=== PATIENT | female | born 1945 | race Caucasian/White ===

== ENCOUNTER 2018-01-03 07:42 | Observation (INO) | payer OTHER ==
[2018-01-03 09:08] LABS: Absolute Lymphocytes (CBC) 1.6 K/uL (0.7-4.9); Absolute Monocytes 0.5 K/uL (0.1-1.3); Absolute Neutrophil 3.8 K/uL (1.8-8.0); Basophils % 0.8 % (0-1.3); Eosinophils % 8.9 % (0-4.4); Hematocrit 34.5 % (36.0-45.0); Lymphocytes % 24.3 % (15.3-44.8); MCH 29.2 pg (27.0-35.0); MCV 89.6 fL (80-100); MPV 7.7 fL (7.6-11.3); Monocytes % 8.2 % (3.3-12.3); Potassium 3.8 mEq/L (3.6-5.0); RBC Red Blood Cell Count 3.85 M/uL (3.86-4.86)
[2018-01-03 09:14] LABS: Albumin 4.2 g/dL (3.2-5.5); Bilirubin Direct 0.1 mg/dL (0-0.2); Magnesium 1.7 mg/dL (1.8-2.5); Protein, Total 8.5 g/dL (6.0-8.3)
[2018-01-03 09:21] LABS: Protime INR 1.01
[2018-01-03] MEDS ORDERED: IPRATROPIUM BROM 0.5MG/2.5ML ONE (09:47)
[2018-01-03] MEDS ORDERED: ALBUTEROL 2.5 MG/3 ML NEB SOL ONE (09:47)
--- NOTE | 2018-01-03 10:17 | EDPHYS ---
Physician Documentation [facility] Name: Reena Gandhi Age: 72 yrs Sex: Female : 1945 Arrival Date: 01/03/2018 Time: 07:45 Bed 13 Private MD: out of town, doctor ED Physician Arvind Valverde HPI: 01/03 08:20 This 72 yrs old Female presents to ER via Ambulatory with complaints of cp Breathing Difficulty. 08:20 The patient has shortness of breath with light activity. Onset: The symptoms/episode cp began/occurred 2 day(s) ago. 08:20 Duration: The symptoms are continuous, and are steadily getting worse. cp 08:20 Associated signs and symptoms: Pertinent negatives: chest pain, productive cough, cp diaphoresis, dizziness, fever, hemoptysis. Severity of symptoms: in the emergency department the symptoms are unchanged despite home interventions. Historical: - Allergies: 08:09 Codeine; tw2 08:09 PENICILLINS; tw2 08:09 Sulfa (Sulfonamide Antibiotics); tw2 - Home Meds: 08:09 chlorthalidone 25 mg Oral tab 1 tab once daily [Active]; sertraline 100 mg oral tab 1 tw2 tab once daily [Active]; hyoscyamine sulfate 0.125 mg SL subl for rectal spasms [Active]; metoprolol tartrate 25 mg Oral tab 1 tab once daily [Active]; senna 8.6 mg oral tab 2 tabs once daily [Active]; benzonatate 100 mg oral cap 1 cap 3 times per day for Cough [Active]; levothyroxine 25 mcg tab 1 tab once daily for Hypothyroidism [Active]; Senexon-S 8.6-50 mg oral tab 2 tabs once daily [Active]; clopidogrel 75 mg oral tab 1 tab once daily [Active]; Lanoxin 125 mcg Oral tab 1 tab once daily [Active]; aspirin 81 mg Oral chew 1 tab once daily [Active]; furosemide 20 mg Oral tab 1 tab once daily [Active]; lisinopril 2.5 mg Oral tab 1 tab once daily [Active]; alprazolam 0.5 mg Oral tab 1 tab 3 times per day [Active]; gabapentin 300 mg oral cap 1 cap 3 times per day [Active]; - PMHx: 08:09 Cancer; TIA; Anxiety; COPD; CHF; tw2 - PSHx: 08:09 Appendectomy; Colostomy; Colostomy reversal; Mastectomy, Left; tw2 - Immunization history:: Adult Immunizations up to date. - Social history:: Smoking status: Patient uses tobacco products, 3-4 cigarettes/day. - Ebola Screening: : Patient denies travel to an Ebola-affected area in the 21 days before illness onset. ROS: 08:25 Constitutional: Negative for body aches, chills, fever, poor PO intake. cp 08:25 Eyes: Negative for injury, pain, redness, and discharge. cp 08:25 ENT: Negative for drainage from ear(s), ear pain, sore throat, difficulty swallowing, difficulty handling secretions. 08:25 Cardiovascular: Negative for chest pain, edema, palpitations. 08:25 Respiratory: Positive for shortness of breath, on exertion. Negative for cough, hemoptysis, wheezing. 08:25 Abdomen/GI: Negative for abdominal pain, nausea, vomiting, and diarrhea, anorexia, black/tarry stool, rectal bleeding. 08:25 Skin: Negative for cellulitis, rash. 08:25 Neuro: Negative for altered mental status, dizziness, headache, syncope, near syncope, weakness. 08:25 All other systems are negative. Exam: 08:32 Constitutional: The patient appears in no acute distress, alert, awake, cp non-diaphoretic, non-toxic, well developed. 08:32 Head/Face: Normocephalic, atraumatic. Eyes: Pupils equal round and reactive to light, cp extra-ocular motions intact. Lids and lashes normal. Conjunctiva and sclera are non-icteric and not injected. Cornea within normal limits. Periorbital areas with no swelling, redness, or edema. ENT: Nares patent. No nasal discharge, no septal abnormalities noted. Tympanic membranes are normal and external auditory canals are clear. Oropharynx with no redness, swelling, or masses, exudates, or evidence of obstruction, uvula midline. Mucous membranes moist. Neck: Trachea midline, no thyromegaly or masses palpated, and no cervical lymphadenopathy. Supple, full range of motion without nuchal rigidity, or vertebral point tenderness. No Meningismus. Chest/axilla: Normal chest wall appearance and motion. Nontender with no deformity. No lesions are appreciated. 08:32 Cardiovascular: Rate: normal, Rhythm: regular, Pulses: Pulses are 2+ in right radial artery and left radial artery. Edema: is not appreciated, JVD: is not appreciated. 08:32 Respiratory: the patient does not display signs of respiratory distress, Respirations: normal, no use of accessory muscles, no retractions, no splinting, no tachypnea, labored breathing, is not present, Breath sounds: decreased breath sounds, that are moderate, throughout, stridor, is not appreciated, wheezing: is not appreciated. 08:32 Abdomen/GI: Inspection: abdomen appears normal, Bowel sounds: active, all quadrants, Palpation: abdomen is soft and non-tender, in all quadrants. 08:32 Back: pain, is absent, ROM is normal. 08:32 Skin: cellulitis, is not appreciated, no rash present. 08:32 Neuro: Orientation: to person, place \T\ time. Mentation: lucid, able to follow commands, Cerebellar function: is grossly normal, Motor: moves all fours, strength is normal, Sensation: no obvious gross deficits, Gait: is steady. 08:51 ECG was reviewed by the Attending Physician. cp Vital Signs: 07:58 BP 134 / 78; Pulse 16; Resp 16; Temp 98; Pulse Ox 95% on R/A; Weight 43.09 kg (R); tw2 Height 5 ft. 2 in. (157.48 cm); Pain 0/10; 08:54 BP 120 / 86; Pulse 63; Resp 18; Pulse Ox 95% on R/A; tw2 10:12 BP 116 / 70; Pulse 61; Resp 19; Pulse Ox 100% on R/A; tw2 11:15 BP 120 / 84; Pulse 65; Resp 17; Pulse Ox 99% on R/A; tw2 12:28 BP 133 / 96; Pulse 71; Resp 17; Pulse Ox 98% on R/A; tw2 07:58 Body Mass Index 17.38 (43.09 kg, 157.48 cm) tw2 MDM: 07:59 Patient medically screened. cp 08:15 Differential diagnosis: Bronchitis CHF exacerbation, Chronic Obstructive Pulmonary cp Disease Myocardial Infarction pneumonia, Pneumothorax pulmonary edema, Pulmonary Embolism reactive airway disease, Unstable Angina. 10:00 Data reviewed: vital signs, nurses notes, lab test result(s), EKG, radiologic studies, cp plain films, and as a result, I will admit patient. 10:00 Test interpretation: by ED physician or midlevel provider: ECG, plain radiologic cp studies. 10:05 Physician consultation: Alla WILLIAMSON was contacted at 10:05, regarding cp admission, to the telemetry unit. patient's condition, and will see patient in ED, shortly. 01/03 08:07 Order name: Basic Metabolic Panel; Complete Time: 09:27 cp 01/03 09:27 Interpretation: Normal except: CL 100; BUN 23; CRE 1.03; GFR 53. cp 01/03 08:07 Order name: BNP; Complete Time: 09:27 cp 01/03 09:27 Interpretation: Abnormal: BNP 345. cp 01/03 08:07 Order name: CBC with Diff; Complete Time: 09:27 cp 01/03 09:28 Interpretation: Normal except: RBC 3.85; HGB 11.2; HCT 34.5; RDW 15.9; EOSINOPHIL % cp 8.9; EOSA 0.6. 01/03 08:07 Order name: Ckmb; Complete Time: 09:27 cp 01/03 08:07 Order name: CPK; Complete Time: 09:27 cp 01/03 08:07 Order name: LFT's; Complete Time: 09:27 cp 01/03 09:28 Interpretation: Normal except: ALK 171; TP 8.5; GLOB 4.3; A/G 1.0. cp 01/03 08:07 Order name: Magnesium; Complete Time: 09:27 cp 01/03 09:28 Interpretation: Abnormal: MG 1.7. cp 01/03 08:07 Order name: PT-INR; Complete Time: 09:27 cp 01/03 08:07 Order name: Ptt, Activated; Complete Time: 09:27 cp 01/03 08:07 Order name: Troponin (emerg Dept Use Only); Complete Time: 09:27 cp 01/03 08:07 Order name: XRAY Chest (1 view); Complete Time: 11:47 cp 01/03 09:14 Order name: Urine Dipstick--Ancillary (enter results) bd 01/03 10:20 Order name: Add On-Lab snw 01/03 10:55 Order name: Digoxin Level; Complete Time: 11:47 EDMS 01/03 08:07 Order name: EKG; Complete Time: 08:08 cp 01/03 08:07 Order name: Cardiac monitoring; Complete Time: 08:49 cp 01/03 08:07 Order name: EKG - Nurse/Tech; Complete Time: 10:17 cp 01/03 08:07 Order name: IV Saline Lock; Complete Time: 10:17 cp 01/03 08:07 Order name: Labs collected and sent; Complete Time: 10:17 cp 01/03 08:07 Order name: O2 Per Protocol; Complete Time: 10: cp 01/03 08:07 Order name: O2 Sat Monitoring; Complete Time: 10:17 cp 01/03 08:07 Order name: Urine Dipstick-Ancillary (obtain specimen); Complete Time: 08:35 cp 01/03 11:19 Order name: Diet 2 Gm Sodium; Complete Time: 11:19 tw2 EC:51 Rate is 59 beats/min. Rhythm is regular. RI interval is normal. QRS interval is normal. cp QT interval is normal. T waves are Inverted in lead V6. No ST changes noted. Interpreted by me. Reviewed by me. Administered Medications: 09:59 Drug: Albuterol 2.5 mg Route: Inhalation; tw2 10:25 Follow up: Response: No adverse reaction tw2 09:59 Drug: AtroVENT Aerosol 0.5 mg Route: Inhalation; tw2 10:25 Follow up: Response: No adverse reaction tw2 10:10 CANCELLED (Physician Discretion): Lasix 40 mg IVP once cp 10:24 Drug: Magnesium 400 mg Route: PO; tw2 10:25 Follow up: Response: No adverse reaction tw2 10:24 Drug: Lasix 20 mg Route: IVP; Site: right forearm; tw2 11:52 Follow up: Response: No adverse reaction tw2 Disposition: 01/03/18 10:16 Hospitalization ordered by Carson Leger for Observation. Preliminary diagnosis are Pulmonary edema, Dyspnea. - Bed requested for Telemetry/MedSurg (observation). - Status is Observation. tw2 - Condition is Stable. - Problem is an acute exacerbation. - Symptoms are unchanged. UTI on Admission? No Addendum: 01/11/2018 11:52 Co-signature as Attending Physician, Arvind Valverde MD Available for consultation at p s1 all times. . Signatures: Dispatcher [employer] Sherine Amaya RN RN dw Alla Mendez, [employer]IPPER MACHINE-C [employer]IPPER MACHINE-Csnw Jose Nieves PA PA cp Yaritza Gooden, RN RN tw2 Arvind Valverde MD MD ps1 Corrections: (The following items were deleted from the chart) 01/03 09:28 09:27 Normal except: RBC 3.85; HGB 11.2; HCT 34.5; RDW 15.9; EOSINOPHIL % 8.9. cp cp 10:10 10:10 Lasix 40 mg IVP once ordered. cp cp 11:46 10:16 Hospitalization Ordered by CarsonSherin GARY for Observation. Preliminary dw diagnosis is Pulmonary edema; Dyspnea. Bed requested for Telemetry/MedSurg (observation). Status is Observation. Condition is Stable. Problem is an acute exacerbation. Symptoms are unchanged. UTI on Admission? No. cp 13:09 11:46 01/03/2018 10:16 Hospitalization Ordered by CarsonSherin GARY for Observation. tw2 Preliminary diagnosis is Pulmonary edema; Dyspnea. Bed requested for Telemetry/MedSurg (observation). Status is Observation. Condition is Stable. Problem is an acute exacerbation. Symptoms are unchanged. UTI on Admission? No. dw
--- NOTE | 2018-01-03 10:17 | ER ---
Nurse's Notes [facility] Name: Reena Gandhi Age: 72 yrs Sex: Female : 1945 Arrival Date: 01/03/2018 Time: 07:45 Bed 13 Private MD: out of town, doctor Diagnosis: Pulmonary edema;Dyspnea Presentation: 01/03 07:57 Presenting complaint: Patient states: SOB x2days, cant lay flat. Transition of care: tw2 patient was not received from another setting of care. Onset of symptoms was January 03, 2018. Risk Assessment: Do you want to hurt yourself or someone else? Patient reports no desire to harm self or others. Initial Sepsis Screen: Does the patient meet any 2 criteria? No. Patient's initial sepsis screen is negative. Does the patient have a suspected source of infection? No. Patient's initial sepsis screen is negative. Care prior to arrival: None. 07:57 Method Of Arrival: Ambulatory tw2 07:57 Acuity: MARKIE 3 tw2 Triage Assessment: 08:59 General: Appears in no apparent distress. Respiratory: Reports shortness of breath at tw2 rest Onset: The symptoms/episode began/occurred 2 days ago, the patient has mild shortness of breath. Historical: - Allergies: 08:09 Codeine; tw2 08:09 PENICILLINS; tw2 08:09 Sulfa (Sulfonamide Antibiotics); tw2 - Home Meds: 08:09 chlorthalidone 25 mg Oral tab 1 tab once daily [Active]; sertraline 100 mg oral tab 1 tw2 tab once daily [Active]; hyoscyamine sulfate 0.125 mg SL subl for rectal spasms [Active]; metoprolol tartrate 25 mg Oral tab 1 tab once daily [Active]; senna 8.6 mg oral tab 2 tabs once daily [Active]; benzonatate 100 mg oral cap 1 cap 3 times per day for Cough [Active]; levothyroxine 25 mcg tab 1 tab once daily for Hypothyroidism [Active]; Senexon-S 8.6-50 mg oral tab 2 tabs once daily [Active]; clopidogrel 75 mg oral tab 1 tab once daily [Active]; Lanoxin 125 mcg Oral tab 1 tab once daily [Active]; aspirin 81 mg Oral chew 1 tab once daily [Active]; furosemide 20 mg Oral tab 1 tab once daily [Active]; lisinopril 2.5 mg Oral tab 1 tab once daily [Active]; alprazolam 0.5 mg Oral tab 1 tab 3 times per day [Active]; gabapentin 300 mg oral cap 1 cap 3 times per day [Active]; - PMHx: 08:09 Cancer; TIA; Anxiety; COPD; CHF; tw2 - PSHx: 08:09 Appendectomy; Colostomy; Colostomy reversal; Mastectomy, Left; tw2 - Immunization history:: Adult Immunizations up to date. - Social history:: Smoking status: Patient uses tobacco products, 3-4 cigarettes/day. - Ebola Screening: : Patient denies travel to an Ebola-affected area in the 21 days before illness onset. Screenin:59 Abuse screen: Denies threats or abuse. Nutritional screening: No deficits noted. tw2 Tuberculosis screening: No symptoms or risk factors identified. Fall Risk None identified. Assessment: 08:00 General: Appears in no apparent distress. slender, well groomed, Behavior is calm, tw2 cooperative, appropriate for age. Neuro: Level of Consciousness is awake, alert, obeys commands, Oriented to person, place, time. Cardiovascular: Heart tones S1 S2 Capillary refill < 3 seconds Patient's skin is warm and dry. Rhythm is regular. Respiratory: Airway is patent Respiratory effort is even, unlabored, Respiratory pattern is regular, symmetrical, Breath sounds are clear bilaterally. GI: No signs and/or symptoms were reported involving the gastrointestinal system. Abdomen is flat, Bowel sounds present X 4 quads. : No signs and/or symptoms were reported regarding the genitourinary system. EENT: No signs and/or symptoms were reported regarding the EENT system. Derm: No signs and/or symptoms reported regarding the dermatologic system. Musculoskeletal: Circulation, motion, and sensation intact. Range of motion: intact in all extremities. 08:55 Reassessment: Patient appears in no apparent distress at this time. No changes from tw2 previously documented assessment. Patient and/or family updated on plan of care and expected duration. Pain level reassessed. Patient is alert, oriented x 3, equal unlabored respirations, skin warm/dry/pink. 08:58 Pain: Denies pain. tw2 10:12 Reassessment: Patient appears in no apparent distress at this time. No changes from tw2 previously documented assessment. Patient and/or family updated on plan of care and expected duration. Pain level reassessed. Patient is alert, oriented x 3, equal unlabored respirations, skin warm/dry/pink. 11:15 Reassessment: Patient appears in no apparent distress at this time. No changes from tw2 previously documented assessment. Patient and/or family updated on plan of care and expected duration. Pain level reassessed. Patient is alert, oriented x 3, equal unlabored respirations, skin warm/dry/pink. 12:29 Reassessment: Patient appears in no apparent distress at this time. No changes from tw2 previously documented assessment. Patient and/or family updated on plan of care and expected duration. Pain level reassessed. Patient is alert, oriented x 3, equal unlabored respirations, skin warm/dry/pink. 12:48 Reassessment: Patient appears in no apparent distress at this time. No changes from tw2 previously documented assessment. Patient and/or family updated on plan of care and expected duration. Pain level reassessed. Patient is alert, oriented x 3, equal unlabored respirations, skin warm/dry/pink. Vital Signs: 07:58 BP 134 / 78; Pulse 16; Resp 16; Temp 98; Pulse Ox 95% on R/A; Weight 43.09 kg (R); tw2 Height 5 ft. 2 in. (157.48 cm); Pain 0/10; 08:54 BP 120 / 86; Pulse 63; Resp 18; Pulse Ox 95% on R/A; tw2 10:12 BP 116 / 70; Pulse 61; Resp 19; Pulse Ox 100% on R/A; tw2 11:15 BP 120 / 84; Pulse 65; Resp 17; Pulse Ox 99% on R/A; tw2 12:28 BP 133 / 96; Pulse 71; Resp 17; Pulse Ox 98% on R/A; tw2 07:58 Body Mass Index 17.38 (43.09 kg, 157.48 cm) tw2 ED Course: 07:45 Patient arrived in ED. mr 07:46 out of town, doctor is Private Physician. mr 07:53 Yaritza Gooden, GIDEON is Primary Nurse. tw2 07:58 Triage completed. tw2 07:58 Arvind Valverde MD is Attending Physician. ps1 07:58 oJse Nieves PA is PHCP. cp 07:58 Arm band placed on. tw2 07:59 Placed in gown. Bed in low position. Adult w/ patient. monitoring coordinator on. Pulse ox on. tw2 NIBP on. 08:25 XRAY Chest (1 view) In Process Unspecified. EDPR 08:34 Urine collected: clean catch specimen, cloudy. 5 08:35 Missed attempt(s): 22 gauge in right antecubital area. Bleeding controlled, band aid tw2 applied, catheter tip intact. Inserted saline lock: 22 gauge in right forearm, using aseptic technique. Blood collected. 08:49 EKG done, by ED staff, reviewed by Arvind Valverde MD. [facility] 08:50 Warm blanket given. 5 09:09 No provider procedures requiring assistance completed. tw2 10:15 Carson Leger DO is Hospitalizing Provider. cp 11:51 Awaiting: attempted to call report at this time, per Constantine Prince nurse is not ready to [facility] receive report at this time, needs 30 minutues. 12:27 Awaiting: attempted to call report, per Constantine Prince the nurse is with her other pt at [facility] this time and will have to call me back. 12:48 Patient admitted, IV remains in place. tw2 Administered Medications: 09:59 Drug: Albuterol 2.5 mg Route: Inhalation; tw2 10:25 Follow up: Response: No adverse reaction tw2 09:59 Drug: AtroVENT Aerosol 0.5 mg Route: Inhalation; tw2 10:25 Follow up: Response: No adverse reaction tw2 10:10 CANCELLED (Physician Discretion): Lasix 40 mg IVP once cp 10:24 Drug: Magnesium 400 mg Route: PO; tw2 10:25 Follow up: Response: No adverse reaction tw2 10:24 Drug: Lasix 20 mg Route: IVP; Site: right forearm; tw2 11:52 Follow up: Response: No adverse reaction tw2 Outcome: 10:16 Decision to Hospitalize by Provider. cp 12:58 Admitted to Med/surg accompanied by constantine, via wheelchair, with chart, Report called to tw2 GIDEON Busby 12:58 Condition: stable 12:58 Instructed on the need for admit. 13:09 Patient left the ED. tw2 Signatures: Dispatcher [employer] ANANYAPR Tamayo, Jose Lockwood PA PA cp Wise, Tara, RN RN 2 Dandre [facility]5 Arvind Valverde MD MD ps1 Corrections: (The following items were deleted from the chart) 08:59 08:00 Pain: Complains of pain in right arm tw2 tw2 :59 08:00 Musculoskeletal: Circulation, motion, and sensation intact. Range of motion: tw2 intact in all extremities, tw2
[2018-01-03] MEDS ORDERED: FUROSEMIDE 20 MG/ 2ML VIAL ONE (10:20)
[2018-01-03] MEDS ORDERED: MAGNESIUM OXIDE 400 MG TAB ONE (10:20)
--- NOTE | 2018-01-03 11:27 | RAD REPORT ---
EXAM DESCRIPTION: RAD - Chest Single View - 01/03/2018 8:25 am CLINICAL HISTORY: Shortness of breath, smoking history, prior cancer history with left mastectomy COMPARISON: None. TECHNIQUE: AP portable chest image was obtained 0820 hours . FINDINGS: Lung volumes are normal. Very extensive interstitial lung disease present. Baseline for th e patient is unknown. Patient likely has a significant baseline fibrosis with a superimposed intersti tial edema or infiltrate pattern. In the left upper lung field at the level of the aortic arch there is a 10 millimeter nodule identified. Additional smaller nodules could be present an mass by the armor senior sergeant navya pattern borderline cardiomegaly is present. Vasculature within normal limits. No measurable pleur al effusion and no pneumothorax. No gross bony abnormality seen. No acute aortic finding. Calcificati ons are present. Surgical clips are seen near the left axilla. IMPRESSION: Extensive interstitial lung disease pattern. Baseline pattern is unknown. This could all be chronic disease. However, superimposed interstitial ed donnie or infiltrate is certainly possible. Left upper lobe pulmonary nodule. In a patient with malignant history, a metastatic nodule cannot be excluded. If no old outside imaging is available, follow-up CT chest imaging would be suggested.
--- NOTE | 2018-01-03 12:30 | P.HP ---
Certification for Inpatient Patient admitted to: Observation With expected LOS: <2 Midnights Patient will require the following post-hospital care: None Practitioner: I am a practitioner with admitting privileges, knowledge of patient current condition, hospital course, and medical plan of care. Services: Services provided to patient in accordance with Admission requirements found in Title 42 Section 412.3 of the Code of Federal Regulations <Alla Mendez - Last Filed: 01/03/18 12:18> Patient admitted to: Observation With expected LOS: <2 Midnights Patient will require the following post-hospital care: None Practitioner: I am a practitioner with admitting privileges, knowledge of patient current condition, hospital course, and medical plan of care. Services: Services provided to patient in accordance with Admission requirements found in Title 42 Section 412.3 of the Code of Federal Regulations <Carson Leger - Last Filed: 01/03/18 13:40> Patient History Date of Service: 01/03/18 Primary Care Provider: Dr. Orta Reason for admission: Shortness of breath, CHF History of Present Illness: Pt states for the past 2 days she has had dyspnea on exertion. Historically, pt presented to [place] with SOB. NSTEMI dx, pt given TNK, asa, plavix and life flight took her to [facility]. She had two stents placed with subsequent right upper lobe bleeding. She was dc'd post a 12 day admission. Pt was home for 5 days, 2 of which she describes terrible SOB and rib squeezing. She was life flighted to [facility] and rec'd two additional stents. She had ARIANNE with note of global hypokinesia, EF 28-35%. Pt was discharged to home on <AndreaAlla morales - Last Filed: 01/03/18 12:18> Date of Service: 01/03/18 History of Present Illness: 72-year-old female presented emergency room with shortness of breath. Patient with 2 previous hospitalizations requiring stent placement. Patient is had a total of 4 stents. On her last hospitalization to [facility] in [place] she had a transesophageal echocardiogram showing global hypokinesis. Ejection fraction was about 28-35%. Patient was discharged on 11/27/2017. Today she presented to the ER with shortness of breath. No nausea or vomiting noted. No edema to the lower extremities noted. When I saw the patient she was without any significant distress. She was eating lunch. Patient had reported some chest pain earlier. Patient had normal troponin. BNP was slightly elevated. Patient with mild renal insufficiency, hypo magnesium and anemia. Chest x-ray showed no volume overload. Left upper lobe Pulmonary nodule noted Home medications list reviewed: Yes - Past Medical/Surgical History Diabetic: No -: CAD with 4 stents -: Hypothyroidism -: Hypertension -: Hyperlipidemia -: CHF, systolic dysfunction. EF 28% -: Depression with anxiety -: COPD -: Anemia -: Recent heart catheterizations x2, 4 stents placed Psychosocial/ Personal History: Patient lives at home - Family History Family History: Reviewed- Non-Contributory - Social History Smoking Status: Former smoker Counseled patient to stop smoking for: less than 10 minutes Smoking therapy provided: Yes Patient receptive to therapy: Yes Alcohol use: No CD- Drugs: No Caffeine use: No Place of Residence: Home <Carson Leger - Last Filed: 01/03/18 13:40> Allergies Penicillins Allergy (Severe, Verified 10/23/16 12:44) Itching/Hives/Rash codeine Allergy (Intermediate, Verified 10/23/16 12:44) Itching/Hives/Rash Sulfa (Sulfonamide Antibiotics) Adverse Reaction (Mild, Verified 10/23/16 12:44) Nausea/Vomiting Home Medications: Levothyroxine Sodium 50 mcg PO DAILY 09/08/16 Tramadol HCl [Ultram] 50 mg PO QIDP PRN 09/08/16 Review of Systems General: Malaise Eyes: Unremarkable ENT: Unremarkable Respiratory: SOB with Excertion, Other (no hemoptysis) Cardiovascular: Other (denies pain but describes uncomfortable feeling) Gastrointestinal: Unremarkable Genitourinary: Unremarkable Musculoskeletal: Unremarkable Integumentary: Unremarkable Neurological: Unremarkable <Alla Mendez - Last Filed: 01/03/18 12:18> General: Malaise Eyes: Unremarkable ENT: Unremarkable Respiratory: SOB with Excertion, Other Cardiovascular: Other Gastrointestinal: Unremarkable Genitourinary: Unremarkable Musculoskeletal: Unremarkable Integumentary: Unremarkable Neurological: Unremarkable Lymphatics: Unremarkable <Carson Leger - Last Filed: 01/03/18 13:40> Physical Examination - Vital Signs Temperature: 98 F Blood Pressure: 134/78 Pulse: 78 Respirations: 18 Pulse Ox (%): 98 - Physical Exam General: Alert, Oriented x3, Cooperative HEENT: Atraumatic, Normocephalic Neck: Supple, 2+ carotid pulse no bruit, JVD not distended Respiratory: Clear to auscultation bilaterally Cardiovascular: No edema, Normal pulses, Regular rate/rhythm, Normal S1 S2 Capillary refill: <2 Seconds Gastrointestinal: Normal bowel sounds, Soft and benign, Non-distended, Other ( thin) Musculoskeletal: No clubbing, No swelling, No contractures, No tenderness Integumentary: No rashes Neurological: Normal speech Lymphatics: No axilla or inguinal lymphadenopathy External genitalia: Deferred Rectal: Deferred - Studies Laboratory Data (last 24 hrs) 01/03/18 08:35: PT 11.9, INR 1.01, APTT 28.6 01/03/18 08:35: WBC 6.6, Hgb 11.2 L, Hct 34.5 L, Plt Count 301 01/03/18 08:35: B-Natriuretic Peptide 345 H 01/03/18 08:35: Sodium 137, Potassium 3.8, BUN 23 H, Creatinine 1.03 H, Glucose 99, Magnesium 1.7 L, Total Bilirubin 1.0, AST 21, ALT 19, Alkaline Phosphatase 171 H <Alla Mendez - Last Filed: 01/03/18 12:18> - Physical Exam General: Alert, In no apparent distress, Oriented x3, Cooperative HEENT: Atraumatic, Normocephalic, PERRLA Neck: Supple, 2+ carotid pulse no bruit, JVD not distended Respiratory: Clear to auscultation bilaterally Cardiovascular: No edema, Normal pulses, Regular rate/rhythm, Normal S1 S2 Capillary refill: <2 Seconds Gastrointestinal: Normal bowel sounds, Soft and benign, Non-distended, No masses , No rebound, No guarding, Other Musculoskeletal: No clubbing, No swelling, No contractures, No tenderness Integumentary: No rashes, No tenderness/swelling, No erythema, No warmth, No cyanosis Neurological: Normal speech, Normal strength at 5/5 x4 extr, Normal tone Lymphatics: No axilla or inguinal lymphadenopathy - Studies Laboratory Data (last 24 hrs) 01/03/18 08:35: PT 11.9, INR 1.01, APTT 28.6 01/03/18 08:35: WBC 6.6, Hgb 11.2 L, Hct 34.5 L, Plt Count 301 01/03/18 08:35: B-Natriuretic Peptide 345 H 01/03/18 08:35: Sodium 137, Potassium 3.8, BUN 23 H, Creatinine 1.03 H, Glucose 99, Magnesium 1.7 L, Total Bilirubin 1.0, AST 21, ALT 19, Alkaline Phosphatase 171 H <Carson Leger - Last Filed: 01/03/18 13:40> Assessment and Plan - Problems (Diagnosis) (1) ACS (acute coronary syndrome) Current Visit: No Status: Acute (2) COPD (chronic obstructive pulmonary disease) Current Visit: Yes Status: Acute Plan: O2 per protocol, continue inhaled medications, promote pulmonary toilet, DVT prophylaxis Qualifiers: COPD type: COPD with acute exacerbation Qualified Code(s): J44.1 - Chronic obstructive pulmonary disease with (acute) exacerbation (3) Renal insufficiency Current Visit: No Status: Acute (4) CHF (congestive heart failure) Current Visit: Yes Status: Acute Plan: Continue lasix, assess for improvement in symptoms, promote best EF possible with medication, consult Cardiology Qualifiers: Heart failure type: combined systolic and diastolic Heart failure chronicity: chronic Qualified Code(s): I50.42 - Chronic combined systolic ( congestive) and diastolic (congestive) heart failure - Plan Admit for 23 hour obs. Repeat troponin, EKG reading, consult cardiology, Lasix Plan to discharge in: 24 Hours - Advance Directives Does patient have a Living Will: No Does patient have a Durable POA for Healthcare: No - Code Status/Comfort Care Code Status Assessed: Yes Code Status: Full Code <Alla Mendez - Last Filed: 01/03/18 12:18> - Problems (Diagnosis) (1) Chest pain Current Visit: Yes Status: Acute Plan: Will monitor cardiac enzymes. Recent transesophageal echo shows ejection fraction of about 30%. Cardiology consulted. Chest x-ray shows no volume overload. Will continue with her medications. Qualifiers: Chest pain type: unspecified Qualified Code(s): R07.9 - Chest pain, unspecified (2) Shortness of breath Current Visit: Yes Status: Acute Plan: Patient likely with underlying COPD. Will continue with her medication. Chest x-ray shows left upper lobe nodule. Will consult pulmonology to further assess. Patient may require home oxygen. (3) Anemia Current Visit: Yes Status: Chronic Plan: Likely of chronic disease. Will monitor closely. Qualifiers: Anemia type: other cause Other causes of anemia: chronic disease, other Qualified Code(s): D63.8 - Anemia in other chronic diseases classified elsewhere (4) Hypertension Current Visit: Yes Status: Chronic Plan: Will continue with her medication. Qualifiers: Hypertension type: essential hypertension Qualified Code(s): I10 - Essential (primary) hypertension (5) CAD (coronary artery disease) Current Visit: Yes Status: Chronic Plan: Will monitor cardiac enzymes. Patient with recent hospitalizations x2 requiring a total 4 stents. Cardiology consulted. Qualifiers: Coronary Disease-Associated Artery/Lesion type: unspecified vessel or lesion type Associated angina: angina presence unspecified (6) Hypothyroidism Current Visit: Yes Status: Chronic Plan: Continue with her medication. Will check tsh Qualifiers: Hypothyroidism type: unspecified Qualified Code(s): E03.9 - Hypothyroidism , unspecified (7) Hyperlipidemia Current Visit: Yes Status: Chronic Plan: Will check fasting lipid panel, will continue with medication Qualifiers: Hyperlipidemia type: unspecified Qualified Code(s): E78.5 - Hyperlipidemia , unspecified (8) Depression with anxiety Current Visit: Yes Status: Chronic Plan: Continue with her medication (9) CHF (congestive heart failure) Current Visit: Yes Status: Acute Plan: Will continue with her Lasix. Will teach on 1500 cc per day fluid restriction. No significant demand noted. No overload noted. Cardiology consulted Qualifiers: Heart failure type: combined systolic and diastolic Heart failure chronicity: chronic Qualified Code(s): I50.42 - Chronic combined systolic ( congestive) and diastolic (congestive) heart failure (10) COPD (chronic obstructive pulmonary disease) Current Visit: Yes Status: Acute Plan: Will start low-dose steroid. Will continue with COPD treatment. Pulmonology consulted. Will check to see if the patient may require home oxygen. Qualifiers: COPD type: COPD with acute exacerbation Qualified Code(s): J44.1 - Chronic obstructive pulmonary disease with (acute) exacerbation (11) Pulmonary nodule Current Visit: Yes Status: Acute Plan: Left upper lobe pulmonary nodule noted. Pulmonology consulted. Patient may require repeat CT scan to further assess Discharge Plan: Home Plan to discharge in: 24 Hours - Advance Directives Does patient have a Living Will: No Does patient have a Durable POA for Healthcare: No - Code Status/Comfort Care Code Status Assessed: Yes Code Status: Full Code Physician Review: Patient Assessed, Agree with Above Assessment and Plan Time Spent Managing Pts Care (In Minutes): 55 <Carson Leger - Last Filed: 01/03/18 13:40>
[2018-01-03] MEDS ORDERED: ACETAMINOPHEN 500 MG TAB PO PRN (13:18)
[2018-01-03] MEDS ORDERED: DIGOXIN 0.125 MG TABLET PO ONE (13:18)
[2018-01-03] MEDS ORDERED: ALPRAZOLAM 0.25 MG TABLET PO PRN (13:18)
[2018-01-03 13:35] VITALS: BMI 17.4
[2018-01-03] MEDS ORDERED: MIDODRINE HCL 5 MG TABLET PO SCH (14:00)
[2018-01-03 14:29] LABS: Urine Blood NEGATIVE (NEG); Urine Glucose NEGATIVE (NEG); Urine Protein NEGATIVE (NEG); Urine Specific Gravity 1.015 (1.005-1.030)
[2018-01-03 15:10] VITALS: O2SAT 96
[2018-01-03] MEDS ORDERED: ENOXAPARIN 30 MG/0.3 ML SQ SCH (17:00)
[2018-01-03] MEDS ORDERED: METOPROLOL TAR 25 MG TAB PO SCH ×3 (18:00)
--- NOTE | 2018-01-03 19:03 | P.DS ---
Admission Date: 01/03/18 Discharge Date: 01/03/18 Primary Care Provider: Dr. Orta Disposition: ROUTINE DISCHARGE Discharge Condition: GOOD Reason for Admission: Shortness of breath, CHF Consultations: Cardiology-Dr. Back Procedures: Chest x-ray: FINDINGS: Lung volumes are normal. Very extensive interstitial lung disease present. Baseline for the patient is unknown. Patient likely has a significant baseline fibrosis with a superimposed interstitial edema or infiltrate pattern. In the left upper lung field at the level of the aortic arch there is a 10 millimeter nodule identified. Additional smaller nodules could be present an mass by the chronic pattern borderline cardiomegaly is present. Vasculature within normal limits. No measurable pleural effusion and no pneumothorax. No gross bony abnormality seen. No acute aortic finding. Calcifications are present. Surgical clips are seen near the left axilla. IMPRESSION: Extensive interstitial lung disease pattern. Baseline pattern is unknown. This could all be chronic disease. However, superimposed interstitial edema or infiltrate is certainly possible. Left upper lobe pulmonary nodule. In a patient with malignant history, a metastatic nodule cannot be excluded. If no old outside imaging is available, follow-up CT chest imaging would be suggested. - Problems (1) Chest pain Current Visit: Yes Status: Acute Qualifiers: Chest pain type: unspecified Qualified Code(s): R07.9 - Chest pain, unspecified (2) Shortness of breath Current Visit: Yes Status: Acute (3) Anemia Current Visit: Yes Status: Chronic Qualifiers: Anemia type: other cause Other causes of anemia: chronic disease, other Qualified Code(s): D63.8 - Anemia in other chronic diseases classified elsewhere (4) Hypertension Current Visit: Yes Status: Chronic Qualifiers: Hypertension type: essential hypertension Qualified Code(s): I10 - Essential (primary) hypertension (5) CAD (coronary artery disease) Current Visit: Yes Status: Chronic Qualifiers: Coronary Disease-Associated Artery/Lesion type: unspecified vessel or lesion type Associated angina: angina presence unspecified (6) Hypothyroidism Current Visit: Yes Status: Chronic Qualifiers: Hypothyroidism type: unspecified Qualified Code(s): E03.9 - Hypothyroidism , unspecified (7) Hyperlipidemia Current Visit: Yes Status: Chronic Qualifiers: Hyperlipidemia type: unspecified Qualified Code(s): E78.5 - Hyperlipidemia , unspecified (8) Depression with anxiety Current Visit: Yes Status: Chronic (9) CHF (congestive heart failure) Current Visit: Yes Status: Acute Qualifiers: Heart failure type: combined systolic and diastolic Heart failure chronicity: chronic Qualified Code(s): I50.42 - Chronic combined systolic ( congestive) and diastolic (congestive) heart failure (10) COPD (chronic obstructive pulmonary disease) Current Visit: Yes Status: Acute Qualifiers: COPD type: COPD with acute exacerbation Qualified Code(s): J44.1 - Chronic obstructive pulmonary disease with (acute) exacerbation (11) Pulmonary nodule Current Visit: Yes Status: Acute Brief History of Present Illness: 72-year-old female presented emergency room with shortness of breath. Patient with 2 previous hospitalizations requiring stent placement. Patient is had a total of 4 stents. On her last hospitalization to [facility] in [place] she had a transesophageal echocardiogram showing global hypokinesis. Ejection fraction was about 28-35%. Patient was discharged on 11/27/2017. Today she presented to the ER with shortness of breath. No nausea or vomiting noted. No edema to the lower extremities noted. When I saw the patient she was without any significant distress. She was eating lunch. Patient had reported some chest pain earlier. Patient had normal troponin. BNP was slightly elevated. Patient with mild renal insufficiency, hypo magnesium and anemia. Chest x-ray showed no volume overload. Left upper lobe Pulmonary nodule noted Hospital Course: The patient did well in the course of her stay. Patient was evaluated by cardiology. No intervention is needed at this time. Patient has acute on chronic combined CHF. Patient had not been taking her Lasix on a regular basis. Case discussed at length with cardiology. Patient will be discharged on Lasix 20 mg 1 pill daily. Patient will also continue with chlorthalidone 25 mg 1 pill once daily. Recommendation is to continue a 1500 cc per day fluid restriction and low-salt diet. Recommendations for the patient to monitor her weight daily. If her weight increases by more than 5 lb she is to contact her PCP or cardiology for recommendation. Patient will follow up with cardiology on Thursday at 9:00 a.m. to follow care. Patient has CAD. Patient had recent hospitalizations in [place] requiring a total 4 stents. Cardiology will follow up with patient on Thursday. At discharge patient will continue with aspirin 81 mg 1 pill daily and Plavix 75 mg 1 pill daily. Patient has underlying COPD. Patient may have had a mild exacerbation. At discharge patient will continue with prednisone 10 mg 1 pill twice daily for 5 days then 1 pill once daily for 5 days. At discharge patient will continue with COPD treatment-Symbicort 2 puffs twice daily and Pro air 2 puffs 3 times a day as needed for shortness of breath. Recommendation is for the patient to follow up with pulmonology as an outpatient to further establish care and to continue her care.. Patient has hypertension. Patient will continue with her medication-lisinopril 2.5 mg 1 pill once daily and metoprolol 25 mg 1 pill once daily. Recommendation is to maintain blood pressures less 150/80. Further adjustment can be done by her PCP. Patient had abnormal chest x-ray showing left upper lobe pulmonary nodule. Recommendation is for the patient to establish care with pulmonology as an outpatient to further monitor. Patient may require outpatient CT scan to further evaluate. Patient has hypothyroidism. She will continue with her medication-Levoxyl 25 mcg daily. Patient has hyperlipidemia, patient will continue with medication-Lipitor 40 mg 1 pill once daily Vital Signs/Physical Exam: Temp Pulse Resp BP Pulse Ox 97.9 F 64 18 121/63 93 01/03/18 16:00 01/03/18 16:00 01/03/18 16:00 01/03/18 16:00 01/03/18 16:00 General: Alert, In no apparent distress, Oriented x3, Cooperative HEENT: Atraumatic, Mucous membr. moist/pink Neck: Supple Respiratory: Clear to auscultation bilaterally, Normal air movement Cardiovascular: Normal pulses, Regular rate/rhythm Gastrointestinal: Normal bowel sounds, Soft and benign, Non-distended, No tenderness, No masses, No rebound, No guarding Musculoskeletal: No erythema, No tenderness, No warmth Integumentary: No tenderness/swelling, No erythema, No warmth, No cyanosis Neurological: Normal speech, Normal strength at 5/5 x4 extr, Normal tone, Normal affect Lymphatics: No axilla or inguinal lymphadenopathy Laboratory Data at Discharge: WBC 6.6 K/uL (4.3-10.9) 01/03/18 08:35 Hgb 11.2 g/dL (12.0-15.0) L 01/03/18 08:35 Hct 34.5 % (36.0-45.0) L 01/03/18 08:35 Plt Count 301 K/uL (152-406) 01/03/18 08:35 PT 11.9 SECONDS (9.5-12.5) 01/03/18 08:35 INR 1.01 01/03/18 08:35 APTT 28.6 SECONDS (24.3-36.9) 01/03/18 08:35 Sodium 137 mEq/L (135-145) 01/03/18 08:35 Potassium 3.8 mEq/L (3.6-5.0) 01/03/18 08:35 BUN 23 mg/dL (6-20) H 01/03/18 08:35 Creatinine 1.03 mg/dL (0.44-1.00) H 01/03/18 08:35 Glucose 99 mg/dL (65-120) 01/03/18 08:35 Magnesium 1.7 mg/dL (1.8-2.5) L 01/03/18 08:35 Total Bilirubin 1.0 mg/dL (0.3-1.2) 01/03/18 08:35 AST 21 IU/L (10-42) 01/03/18 08:35 ALT 19 IU/L (10-60) 01/03/18 08:35 Alkaline Phosphatase 171 IU/L (42-121) H 01/03/18 08:35 Troponin I 0.03 ng/mL (<0.03) 01/03/18 13:30 B-Natriuretic Peptide 345 pg/ml (<=100) H 01/03/18 08:35 Home Medications: Levothyroxine Sodium 25 mcg PO DAILY 09/08/16 Tramadol HCl [Ultram] 50 mg PO QIDP PRN 09/08/16 Albuterol Sulfate [Proair Hfa] 8.5 gm IH TID PRN #1 hfa.[email or web address] 01/03/18 Alprazolam 1 tab PO TID 01/03/18 Aspirin [Aspirin EC 81 MG] 1 tab PO DAILY 01/03/18 Atorvastatin Calcium [Lipitor] 40 mg PO DAILY #30 tablet 01/03/18 Benzonatate [Tessalon Perle*] 100 mg PO TID 01/03/18 Budesonide/Formoterol Fumarate [Symbicort 160-4.5 Mcg Inhaler] 2 puff IH BID #1 hfa.aer.ad 01/03/18 Chlorthalidone 1 tab PO DAILY 01/03/18 Clopidogrel Bisulfate [Plavix*] 1 tab PO DAILY 01/03/18 Digoxin [Lanoxin*] 1 tab PO DAILY 01/03/18 Furosemide 1 tab PO DAILY #30 tablet 01/03/18 Gabapentin [Gralise] 1 cap PO TID 01/03/18 Hyoscyamine Sulfate 0.125 mg SL DIRECTED PRN 01/03/18 Lisinopril [Zestril] 1 tab PO DAILY 01/03/18 Metoprolol Tartrate 1 tab PO DAILY 01/03/18 Prednisone [Deltasone*] 10 mg PO SEECOM #15 tab 01/03/18 Sennosides [Senna] 2 tab PO BID 01/03/18 Sennosides/Docusate Sodium [Senexon-S Tablet] 2 tab PO DAILY 01/03/18 Sertraline [Zoloft*] 1 tab PO DAILY 01/03/18 New Medications: Albuterol Sulfate [Proair Hfa] 8.5 gm IH TID PRN #1 hfa.aer.ad PRN Reason: Shortness Of Breath Atorvastatin Calcium [Lipitor] 40 mg PO DAILY #30 tablet Budesonide/Formoterol Fumarate [Symbicort 160-4.5 Mcg Inhaler] 2 puff IH BID #1 hfa.aer.ad Furosemide 1 tab PO DAILY #30 tablet Prednisone [Deltasone*] 10 mg PO SEECOM #15 tab Patient Discharge Instructions: 1. Patient will need to follow up with a PCP in 1 week to follow up this hospitalization. 2. Patient presented with shortness of breath secondary to CHF. Patient evaluated by Cardiology. No intervention needed at this time. Recommendation is to continue a 1500 cc per day fluid restriction and low-salt diet. At discharge patient will continue with chlorthalidone 25 mg daily. Lasix also will continue at 20 mg 1 pill daily. She is to monitor her weight daily. If her weight increases by more than 5 lb she is to contact her PCP or cardiology for recommendation. Patient will follow up with cardiology on Thursday at 9:00 a.m. to follow up this hospitalization and continue her care. 3. Patient has hypertension. She will continue with lisinopril 2.5 mg 1 pill daily and metoprolol 25 mg 1 pill daily. Recommendation is to maintain blood pressures less 150/80. Further adjustment can be done by her PCP. 4. Patient has CAD. Patient recently hospitalized in [place] requiring 2 heart catheterizations with a total of 4 stents. At discharge patient will continue with aspirin 81 mg daily and Plavix 75 mg 1 pill daily. 5. Patient has hypothyroidism. She will continue with Levoxyl 25 mcg daily. 6. Patient has COPD. Patient with mild exacerbation. At discharge patient will continue with prednisone 10 mg 1 pill twice daily for 5 days then 1 pill once daily for 5 days. Patient will also continue with Symbicort 160 mcg 2 puffs twice daily and Pro air 2 puffs 3 times a day as needed for shortness of breath. Recommendation is for the patient to follow up with pulmonology as an outpatient to further monitor and establish care. 7. Chest x-ray shows a left upper lobe pulmonary nodule. Recommendations for the patient to follow up with pulmonology further evaluate. Patient will need outpatient CT scan to further assess. 8. Patient has hyperlipidemia. Patient will continue with Lipitor 40 mg 1 pill once daily. Diet: AHA Activity: Ad marilynn Followup: Tyler Back MD [ACTIVE - CAN ADMIT] - 01/06/18 9:00 am Time spent managing pt's care (in minutes): 55
[2018-01-03 19:57] VITALS: BP 104/68; TEMP 97.4
[2018-01-03] MEDS ORDERED: BUDESONIDE 0.25 MG/2 ML NEB NEB SCH (20:00)
[2018-01-03] MEDS ORDERED: ARFORMOTEROL TARTRATE 15 MCG/2 ML VIAL.NEB NEB SCH (20:00)
[2018-01-03] MEDS ORDERED: ATORVASTATIN 40 MG TAB PO SCH (21:00)
[2018-01-03] MEDS ORDERED: predniSONE 10 MG TAB PO SCH (21:00)
[2018-01-04] MEDS ORDERED: LEVOTHYROXINE SOD 0.025 MG TAB PO SCH (06:00)
[2018-01-04] MEDS ORDERED: ASPIRIN EC 81 MG TAB PO SCH (09:00)
[2018-01-04] MEDS ORDERED: TIOTROPIUM 5 SPRAYS/INHALER IH SCH (09:00)
[2018-01-04] MEDS ORDERED: CLOPIDOGREL 75 MG TABLET PO SCH (09:00)
[2018-01-04] MEDS ORDERED: LISINOPRIL 5 MG TAB PO SCH ×2 (09:00)
[2018-01-04] MEDS ORDERED: SERTRALINE HCL 100 MG TAB PO SCH (09:00)
--- NOTE | 2018-01-04 09:17 | CON ---
Date of Consultation: 01/03/2018 Reason For Consultation: Congestive heart failure. History Of Present Illness: Ms. Gandhi is a 72-year-old white woman. She lives in [facility]. She apparently had an episode of congestive heart failure and non-ST elevation myocardial infarct ion approximately a month ago. She went to [facility], underwent 2 st ents, I believe, in the LAD and the circumflex. She did well for about another month when she was re admitted this time to [facility] where she underwent 2 other stents. She was also fou nd to have [id number]-gmooco mitral regurgitation and there were some talk about doing a percutaneou s valvuloplasty. Ejection fractions have ranged from 30-35% on one echo and then 40-45% on another e chocardiogram. She also has history of COPD and has a history of TIA, anxiety, had a left mastectomy for cancer, had a colostomy and colostomy reversal in the past. She came in with shortness of breat h. No chest pain. Her chest x-ray showed possible congestive heart failure, mostly chronic intersti tial disease. Her EKG showed nonspecific changes. By the time I saw her, she has already gotten IV Lasix diuresis and has done much better with that. She is asymptomatic now. She denied any chest pa in, nausea, vomiting, diaphoresis, PND, orthopnea, pedal edema, palpitations, or syncope. Past Medical History: As stated above. Allergies: CODEINE AND PENICILLIN AND SULFA. Review of Systems: Negative. Social History: Positive for smoking for 57 years. She had quit now. Medications: At home includes chlorthalidone, sertraline, metoprolol, levothyroxine, clopidogrel, as pirin, Lanoxin, Lasix 20 mg 3 times a week, lisinopril 2.5 mg daily, Xanax, and gabapentin. Physical Examination: General: She is very pleasant. Vital Signs: Stable. Afebrile. HEENT: Negative. Neck: Supple without any bruit, lymphadenopathy, JVD, or thyromegaly. Chest: Reveals some diffuse wheezing but no rales. Cardiac: Revealed a regular rhythm and rate with a mitral regurgitation murmur. No gallops or rubs. Abdomen: Benign. Extremities: Revealed no clubbing, cyanosis, or edema. Diagnostic Data: Other than what is stated above shows a creatinine of 1.03. Her white count was 6. 6, hemoglobin 11.2. Her troponin was 0.04. BNP was 345. Impression And Plan: 1.Mild acute exacerbation of chronic systolic congestive heart failure. 2.Nxlxhhgu-ei-[id number] mitral regurgitation. Echocardiography at [facility] and [facility] revealed an ejection fraction of 40-45% on one echo, 30-35% on another echo. She was supposed to have an echo sometime this week and followup at [facility]. The patient decided to come to my office and do that instead this week. There were some talks about percutaneous mitral valvuloplasty , but we will see what her echocardiogram shows in the near future and see how she does before making such decisions. She is on Lasix 20 mg every 3 times a week. She is on lisinopril daily. She is on metoprolol. She is on digoxin, aspirin, and Plavix, all appropriate therapy for her coronary artery disease, congestive heart failure, mitral regurgitation. I would increase her Lasix to daily, watch salt intake, do daily weight and take an extra Lasix as needed. The patient will come see me in the office in 3 days after her discharge and we get an echocardiogram and she will follow up with me on a regular basis. She will need a carotid Doppler sometimes in the near future. She will need an ech ocardiogram next week and she will need a stress test on a yearly basis. Her other problems includin g history of transient ischemic attack that is resolved, history of cancer in the colon and breast elmore s resolved and also has chronic obstructive pulmonary disease. She also has a history of anxiety. T he chest x-ray was read as with a left upper lobe pulmonary nodule and followup CT imaging in the nex t 3-6 months may be indicated as well. She sees Dr. Wynn in [place] as a primary care. The case w as discussed with Dr. Leger and her children and her. She can go home whenever it is okay with Dr. Leger. RENETTA/BARBARAL Voice ID: [id number] Report ID: [id number]
--- NOTE | 2018-01-04 12:47 | EKG ---
Test Date: 2018-01-03 Test Time: 08:45:28 [employer]: SOL MEASUREMENT RESULTS: Intervals: Rate: 59 KS: 140 QRSD: 80 QT: 432 QTc: 427 [place]: P: 27 KS: 140 QRS: 28 T: 79 INTERPRETIVE STATEMENTS: Sinus bradycardia Possible Left atrial enlargement Low voltage QRS Cannot rule out Anterior infarct, age undetermined Abnormal ECG Compared to ECG 07/22/1996 16:39:00 Low QRS voltage now present Myocardial infarct finding now present Sinus rhythm no longer present Electronically Signed On 01-04-18 12:43:56 CDT by Tyler Back
== END 2018-01-03 19:46 | disposition home or self-care (01) ==
LOC: ER 07:42 → ERHOLD 10:19 → 2ND 13:08
PROVIDERS: ADMIT Family Medicine; ATTEND Family Medicine
DX: I11.0 Hypertensive heart disease with heart failure (principal); I50.43 Acute on chronic combined systolic (congestive) and diastolic (congestive) heart failure; J44.1 Chronic obstructive pulmonary disease with (acute) exacerbation; I25.10 Atherosclerotic heart disease of native coronary artery without angina pectoris; Z95.5 Presence of coronary angioplasty implant and graft; E03.9 Hypothyroidism, unspecified; E78.5 Hyperlipidemia, unspecified; R91.1 Solitary pulmonary nodule; F41.8 Other specified anxiety disorders; D64.9 Anemia, unspecified; Z88.0 Allergy status to penicillin; Z88.2 Allergy status to sulfonamides
CPT/HCPCS: 36415; 71045; 80048; 80076; 80162; 81003; 82550; 82553; 83735; 83880; 84484 ×3; 85025; 85610; 85730; 93005; 96374; 99285; G0378 ×2; J1940; J7605; J1650

== ENCOUNTER 2018-01-22 12:36 | Emergency (ER) | payer OTHER ==
--- OUTSIDE RECORDS SUMMARY | 2018-01-22 12:40 | XMS REPORT | Continuity of Care Document ---
:1945 Author Organization Interface Problems Problem Status Onset Classification Date Comments Source Date Reported ACUTE [place] Active [facility] 8 Acute 11/24/2017 [facility] myocardial infarction, unspecified ACUTE Active [facility] MYOCARDIAL INFARCTION, UNSPECIFIED Medications Medication Details Route Status Patient Ordering Order Source Instructions Provider Date ProAmatine
5 mg, 1 Inactive tab, Route: PO, 2017 [facility] Drug form: TAB, TID, Dosing Weight 54.773, kg, Priority: STAT, Start date: 11/21/17 12:41:00 CDT, Duration: 30 day, Stop date: 12/21/17 9:00:00 CDT
Notes: (Same as:Proamatine) Budesonide 0.25
0.5 mg=2 Active MG/ML Inhalant mL, NEB, RBID, 2017 [facility] Solution # 120 mL, 0 Refill(s), [facility] [id number] midodrine 5 mg
5 mg=1 Active oral tablet tab, PO, TID, # 2017 [facility] 60 tab, 0 Refill(s), [facility] [id number] metoprolol
12.5 Active tartrate 25 mg mg=0.5 tab, PO, 2017 [facility] oral tablet Q12H, # 30 tab, 1 Refill(s), Pharmacy: [facility] [id number] Digoxin 0.125 MG
0.125 mg=1 Active Oral Tablet tab, PO, Daily, 2017 [facility] # 30 tab, 0 Refill(s), [facility] [id number] atorvastatin 40
40 mg=1 Active mg oral tablet tab, PO, 2017 [facility] Bedtime, # 30 tab, 0 Refill(s), Pharmacy: [facility] [id number] Aspirin 81 MG
81 mg=1 Active Enteric Coated tab, PO, Daily, 2017 [facility] Tablet 0 Refill(s) benzonatate 100
100 mg=1 Active mg oral capsule cap, PO, TID, 2017 [facility] PRN as needed for cough, X 7 day, # 21 cap, 0 Refill(s), Pharmacy: [facility] [id number] clopidogrel 75
75 mg=1 Active mg oral tablet tab, PO, Daily, 2017 [facility] # 30 tab, 0 Refill(s), Pharmacy: [facility] [id number] Plavix
75 mg, 1 No Longer tab, Route: PO, Active 2017 [facility] Drug form: TAB, Daily, Dosing Weight 54.773, kg, Priority: Routine, Start date: 11/20/17 9:00:00 CDT, Duration: 30 day, Stop date: 12/19/17 9:00:00 CDT
Notes: (Same As: Plavix) Midodrine
5 mg, 1 No Longer tab, Route: PO, Active 2017 [facility] Drug form: TAB, TID, Dosing Weight 54.773, kg, Priority: STAT, Start date: 11/19/17 17:00:00 CDT, Duration: 30 day, Stop date: 12/19/17 13:00:00 CDT
Notes: (Same as:Proamatine) Alprazolam 0.5
0.25 mg, 1 No Longer MG Oral Tablet tab, Route: PO, Active 2017 [facility] [Xanax] Drug form: TAB, BID, Dosing Weight 49, kg, PRN as needed for anxiety, Start date: 11/19/17 17:00:00 CDT, Stop date: 12/09/17 17:00:00 CDT
Notes: With food or milk (Same as: Xanax) magnesium
300 ml, Inactive citrate 58.2 Route: PO, Drug 2017 [facility] MG/ML Oral Form: LIQ, Solution Dosing Weight 54.773, kg, ONCE, STAT, Start date: 11/19/17 15:55:00 CDT, Stop date: 11/19/17 15:55:00 CDT
Notes: (Same as: Citrate of Magnesia) Concentration: 1.745 gm / 30 mL Lactulose 667
20 gm, 30 Inactive MG/ML Oral mL, Route: PO, 2017 [facility] Solution Drug form: SYRP, Q2H, Dosing Weight 54.773, kg, Start date: 11/19/17 14:00:00 CDT, Duration: 3 doses or times, Stop date: 11/19/17 18:00:00 CDT
Notes: (Same as:Chronulac) Hyoscyamine
0.125 mg, No Longer 1 tab, Route: Active 2017 [facility], Drug form: TAB, Q6H, Dosing Weight 54.773, kg, PRN Other -See Comment, Start date: 11/19/17 13:47:00 CDT, Duration: 30 day, Stop date: 12/19/17 13:46:00 CDT
Notes: (Same as: Levsin) Take 30 min before meal Plavix
75 mg, 1 Inactive tab, Route: PO, 2017 [facility] Drug form: TAB, ONCE, Dosing Weight 54.773, kg, Priority: Routine, Start date: 11/19/17 8:45:00 CDT, Stop date: 11/19/17 8:45:00 CDT
Notes: (Same As: Plavix) Plavix
75 mg, Inactive Route: PO, Drug 2017 [facility] form: TAB, Daily, Dosing Weight 54.773, kg, Priority: STAT, Start date: 11/19/17 8:22:00 CDT, Duration: 30 day, Stop date: 12/18/17 9:00:00 CDT metoprolol
12.5 mg, No Longer tartrate 0.5 tab, Route: Active 2017 [facility] PO, Drug form: TAB, Q12H, Dosing Weight 48, kg, Start date: 11/18/17 21:00:00 CDT, Duration: 30 day, Stop date: 12/18/17 9:00:00 CDT
Notes: (Same as: Lopressor) Alprazolam 0.5
0.25 mg, 1 No Longer MG Oral Tablet tab, Route: PO, Active 2017 [facility] [Xanax] Drug form: TAB, BID, Dosing Weight 49, kg, Start date: 11/18/17 17:00:00 CDT, Stop date: 12/09/17 17:00:00 CDT
Notes: With food or milk (Same as: Xanax) normal saline
1,000 mL, Inactive 0.9% IV 1,000 mL Rate: 2017 [facility] ml/hr, Infuse over: 1 hr, Route: IV, Dosing Weight 54.773 kg, Total Volume: 1,000, Start date: 11/18/17 16:57:00 CDT, Duration: 1 doses or times, Stop date: 11/18/17 17:56:00 CDT, 1.58, m2 Ipratropium
0.5 mg, No Longer 2.5 mL, Route: Active 2017 [facility] NEB, Drug form: SOLN, RQ6H, Dosing Weight 54.773, kg, Start date: 11/18/17 12:00:00 CDT, Duration: 30 day, Stop date: 12/18/17 8:00:00 CDT
Notes: SEE RT DOCUMENTATION (Same as:Atrovent) Doxycycline
100 mg, 1 No Longer cap, Route: PO, Active 2017 [facility] Drug form: CAP, [id number], Dosing Weight 54.773, kg, Start date: 11/17/17 16:00:00 CDT, Duration: 30 day, Stop date: 12/17/17 4:00:00 CDT
Notes: (Same as: Vibramycin) No milk/antacids/i geni. Digoxin 0.125 MG
0.125 mg, No Longer Oral Tablet 1 tab, Route: Active 2017 [facility] PO, Drug form: TAB, Daily, Dosing Weight 54.773, kg, Start date: 11/16/17 10:09:00 CDT, Duration: 30 day, Stop date: 12/16/17 9:00:00 CDT
Notes: Take on an Empty Stomach (Same as: Lanoxin) Tessalon Perles
200 mg, 2 No Longer cap, Route: PO, Active 2017 [facility] Drug form: CAP, TID, Dosing Weight 54.773, kg, Start date: 11/13/17 17:00:00 CDT, Duration: 30 day, Stop date: 12/13/17 13:00:00 CDT
Notes: (Same As: Korinsalon Antoni) "Do Not Crush" Etomidate
10 mg, 5 Inactive mL, Route: IV, 2017 [facility] Drug form: INJ, ONCE, Dosing Weight 54.773, kg, Start date: 11/12/17 15:40:00 CDT, Stop date: 11/12/17 15:40:00 CDT
Notes: (Same as: Amidate). Per state nursing law etomidate can only be given by a nurse if patient is intubated or being intubated (unless the nurse is a [employer]). Propofol
30 mg, 3 Inactive mL, Route: IVP2017 [facility] Drug form: Emulsion, ONCE, Dosing Weight 54.773, kg, Start date: 11/12/17 15:40:00 CDT, Stop date: 11/12/17 15:40:00 CDT
Notes: If Diprivan - change bottle & tubing every 12 hr Per state nursing law propofol can only be given by a nurse if patient is intubated or being intubated (unless the nurse is a [employer]). Same as: Diprivan Versed
4 mg, 4 Inactive mL, Route: IVP2017 [facility] Drug form: INJ, ONCE, Dosing Weight 54.773, kg, Start date: 11/12/17 15:40:00 CDT, Stop date: 11/12/17 15:40:00 CDT
Notes: (Same as: Versed) MEDICATION WASTE Product Size: 2 mg Product Wasted: _0__ mg cefepime
1 gm, No Longer Route: IVPB, Active 2017 [facility] [id number], Dosing Weight 54.773, kg, (CrCl >/=50 ml/min), Start date: 11/12/17 14:00:00 CDT, Stop date: 11/22/17 8:00:00 CDT, ABX Indication: Pneumonia
N otes: (Same As: Maxipime) MEDICATION WASTE Product Size: 1000 mg Product Wasted: __0_ mg vancomycin +
750 mg, Inactive Dextrose 5% in Route: IVPB2017 [facility] Water IV 250 mL Drug form: PDR/INJ, Q24H, Start date: 11/12/17 12:00:00 CDT, Duration: 6 day, Stop date: 11/17/17 12:00:00 CDT, ABX Indication: Pneumonia
N otes: TIME CRITICAL MEDICATION (Same As: Vancocin) Infusion rate < 1000 mg: infuse over 1 hour 1001 - 1500 mg: infuse over 1.5 hours 1501 - 2000 mg: infuse over 2 hours > 2001 mg: infuse over 2.5 hours For adult patients only: Round to nearest 250 mg per Medical Staff approval Alprazolam 0.5
0.5 mg, 1 No Longer MG Oral Tablet tab, Route: PO, Active 2017 [facility] [Xanax] Drug form: TAB, Q6H, Dosing Weight 49, kg, Start date: 11/11/17 14:29:00 CDT, Stop date: 12/10/17 0:00:00 CDT
Notes: With food or milk (Same as: Xanax) vancomycin +
1,250 mg, Inactive Dextrose 5% in Route: IVPB2017 [facility] Water IV 250 mL ONCE, Start date: 11/11/17 12:30:00 CDT, Stop date: 11/11/17 12:30:00 CDT, ABX Indication: Pneumonia
N otes: TIME CRITICAL MEDICATION (Same As: Vancocin) Infusion rate < 1000 mg: infuse over 1 hour 1001 - 1500 mg: infuse over 1.5 hours 1501 - 2000 mg: infuse over 2 hours > 2001 mg: infuse over 2.5 hours For adult patients only: Round to nearest 250 mg per Medical Staff approval MEDICATION WASTE Product Size: 1000 mg Product Wasted: ___ mg cefepime
1 gm, No Longer Route: IVPB, Active 2017 [facility] [id number], Dosing Weight 54.773, kg, (CrCl >/=50 ml/min), Start date: 11/11/17 12:00:00 CDT, Duration: 7 day, Stop date: 11/18/17 0:00:00 CDT, ABX Indication: Pneumonia
Notes: (Same As: Maxipime) MEDICATION WASTE Product Size: 1000 mg Product Wasted: ___ mg Vancomycin
1 ea, Inactive Route: MISC, 2017 [facility] ONCALL, Dosing Weight 54.773, kg, Start date: 11/11/17 12:00:00 CDT, Duration: 7 day, Stop date: 11/18/17 11:59:00 CDT, Pharmacy to dose, ABX Indication: Pneumonia Alprazolam 0.5
0.5 mg, 1 No Longer MG Oral Tablet tab, Route: PO, Active 2017 [facility] [Xanax] Drug form: TAB, Q8H, Dosing Weight 49, kg, Start date: 11/10/17 13:42:00 CDT, Stop date: 12/10/17 14:00:00 CDT
Notes: With food or milk (Same as: Xanax) potassium
30 mmol, No Longer phosphate 10 mL, Route: Active 2017 [facility] IVPB, ONCE, Dosing Weight 49, kg, Priority: STAT, Start date: 11/09/17 23:38:00 CDT, Stop date: 11/09/17 23:38:00 CDT
Notes: (Same as: K Phosphate.) 1 mMol phoshate has 1.47 mEq potassium Infuse over 4 hours potassium
15 mmol, 5 Inactive phosphate mL, Route: 2017 [facility] IVPB, PRN, Dosing Weight 49, kg, PRN Abnormal Lab Result, Start date: 11/08/17 7:19:00 CDT, Duration: 30 day, Stop date: 12/08/17 7:18:00 CDT, FOR ICU USE ONLY
Not es: (Same as: K Phosphate.) 1 mMol phoshate has 1.47 mEq potassium Infuse over 4 hours potassium
2 pkt, Inactive phosphate-sodium Route: PO, Drug 2017 [facility] phosphate 250 Form: PDR/REC, mg-280 mg-160 mg Dosing Weight oral powder for 49, kg, PRN, reconstitution PRN Abnormal Lab Result, FOR ICU USE ONLY, Start date: 11/08/17 7:19:00 CDT, Duration: 30 day, Stop date: 12/08/17 7:18:00 CDT
Notes: (Same as: Phos-NaK) Each 1.5 gm pkt has 250mg phosphorous. Mix w/2.5oz water and stir. Potassium
20 mEq, 15 Inactive Chloride mL, Route: NJ, 2017 [facility] Drug form: LIQ, PRN, Dosing Weight 49, kg, PRN Abnormal Lab Result, Start date: 11/08/17 7:19:00 CDT, Duration: 30 day, Stop date: 12/08/17 7:18:00 CDT, FOR ICU USE ONLY
Notes: (Same as: Potassium Chloride) sodium phosphate
15 mmol, 5 Inactive mL, Route: 2017 [facility] IVPB, PRN, Dosing Weight 49, kg, PRN Abnormal Lab Result, Start date: 11/08/17 7:19:00 CDT, Duration: 30 day, Stop date: 12/08/17 7:18:00 CDT, FOR ICU USE ONLY Calcium
500 mg, 1 Inactive Carbonate 500 MG tab, Route: PO, 2017 [facility] Chewable Tablet Drug form: CHEWTAB, PRN, Dosing Weight 49, kg, PRN Abnormal Lab Result, FOR ICU USE ONLY, Start date: 11/08/17 7:19:00 CDT, Duration: 30 day, Stop date: 12/08/17 7:18:00 CDT
Notes: (Same As: Tums) Calcium Carbonate 500 vt=063 mg elemental calcium Dose= mg calcium carbonate ( mg elemental calcium) Magnesium Oxide
800 mg, 2 Inactive tab, Route: PO, 2017 [facility] Drug form: TAB, PRN, Dosing Weight 49, kg, PRN Abnormal Lab Result, FOR ICU USE ONLY, Start date: 11/08/17 7:19:00 CDT, Duration: 30 day, Stop date: 12/08/17 7:18:00 CDT
Notes: (Same as: Mag-Ox 400) Magnesium oxide [id number] elemental magnesium Dose=____mg magnesium oxide (___mg elemental magnesium) Calcium
1 gm, 50 Inactive Gluconate mL, Route: 2017 [facility] IVPB, Drug form: INJ, PRN, Dosing Weight 49, kg, PRN Abnormal Lab Result, Start date: 11/08/17 7:19:00 CDT, Duration: 30 day, Stop date: 12/08/17 7:18:00 CDT, FOR ICU USE ONLY
Notes: WASTE: F/P - Sink; E - Municipal Trash Bin Magnesium
2 gm, 50 Inactive Sulfate mL, Route: 2017 [facility] IVPB, Drug form: INJ, PRN, Dosing Weight 49, kg, PRN Abnormal Lab Result, Start date: 11/08/17 7:19:00 CDT, Duration: 30 day, Stop date: 12/08/17 7:18:00 CDT, FOR ICU USE ONLY
Notes: WASTE: F/P - Sink; E - Municipal Trash Bin Lasix
40 mg, 4 Inactive mL, Route: IVP, 2017 [facility] Drug form: INJ, ONCE, Dosing Weight 49, kg, Start date: 11/08/17 7:19:00 CDT, Stop date: 11/08/17 7:19:00 CDT
Notes: (Same as: Lasix) MEDICATION WASTE Product Size: 40 mg Product Wasted: ___ mg Docusate Sodium
100 mg, 1 No Longer 100 MG Oral cap, Route: PO, Active 2017 [facility] Capsule [Colace] Drug form: CAP, BID, Dosing Weight 49, kg, Start date: 11/07/17 17:00:00 CDT, Duration: 30 day, Stop date: 12/07/17 9:00:00 CDT
Notes: (Same as: Colace) (Do Not Crush) Seroquel
25 mg, 1 No Longer tab, Route: PO, Active 2017 [facility] Drug form: TAB, Q8H, Dosing Weight 49, kg, Start date: 11/07/17 16:00:00 CDT, Duration: 30 day, Stop date: 12/07/17 8:00:00 CDT
Notes: (Same as: SEROquel) Lasix
60 mg, 6 Inactive mL, Route: IVP, 2017 [facility] Drug form: INJ, ONCE, Dosing Weight 49, kg, Start date: 11/07/17 9:45:00 CDT, Stop date: 11/07/17 9:45:00 CDT
Notes: (Same as: Lasix) Alprazolam 0.25
0.25 mg, No Longer MG Oral Tablet 0.5 tab, Route: Active 2017 [facility] [Xanax] PO, Drug form: TAB, Q8H, Dosing Weight 49, kg, Start date: 11/06/17 20:00:00 CDT, Duration: 30 day, Stop date: 12/06/17 13:00:00 CDT
Notes: With food or milk (Same as: Xanax) Ceftriaxone
1 gm, No Longer Route: IVPB, Active 2017 [facility] [id number], Dosing Weight 49, kg, Start date: 11/06/17 10:00:00 CDT, Duration: 4 day, Stop date: 11/09/17 10:00:00 CDT, ABX Indication: Pneumonia
N otes: (Same As: Rocephin). Use with 100 mL NS and infuse over 30 min MEDICATION WASTE Product Size: 1000 mg Product Wasted: ___ mg gabapentin 100
100 mg, 1 No Longer MG Oral Capsule cap, Route: PO, Active 2017 [facility] Drug form: CAP, Bedtime, Dosing Weight 49, kg, Start date: 11/05/17 21:00:00 CDT, Duration: 30 day, Stop date: 12/04/17 21:00:00 CDT
Notes: (Same as: Neurontin) Zoloft
100 mg, 1 No Longer tab, Route: PO, Active 2017 [facility] Drug form: TAB, Bedtime, Dosing Weight 49, kg, Start date: 11/05/17 21:00:00 CDT, Duration: 30 day, Stop date: 12/04/17 21:00:00 CDT
Notes: (Same as: Zoloft) hyoscyamine
0.125 mg=1 Active 0.125 mg tab, SL, Q4H, 2017 [facility] sublingual PRN Spasms, # tablet 30 tab, 0 Refill(s) Sertraline 100
100 mg=1 Active MG Oral Tablet tab, PO, 2017 [facility] [Zoloft] Bedtime, # 30 tab, 0 Refill(s) gabapentin 100
100 mg=1 No Longer MG Oral Capsule cap, PO, Active 2017 [facility] Bedtime, # 90 cap, 1 Refill(s) Lasix
40 mg, 4 Inactive mL, Route: IVP, 2017 [facility] Drug form: INJ, ONCE, Dosing Weight 49, kg, Priority: STAT, Start date: 11/05/17 13:46:00 CDT, Stop date: 11/05/17 13:46:00 CDT
Notes: (Same as: Lasix) MEDICATION WASTE Product Size: 40 mg Product Wasted: ___ mg Synthroid
25 No Longer microgram, 0.5 Active 2017 [facility] tab, Route: PO, Drug form: TAB, Daily, Dosing Weight 49, kg, Start date: 11/05/17 6:30:00 CDT, Duration: 30 day, Stop date: 12/04/17 6:30:00 CDT
Notes: Take 1 hour before or 2 hours after meal; Enteral feeds may interefere with the absorption of this medication.(Ke e as:Levothroid, Synthroid) Lipitor
40 mg, 1 No Longer tab, Route: PO, Active 2017 [facility] Drug form: TAB, Bedtime, Dosing Weight 48, kg, Start date: 11/04/17 21:00:00 CDT, Duration: 30 day, Stop date: 12/03/17 21:00:00 CDT
Notes: (Same as: Lipitor) Sodium Chloride
250 mL, No Longer 0.9% IV Route: IVPB, 2017 [facility] Start date: 11/04/17 17:09:00 CDT, Duration: 30 day, Stop date: 12/04/17 17:08:00 CDT, PRN Line Flush Alprazolam 0.25
0.25 mg, No Longer MG Oral Tablet 0.5 tab, Route: 2017 [facility] [Xanax] PO, Drug form: TAB, Q8H, Dosing Weight 49, kg, PRN as needed for anxiety, Start date: 11/04/17 17:02:00 CDT, Duration: 30 day, Stop date: 12/04/17 17:01:00 CDT
Notes: With food or milk (Same as: Xanax) Tramadol
50 mg, 1 No Longer tab, Route: PO, 2017 [facility] Drug form: TAB, Q4H, Dosing Weight 49, kg, PRN Pain Score 4-6, Start date: 11/04/17 17:00:00 CDT, Stop date: 12/04/17 16:59:00 CDT
Notes: Not to exceed 400mg/day. (Same As: Ultram) Budesonide
0.5 mg, 2 No Longer mL, Route: NEB, Active 2017 [facility] Drug form: SUSP, RBID, Dosing Weight 49, kg, Start date: 11/04/17 13:04:00 CDT, Duration: 30 day, Stop date: 12/04/17 8:00:00 CDT
Notes: (Same As: Pulmicort) Phenergan
12.5 mg, Inactive 0.5 mL, Route: 2017 [facility] IM, Drug form: INJ, ONCE, Dosing Weight 49, kg, Start date: 11/04/17 12:08:00 CDT, Stop date: 11/04/17 12:08:00 CDT
Notes: Do not give IV push. (Same as: Phenergan) Reglan
10 mg, 2 No Longer mL, Route: IVP, Active 2017 [facility] Drug form: INJ, Q8H, Dosing Weight 49, kg, PRN Nausea & Vomiting, Priority: NOW, Start date: 11/04/17 11:30:00 CDT, Duration: 30 day, Stop date: 12/04/17 11:29:00 CDT
Notes: (Same as: Reglan) Insulin Lispro
1 unit, No Longer 0.01 mL, Route: Active 2017 [facility] SUB-Q, Drug form: SOLN, TID-Before Meals, Dosing Weight 49, kg, PRN Blood Glucose Results, Start date: 11/04/17 9:54:00 CDT, Duration: 30 day, Stop date: 12/04/17 9:53:00 CDT
Notes: (Same as: Humalog ) Roll in palms of hands gently; Do not shake `vigorously. "Single Patient Use Only " WASTE: F/P - Black; E - Municipal Trash Bin Stable for 28 days at room temperature. Expires in days from D ate Glucagon
1 mg, No Longer Route: IM, Drug Active 2017 [facility] form: PDR/INJ, PRN, Dosing Weight 49, kg, PRN Blood Glucose Results, Start date: 11/04/17 9:54:00 CDT, Duration: 30 day, Stop date: 12/04/17 9:53:00 CDT Dextrose 50%
25 gm, 50 No Longer Syringe mL, Route: IVP, Active 2017 [facility] Drug Form: INJ, Dosing Weight 49, kg, PRN, PRN Blood Glucose Results, Start date: 11/04/17 9:54:00 CDT, Duration: 30 day, Stop date: 12/04/17 9:53:00 CDT Alprazolam 0.25
0.25 mg, Inactive MG Oral Tablet 0.5 tab, Route: 2017 [facility] [Xanax] PO, Drug form: TAB, PRN, Dosing Weight 49, kg, PRN as needed for anxiety, Start date: 11/04/17 9:54:00 CDT, Duration: 30 day, Stop date: 12/04/17 9:53:00 CDT
Note s: With food or milk (Same as: Xanax) Nicotine
21 mg, 1 No Longer patch, Route: Active 2017 [facility], Drug form: ERFILM, Daily, Dosing Weight 49, kg, Start date: 11/04/17 9:00:00 CDT, Duration: 30 day, Stop date: 12/03/17 9:00:00 CDT
Notes: (Same as: Habitrol) "Remove old patch before application of new patch" WASTE: F/P - P Waste Black; E - P Waste Black remove patch
1 patch, No Longer Route: TOP, Active 2017 [facility] Drug form: ERFILM, Daily, Start date: 11/04/17 9:00:00 CDT, Duration: 30 day, Stop date: 12/03/17 9:00:00 CDT
Notes: Remove old patch before application of new patch. WASTE: F/P - P Waste Black; E - P Waste Black Saline Flush
10 ml, No Longer 0.9% Route: IVP, Active 2017 [facility] Drug Form: INJ, Dosing Weight 48, kg, Q12H, Start date: 11/04/17 9:00:00 CDT, Duration: 30 day, Stop date: 12/03/17 21:00:00 CDT
Notes: (Same as: BD Posiflush) Brilinta
90 mg, 1 No Longer tab, Route: PO, Active 2017 [facility] Drug form: TAB, Q12H, Dosing Weight 48, kg, Start date: 11/04/17 9:00:00 CDT, Duration: 30 day, Stop date: 12/03/17 21:00:00 CDT
Notes: (Same as: Brilinta) Aspirin
81 mg, 1 No Longer tab, Route: PO, Active 2017 [facility] Drug form: ECTAB, Daily, Dosing Weight 48, kg, Start date: 11/04/17 9:00:00 CDT, Duration: 30 day, Stop date: 12/03/17 9:00:00 CDT
Notes: Do not crush or chew. (Same As: Ecotrin) metoprolol
50 mg, 1 No Longer tartrate tab, Route: PO, Active 2017 [facility] Drug form: TAB, Q12H, Dosing Weight 48, kg, Start date: 11/04/17 9:00:00 CDT, Stop date: 12/03/17 21:00:00 CDT
Notes: (Same as: Lopressor) Dextrose 50%
25 gm, 50 Inactive Syringe mL, Route: IVP, 2017 [facility] Drug Form: INJ, Dosing Weight 49, kg, ONCE, Start date: 11/04/17 8:52:00 CDT, Stop date: 11/04/17 8:52:00 CDT Insulin regular
10 unit, Inactive 0.1 mL, Route: 2017 [facility] IVP, Drug form: SOLN, ONCE, Dosing Weight 49, kg, Start date: 11/04/17 8:24:00 CDT, Stop date: 11/04/17 8:24:00 CDT
Notes: (Same as: Humulin R) Roll in palms of hands gently; Do not shake vigorously. "single patient use only" (Restricted to patients requiring a dose > 60 units) WASTE: F/P - Black; E - Municipal Trash Bin Stable for 28 days at room temperature Expires in days from D ate Dextrose 50%
25 gm, 50 Inactive Syringe mL, Route: IVP, 2017 [facility] Drug Form: INJ, Dosing Weight 49, kg, ONCE, Start date: 11/04/17 8:24:00 CDT, Stop date: 11/04/17 8:24:00 CDT Sodium Chloride
500 mL, Inactive 0.9% (Bolus) IV 1000 ml/hr, 2017 [facility] Infuse Over: 30 minutes, Route: IV, 500, Drug form: INJ, ONCE, Priority: STAT, Dosing Weight 49 kg, Start date: 11/04/17 8:24:00 CDT, Stop date: 11/04/17 8:24:00 CDT Albuterol 0.833
3 mL, Inactive MG/ML / Route: 2017 [facility] Ipratropium INHALATION, [place] 0.167 Drug Form: MG/ML Inhalant SOLN, Dosing Solution Weight 49, kg, [DuoNeb] RQ6H, Start date: 11/04/17 8:00:00 CDT, Duration: 30 day, Stop date: 12/04/17 2:00:00 CDT
Notes: (Same as: Duoneb) Ondansetron
4 mg, Inactive Route: IVP, 2017 [facility] Drug form: INJ, ONCE, Dosing Weight 49, kg, Start date: 11/04/17 7:55:00 CDT, Stop date: 11/04/17 7:55:00 CDT Tramadol
50 mg, 1 Inactive tab, Route: PO, 2017 [facility] Drug form: TAB, Q6H, Dosing Weight 49, kg, PRN Pain Score 4-6, Start date: 11/04/17 5:05:00 CDT, Duration: 30 day, Stop date: 12/04/17 5:04:00 CDT
Notes: Not to exceed 400mg/day. (Same As: Ultram) Lovenox
40 mg, 0.4 Inactive mL, Route: 2017 [facility] SUB-Q, Drug form: INJ, [id number], Dosing Weight 48, kg, Start date: 11/04/17 5:00:00 CDT, Stop date: 12/03/17 3:00:00 CDT
Notes: (Same as: Lovenox) Ceftriaxone
1 gm, No Longer Route: IVPB, Active 2017 [facility] [id number], Dosing Weight 49, kg, Start date: 11/04/17 5:00:00 CDT, Duration: 10 day, Stop date: 11/13/17 5:00:00 CDT, ABX Indication: Pneumonia
N otes: (Same As: Rocephin). Use with 100 mL NS and infuse over 30 min MEDICATION WASTE Product Size: 1000 mg Product Wasted: ___ mg Azithromycin
500 mg, No Longer Route: IVPB, Active 2017 [facility] [id number], Dosing Weight 49, kg, Start date: 11/04/17 5:00:00 CDT, Duration: 5 day, Stop date: 11/08/17 5:00:00 CDT, ABX Indication: Pneumonia
N otes: (Same As: Zithromax IV) Kayexalate
30 gm, 120 Inactive mL, Route: PO, 2017 [facility] Drug form: SUSP, ONCE, Dosing Weight 49, kg, Start date: 11/04/17 4:18:00 CDT, Stop date: 11/04/17 4:18:00 CDT
Notes: (sodium polystyrene sulfonate 15 gm/60 ml CARA) Shake well before use. (Same as: Kayexalate, SPS) Albuterol 0.833
3 ml, No Longer MG/ML / Route: NEB, Active 2017 [facility] Ipratropium Drug Form: [place] 0.167 SOLN, Dosing MG/ML Inhalant Weight 49, kg, Solution RQ4H, Start [DuoNeb] date: 11/04/17 4:00:00 CDT, Duration: 30 day, Stop date: 12/04/17 3:00:00 CDT
Notes: (Same as: Duoneb) Furosemide
20 mg, 2 Inactive mL, Route: IVP, 2017 [facility] Drug form: INJ, ONCE, Dosing Weight 49, kg, Priority: NOW, Start date: 11/04/17 3:09:00 CDT, Stop date: 11/04/17 3:09:00 CDT
Notes: (Same as: Lasix) Enoxaparin
40 mg, 0.4 Inactive mL, Route: 2017 [facility] [facility], Drug form: INJ, [id number], Dosing Weight 48, kg, Start date: 11/04/17 3:00:00 CDT, Stop date: 12/03/17 3:00:00 CDT
Notes: (Same as: Lovenox) Amlodipine
10 mg, PO, No Longer Daily Active 2017 [facility] Albuterol 0.833
3 mL, NEB, Active MH MG/ML / PRN, 4H PRN 2017 [facility] Ipratropium [place] 0.167 MG/ML Inhalant Solution Magnesium
2 gm, 50 No Longer Sulfate mL, Route: Active 2017 [facility] IVPB, Drug form: INJ, PRN, Dosing Weight 48, kg, PRN Abnormal Lab Result, Start date: 11/04/17 2:44:00 CDT, Duration: 30 day, Stop date: 12/04/17 2:43:00 CDT, FOR ICU USE ONLY
Notes: WASTE: F/P - Sink; E - Municipal Trash Bin Calcium
1 gm, 50 No Longer Gluconate mL, Route: Active 2017 [facility] IVPB, Drug form: INJ, PRN, Dosing Weight 48, kg, PRN Abnormal Lab Result, Start date: 11/04/17 2:44:00 CDT, Duration: 30 day, Stop date: 12/04/17 2:43:00 CDT, FOR ICU USE ONLY
Notes: WASTE: F/P - Sink; E - Municipal Trash Bin Calcium
500 mg, 1 No Longer Carbonate 500 MG tab, Route: PO, Active 2017 [facility] Chewable Tablet Drug form: CHEWTAB, PRN, Dosing Weight 48, kg, PRN Abnormal Lab Result, FOR ICU USE ONLY, Start date: 11/04/17 2:44:00 CDT, Duration: 30 day, Stop date: 12/04/17 2:43:00 CDT
Notes: (Same As: Tums) Calcium Carbonate 500 lq=709 mg elemental calcium Dose= mg calcium carbonate ( mg elemental calcium) Magnesium Oxide
800 mg, 2 No Longer tab, Route: PO, Active 2017 [facility] Drug form: TAB, PRN, Dosing Weight 48, kg, PRN Abnormal Lab Result, FOR ICU USE ONLY, Start date: 11/04/17 2:44:00 CDT, Duration: 30 day, Stop date: 12/04/17 2:43:00 CDT
Notes: (Same as: Mag-Ox 400) Magnesium oxide [id number] elemental magnesium Dose=____mg magnesium oxide (___mg elemental magnesium) Potassium
20 mEq, 10 No Longer Chloride mL, Route: Active 2017 [facility] IVPB, Drug form: INJ, PRN, Dosing Weight 48, kg, PRN Abnormal Lab Result, Via central line, Start date: 11/04/17 2:44:00 CDT, Duration: 30 day, Stop date: 12/04/17 2:43:00 CDT, FOR ICU USE ONLY
Notes: MUST be Diluted before use (Same as: KCl) MEDICATION WASTE Product Size: 20 mEq Product Wasted: ___ mEq sodium phosphate
15 mmol, 5 No Longer mL, Route: Active 2017 [facility] IVPB, PRN, Dosing Weight 48, kg, PRN Abnormal Lab Result, Start date: 11/04/17 2:44:00 CDT, Duration: 30 day, Stop date: 12/04/17 2:43:00 CDT, FOR ICU USE ONLY potassium
45 mmol, No Longer phosphate 15 mL, Route: Active 2017 [facility] IVPB, PRN, Dosing Weight 48, kg, PRN Abnormal Lab Result, Start date: 11/04/17 2:44:00 CDT, Duration: 30 day, Stop date: 12/04/17 2:43:00 CDT, FOR ICU USE ONLY
Not es: (Same as: K Phosphate.) 1 mMol phoshate has 1.47 mEq potassium Infuse over 4 hours potassium
500 mg, 2 No Longer phosphate-sodium tab, Route: PO, Active 2017 [facility] phosphate 250 Drug Form: TAB, mg-280 mg-160 mg Dosing Weight oral powder for 48, kg, PRN, reconstitution PRN Abnormal Lab Result, FOR ICU USE ONLY, Start date: 11/04/17 2:44:00 CDT, Duration: 30 day, Stop date: 12/04/17 2:43:00 CDT
Notes: (Same as: K-Phos Neutral, Phospha 250 Neutral) Saline Flush
10 ml, No Longer 0.9% Route: IVP, Active 2017 [facility] Drug Form: INJ, Dosing Weight 48, kg, PRN, PRN Line Flush, Start date: 11/04/17 2:44:00 CDT, Duration: 30 day, Stop date: 12/04/17 2:43:00 CDT
Notes: (Same as: BD Posiflush) Alprazolam 0.25
0.25 mg=1 Active MG Oral Tablet tab, PO, PRN, 2017 [facility] [Xanax] for anxiety Synthroid
25 Active microgram, PO, 2017 [facility] Daily Tramadol
50 mg, PO, No Longer PRN, PRN Pain, Active 2017 [facility] pin 3-7, 0 Refill(s) Sodium Chloride
750 mL, Inactive 0.9% IV 750 mL Rate: 75 ml/hr, 2017 [facility] Infuse over: 10 hr, Route: IV, Dosing Weight 48 kg, Total Volume: 750, Start date: 11/04/17 1:56:00 CDT, Duration: 10 hr, Stop date: 11/04/17 11:55:00 CDT Acetaminophen
650 mg, 2 No Longer tab, Route: PO, Active 2017 [facility] Drug form: TAB, Q4H, Dosing Weight 48, kg, PRN Pain Score 7-10, Start date: 11/04/17 1:56:00 CDT, Duration: 30 day, Stop date: 12/04/17 1:55:00 CDT
Notes: Do not exceed 4 gm/day. (Same as: Tylenol) Ondansetron
4 mg, 2 No Longer mL, Route: IVP, Active 2017 [facility] Drug form: INJ, Q8H, Dosing Weight 48, kg, PRN Nausea & Vomiting, Start date: 11/04/17 1:56:00 CDT, Duration: 30 day, Stop date: 12/04/17 1:55:00 CDT
Notes: (Same as: Jose) MEDICATION WASTE Product Size: 4 mg Product Wasted: ___ mg Allergies, Adverse Reactions, Alerts Substance Category Reaction Severity Reaction Status Date Comments Source type Reported sulfa drugs Assertion Drug Active MH allergy [facility] penicillin Assertion Drug Active MH allergy [facility] codeine Assertion Drug Active MH sulfate allergy [facility] Immunizations Immunization Date Given Site Status Last Updated Comments Source Results Order Name Results Value Reference Date Interpretation Comments Source Range ELECTROLYT AGAP 13.7 meq/L 10.0 - 11/21 ES 20.0 [facility] ELECTROLYT B/C Ratio 26 6 - 25 11/21 [facility] ELECTROLYT A/G Ratio 0.7 0.7 - 1.6 11/21 [facility] ELECTROLYT Globulin 4.1 g/dL 2.7 - 4.2 11/21 [facility] ELECTROLYT Alk Phos 161 unit/L 39 - 136 11/21 [facility] ELECTROLYT Bili Total 0.6 mg/dL 0.2 - 1.3 11/21 [facility] ELECTROLYT AST 20 unit/L 0 - 37 11/21 [facility] ELECTROLYT Sodium Lvl 142 meq/L 135 - 145 11/21 [facility] ELECTROLYT BUN 18 mg/dL 7 - 22 11/21 [facility] ELECTROLYT Potassium 3.7 meq/L 3.5 - 5.1 11/21 [facility] Lvl [facility] ELECTROLYT Chloride Lvl 107 meq/L 95 - 109 11/21 [facility] ELECTROLYT Creatinine 0.70 mg/dL 0.50 - 11/21 ES Lvl 1.40 /2017 [facility] ELECTROLYT CO2 25 meq/L 24 - 32 11/21 [facility] ELECTROLYT Calcium Lvl 8.9 mg/dL 8.5 - 10.5 11/21 [facility] ELECTROLYT Glucose Lvl 52 mg/dL 70 - 99 11/21 [facility] ELECTROLYT eGFR 86 11/21 Result Comment: The eGFR is calculated using the CKD-EPI formula. In most young, healthy individuals the eGFR will be >90 mL/ min/1.73m2. The eGFR declines with age. An eGFR of 60-89 may be normal in [facility] mL/min/1.7 some populations, particularly the elderly, for whom the CKD-EPI formula has not been extensively validated. Use of the eGFR is not recommended in the following populations: [address] Individuals with unstable creatinine concentrations, including patients and those with serious co-morbid conditions. Patients with extremes in muscle mass or diet. The data above are obtained from the National Kidney Disease Education Program (NKDEP) which additionally recommends that when the eGFR is used in patients with extremes of body mass index for purposes of drug dosing, the eGFR should be multiplied by the estimated BMI. ELECTROLYT ALT 27 unit/L 0 - 65 11/21 [facility] ELECTROLYT Total 7.0 g/dL 6.4 - 8.4 11/21 [facility] ELECTROLYT Albumin Lvl 2.9 g/dL 3.5 - 5.0 11/21 [facility] HEMATOLOGY MCV 90.0 fL 80.0 - 11/21 98.0 [facility] HEMATOLOGY Hct 30.6 % 36.0 - 11/21 48.0 [facility] HEMATOLOGY MCH 31.6 pg 27.0 - 11/21 31.0 [facility] HEMATOLOGY Hgb 10.8 g/dL 12.0 - 11/21 16.0 [facility] HEMATOLOGY RDW 14.4 % 11.5 - 11/21 14. [facility] HEMATOLOGY MCHC 35.2 g/dL 32.0 - 11/21 36.0 [facility] HEMATOLOGY MPV 7.6 fL 7.4 - 10.4 11/21 [facility] HEMATOLOGY Platelet 368 K/CMM 133 - 450 11/21 [facility] HEMATOLOGY WBC 5.3 K/CMM 3.7 - 10.4 11/21 [facility] HEMATOLOGY RBC 3.40 M/CMM 4.20 - 04 MH 5.40 /2017 [facility] HEMATOLOGY Eosinophils 0.5 K/CMM 0.0 - 0.5 11/21 # [facility] HEMATOLOGY Monocytes # 0.5 K/CMM 0.0 - 0.8 11/21 [facility] HEMATOLOGY Basophils # 0.1 K/CMM 0.0 - 0.2 11/21 [facility] HEMATOLOGY Lymphocytes 28.6 % 20.0 - 11/21 MH 40.0 [facility] HEMATOLOGY Lymphocytes 1.5 K/CMM 1.0 - 5.5 11/21 # [facility] HEMATOLOGY Eosinophils 8.8 % 0.0 - 4.0 11/21 [facility] HEMATOLOGY Monocytes 10.3 % 2.0 - 12.0 11/21 [facility] HEMATOLOGY Segs-Bands # 2.7 K/CMM 1.5 - 8.1 11/21 [facility] HEMATOLOGY Basophils 1.2 % 0.0 - 1.0 11/21 [facility] HEMATOLOGY Segs 51.1 % 45.0 - 11/21 MH 75.0 [facility] ELECTROLYT AGAP 9.8 meq/L 10.0 - 11/20 ES 20.0 [facility] ELECTROLYT B/C Ratio 21 6 - 25 11/20 [facility] ELECTROLYT Globulin 4.1 g/dL 2.7 - 4.2 11/20 [facility] ELECTROLYT A/G Ratio 0.6 0.7 - 1.6 11/20 [facility] ELECTROLYT eGFR 86 11/20 Result Comment: The eGFR is calculated using the CKD-EPI formula. In most young, healthy individuals the eGFR will be >90 mL/ min/1.73m2. The eGFR declines with age. An eGFR of 60-89 may be normal in mL/min/1.7 some populations, particularly the elderly, for whom the CKD-EPI formula has not been extensively validated. Use of the eGFR is not recommended in the following populations: [facility] 3m2 Individuals with unstable creatinine concentrations, including patients and those with serious co-morbid conditions. Patients with extremes in muscle mass or diet. The data above are obtained from the National Kidney Disease Education Program (NKDEP) which additionally recommends that when the eGFR is used in patients with extremes of body mass index for purposes of drug dosing, the eGFR should be multiplied by the estimated BMI. ELECTROLYT Bili Total 0.5 mg/dL 0.2 - 1.3 11/20 [facility] ELECTROLYT Alk Phos 158 unit/L 39 - 136 11/20 [facility] ELECTROLYT Albumin Lvl 2.5 g/dL 3.5 - 5.0 11/20 [facility] ELECTROLYT ALT 32 unit/L 0 - 65 11/20 [facility] ELECTROLYT AST 26 unit/L 0 - 37 11/20 [facility] ELECTROLYT CO2 26 meq/L 24 - 32 11/20 [facility] ELECTROLYT Chloride Lvl 109 meq/L 95 - 109 11/20 [facility] ELECTROLYT Total 6.6 g/dL 6.4 - 8.4 11/20 [facility] ELECTROLYT Calcium Lvl 8.5 mg/dL 8.5 - 10.5 11/20 [facility] ELECTROLYT Glucose Lvl 72 mg/dL 70 - 99 11/20 [facility] ELECTROLYT BUN 15 mg/dL 7 - 22 11/20 [facility] ELECTROLYT Sodium Lvl 141 meq/L 135 - 145 11/20 [facility] ELECTROLYT Creatinine 0.70 mg/dL 0.50 - 11/20 ES Lvl 1. [facility] ELECTROLYT Potassium 3.8 meq/L 3.5 - 5.1 11/20 [facility] Lvl [facility] HEMATOLOGY RBC 3.10 M/CMM 4.20 - 11/20 5.40 [facility] HEMATOLOGY WBC 5.4 K/CMM 3.7 - 10.4 11/20 [facility] HEMATOLOGY MCHC 34.9 g/dL 32.0 - 11/20 36.0 [facility] HEMATOLOGY MCH 31.0 pg 27.0 - 11/20 31.0 [facility] HEMATOLOGY MCV 89.0 fL 80.0 - 11/20 98.0 [facility] HEMATOLOGY Hct 27.5 % 36.0 - 11/20 48.0 [facility] HEMATOLOGY Hgb 9.6 g/dL 12.0 - 11/20 16.0 [facility] HEMATOLOGY MPV 7.7 fL 7.4 - 10.4 11/20 [facility] HEMATOLOGY Platelet 355 K/CMM 133 - 450 11/20 [facility] HEMATOLOGY RDW 13.9 % 11.5 - 11/20 MH 14.5 [facility] HEMATOLOGY Basophils 1.1 % 0.0 - 1.0 11/20 [facility] HEMATOLOGY Eosinophils 10.8 % 0.0 - 4.0 11/20 [facility] HEMATOLOGY Monocytes 12.5 % 2.0 - 12.0 11/20 [facility] HEMATOLOGY Basophils # 0.1 K/CMM 0.0 - 0.2 11/20 [facility] HEMATOLOGY Lymphocytes 27.4 % 20.0 - 04 MH 40.0 [facility] HEMATOLOGY Lymphocytes 1.5 K/CMM 1.0 - 5.5 11/20 [facility] HEMATOLOGY Eosinophils 0.6 K/CMM 0.0 - 0.5 11/20 [facility] HEMATOLOGY Monocytes # 0.7 K/CMM 0.0 - 0.8 11/20 [facility] HEMATOLOGY Segs-Bands # 2.6 K/CMM 1.5 - 8.1 11/20 [facility] HEMATOLOGY Segs 48.2 % 45.0 - 11/20 MH 75.0 [facility] CHEM PANEL Phosphorus 3.0 mg/dL 2.5 - 4.5 11/19 [facility] CHEM PANEL A/G Ratio 0.6 0.7 - 1.6 11/19 [facility] CHEM PANEL AGAP 16.8 meq/L 10.0 - 11/19 20.0 [facility] CHEM PANEL B/C Ratio 27 6 - 25 11/19 [facility] CHEM PANEL Globulin 3.9 g/dL 2.7 - 4.2 11/19 [facility] CHEM PANEL eGFR 91 11/19 Result Comment: The eGFR is calculated using the CKD-EPI formula. In most young, healthy individuals the eGFR will be >90 mL/ min/1.73m2. The eGFR declines with age. An eGFR of 60-89 may be normal in MH mL/min/1. some populations, particularly the elderly, for whom the CKD-EPI formula has not been extensively validated. Use of the eGFR is not recommended in the following populations: [address] Individuals with unstable creatinine concentrations, including patients and those with serious co-morbid conditions. Patients with extremes in muscle mass or diet. The data above are obtained from the National Kidney Disease Education Program (NKDEP) which additionally recommends that when the eGFR is used in patients with extremes of body mass index for purposes of drug dosing, the eGFR should be multiplied by the estimated BMI. CHEM PANEL Bili Total 0.6 mg/dL 0.2 - 1.3 11/19 [facility] CHEM PANEL Alk Phos 166 unit/L 39 - 136 11/19 [facility] CHEM PANEL AST 42 unit/L 0 - 37 11/19 [facility] CHEM PANEL Albumin Lvl 2.5 g/dL 3.5 - 5.0 11/19 [facility] CHEM PANEL ALT 38 unit/L 0 - 65 11/19 [facility] CHEM PANEL BUN 16 mg/dL 7 - 22 11/19 [facility] CHEM PANEL Glucose Lvl 70 mg/dL 70 - 99 11/19 [facility] CHEM PANEL Calcium Lvl 8.6 mg/dL 8.5 - 10.5 11/19 [facility] CHEM PANEL Total 6.4 g/dL 6.4 - 8.4 11/19 [facility] CHEM PANEL CO2 20 meq/L 24 - 32 11/19 [facility] CHEM PANEL Chloride Lvl 107 meq/L 95 - 109 11/19 [facility] CHEM PANEL Creatinine 0.60 mg/dL 0.50 - 11/19 MH Lvl 1.40 [facility] CHEM PANEL Sodium Lvl 140 meq/L 135 - 145 11/19 [facility] CHEM PANEL Potassium 3.8 meq/L 3.5 - 5.1 11/19 [facility] CHEM PANEL Magnesium 1.8 mg/dL 1.8 - 2.4 11/19 [facility] HEMATOLOGY WBC 6.5 K/CMM 3.7 - 10.4 11/19 [facility] HEMATOLOGY Hgb 9.3 g/dL 12.0 - 11/19 16.0 [facility] HEMATOLOGY Hct 27.9 % 36.0 - 11/19 48.0 [facility] HEMATOLOGY RBC 3.06 M/CMM 4.20 - 04 MH 5.40 [facility] HEMATOLOGY MCHC 33.5 g/dL 32.0 - 11/19 36.0 [facility] HEMATOLOGY RDW 14.2 % 11.5 - 11/19 MH 14.5 /2017 [facility] MCV 91.1 fL 80.0 - 11/19 98.0 /2017 [facility] MCH 30.5 pg 27.0 - 11/19 31.0 [facility] MPV 7.8 fL 7.4 - 10.4 11/19 [facility] Platelet 347 K/CMM 133 - 450 11/19 [facility] Monocytes 11.5 % 2.0 - 12.0 11/19 [facility] HEMATOLOGY Segs-Bands # 3.3 K/CMM 1.5 - 8.1 11/19 [facility] HEMATOLOGY Basophils 1.0 % 0.0 - 1.0 11/19 [facility] HEMATOLOGY Eosinophils 9.3 % 0.0 - 4.0 11/19 [facility] HEMATOLOGY Lymphocytes 1.7 K/CMM 1.0 - 5.5 11/19 # [facility] HEMATOLOGY Eosinophils 0.6 K/CMM 0.0 - 0.5 11/19 [facility] HEMATOLOGY Monocytes # 0.7 K/CMM 0.0 - 0.8 11/19 [facility] HEMATOLOGY Basophils # 0.1 K/CMM 0.0 - 0.2 11/19 [facility] Lymphocytes 26.5 % 20.0 - 11/19 40.0 [facility] HEMATOLOGY Segs 51.7 % 45.0 - 11/19 75.0 [facility] Chest Chest 1view PROCEDURE: Chest, AP on 11/19/2017 at 0627 hours. 11/19 - 1view DX DX /2017 - [facility] INDICATION: Pneumonia. Read by: Forrest Bailey MD Dictated Date/time: 11/19/17 07:32 Electronically Signed by: Forrest Bailey MD 11/19/17 07:33 FINAL REPORT COMPARISON: Chest radiographs dated 11/14/2017 and 11/11/2017. FINDINGS: Diffuse interstitial density throughout the bilateral lungs. No pleural effusion or pneumothorax. Alveolar density is present in the mid to lower left chest. Cardiac silhouette is enlarged. De nse aortic wall calcifications. Plate and screws overlie the midline lower cervical spine. Generalized cachexia. Surgical clips overlie the left chest, axilla. No significant change since prior studies. IMPRESSION: 1. Stable radiographic appearance of the chest. SL: [id number] HEMATOLOGY PTT 38.5 s 22.9 - 04 MH 35.8 /2017 [facility] HEMATOLOGY INR 1.16 0.85 - 11/18 MH 1.17 /2017 [facility] HEMATOLOGY PT 14.8 s 12.0 - 11/18 MH 14.7 [facility] CHEM PANEL Magnesium 1.8 mg/dL 1.8 - 2.4 11/14 Lvl /2017 [facility] IMMUNOLOGY C-REACTIVE 49.4 mg/L <=2.9 mg/L 11/14 PROTEIN [facility] IMMUNOLOGY PRISCILA Negative Negative 11/14 [facility] (11/14/17 5:34 AM) IMMUNOLOGY RF Qnt null 0 - 20 11/14 [facility] IMMUNOLOGY P-ANCA Negative Negative 11/14 [facility] (11/14/17 5:34 AM) IMMUNOLOGY C-ANCA Negative Negative 11/14 [facility] (11/14/17 5:34 AM) Chest Chest 1view Clinical Indication: - PNEUMONIA. 11/14 1view DX DX [facility] Comparison: Chest radiograph 11/11/2017 Read by: Tania Del Castillo MD Dictated Date/time: 11/14/17 08:00 Findings: Electronically Signed by: Tania Del Castillo MD 11/14/17 08:01 FINAL REPORT Frontal view of the chest was obtained. Leads overlie the chest. Surgical clips project over the left axilla. The cardiac silhouette is enlarged. Atheromatous changes are present in the aorta. The lungs are hyperexpanded. There are persistent diffuse interstitial opacities similar to previous exam. No pneumothorax. There are postsurgical changes of ACDF. IMPRESSION: Diffuse interstitial opacities may be related to interstitial edema, atypical infection or background senescent change superimposed on emphysema SL: [id number] CHEM PANEL Procalcitoni null 0.00 - 11/12 n Lvl 0.10 [facility] IMMUNOLOGY T-Spot.TB Negative Negative 11/12 [facility] (11/12/17 3:03 PM) Chest Chest 1view Patient Name: LYNDA GAMEZ 11/11 1view DX DX [facility] : 1945; Age: 72 years y/o Female MR: [id number] Read by: Delfin Schreiber MD Dictated Date/time: 11/11/17 08:51 Electronically Signed by: Delfin Schreiber MD 11/11/17 08:55 FINAL REPORT Study: Chest 1view DX 11/11/2017 3:00 AM CDT Ordering Physician: Ajay Doshi MD Clinical Indication: Hemoptysis - Hemoptysis; Comparison: 11/06/2017 chest radiograph The ill-defined ground glass and airspace opacities in the left perihilar and both basilar regions have improved. The reticular opacities elsewhere in the lungs that may be a manifestation of underlying pulmonary fibrosis have not changed. No large collections of pleural fluid. Stable size of the cardiac silhouette. The lungs may be slightly more congested. SL: [id number] Chest w Chest w Patient Name: LYNDA GAMEZ 11/10 - contrast contrast CT [facility] CT : 1945; Age: 72 years y/o Female MR: [id number] Read by: Giuseppe Houston MD Dictated Date/time: 11/10/17 22:05 Electronically Signed by: Giuseppe Houston MD 11/10/17 22:15 FINAL REPORT * COMPUTED TOMOGRAPHY SCAN OF THE CHEST -- with contrast HISTORY: Hemoptysis. Imaging studies reviewed: 1. Computed tomography scan of the chest of 11/04/2017. Chest radiographs from 11/06/2017 and 11/04/2017 were reviewed. TECHNIQUE: Helical CT images were obtained from the thoracic inlet to the upper abdomen following the intravenous administration of nonionic iodinated contrast. Sagittal and coronal reconstructions were provided. CT radiation dose DLP: 202 mGy-cm IMPRESSION: 1. Improvement in the previous extensive pneumonia involving the Left upper lobe and left lower lobe. There are moderate residual infiltrates. 2. There is been improvement in the posterior basilar right lower lobe infiltrate with minimal residual infiltrate in this region. 3. No new or acute abnormalities. There are no new infiltrates, significant pleural effusions, or pneumothorax. There is a very tiny left pleural effusion. 4. Very severe emphysematous changes. 5. Mild cardiomegaly. There is no pericardial effusion. 6. Extensive coronary artery calcifications. 7. Extensive atherosclerotic calcifications involving the thoracic aorta. There is no aneurysm or dissection. 8. No suspicious mass or suspicious adenopathy is seen within the chest. Again noted are a few mildly prominent mediastinal lymph nodes, probably inflammatory. 9. Postoperative changes, left axillary region. 10. Postoperative change involving the cervical spine. An anterior fusion plate is noted. There are mild degenerative change involving the thoracic spine. The regional skeleton is otherwise unremarkable. No blastic or destructive lesions are seen. SL: [id number] CHEM PANEL Phosphorus 5.5 mg/dL 2.5 - 4.5 11/10 [facility] CHEM PANEL Magnesium 2.0 mg/dL 1.8 - 2.4 11/10 Lvl /2017 [facility] CHEM PANEL Phosphorus 2.2 mg/dL 2.5 - 4.5 11/09 [facility] CHEM PANEL Procalcitoni 0.18 0.00 - 04 n Lvl 0.10 [facility] PARATHYROI Ca Ion WB 1.14 1.05 - 11/06 MH D PROFILE mMol/L 09.03 [facility] PARATHYROI Ca Norm WB 1.11 1.05 - 11/06 MH D PROFILE mMol/L 09.03 [facility] Chest Chest 1view Clinical Indication: n/a - resp failure 11/06 - 1view DX DX /2017 - [facility] Comparison: 11/05/2017 Read by: Ricky Sheehan MD Dictated Date/time: 11/06/17 07:43 FINDINGS: Electronically Signed by: Ricky Sheehan MD 11/06/17 07:45 FINAL REPORT AP chest radiograph was obtained. MEDIASTINUM: The cardiac silhouette is mildly prominent. The aorta demonstrates atherosclerotic calcification. LUNGS: There are surgical clips overlying the left axilla. There is patchy opacity throughout the left mid and lower lung and right infrahilar region. There are no effusions. There is increased lung volumes. BONES: The visualized osseous structures are unremarkable. IMPRESSION: Findings suggestive of chronic obstructive pulmonary disease and unchanged bilateral airspace disease. SL: [id number] PARATHYROI Ca Ion WB 1.14 1.05 - 11/06 MH D PROFILE mMol/L 09.03 [facility] PARATHYROI Ca Norm WB 1.11 1.05 - 11/06 MH D PROFILE mMol/L 09.03 [facility] PARATHYROI Ca Ion WB 1.03 1.05 - 11/05 MH D PROFILE mMol/L 09.03 [facility] PARATHYROI Ca Norm WB 1.07 1.05 - 11/05 MH D PROFILE mMol/L 09.03 [facility] 1view Patient Name: LYNDA GAMEZ 11/05 - 1view DX DX - [facility] : 1945; Age: 72 years Female MR: [id number] Read by: Eloy Linton MD Dictated Date/time: 11/05/17 08:09 Electronically Signed by: Eloy Linton MD 11/05/17 08:11 FINAL REPORT Study: Chest 1view DX Order Time: 11/05/2017 3:00 AM CDT Clinical Indication: hemoptysis - possible pneumonia, hypoxemia. COMPARISON: October 2017 x-rays back to November 04. FINDINGS: Views: 1 LUNGS: There is increased lung volume. Stable bilateral extensive bilateral interstitial infiltrates. There are no pleural effusions. There is no pneumothorax. The pulmonary vasculature is normal. MEDIASTINUM: The cardiac silhouette is enlarged. The trachea is midline. Left axillary rachel. BONES: There are no clinically significant osseous abnormalities noted. IMPRESSION: Stable bilateral extensive interstitial infiltrates. SL: [id number] [facility] History: Short of breath Read by: Zita Monsivais MD Dictated Date/time: 11/04/17 16:55 Electronically Signed by: Zita Monsivais MD 11/04/17 16:58 FINAL REPORT Comments: The trachea is midline. The cardiomediastinal silhouette is normal in size. Extensive bilateral interstitial opacities are unchanged. No pleural effusions or pneumothorax. Impression: Extensive bilateral interstitial opacities are unchanged. CHEM PANEL Procalcitoni 0.26 0.00 - 11/04 n Lvl 0.10 [facility] Chest/Abdo Chest/Abdome PROCEDURE: CT CHEST ABDOMEN AND PELVIS WITHOUT CONTRAST 11/04 - men/Pelvis n/Pelvis - [facility] wo IV IV contrast contrast CT CT CLINICAL INDICATION: Hemoptysis. Lower abdominal pain.. Read by: Abundio Bustamante MD Dictated Date/time: 11/04/17 13:30 COMPARISON: Today's chest x-ray. Electronically Signed by: Abundio Bustamante MD 11/04/17 13:44 FINAL REPORT TECHNIQUE: Helical imaging was performed apices through the symphysis with multiplanar reconstructions. IV CONTRAST: None. GI CONTRAST: None. TOTAL RADIATION DOSE: 416 mGy-cm FINDINGS: CHEST: LUNGS AND PLEURA: There is extensive emphysematous change bilaterally. In addition airspace infiltrate noted left upper lobe and superior segment left lower lobe. Subpleural scarring right lower lobe. Trace amount of left pleural fluid. MEDIASTINUM: There is a 1.5 cm short axis diameter left AP window node. A few other much smaller lymph nodes also present in the mediastinum. Moderate amount of atheromatous plaque thoracic aorta which is normal caliber. Moderate coronary artery calcifications.. MUSCULOSKELETAL: The skeleton is intact. ABDOMEN: SOLID ORGANS: Hyperdense material present within the gallbladder lumen this may represent precarious excretion of IV contrast versus sludge. The liver , spleen and adrenals are normal. There are a few co arse calcifications associated with the pancreas. Pancreas otherwise normal. Residual contrast is noted in the right and to a much lesser degree left renal pelvis and calyces. Linear areas of increased attenuation noted in the right and to a lesser degree left kidney this appears to represent residual IV contrast within the renal parenchyma. No hydronephrosis or perinephric edema. Kidneys otherwise normal. BOWEL: Mild diverticulosis. Large and small bowel otherwise normal. PERITONEUM: No free intraperitoneal fluid or air. RETROPERITONEUM: Aneurysmal dilatation infrarenal abdominal aorta maximal diameter of 2.8 cm. Moderate amount of calcified plaque within the abdominal aorta. IVC normal. No retroperitoneal adenopathy. PELVIS: The urinary bladder is filled with contrast. No pelvic mass. MUSCULOSKELETAL: The skeleton is intact. IMPRESSION: 1. Severe emphysematous change of the lungs with left lower lobe and upper lobe infiltrates. 2. Probable reactive mediastinal nodes. 3. Evidence for recently administered IV contrast. The retention of contrast in the right and to a lesser degree left renal parenchyma is slightly unusual. Correlate for any evidence of pyelonephritis or other renal injury. 4. Mild diverticulosis. 5. Aneurysmal dilatation of the segment of the infrarenal abdominal aorta measuring up to 2.8 cm. 6. Coarse pancreatic calcifications consistent with chronic pancreatitis. END REPORT SL: [id number] BACTERIAL Strep Negative Negative 11/04 MH - SEROLOGY [facility] Ag (11/04/17 5:33 AM) BACTERIAL Source Strep Urine 11/04 MH - SEROLOGY /2017 [facility] *NA* (11/04/17 5:33 AM) BACTERIAL MRSA by PCR Negative 11/04 - SEROLOGY /2017 [facility] (11/04/17 2:54 AM) CARDIAC BNP 69 pg/mL <=100 11/04 ENZYMES pg/mL /2017 [facility] HEMATOLOGY PTT 81.0 s 22.9 - 11/04 35.8 /2017 [facility] HEMATOLOGY INR 1.67 0.85 - 11/04 1.17 /2017 [facility] HEMATOLOGY PT 19.8 s 12.0 - 11/04 14.7 /2017 [facility] SPECIAL Hgb A1C 5.0 % <=5.6 % 11/04 CHEMISTRY /2017 [facility] LIPIDS VLDL 15 11/04 [facility] LIPIDS LDL 61 mg/dL <=99 mg/dL 11/04 (Calculated) [facility] LIPIDS Chol 105 mg/dL <=199 11/04 mg/dL [facility] LIPIDS Trig 75 mg/dL <=149 11/04 mg/dL [facility] LIPIDS HDL 29 mg/dL >=61 mg/dL 11/04 [facility] LIPIDS CHD Risk 3.62 3.90 - 11/04 5.80 [facility] Chest Chest 1view Clinical Indication: code heart - code heart; 11/04 - 1view DX DX /2017 - [facility] Comparison: None Read by: Willie Burks MD Dictated Date/time: 11/04/17 03:49 Electronically Signed by: Willie Burks MD 11/04/17 03:50 FINAL REPORT FINDINGS: The portable AP single view radiograph provided for review. Trachea is midline. Calcified plaque in aortic arch is noted. Heart is borderline in size. There are bilateral patchy pulmonary opacities. There is no pleural effusion or pneumothorax.. Plate and screws are projected to the lower cervical spine. IMPRESSION: Bilateral patchy pulmonary opacities which may be due to multifocal pneumonia or pulmonary edema. SL: [id number] Vital Signs Vital Sign Value Date Comments Source Systolic (mm Hg) 103 11/21/2017 [facility] Diastolic (mm Hg) 69 11/21/2017 [facility] Heart Rate 73 11/21/2017 [facility] Systolic (mm Hg) 103 11/21/2017 [facility] Diastolic (mm Hg) 69 11/21/2017 [facility] Respitory Rate 18 11/21/2017 [facility] Heart Rate 73 11/21/2017 [facility] Heart Rate 76 11/21/2017 [facility] Respitory Rate 18 11/21/2017 [facility] Systolic (mm Hg) 110 11/21/2017 [facility] Diastolic (mm Hg) 68 11/21/2017 [facility] Respitory Rate 18 11/21/2017 [facility] Temperature Oral (F) 99.1 F 11/18/2017 [facility] Temperature Oral (F) 98.8 F 11/18/2017 [facility] Temperature Oral (F) 98.0 F 11/18/2017 [facility] Height 162.56 cm 11/12/2017 [facility] Weight 54.773 11/11/2017 [facility] BMI Calculated 18.54 11/04/2017 [facility] Weight 49 11/04/2017 [facility] Height 162.56 cm 11/04/2017 [facility] Weight 49 11/04/2017 [facility] Encounters Location Location Encounter Encounter Reason Attending ADM DC Status Source Details Type Number For Provider Date Date Visit [facility] [id number] [place] 11/04 11/21 Kai Saravia /2017 [facility] Procedures Procedure Code Date Perfomer Comments Source Tonsillectomy [id number] [facility] 8 Appendectomy [id number] [facility] Cholecystectomy [id number] [facility] Hysterectomy [id number] [facility] Mastectomy [id number] [facility] Revision of colostomy [id number] [facility] Sigmoid colectomy and [id number] [facility] colostomy
--- OUTSIDE RECORDS SUMMARY | 2018-01-22 12:41 | XMS REPORT | Summary of Care ---
:1945 Author Organization [facility] Address [address] [place], [place] [address]- Encounter HQ Rachel(FIN) [id number] Date(s): 11/04/17 - 11/21/[address] [address]- Encounter Diagnosis Acute myocardial infarction, unspecified (Final) - Discharge Disposition: Home or Self Care Attending Physician: Osorio Gibbons MD Admitting Physician: Osorio Gibbons MD Referring Physician: Noman Saravia MD Vital Signs Most recent to oldest 1 2 3 [Reference Range]: Height 162.56 cm 162.56 cm (11/12/17 12:35 PM) (11/04/17 3:24 AM) Current Weight 50.009 kg 50.955 kg 51.682 kg (11/18/17 4:00 AM) (11/15/17 7:00 AM) (11/14/17 6:03 AM) Temperature Oral [96.4-99.1 99.1 DegF 98.8 DegF 98.0 DegF DegF] (11/18/17 4:00 AM) (11/18/17 12:00 AM) (11/17/17 8:00 PM) Blood Pressure [90-140/60-90 103/69 mmHg 103/69 mmHg 110/68 mmHg mmHg] (11/21/17 12:54 PM) (11/21/17 12:00 PM) (11/21/17 8:15 AM) Respiratory Rate [14-20 18 BRMIN 18 BRMIN 18 BRMIN BRMIN] (11/21/17 12:00 PM) (11/21/17 8:15 AM) (11/21/17 4:00 AM) Peripheral Pulse Rate [60-100 73 bpm 73 bpm 76 bpm bpm] (11/21/17 12:54 PM) (11/21/17 12:00 PM) (11/21/17 8:15 AM) Weight 54.773 kg 49 kg 49 kg (11/11/17 6:06 AM) (11/04/17 3:24 AM) (11/04/17 3:23 AM) Body Mass Index 18.54 m2 (11/04/17 3:24 AM) Problem List No data available for this section Allergies, Adverse Reactions, Alerts Substance Reaction Severity Status sulfa drugs Active penicillin Active codeine sulfate Active Medications acetaminophen 650 mg, 2 tab, Route: PO, Drug form: TAB, Q4H, Dosing Weight 48, kg, PRN Pain Score 7-10, Start date: 11/04/17 1:56:00 CDT, Duration: 30 day, Stop date: 12/04 1:55:00 CDT Notes: Do not exceed 4 gm/day. (Same as: Tylenol) Start Date: 11/04/17 Stop Date: 11/21/17 Status: Discontinuedalbuterol-ipratropium 2.5-0.5 mg inhalation solution 3 mL, NEB, PRN, 4H PRN Start Date: 11/04/17 Status: OrderedamLODIPine 10 mg, PO, Daily Start Date: 11/04/17 Stop Date: 11/21/17 Status: Discontinuedaspirin 81 mg, 1 tab, Route: PO, Drug form: ECTAB, Daily, Dosing Weight 48, kg, Start date: 11/04/17 9:00:00CDT, Duration: 30 day, Stop date: 12/03/17 9:00:00 CDT Notes: Do not crush or chew.(Same As: Ecotrin) Start Date: 11/04/17 Stop Date: 11/21/17 Status: Discontinuedaspirin 81 mg tablet, enteric coated 81 mg=1 tab, PO, Daily, 0 Refill(s) Start Date: 11/21/17 Status: Orderedatorvastatin 40 mg oral tablet 40 mg=1 tab, PO, Bedtime, # 30 tab, 0 Refill(s), Pharmacy: [facility] [id number] Start Date: 11/21/17 Stop Date: 12/21/17 Status: Orderedazithromycin + Sodium Chloride 0.9% IV 250 mL 500 mg, Route: IVPB, [id number], Dosing Weight 49, kg, Start date: 11/04/17 5:00: 00 CDT, Duration: 5 day, Stop date: 11/08/17 5:00:00 CDT, ABX Indication: Pneumonia Notes: (Same As: Zithromax IV) Start Date: 11/04/17 Stop Date: 11/06/17 Status: Discontinuedbenzonatate 100 mg oral capsule 100 mg=1 cap, PO, TID, PRN as needed for cough, X 7 day, # 21 cap, 0 Refill(s), Pharmacy: [facility] [id number] Start Date: 11/21/17 Stop Date: 11/28/17 Status: OrderedBrilinta (ticagrelor) 90 mg, 1 tab, Route: PO, Drug form: TAB, Q12H, Dosing Weight 48, kg, Start date : 11/04/17 9:00:00 CDT, Duration: 30 day, Stop date: 12/03/17 21:00:00 CDT Notes: (Same as: Brilinta) Start Date: 11/04/17 Stop Date: 11/11/17 Status: Discontinuedbudesonide 0.5 mg, 2 mL, Route: NEB, Drug form: SUSP, RBID, Dosing Weight 49, kg, Start date: 11/04/17 13:04:00CDT, Duration: 30 day, Stop date: 12/04/17 8:00:00 CDT Notes: (Same As: Pulmicort) Start Date: 11/04/17 Stop Date: 11/21/17 Status: Discontinuedbudesonide 0.5 mg/2 mL inhalation suspension 0.5 mg=2 mL, NEB, RBID, # 120 mL, 0 Refill(s), Pharmacy: [facility] [id number] Start Date: 11/21/17 Stop Date: 12/21/17 Status: Orderedcalcium carbonate 500 mg (200 mg elemental calcium) oral tablet 500 mg, 1 tab, Route: PO, Drug form: CHEWTAB, PRN, Dosing Weight 49, kg, PRN Abnormal Lab Result, FOR ICU USE ONLY, Start date: 11/08/17 7:19:00 CDT, Duration: 30 day, Stop date: 12/08/17 7:18:00 CDT Notes: (Same As: Tums)Calcium Carbonate 500 wd=713 mg elemental calcium Dose=_ mg calcium carbonate ( mg elemental calcium) Start Date: 11/08/17 Stop Date: 11/08/17 Status: Discontinuedcalcium carbonate 500 mg (200 mg elemental calcium) oral tablet 1,000 mg, 2 tab, Route: PO, Drug form: CHEWTAB, PRN, Dosing Weight 49, kg, PRN Abnormal Lab Result, FOR ICU USE ONLY, Start date: 11/08/17 7:19:00 CDT, Duration: 30 day, Stop date: 12/08/17 7:18:00 CDT Notes: (Same As: Tums)Calcium Carbonate 500 ne=692 mg elemental calcium Dose=_ mg calcium carbonate ( mg elemental calcium) Start Date: 11/08/17 Stop Date: 11/08/17 Status: Discontinuedcalcium carbonate 500 mg (200 mg elemental calcium) oral tablet 500 mg, 1 tab, Route: PO, Drug form: CHEWTAB, PRN, Dosing Weight 48, kg, PRN Abnormal Lab Result, FOR ICU USE ONLY, Start date: 11/04/17 2:44:00 CDT, Duration: 30 day, Stop date: 12/04/17 2:43:00 CDT Notes: (Same As: Tums)Calcium Carbonate 500 yt=297 mg elemental calcium Dose=_ mg calcium carbonate ( mg elemental calcium) Start Date: 11/04/17 Stop Date: 11/06/17 Status: Discontinuedcalcium carbonate 500 mg (200 mg elemental calcium) oral tablet 1,000 mg, 2 tab, Route: PO, Drug form: CHEWTAB, PRN, Dosing Weight 48, kg, PRN Abnormal Lab Result, FOR ICU USE ONLY, Start date: 11/04/17 2:44:00 CDT, Duration: 30 day, Stop date: 12/04/17 2:43:00 CDT Notes: (Same As: Tums)Calcium Carbonate 500 bk=559 mg elemental calcium Dose=_ mg calcium carbonate ( mg elemental calcium) Start Date: 11/04/17 Stop Date: 11/06/17 Status: Discontinuedcalcium gluconate 1 gm, 50 mL, Route: IVPB, Drug form: INJ, PRN, Dosing Weight 49, kg, PRN Abnormal Lab Result, Start date: 11/08/17 7:19:00 CDT, Duration: 30 day, Stop date: 12/08/17 7:18:00 CDT, FOR ICU USE ONLY Notes: WASTE: F/P - Sink; E - Municipal Trash Bin Start Date: 11/08/17 Stop Date: 11/08/17 Status: Discontinuedcalcium gluconate 1 gm, 50 mL, Route: IVPB, Drug form: INJ, PRN, Dosing Weight 48, kg, PRN Abnormal Lab Result, Start date: 11/04/17 2:44:00 CDT, Duration: 30 day, Stop date: 12/04/17 2:43:00 CDT, FOR ICU USE ONLY Notes: WASTE: F/P - Sink; E - Municipal Trash Bin Start Date: 11/04/17 Stop Date: 11/06/17 Status: Discontinuedcefepime + Sodium Chloride 0.9% IV 100 mL 1 gm, Route: IVPB, [id number], Dosing Weight 54.773, kg, (CrCl >/=50 ml/min), Start date: 11/12/17 14:00:00 CDT, Stop date: 11/22/17 8:00:00 CDT, ABX Indication: Pneumonia Notes: (Same As: Maxipime) MEDICATION WASTE Product Size: 1000 mgProduct Wasted: __0_ mg Start Date: 11/12/17 Stop Date: 11/17/17 Status: Discontinuedcefepime + Sodium Chloride 0.9% IV 100 mL 1 gm, Route: IVPB, [id number], Dosing Weight 54.773, kg, (CrCl >/=50 ml/min), Start date: 11/11/17 12:00:00 CDT, Duration: 7 day, Stop date: 11/18/17 0:00:00 CDT, ABX Indication: Pneumonia Notes: (Same As: Maxipime) MEDICATION WASTE Product Size: 1000 mgProduct Wasted: ___ mg Start Date: 11/11/17 Stop Date: 11/12/17 Status: DiscontinuedcefTRIAXone + sterile water 10 mL 1 gm, Route: IVPB, [id number], Dosing Weight 49, kg, Start date: 11/04/17 5:00:00 CDT, Duration: 10 day, Stop date: 11/13/17 5:00:00 CDT, ABX Indication: Pneumonia Notes: (Same As: Rocephin).Use with 100 mL NS and infuse over 30 min MEDICATION WASTE Product Size: 1000 mgProduct Wasted: ___ mg Start Date: 11/04/17 Stop Date: 11/06/17 Status: DiscontinuedcefTRIAXone + sterile water 10 mL 1 gm, Route: IVPB, [id number], Dosing Weight 49, kg, Start date: 11/06/17 10:00:00 CDT, Duration: 4 day, Stop date: 11/09/17 10:00:00 CDT, ABX Indication: Pneumonia Notes: (Same As: Rocephin).Use with 100 mL NS and infuse over 30 min MEDICATION WASTE Product Size: 1000 mgProduct Wasted: ___ mg Start Date: 11/06/17 Stop Date: 11/09/17 Status: Completedclopidogrel 75 mg oral tablet 75 mg=1 tab, PO, Daily, # 30 tab, 0 Refill(s), Pharmacy: [facility] [id number] Start Date: 11/21/17 Stop Date: 12/21/17 Status: OrderedColace 100 mg oral capsule 100 mg, 1 cap, Route: PO, Drug form: CAP, BID, Dosing Weight 49, kg, Start date : 11/07/17 17:00:00 CDT, Duration: 30 day, Stop date: 12/07/17 9:00:00 CDT Notes: (Same as: Colace) (Do Not Crush) Start Date: 11/07/17 Stop Date: 11/21/17 Status: DiscontinuedDextrose 50% Syringe 25 gm, 50 mL, Route: IVP, Drug Form: INJ, Dosing Weight 49, kg, PRN, PRN Blood Glucose Results, Start date: 11/04/17 9:54:00 CDT, Duration: 30 day, Stop date: 12/04/17 9:53:00 CDT Start Date: 11/04/17 Stop Date: 11/21/17 Status: DiscontinuedDextrose 50% Syringe 12.5 gm, 25 mL, Route: IVP, Drug Form: INJ, Dosing Weight 49, kg, PRN, PRN Blood Glucose Results, Start date: 11/04/17 9:54:00 CDT, Duration: 30 day, Stop date: 12/04/17 9:53:00 CDT Start Date: 11/04/17 Stop Date: 11/21/17 Status: DiscontinuedDextrose 50% Syringe 25 gm, 50 mL, Route: IVP, Drug Form: INJ, Dosing Weight 49, kg, ONCE, Start date : 11/04/17 8:24:00 CDT, Stop date: 11/04/17 8:24:00 CDT Start Date: 11/04/17 Stop Date: 11/04/17 Status: DeletedDextrose 50% Syringe 25 gm, 50 mL, Route: IVP, Drug Form: INJ, Dosing Weight 49, kg, ONCE, Start date : 11/04/17 8:52:00 CDT, Stop date: 11/04/17 8:52:00 CDT Start Date: 11/04/17 Stop Date: 11/04/17 Status: Discontinueddigoxin 125 mcg (0.125 mg) oral tablet 0.125 mg, 1 tab, Route: PO, Drug form: TAB, Daily, Dosing Weight 54.773, kg, Start date: 11/16/17 10:09:00 CDT, Duration: 30 day, Stop date: 12/16/17 9:00: 00 CDT Notes: Take on an Empty Stomach (Same as: Lanoxin) Start Date: 11/16/17 Stop Date: 11/21/17 Status: Discontinueddigoxin 125 mcg (0.125 mg) oral tablet 0.125 mg=1 tab, PO, Daily, # 30 tab, 0 Refill(s), Pharmacy: [facility] [id number] Start Date: 11/21/17 Stop Date: 12/21/17 Status: Ordereddoxycycline 100 mg, 1 cap, Route: PO, Drug form: CAP, [id number], Dosing Weight 54.773, kg, Start date: 11/17/17 16:00:00 CDT, Duration: 30 day, Stop date: 12/17/17 4:00: 00 CDT Notes: (Same as: Vibramycin) No milk/antacids/iron. Start Date: 11/17/17 Stop Date: 11/19/17 Status: DiscontinuedDuoNeb inhalation solution 3 mL, Route: INHALATION, Drug Form: SOLN, Dosing Weight 49, kg, RQ6H, Start date : 11/04/17 8:00:00 CDT, Duration: 30 day, Stop date: 12/04/17 2:00:00 CDT Notes: (Same as: Duoneb) Start Date: 11/04/17 Stop Date: 11/04/17 Status: CanceledDuoNeb inhalation solution 3 ml, Route: NEB, Drug Form: SOLN, Dosing Weight 49, kg, RQ4H, Start date: 11/04 4:00:00 CDT, Duration: 30 day, Stop date: 12/04/17 3:00:00 CDT Notes: (Same as: Duoneb) Start Date: 11/04/17 Stop Date: 11/18/17 Status: Discontinuedenoxaparin 40 mg, 0.4 mL, Route: SUB-Q, Drug form: INJ, [id number], Dosing Weight 48, kg, Start date: 11/04/17 3:00:00 CDT, Stop date: 12/03/17 3:00:00 CDT Notes: (Same as: Lovenox) Start Date: 11/04/17 Stop Date: 11/04/17 Status: Discontinuedetomidate 10 mg, 5 mL, Route: IV, Drug form: INJ, ONCE, Dosing Weight 54.773, kg, Start date: 11/12/17 15:40:00 CDT, Stop date: 11/12/17 15:40:00 CDT Notes: (Same as: Amidate). Per state nursing law etomidate can only be given by a nurse if patient is intubated or being intubated (unless the nurse is a URBAN DESIGNER). Start Date: 11/12/17 Stop Date: 11/12/17 Status: Completedfurosemide 20 mg, 2 mL, Route: IVP, Drug form: INJ, ONCE, Dosing Weight 49, kg, Priority: NOW, Start date: 11/04/17 3:09:00 CDT, Stop date: 11/04/17 3:09:00 CDT Notes: (Same as: Lasix) Start Date: 11/04/17 Stop Date: 11/04/17 Status: Completedgabapentin 100 mg oral capsule 100 mg, 1 cap, Route: PO, Drug form: CAP, Bedtime, Dosing Weight 49, kg, Start date: 11/05/17 21:00:00 CDT, Duration: 30 day, Stop date: 12/04/17 21:00:00 CDT Notes: (Same as: Neurontin) Start Date: 11/05/17 Stop Date: 11/18/17 Status: Discontinuedgabapentin 100 mg oral capsule 100 mg=1 cap, PO, Bedtime, # 90 cap, 1 Refill(s) Start Date: 11/05/17 Stop Date: 11/21/17 Status: Discontinuedglucagon 1 mg, Route: IM, Drug form: PDR/INJ, PRN, Dosing Weight 49, kg, PRN Blood Glucose Results, Start date: 11/04/17 9:54:00 CDT, Duration: 30 day, Stop date: 12/04/17 9:53:00 CDT Start Date: 11/04/17 Stop Date: 11/21/17 Status: Discontinuedhyoscyamine 0.125 mg, 1 tab, Route: SL, Drug form: TAB, Q6H, Dosing Weight 54.773, kg, PRN Other -See Comment, Start date: 11/19/17 13:47:00 CDT, Duration: 30 day, Stop date: 12/19/17 13:46:00 CDT Notes: (Same as: Levsin) Take 30 min before meal Start Date: 11/19/17 Stop Date: 11/21/17 Status: Discontinuedhyoscyamine 0.125 mg sublingual tablet 0.125 mg=1 tab, SL, Q4H, PRN Spasms, # 30 tab, 0 Refill(s) Start Date: 11/05/17 Status: Orderedinsulin lispro 1 unit, 0.01 mL, Route: SUB-Q, Drug form: SOLN, TID-Before Meals, Dosing Weight 49, kg, PRN Blood Glucose Results, Start date: 11/04/17 9:54:00 CDT, Duration: 30 day, Stop date: 12/04/17 9:53:00 CDT Notes: (Same as: Humalog ) Roll in palms of hands gently; Do not shake ` vigorously. "Single PatientUse Only " WASTE: F/P - Black; E - Municipal Trash Bin Stable for 28 days at room temperature.Expires in days from Date Start Date: 11/04/17 Stop Date: 11/21/17 Status: Discontinuedinsulin lispro 5 unit, 0.05 mL, Route: SUB-Q, Drug form: SOLN, TID-Before Meals, Dosing Weight 49, kg, PRN Blood Glucose Results, Start date: 11/04/17 9:54:00 CDT, Duration: 30 day, Stop date: 12/04/17 9:53:00 CDT Notes: (Same as: Humalog ) Roll in palms of hands gently; Do not shake ` vigorously. "Single PatientUse Only " WASTE: F/P - Black; E - Municipal Trash Bin Stable for 28 days at room temperature.Expires in days from Date Start Date: 11/04/17 Stop Date: 11/21/17 Status: Discontinuedinsulin lispro 2 unit, 0.02 mL, Route: SUB-Q, Drug form: SOLN, TID-Before Meals, Dosing Weight 49, kg, PRN Blood Glucose Results, Start date: 11/04/17 9:54:00 CDT, Duration: 30 day, Stop date: 12/04/17 9:53:00 CDT Notes: (Same as: Humalog ) Roll in palms of hands gently; Do not shake ` vigorously. "Single PatientUse Only " WASTE: F/P - Black; E - Municipal Trash Bin Stable for 28 days at room temperature.Expires in days from Date Start Date: 11/04/17 Stop Date: 11/21/17 Status: Discontinuedinsulin lispro 3 unit, 0.03 mL, Route: SUB-Q, Drug form: SOLN, TID-Before Meals, Dosing Weight 49, kg, PRN Blood Glucose Results, Start date: 11/04/17 9:54:00 CDT, Duration: 30 day, Stop date: 12/04/17 9:53:00 CDT Notes: (Same as: Humalog ) Roll in palms of hands gently; Do not shake ` vigorously. "Single PatientUse Only " WASTE: F/P - Black; E - Municipal Trash Bin Stable for 28 days at room temperature.Expires in days from Date Start Date: 11/04/17 Stop Date: 11/21/17 Status: Discontinuedinsulin lispro 4 unit, 0.04 mL, Route: SUB-Q, Drug form: SOLN, TID-Before Meals, Dosing Weight 49, kg, PRN Blood Glucose Results, Start date: 11/04/17 9:54:00 CDT, Duration: 30 day, Stop date: 12/04/17 9:53:00 CDT Notes: (Same as: Humalog ) Roll in palms of hands gently; Do not shake ` vigorously. "Single PatientUse Only " WASTE: F/P - Black; E - Municipal Trash Bin Stable for 28 days at room temperature.Expires in days from Date Start Date: 11/04/17 Stop Date: 11/21/17 Status: DiscontinuedInsulin regular 10 unit, 0.1 mL, Route: IVP, Drug form: SOLN, ONCE, Dosing Weight 49, kg, Start date: 11/04/17 8:24:00 CDT, Stop date: 11/04/17 8:24:00 CDT Notes: (Same as: Humulin R) Roll in palms of hands gently; Do not shake vigorously. "single patientuse only"(Restricted to patients requiring a dose &gt ; 60 units)WASTE: F/P - Black; E - Municipal Trash Bin Stable for 28 days at room temperatureExpires in days from Date Start Date: 11/04/17 Stop Date: 11/04/17 Status: Discontinuedipratropium 0.5 mg, 2.5 mL, Route: NEB, Drug form: SOLN, RQ6H, Dosing Weight 54.773, kg, Start date: 11/18/17 12:00:00 CDT, Duration: 30 day, Stop date: 12/18/17 8:00: 00 CDT Notes: SEE RT DOCUMENTATION(Same as:Atrovent) Start Date: 11/18/17 Stop Date: 11/21/17 Status: DiscontinuedKayexalate 30 gm, 120 mL, Route: PO, Drug form: SUSP, ONCE, Dosing Weight 49, kg, Start date: 11/04/17 4:18:00 CDT, Stop date: 11/04/17 4:18:00 CDT Notes: (sodium polystyrene sulfonate 15 gm/60 ml CARA) Shake well before use. (Same as: Kayexalate, SPS) Start Date: 11/04/17 Stop Date: 11/04/17 Status: Completedlactulose 10 g/15 mL oral syrup 20 gm, 30 mL, Route: PO, Drug form: SYRP, Q2H, Dosing Weight 54.773, kg, Start date: 11/19/17 14:00:00 CDT, Duration: 3 doses or times, Stop date: 11/19/17 18: 00:00 CDT Notes: (Same as:Chronulac) Start Date: 11/19/17 Stop Date: 11/19/17 Status: CompletedLasix 40 mg, 4 mL, Route: IVP, Drug form: INJ, ONCE, Dosing Weight 49, kg, Start date : 11/08/17 7:19:00 CDT, Stop date: 11/08/17 7:19:00 CDT Notes: (Same as: Lasix) MEDICATION WASTE Product Size: 40 mgProduct Wasted: ___ mg Start Date: 11/08/17 Stop Date: 11/08/17 Status: CompletedLasix 60 mg, 6 mL, Route: IVP, Drug form: INJ, ONCE, Dosing Weight 49, kg, Start date : 11/07/17 9:45:00 CDT, Stop date: 11/07/17 9:45:00 CDT Notes: (Same as: Lasix) Start Date: 11/07/17 Stop Date: 11/07/17 Status: CompletedLasix 40 mg, 4 mL, Route: IVP, Drug form: INJ, ONCE, Dosing Weight 49, kg, Priority: STAT, Start date: 11/05/17 13:46:00 CDT, Stop date: 11/05/17 13:46:00 CDT Notes: (Same as: Lasix) MEDICATION WASTE Product Size: 40 mgProduct Wasted: ___ mg Start Date: 11/05/17 Stop Date: 11/05/17 Status: CompletedLipitor 40 mg, 1 tab, Route: PO, Drug form: TAB, Bedtime, Dosing Weight 48, kg, Start date: 11/04/17 21:00:00 CDT, Duration: 30 day, Stop date: 12/03/17 21:00:00 CDT Notes: (Same as: Lipitor) Start Date: 11/04/17 Stop Date: 11/21/17 Status: DiscontinuedLovenox 40 mg, 0.4 mL, Route: SUB-Q, Drug form: INJ, [id number], Dosing Weight 48, kg, Start date: 11/04/17 5:00:00 CDT, Stop date: 12/03/17 3:00:00 CDT Notes: (Same as: Lovenox) Start Date: 11/04/17 Stop Date: 11/04/17 Status: Canceledmagnesium citrate 1.745 g/30 mL oral liquid 300 ml, Route: PO, Drug Form: LIQ, Dosing Weight 54.773, kg, ONCE, STAT, Start date: 11/19/17 15:55:00 CDT, Stop date: 11/19/17 15:55:00 CDT Notes: (Same as: Citrate of Magnesia)Concentration: 1.745 gm / 30 mL Start Date: 11/19/17 Stop Date: 11/19/17 Status: Completedmagnesium oxide 800 mg, 2 tab, Route: PO, Drug form: TAB, PRN, Dosing Weight 49, kg, PRN Abnormal Lab Result, FOR ICU USE ONLY, Start date: 11/08/17 7:19:00 CDT, Duration: 30 day, Stop date: 12/08/17 7:18:00 CDT Notes: (Same as: Mag-Ox 400)Magnesium oxide [id number] elemental magnesiumDose= ____mg magnesium oxide (___mg elemental magnesium) Start Date: 11/08/17 Stop Date: 11/08/17 Status: Discontinuedmagnesium oxide 800 mg, 2 tab, Route: PO, Drug form: TAB, PRN, Dosing Weight 48, kg, PRN Abnormal Lab Result, FOR ICU USE ONLY, Start date: 11/04/17 2:44:00 CDT, Duration: 30 day, Stop date: 12/04/17 2:43:00 CDT Notes: (Same as: Mag-Ox 400)Magnesium oxide [id number] elemental magnesiumDose= ____mg magnesium oxide (___mg elemental magnesium) Start Date: 11/04/17 Stop Date: 11/06/17 Status: Discontinuedmagnesium sulfate 2 gm, 50 mL, Route: IVPB, Drug form: INJ, PRN, Dosing Weight 49, kg, PRN Abnormal Lab Result, Start date: 11/08/17 7:19:00 CDT, Duration: 30 day, Stop date: 12/08/17 7:18:00 CDT, FOR ICU USE ONLY Notes: WASTE: F/P - Sink; E - Municipal Trash Bin Start Date: 11/08/17 Stop Date: 11/08/17 Status: Discontinuedmagnesium sulfate 2 gm, 50 mL, Route: IVPB, Drug form: INJ, PRN, Dosing Weight 48, kg, PRN Abnormal Lab Result, Start date: 11/04/17 2:44:00 CDT, Duration: 30 day, Stop date: 12/04/17 2:43:00 CDT, FOR ICU USE ONLY Notes: WASTE: F/P - Sink; E - Municipal Trash Bin Start Date: 11/04/17 Stop Date: 11/06/17 Status: Discontinuedmetoprolol tartrate 12.5 mg, 0.5 tab, Route: PO, Drug form: TAB, Q12H, Dosing Weight 48, kg, Start date: 11/18/17 21:00:00 CDT, Duration: 30 day, Stop date: 12/18/17 9:00:00 CDT Notes: (Same as: Lopressor) Start Date: 11/18/17 Stop Date: 11/21/17 Status: Discontinuedmetoprolol tartrate 50 mg, 1 tab, Route: PO, Drug form: TAB, Q12H, Dosing Weight 48, kg, Start date : 11/04/17 9:00:00 CDT, Stop date: 12/03/17 21:00:00 CDT Notes: (Same as: Lopressor) Start Date: 11/04/17 Stop Date: 11/18/17 Status: Discontinuedmetoprolol tartrate 25 mg oral tablet 12.5 mg=0.5 tab, PO, Q12H, # 30 tab, 1 Refill(s), Pharmacy: [facility] [id number] Start Date: 11/21/17 Stop Date: 01/20/18 Status: Orderedmidodrine 5 mg, 1 tab, Route: PO, Drug form: TAB, TID, Dosing Weight 54.773, kg, Priority : STAT, Start date: 11/19/17 17:00:00 CDT, Duration: 30 day, Stop date: 13:00:00 CDT Notes: (Same as:Proamatine) Start Date: 11/19/17 Stop Date: 11/21/17 Status: Voided With Resultsmidodrine 5 mg oral tablet 5 mg=1 tab, PO, TID, # 60 tab, 0 Refill(s), Pharmacy: [facility] [id number] Start Date: 11/21/17 Stop Date: 12/11/17 Status: Orderednicotine 21 mg, 1 patch, Route: TOP, Drug form: ERFILM, Daily, Dosing Weight 49, kg, Start date: 11/04/17 9:00:00 CDT, Duration: 30 day, Stop date: 12/03/17 9:00:00 CDT Notes: (Same as: Habitrol)"Remove old patch before application of new patch "WASTE: F/P - P Waste Black; E - P Waste Black Start Date: 11/04/17 Stop Date: 11/21/17 Status: Discontinuednormal saline 0.9% IV 1,000 mL 1,000 mL, Rate: 999 ml/hr, Infuse over: 1 hr, Route: IV, Dosing Weight 54.773 kg , Total Volume: 1,000, Start date: 11/18/17 16:57:00 CDT, Duration: 1 doses or times, Stop date: 11/18/17 17:56:00 CDT, 1.58, m2 Start Date: 11/18/17 Stop Date: 11/18/17 Status: Completedondansetron 4 mg, Route: IVP, Drug form: INJ, ONCE, Dosing Weight 49, kg, Start date: 7:55:00 CDT, Stopdate: 11/04/17 7:55:00 CDT Start Date: 11/04/17 Stop Date: 11/04/17 Status: Completedondansetron 4 mg, 2 mL, Route: IVP, Drug form: INJ, Q8H, Dosing Weight 48, kg, PRN Nausea & amp; Vomiting, Start date: 11/04/17 1:56:00 CDT, Duration: 30 day, Stop date: 1:55:00 CDT Notes: (Same as: Zofran) MEDICATION WASTE Product Size: 4 mgProduct Wasted: ___ mg Start Date: 11/04/17 Stop Date: 11/21/17 Status: DiscontinuedPhenergan 12.5 mg, 0.5 mL, Route: IM, Drug form: INJ, ONCE, Dosing Weight 49, kg, Start date: 11/04/17 12:08:00 CDT, Stop date: 11/04/17 12:08:00 CDT Notes: Do not give IV push. (Same as: Phenergan) Start Date: 11/04/17 Stop Date: 11/04/17 Status: CompletedPlavix 75 mg, 1 tab, Route: PO, Drug form: TAB, ONCE, Dosing Weight 54.773, kg, Priority: Routine, Start date: 11/19/17 8:45:00 CDT, Stop date: 11/19/17 8:45: 00 CDT Notes: (Same As: Plavix) Start Date: 11/19/17 Stop Date: 11/19/17 Status: CompletedPlavix 75 mg, Route: PO, Drug form: TAB, Daily, Dosing Weight 54.773, kg, Priority: STAT, Start date: 11/19/17 8:22:00 CDT, Duration: 30 day, Stop date: 12/18/17 9: 00:00 CDT Start Date: 11/19/17 Stop Date: 11/19/17 Status: DiscontinuedPlavix 75 mg, 1 tab, Route: PO, Drug form: TAB, Daily, Dosing Weight 54.773, kg, Priority: Routine, Start date: 11/20/17 9:00:00 CDT, Duration: 30 day, Stop date : 12/19/17 9:00:00 CDT Notes: (Same As: Plavix) Start Date: 11/20/17 Stop Date: 11/21/17 Status: Discontinuedpotassium chloride 20 mEq, 15 mL, Route: NJ, Drug form: LIQ, PRN, Dosing Weight 49, kg, PRN Abnormal Lab Result, Start date: 11/08/17 7:19:00 CDT, Duration: 30 day, Stop date: 12/08/17 7:18:00 CDT, FOR ICU USE ONLY Notes: (Same as: Potassium Chloride) Start Date: 11/08/17 Stop Date: 11/08/17 Status: Discontinuedpotassium chloride 20 mEq, 1 tab, Route: PO, Drug form: ERTAB, PRN, Dosing Weight 49, kg, PRN Abnormal Lab Result, Start date: 11/08/17 7:19:00 CDT, Duration: 30 day, Stop date: 12/08/17 7:18:00 CDT, FOR ICU USE ONLY Notes: (Same as: K-Dur 20)"Do Not Crush"For patients unable to swallow tablet, dissolve in one half glass of water. Allow about 2 minutes for the tablets to disintegrate. Stir before giving to prepare slurry and administer.Please exclude Patients with feeding tube less than 14 [place] (Dobhoff, J-tube etc) and pediatric and patients. With food and full glass of water Start Date: 11/08/17 Stop Date: 11/08/17 Status: Discontinuedpotassium chloride 20 mEq, 100 mL, Route: IVPB, Drug form: INJ, PRN, Dosing Weight 49, kg, PRN Abnormal Lab Result, Viacentral line, Start date: 11/08/17 7:19:00 CDT, Duration : 30 day, Stop date: 12/08/17 7:18:00 CDT, FOR ICU USE ONLY Notes: (Same as: KCL) Infuse no faster than 10 mEq/hr if given peripherally. Start Date: 11/08/17 Stop Date: 11/08/17 Status: Discontinuedpotassium chloride 20 mEq, 1 tab, Route: PO, Drug form: ERTAB, PRN, Dosing Weight 48, kg, PRN Abnormal Lab Result, Start date: 11/04/17 2:44:00 CDT, Duration: 30 day, Stop date: 12/04/17 2:43:00 CDT, FOR ICU USE ONLY Notes: (Same as: K-Dur 20)"Do Not Crush"For patients unable to swallow tablet, dissolve in one half glass of water. Allow about 2 minutes for the tablets to disintegrate. Stir before giving to prepare slurry and administer.Please exclude Patients with feeding tube less than 14 Lebanese (Dobhoff, J-tube etc) and pediatric and patients. With food and full glass of water Start Date: 11/04/17 Stop Date: 11/06/17 Status: Discontinuedpotassium chloride 20 mEq, 15 mL, Route: NJ, Drug form: LIQ, PRN, Dosing Weight 48, kg, PRN Abnormal Lab Result, Start date: 11/04/17 2:44:00 CDT, Duration: 30 day, Stop date: 12/04/17 2:43:00 CDT, FOR ICU USE ONLY Notes: (Same as: Potassium Chloride) Start Date: 11/04/17 Stop Date: 11/06/17 Status: Discontinuedpotassium chloride + Sodium Chloride 0.9% IV 100 mL 10 mEq, 5 mL, Route: IVPB, Drug form: INJ, PRN, Dosing Weight 49, kg, PRN Abnormal Lab Result, Via peripheral line, Start date: 11/08/17 7:19:00 CDT, Duration: 30 day, Stop date: 12/08/17 7:18:00 CDT, FOR ICU USE ONLY Notes: MUST be Diluted before use(Same as: KCl) MEDICATION WASTE Product Size: 20 mEqProduct Wasted: ___ mEq Start Date: 11/08/17 Stop Date: 11/08/17 Status: Discontinuedpotassium chloride + Sodium Chloride 0.9% IV 100 mL 20 mEq, 10 mL, Route: IVPB, Drug form: INJ, PRN, Dosing Weight 48, kg, PRN Abnormal Lab Result, Via central line, Start date: 11/04/17 2:44:00 CDT, Duration: 30 day, Stop date: 12/04/17 2:43:00 CDT, FOR ICU USE ONLY Notes: MUST be Diluted before use(Same as: KCl) MEDICATION WASTE Product Size: 20 mEqProduct Wasted: ___ mEq Start Date: 11/04/17 Stop Date: 11/06/17 Status: Discontinuedpotassium chloride + Sodium Chloride 0.9% IV 100 mL 10 mEq, 5 mL, Route: IVPB, Drug form: INJ, PRN, Dosing Weight 48, kg, PRN Abnormal Lab Result, Via peripheral line, Start date: 11/04/17 2:44:00 CDT, Duration: 30 day, Stop date: 12/04/17 2:43:00 CDT, FOR ICU USE ONLY Notes: MUST be Diluted before use(Same as: KCl) MEDICATION WASTE Product Size: 10 mEqProduct Wasted: ___ mEq Start Date: 11/04/17 Stop Date: 11/06/17 Status: Discontinuedpotassium phosphate + Dextrose 5% in Water IV 250 mL 30 mmol, 10 mL, Route: IVPB, ONCE, Dosing Weight 49, kg, Priority: STAT, Start date: 11/09/17 23:38:00 CDT, Stop date: 11/09/17 23:38:00 CDT Notes: (Same as: K Phosphate.) 1 mMol phoshate has 1.47 mEq potassium Infuse over 4 hours Start Date: 11/09/17 Stop Date: 11/10/17 Status: Completedpotassium phosphate + Sodium Chloride 0.9% IV 250 mL 15 mmol, 5 mL, Route: IVPB, PRN, Dosing Weight 49, kg, PRN Abnormal Lab Result, Start date: 187:19:00 CDT, Duration: 30 day, Stop date: 12/08/17 7:18:00 CDT, FOR ICU USE ONLY Notes: (Same as: K Phosphate.) 1 mMol phoshate has 1.47 mEq potassium Infuse over 4 hours Start Date: 11/08/17 Stop Date: 11/08/17 Status: Discontinuedpotassium phosphate + Sodium Chloride 0.9% IV 250 mL 45 mmol, 15 mL, Route: IVPB, PRN, Dosing Weight 49, kg, PRN Abnormal Lab Result , Start date: 11/08/17 7:19:00 CDT, Duration: 30 day, Stop date: 12/08/17 7:18: 00 CDT, FOR ICU USE ONLY Notes: (Same as: K Phosphate.) 1 mMol phoshate has 1.47 mEq potassium Infuse over 4 hours Start Date: 11/08/17 Stop Date: 11/08/17 Status: Discontinuedpotassium phosphate + Sodium Chloride 0.9% IV 250 mL 30 mmol, 10 mL, Route: IVPB, PRN, Dosing Weight 49, kg, PRN Abnormal Lab Result , Start date: 11/08/17 7:19:00 CDT, Duration: 30 day, Stop date: 12/08/17 7:18: 00 CDT, FOR ICU USE ONLY Notes: (Same as: K Phosphate.) 1 mMol phoshate has 1.47 mEq potassium Infuse over 4 hours Start Date: 11/08/17 Stop Date: 11/08/17 Status: Discontinuedpotassium phosphate + Sodium Chloride 0.9% IV 250 mL 45 mmol, 15 mL, Route: IVPB, PRN, Dosing Weight 48, kg, PRN Abnormal Lab Result , Start date: 11/04/17 2:44:00 CDT, Duration: 30 day, Stop date: 12/04/17 2:43: 00 CDT, FOR ICU USE ONLY Notes: (Same as: K Phosphate.) 1 mMol phoshate has 1.47 mEq potassium Infuse over 4 hours Start Date: 11/04/17 Stop Date: 11/06/17 Status: Discontinuedpotassium phosphate + Sodium Chloride 0.9% IV 250 mL 15 mmol, 5 mL, Route: IVPB, PRN, Dosing Weight 48, kg, PRN Abnormal Lab Result, Start date: :44:00 CDT, Duration: 30 day, Stop date: 12/04/17 2:43:00 CDT, FOR ICU USE ONLY Notes: (Same as: K Phosphate.) 1 mMol phoshate has 1.47 mEq potassium Infuse over 4 hours Start Date: 11/04/17 Stop Date: 11/06/17 Status: Discontinuedpotassium phosphate + Sodium Chloride 0.9% IV 250 mL 30 mmol, 10 mL, Route: IVPB, PRN, Dosing Weight 48, kg, PRN Abnormal Lab Result , Start date: 11/04/17 2:44:00 CDT, Duration: 30 day, Stop date: 12/04/17 2:43: 00 CDT, FOR ICU USE ONLY Notes: (Same as: K Phosphate.) 1 mMol phoshate has 1.47 mEq potassium Infuse over 4 hours Start Date: 11/04/17 Stop Date: 11/06/17 Status: Discontinuedpotassium phosphate-sodium phosphate 250 mg-280 mg-160 mg oral powder for reconstitution 2 pkt, Route: PO, Drug Form: PDR/REC, Dosing Weight 49, kg, PRN, PRN Abnormal Lab Result, FOR ICU USE ONLY, Start date: 11/08/17 7:19:00 CDT, Duration: 30 day , Stop date: 12/08/17 7:18:00 CDT Notes: (Same as: Phos-NaK) Each 1.5 gm pkt has 250mg phosphorous. Mix w/2.5oz water and stir. Start Date: 11/08/17 Stop Date: 11/08/17 Status: Discontinuedpotassium phosphate-sodium phosphate 250 mg-280 mg-160 mg oral powder for reconstitution 500 mg, 2 tab, Route: PO, Drug Form: TAB, Dosing Weight 48, kg, PRN, PRN Abnormal Lab Result, FOR ICU USE ONLY, Start date: 11/04/17 2:44:00 CDT, Duration: 30 day, Stop date: 12/04/17 2:43:00 CDT Notes: (Same as: K-Phos Neutral, Phospha 250 Neutral) Start Date: 11/04/17 Stop Date: 11/06/17 Status: DiscontinuedProAmatine 5 mg, 1 tab, Route: PO, Drug form: TAB, TID, Dosing Weight 54.773, kg, Priority : STAT, Start date: 11/21/17 12:41:00 CDT, Duration: 30 day, Stop date: 9:00:00 CDT Notes: (Same as:Proamatine) Start Date: 11/21/17 Stop Date: 11/21/17 Status: Discontinuedpropofol 30 mg, 3 mL, Route: IVP, Drug form: Emulsion, ONCE, Dosing Weight 54.773, kg, Start date: 11/12/17 15:40:00 CDT, Stop date: 11/12/17 15:40:00 CDT Notes: If Diprivan - change bottle & tubing every 12 hrPer state nursing law propofol can only be given by a nurse if patient is intubated or being intubated (unless the nurse is a URBAN DESIGNER). Same as:Diprivan Start Date: 11/12/17 Stop Date: 11/12/17 Status: CompletedReglan 10 mg, 2 mL, Route: IVP, Drug form: INJ, Q8H, Dosing Weight 49, kg, PRN Nausea & amp; Vomiting, Priority: NOW, Start date: 11/04/17 11:30:00 CDT, Duration: 30 day, Stop date: 12/04/17 11:29:00 CDT Notes: (Same as: Reglan) Start Date: 11/04/17 Stop Date: 11/18/17 Status: Discontinuedremove patch 1 patch, Route: TOP, Drug form: ERFILM, Daily, Start date: 11/04/17 9:00:00 CDT , Duration: 30 day, Stop date: 12/03/17 9:00:00 CDT Notes: Remove old patch before application of new patch.WASTE: F/P - P Waste Black; E - P Waste Black Start Date: 11/04/17 Stop Date: 11/21/17 Status: DiscontinuedSaline Flush 0.9% 10 ml, Route: IVP, Drug Form: INJ, Dosing Weight 48, kg, Q12H, Start date: 11/04 9:00:00 CDT, Duration: 30 day, Stop date: 12/03/17 21:00:00 CDT Notes: (Same as: BD Posiflush) Start Date: 11/04/17 Stop Date: 11/06/17 Status: DiscontinuedSaline Flush 0.9% 10 ml, Route: IVP, Drug Form: INJ, Dosing Weight 48, kg, PRN, PRN Line Flush, Start date: 11/04/17 2:44:00 CDT, Duration: 30 day, Stop date: 12/04/17 2:43:00 CDT Notes: (Same as: BD Posiflush) Start Date: 11/04/17 Stop Date: 11/06/17 Status: DiscontinuedSEROquel 25 mg, 1 tab, Route: PO, Drug form: TAB, Q8H, Dosing Weight 49, kg, Start date: 11/07/17 16:00:00 CDT, Duration: 30 day, Stop date: 12/07/17 8:00:00 CDT Notes: (Same as: SEROquel) Start Date: 11/07/17 Stop Date: 11/21/17 Status: DiscontinuedSodium Chloride 0.9% (Bolus) IV 500 mL, 1000 ml/hr, Infuse Over: 30 minutes, Route: IV, 500, Drug form: INJ, ONCE, Priority: STAT, Dosing Weight 49 kg, Start date: 11/04/17 8:24:00 CDT, Stop date: 11/04/17 8:24:00 CDT Start Date: 11/04/17 Stop Date: 11/04/17 Status: DiscontinuedSodium Chloride 0.9% IV 250 mL, Route: IVPB, Start date: 11/04/17 17:09:00 CDT, Duration: 30 day, Stop date: 12/04/17 17:08:00 CDT, PRN Line Flush Start Date: 11/04/17 Stop Date: 11/21/17 Status: DiscontinuedSodium Chloride 0.9% IV 750 mL 750 mL, Rate: 75 ml/hr, Infuse over: 10 hr, Route: IV, Dosing Weight 48 kg, Total Volume: 750, Startdate: 11/04/17 1:56:00 CDT, Duration: 10 hr, Stop date: 11/04/17 11:55:00 CDT Start Date: 11/04/17 Stop Date: 11/04/17 Status: Completedsodium phosphate + Sodium Chloride 0.9% IV 250 mL 15 mmol, 5 mL, Route: IVPB, PRN, Dosing Weight 49, kg, PRN Abnormal Lab Result, Start date: 187:19:00 CDT, Duration: 30 day, Stop date: 12/08/17 7:18:00 CDT, FOR ICU USE ONLY Start Date: 11/08/17 Stop Date: 11/08/17 Status: Discontinuedsodium phosphate + Sodium Chloride 0.9% IV 250 mL 30 mmol, 10 mL, Route: IVPB, PRN, Dosing Weight 49, kg, PRN Abnormal Lab Result , Start date: 11/08/17 7:19:00 CDT, Duration: 30 day, Stop date: 12/08/17 7:18: 00 CDT, FOR ICU USE ONLY Start Date: 11/08/17 Stop Date: 11/08/17 Status: Discontinuedsodium phosphate + Sodium Chloride 0.9% IV 250 mL 45 mmol, 15 mL, Route: IVPB, PRN, Dosing Weight 49, kg, PRN Abnormal Lab Result , Start date: 11/08/17 7:19:00 CDT, Duration: 30 day, Stop date: 12/08/17 7:18: 00 CDT, FOR ICU USE ONLY Start Date: 11/08/17 Stop Date: 11/08/17 Status: Discontinuedsodium phosphate + Sodium Chloride 0.9% IV 250 mL 15 mmol, 5 mL, Route: IVPB, PRN, Dosing Weight 48, kg, PRN Abnormal Lab Result, Start date: :44:00 CDT, Duration: 30 day, Stop date: 12/04/17 2:43:00 CDT, FOR ICU USE ONLY Start Date: 11/04/17 Stop Date: 11/06/17 Status: Discontinuedsodium phosphate + Sodium Chloride 0.9% IV 250 mL 30 mmol, 10 mL, Route: IVPB, PRN, Dosing Weight 48, kg, PRN Abnormal Lab Result , Start date: 11/04/17 2:44:00 CDT, Duration: 30 day, Stop date: 12/04/17 2:43: 00 CDT, FOR ICU USE ONLY Start Date: 11/04/17 Stop Date: 11/06/17 Status: Discontinuedsodium phosphate + Sodium Chloride 0.9% IV 250 mL 45 mmol, 15 mL, Route: IVPB, PRN, Dosing Weight 48, kg, PRN Abnormal Lab Result , Start date: 11/04/17 2:44:00 CDT, Duration: 30 day, Stop date: 12/04/17 2:43: 00 CDT, FOR ICU USE ONLY Start Date: 11/04/17 Stop Date: 11/06/17 Status: DiscontinuedSynthroid 25 microgram, PO, Daily Start Date: 11/04/17 Status: OrderedSynthroid 25 microgram, 0.5 tab, Route: PO, Drug form: TAB, Daily, Dosing Weight 49, kg, Start date: 11/05/17 6:30:00 CDT, Duration: 30 day, Stop date: 12/04/17 6:30:00 CDT Notes: Take 1 hour before or 2 hours after meal; Enteral feeds may interefere with the absorption ofthis medication.(Same as:Levothroid, Synthroid) Start Date: 11/05/17 Stop Date: 11/21/17 Status: DiscontinuedTessalon Perles 200 mg, 2 cap, Route: PO, Drug form: CAP, TID, Dosing Weight 54.773, kg, Start date: 11/13/17 17:00:00 CDT, Duration: 30 day, Stop date: 12/13/17 13:00:00 CDT Notes: (Same As: Tessalon Perles)"Do Not Crush" Start Date: 11/13/17 Stop Date: 11/21/17 Status: Discontinuedtramadol 50 mg, 1 tab, Route: PO, Drug form: TAB, Q6H, Dosing Weight 49, kg, PRN Pain Score 4-6, Start date: 11/04/17 5:05:00 CDT, Duration: 30 day, Stop date: 5:04:00 CDT Notes: Not to exceed 400mg/day. (Same As: Ultram) Start Date: 11/04/17 Stop Date: 11/04/17 Status: Discontinuedtramadol 50 mg, 1 tab, Route: PO, Drug form: TAB, Q4H, Dosing Weight 49, kg, PRN Pain Score 4-6, Start date: 11/04/17 17:00:00 CDT, Stop date: 12/04/17 16:59:00 CDT Notes: Not to exceed 400mg/day. (Same As: Ultram) Start Date: 11/04/17 Stop Date: 11/21/17 Status: Discontinuedtramadol 50 mg, PO, PRN, PRN Pain, pin 3-7, 0 Refill(s) Start Date: 11/04/17 Stop Date: 11/21/17 Status: Discontinuedvancomycin 1,000 mg, Route: IVPB, Drug form: INJ, [id number], Dosing Weight 54.773, kg, Start date: 11/11/17 12:00:00 CDT, Duration: 7 day, Stop date: 11/18/17 0:00:00 CDT, ABX Indication: Pneumonia Start Date: 11/11/17 Stop Date: 11/11/17 Status: Discontinuedvancomycin + Dextrose 5% in Water IV 250 mL 750 mg, Route: IVPB, Drug form: PDR/INJ, Q24H, Start date: 11/12/17 12:00:00 CDT , Duration: 6 day, Stop date: 11/17/17 12:00:00 CDT, ABX Indication: Pneumonia Notes: TIME CRITICAL MEDICATION(Same As: Vancocin)Infusion rate< 1000 mg: infuse over 1 [id number] - 1500 mg: infuse over 1.5 [id number] - 2000 mg: infuse over 2 hours> 2001 mg: infuse over 2.5 hoursFor adult patients only: Round to nearest 250 mg per Medical Staff approval Start Date: 11/12/17 Stop Date: 11/12/17 Status: Discontinuedvancomycin + Dextrose 5% in Water IV 250 mL 1,250 mg, Route: IVPB, ONCE, Start date: 11/11/17 12:30:00 CDT, Stop date: 11/11 12:30:00 CDT, ABX Indication: Pneumonia Notes: TIME CRITICAL MEDICATION(Same As: Vancocin)Infusion rate< 1000 mg: infuse over 1 [id number] - 1500 mg: infuse over 1.5 [id number] - 2000 mg: infuse over 2 hours> 2001 mg: infuse over 2.5 hoursFor adult patients only: Round to nearest 250 mg per Medical Staff approval MEDICATION WASTE Product Size: 1000 mgProduct Wasted: ___ mg Start Date: 11/11/17 Stop Date: 11/11/17 Status: CompletedVancomycin Pharmacy Dosing 1 ea, Route: MISC, ONCALL, Dosing Weight 54.773, kg, Start date: 11/11/17 12:00: 00 CDT, Duration: 7 day, Stop date: 11/18/17 11:59:00 CDT, Pharmacy to dose, ABX Indication: Pneumonia Start Date: 11/11/17 Stop Date: 11/11/17 Status: DiscontinuedVersed 4 mg, 4 mL, Route: IVP, Drug form: INJ, ONCE, Dosing Weight 54.773, kg, Start date: 11/12/17 15:40:00 CDT, Stop date: 11/12/17 15:40:00 CDT Notes: (Same as: Versed) MEDICATION WASTE Product Size: 2 mgProduct Wasted: _0__ mg Start Date: 11/12/17 Stop Date: 11/12/17 Status: CompletedXanax 0.25 mg oral tablet 0.25 mg=1 tab, PO, PRN, for anxiety Start Date: 11/04/17 Status: OrderedXanax 0.25 mg oral tablet 0.25 mg, 0.5 tab, Route: PO, Drug form: TAB, PRN, Dosing Weight 49, kg, PRN as needed for anxiety, Start date: 11/04/17 9:54:00 CDT, Duration: 30 day, Stop date: 12/04/17 9:53:00 CDT Notes: With food or milk(Same as: Xanax) Start Date: 11/04/17 Stop Date: 11/04/17 Status: DiscontinuedXanax 0.25 mg oral tablet 0.25 mg, 1 tab, Route: PO, Drug form: TAB, BID, Dosing Weight 49, kg, PRN as needed for anxiety, Start date: 11/19/17 17:00:00 CDT, Stop date: 12/09/17 17:00 :00 CDT Notes: With food or milk(Same as: Xanax) Start Date: 11/19/17 Stop Date: 11/21/17 Status: DiscontinuedXanax 0.25 mg oral tablet 0.25 mg, 0.5 tab, Route: PO, Drug form: TAB, Q8H, Dosing Weight 49, kg, PRN as needed for anxiety, Start date: 11/04/17 17:02:00 CDT, Duration: 30 day, Stop date: 12/04/17 17:01:00 CDT Notes: With food or milk(Same as: Xanax) Start Date: 11/04/17 Stop Date: 11/06/17 Status: DiscontinuedXanax 0.25 mg oral tablet 0.25 mg, 0.5 tab, Route: PO, Drug form: TAB, Q8H, Dosing Weight 49, kg, Start date: 11/06/17 20:00:00 CDT, Duration: 30 day, Stop date: 12/06/17 13:00:00 CDT Notes: With food or milk(Same as: Xanax) Start Date: 11/06/17 Stop Date: 11/10/17 Status: DiscontinuedXanax 0.5 mg oral tablet 0.25 mg, 1 tab, Route: PO, Drug form: TAB, BID, Dosing Weight 49, kg, Start date : 11/18/17 17:00:00 CDT, Stop date: 12/09/17 17:00:00 CDT Notes: With food or milk(Same as: Xanax) Start Date: 11/18/17 Stop Date: 11/19/17 Status: DiscontinuedXanax 0.5 mg oral tablet 0.5 mg, 1 tab, Route: PO, Drug form: TAB, Q6H, Dosing Weight 49, kg, Start date : 11/11/17 14:29:00 CDT, Stop date: 12/10/17 0:00:00 CDT Notes: With food or milk(Same as: Xanax) Start Date: 11/11/17 Stop Date: 11/18/17 Status: DiscontinuedXanax 0.5 mg oral tablet 0.5 mg, 1 tab, Route: PO, Drug form: TAB, Q8H, Dosing Weight 49, kg, Start date : 11/10/17 13:42:00 CDT, Stop date: 12/10/17 14:00:00 CDT Notes: With food or milk(Same as: Xanax) Start Date: 11/10/17 Stop Date: 11/11/17 Status: DiscontinuedZoloft 100 mg, 1 tab, Route: PO, Drug form: TAB, Bedtime, Dosing Weight 49, kg, Start date: 11/05/17 21:00:00 CDT, Duration: 30 day, Stop date: 12/04/17 21:00:00 CDT Notes: (Same as: Zoloft) Start Date: 11/05/17 Stop Date: 11/21/17 Status: DiscontinuedZoloft 100 mg oral tablet 100 mg=1 tab, PO, Bedtime, # 30 tab, 0 Refill(s) Start Date: 11/05/17 Status: Ordered Results ELECTROLYTES Most recent to oldest 1 2 3 [Reference Range]: Sodium Lvl [135-145 mEq/L] 142 mEq/L 141 mEq/L 140 mEq/L (11/21/17 5:15 AM) (11/20/17 6:39 AM) (11/19/17 4:38 AM) Potassium Lvl [3.5-5.1 3.7 mEq/L 3.8 mEq/L 3.8 mEq/L mEq/L] (11/21/17 5:15 AM) (11/20/17 6:39 AM) (11/19/17 4:38 AM) Chloride Lvl [95-109 mEq/L] 107 mEq/L 109 mEq/L 107 mEq/L (11/21/17 5:15 AM) (11/20/17 6:39 AM) (11/19/17 4:38 AM) CO2 [24-32 mEq/L] 25 mEq/L 26 mEq/L 20 mEq/L (11/21/17 5:15 AM) (11/20/17 6:39 AM) *LOW* (11/19/17 4:38 AM) AGAP [10.0-20.0 mEq/L] 13.7 mEq/L 9.8 mEq/L 16.8 mEq/L (11/21/17 5:15 AM) *LOW* (11/19/17 4:38 AM) (11/20/17 6:39 AM) CHEM PANEL Most recent to oldest 1 2 3 [Reference Range]: Creatinine Lvl [0.50-1.40 0.70 mg/dL 0.70 mg/dL 0.60 mg/dL mg/dL] (11/21/17 5:15 AM) (11/20/17 6:39 AM) (11/19/17 4:38 AM) eGFR 86 mL/min/1.73m2 1 86 mL/min/1.73m2 2 91 mL/min/1.73m2 3 *NA* *NA* *NA* (11/21/17 5:15 AM) (11/20/17 6:39 AM) (11/19/17 4:38 AM) BUN [7-22 mg/dL] 18 mg/dL 15 mg/dL 16 mg/dL (11/21/17 5:15 AM) (11/20/17 6:39 AM) (11/19/17 4:38 AM) B/C Ratio [6-25] 26 21 27 *HI* (11/20/17 6:39 AM) *HI* (11/21/17 5:15 AM) (11/19/17 4:38 AM) Glucose Lvl [70-99 mg/dL] 52 mg/dL 72 mg/dL 70 mg/dL *LOW* (11/20/17 6:39 AM) (11/19/17 4:38 AM) (11/21/17 5:15 AM) Total Protein [6.4-8.4 g/dL] 7.0 g/dL 6.6 g/dL 6.4 g/dL (11/21/17 5:15 AM) (11/20/17 6:39 AM) (11/19/17 4:38 AM) Albumin Lvl [3.5-5.0 g/dL] 2.9 g/dL 2.5 g/dL 2.5 g/dL *LOW* *LOW* *LOW* (11/21/17 5:15 AM) (11/20/17 6:39 AM) (11/19/17 4:38 AM) Globulin [2.7-4.2 g/dL] 4.1 g/dL 4.1 g/dL 3.9 g/dL (11/21/17 5:15 AM) (11/20/17 6:39 AM) (11/19/17 4:38 AM) A/G Ratio [0.7-1.6] 0.7 0.6 0.6 (11/21/17 5:15 AM) *LOW* *LOW* (11/20/17 6:39 AM) (11/19/17 4:38 AM) Calcium Lvl [8.5-10.5 mg/dL] 8.9 mg/dL 8.5 mg/dL 8.6 mg/dL (11/21/17 5:15 AM) (11/20/17 6:39 AM) (11/19/17 4:38 AM) Phosphorus [2.5-4.5 mg/dL] 3.0 mg/dL 5.5 mg/dL 2.2 mg/dL (11/19/17 4:38 AM) *HI* *LOW* (11/10/17 4:36 AM) (11/09/17 5:44 AM) Magnesium Lvl [1.8-2.4 mg/dL] 1.8 mg/dL 1.8 mg/dL 2.0 mg/dL (11/19/17 4:38 AM) (11/14/17 5:34 AM) (11/10/17 4:36 AM) ALT [0-65 unit/L] 27 unit/L 32 unit/L 38 unit/L (11/21/17 5:15 AM) (11/20/17 6:39 AM) (11/19/17 4:38 AM) AST [0-37 unit/L] 20 unit/L 26 unit/L 42 unit/L (11/21/17 5:15 AM) (11/20/17 6:39 AM) *HI* (11/19/17 4:38 AM) Alk Phos [39-136 unit/L] 161 unit/L 158 unit/L 166 unit/L *HI* *HI* *HI* (11/21/17 5:15 AM) (11/20/17 6:39 AM) (11/19/17 4:38 AM) Bili Total [0.2-1.3 mg/dL] 0.6 mg/dL 0.5 mg/dL 0.6 mg/dL (11/21/17 5:15 AM) (11/20/17 6:39 AM) (11/19/17 4:38 AM) Procalcitonin Lvl [0.00-0.10] <0.05 0.18 0.26 (11/12/17 3:03 PM) *HI* *HI* (11/09/17 5:44 AM) (11/04/17 9:19 AM) 1Result Comment: The eGFR is calculated using the CKD-EPI formula. In most young , healthy individualsthe eGFR will be >90 mL/min/1.73m2. The eGFR declines with age. An eGFR of 60-89 may be normal insome populations, particularly the elderly, for whom the CKD-EPI formula has not been extensively validated. Use of the eGFR is not recommended in the following populations: Individuals with unstable creatinine concentrations, including patients and those with serious co-morbid conditions. Patients with extremes in muscle mass or diet. The data above are obtained from the National Kid[employer] Disease Education Program ( [employer]) which additionally recommends that when the eGFR is used in patients with extremes of body mass index for purposesof drug dosing, the eGFR should be multiplied by the estimated BMI.2Result Comment: The eGFR is calculated using the CKD-EPI formula. In most young, healthy individualsthe eGFR will be >90 mL/min/1.73m2. The eGFR declines with age. An eGFR of 60-89 may be normal insome populations, particularly the elderly, for whom the CKD-EPI formula has not been extensively validated. Use of the eGFR is not recommended in the following populations: Individuals with unstable creatinine concentrations, including patients and those with serious co-morbid conditions. Patients with extremes in muscle mass or diet. The data above are obtained from the National Kid[employer] Disease Education Program ( [employer]) which additionally recommends that when the eGFR is used in patients with extremes of body mass index for purposesof drug dosing, the eGFR should be multiplied by the estimated BMI.3Result Comment: The eGFR is calculated using the CKD-EPI formula. In most young, healthy individualsthe eGFR will be >90 mL/min/1.73m2. The eGFR declines with age. An eGFR of 60-89 may be normal insome populations, particularly the elderly, for whom the CKD-EPI formula has not been extensively validated. Use of the eGFR is not recommended in the following populations: Individuals with unstable creatinine concentrations, including patients and those with serious co-morbid conditions. Patients with extremes in muscle mass or diet. The data above are obtained from the National Kid[employer] Disease Education Program ( [employer]) which additionally recommends that when the eGFR is used in patients with extremes of body mass index for purposesof drug dosing, the eGFR should be multiplied by the estimated BMI.CARDIAC ENZYMES Most recent to oldest [Reference Range]: 1 2 3 BNP [<=100 pg/mL] 69 pg/mL (11/04/17 2:54 AM) LIPIDS Most recent to oldest [Reference Range]: 1 2 3 CHD Risk [3.90-5.80] 3.62 *LOW* (11/04/17 2:31 AM) Chol [<=199 mg/dL] 105 mg/dL (11/04/17 2:31 AM) Trig [<=149 mg/dL] 75 mg/dL (11/04/17 2:31 AM) HDL [>=61 mg/dL] 29 mg/dL *LOW* (11/04/17 2:31 AM) LDL (Calculated) [<=99 mg/dL] 61 mg/dL (11/04/17 2:31 AM) VLDL 15 *NA* (11/04/17 2:31 AM) SPECIAL CHEMISTRY Most recent to oldest [Reference Range]: 1 2 3 Hgb A1C [<=5.6 %] 5.0 % (11/04/17 2:54 AM) PARATHYROID PROFILE Most recent to oldest 1 2 3 [Reference Range]: Ca Ion WB [1.05-1.25 mMol/L] 1.14 mMol/L 1.14 mMol/L 1.03 mMol/L (11/06/17 3:43 AM) (11/05/17 8:18 PM) *LOW* (11/05/17 2:30 AM) Ca Norm WB [1.05-1.25 1.11 mMol/L 1.11 mMol/L 1.07 mMol/L mMol/L] (11/06/17 3:43 AM) (11/05/17 8:18 PM) (11/05/17 2:30 AM) IMMUNOLOGY Most recent to oldest [Reference Range]: 1 2 3 PRISCILA [Negative] Negative (11/14/17 5:34 AM) RF Qnt [0-20 IU/mL] <10 IU/mL (11/14/17 5:34 AM) C-ANCA [Negative] Negative (11/14/17 5:34 AM) P-ANCA [Negative] Negative (11/14/17 5:34 AM) CRP [<=2.9 mg/L] 49.4 mg/L *HI* (11/14/17 5:34 AM) T-Spot.TB [Negative] Negative (11/12/17 3:03 PM) HEMATOLOGY Most recent to oldest 1 2 3 [Reference Range]: WBC [3.7-10.4 K/CMM] 5.3 K/CMM 5.4 K/CMM 6.5 K/CMM (11/21/17 5:15 AM) (11/20/17 6:39 AM) (11/19/17 4:38 AM) RBC [4.20-5.40 M/CMM] 3.40 M/CMM 3.10 M/CMM 3.06 M/CMM *LOW* *LOW* *LOW* (11/21/17 5:15 AM) (11/20/17 6:39 AM) (11/19/17 4:38 AM) Hgb [12.0-16.0 g/dL] 10.8 g/dL 9.6 g/dL 9.3 g/dL *LOW* *LOW* *LOW* (11/21/17 5:15 AM) (11/20/17 6:39 AM) (11/19/17 4:38 AM) Hct [36.0-48.0 %] 30.6 % 27.5 % 27.9 % *LOW* *LOW* *LOW* (11/21/17 5:15 AM) (11/20/17 6:39 AM) (11/19/17 4:38 AM) MCV [80.0-98.0 fL] 90.0 fL 89.0 fL 91.1 fL (11/21/17 5:15 AM) (11/20/17 6:39 AM) (11/19/17 4:38 AM) MCH [27.0-31.0 pg] 31.6 pg 31.0 pg 30.5 pg *HI* (11/20/17 6:39 AM) (11/19/17 4:38 AM) (11/21/17 5:15 AM) MCHC [32.0-36.0 g/dL] 35.2 g/dL 34.9 g/dL 33.5 g/dL (11/21/17 5:15 AM) (11/20/17 6:39 AM) (11/19/17 4:38 AM) RDW [11.5-14.5 %] 14.4 % 13.9 % 14.2 % (11/21/17 5:15 AM) (11/20/17 6:39 AM) (11/19/17 4:38 AM) MPV [7.4-10.4 fL] 7.6 fL 7.7 fL 7.8 fL (11/21/17 5:15 AM) (11/20/17 6:39 AM) (11/19/17 4:38 AM) Platelet [133-450 K/CMM] 368 K/CMM 355 K/CMM 347 K/CMM (11/21/17 5:15 AM) (11/20/17 6:39 AM) (11/19/17 4:38 AM) Segs [45.0-75.0 %] 51.1 % 48.2 % 51.7 % (11/21/17 5:15 AM) (11/20/17 6:39 AM) (11/19/17 4:38 AM) Lymphocytes [20.0-40.0 %] 28.6 % 27.4 % 26.5 % (11/21/17 5:15 AM) (11/20/17 6:39 AM) (11/19/17 4:38 AM) Monocytes [2.0-12.0 %] 10.3 % 12.5 % 11.5 % (11/21/17 5:15 AM) *HI* (11/19/17 4:38 AM) (11/20/17 6:39 AM) Eosinophils [0.0-4.0 %] 8.8 % 10.8 % 9.3 % *HI* *HI* *HI* (11/21/17 5:15 AM) (11/20/17 6:39 AM) (11/19/17 4:38 AM) Basophils [0.0-1.0 %] 1.2 % 1.1 % 1.0 % *HI* *HI* (11/19/17 4:38 AM) (11/21/17 5:15 AM) (11/20/17 6:39 AM) Segs-Bands # [1.5-8.1 K/CMM] 2.7 K/CMM 2.6 K/CMM 3.3 K/CMM (11/21/17 5:15 AM) (11/20/17 6:39 AM) (11/19/17 4:38 AM) Lymphocytes # [1.0-5.5 1.5 K/CMM 1.5 K/CMM 1.7 K/CMM K/CMM] (11/21/17 5:15 AM) (11/20/17 6:39 AM) (11/19/17 4:38 AM) Monocytes # [0.0-0.8 K/CMM] 0.5 K/CMM 0.7 K/CMM 0.7 K/CMM (11/21/17 5:15 AM) (11/20/17 6:39 AM) (11/19/17 4:38 AM) Eosinophils # [0.0-0.5 0.5 K/CMM 0.6 K/CMM 0.6 K/CMM K/CMM] (11/21/17 5:15 AM) *HI* *HI* (11/20/17 6:39 AM) (11/19/17 4:38 AM) Basophils # [0.0-0.2 K/CMM] 0.1 K/CMM 0.1 K/CMM 0.1 K/CMM (11/21/17 5:15 AM) (11/20/17 6:39 AM) (11/19/17 4:38 AM) PT [12.0-14.7 seconds] 14.8 seconds 19.8 seconds *HI* *HI* (11/18/17 3:49 AM) (11/04/17 2:54 AM) INR [0.85-1.17] 1.16 1.67 (11/18/17 3:49 AM) *HI* (11/04/17 2:54 AM) PTT [22.9-35.8 seconds] 38.5 seconds 81.0 seconds *HI* *HI* (11/18/17 3:49 AM) (11/04/17 2:54 AM) BACTERIAL - SEROLOGY Most recent to oldest [Reference Range]: 1 2 3 MRSA by PCR Negative (11/04/17 2:54 AM) Source Strep Urine *NA* (11/04/17 5:33 AM) Strep pneumoniae Ag [Negative] Negative (11/04/17 5:33 AM) Immunizations No data available for this section Procedures Procedure Date Related Diagnosis Body Site Status Tonsillectomy 1968 Completed Appendectomy Completed Cholecystectomy Completed Hysterectomy Completed Mastectomy Completed Revision of colostomy Completed Sigmoid colectomy and colostomy Completed Social History Social History Type Response Smoking Status Current every day smoker; Type: Cigarettes; Exposure to Tobacco Smoke None; Cigarette Smoking Last 365 Days Yes; Reg Smoking Cessation Counseling No; Tobacco use per day: 1; entered on: 11/04/17 Assessment and Plan Extracted from: Title: Progress Note * Author: Leroy Holm MD Date: 11/20/17 Impression and Plan Ms Lynda Gandhi is a 72yo female with PMH of breast and cervical CA, HTN, COPD, HLD, hypothyroidism, arthritis, osteoporosis and tobacco abuse presented from [facility] for CP and was to found to have STEMI. Recieved ASA, plavix, TNKase thrombolytic therapy was transferred to [facility] for left heart cath. Cardiology was consulted and underwent emergent left heart catheterization with stenting to circu mflex and LAD. Postoperatively she was transferred to CV ICU. She was started on Brilinta, aspirin, statin, beta-chandana. Subsequently she developed hemoptysis, chest x-ray was obtained concerning fo r bilateral pneumonia and was started on Rocephin and azithromycin. Pulmonology was consulted, was placed on supplemental oxygen via facemask. Secondary to worsening shortness of breath she was then p laced on BiPAP and was continued to monitor in ICU. Subsequently she underwent bronchoscopy with pathology negative bronchoalveolar lavage. Respiratory PCR and urine Legionella antigen were negative. Once cleared by cardiology and pulmonology patient was transferred out of ICU to telemetry. anticoagulation was on hold, once hemoptysis resolved, plavix was started and monitored -Recent STEMI s/p stents - Patient with continuous off and on hemoptysis, Need to resume plavix as soon okayed by Cards and Pulm -Acute hypoxic respiratory failure: Was initially on facemask, then BiPAP and weaned to nasal cannula. Etiology secondary to focal pneumonia. AFB 3 is negative. Plan is for the patient to continue current antibiotics until 11/18. Patient has been switched to doxycycline per ID -Multifocal pneumonia. Underwent a bronchoscopy. Respiratory culture showed only yeast, most probably contaminant. AFB x 3 negative. She is on room air. Clinically improving. Plan to continue this regimen until 11/18. If discharged before, we can switch to oral doxy. -CAD/STEMI: Status post heart cath, and stent to LAD and circumflex. 2-D echo showed LVEF 45-50%. Resume Plavix after discussing with pulmonary. Brilinta being held. -Hemoptysis: Likely related to antiplatelets and possible pna. Pulmonary following. S/p bronchoscopy , no endobronchial lesions found. most probably secondary to anticoagulation and to pneumonia. AFB x 3 negative. Plavix restarted [pulmonology cleared] on 11/19/2017 -COPD Continue nebs. -Normocytic anemia: Continue to monitor. Stable -Leukocytosis: Likely reactive. Resolved -Hypothyroidism -Diabetes: Continue medications. -Tobacco use: Counseled. -Normocytic anemia stable. Outpatient follow-up LDL is 61. -Hypotension: decreased xanax dose and frequency, dc neurontin. ivf -Anxiety: Continue Zoloft and Seroquel -Hypophosphatemia: Now has hyperphosphatemia -Hyperphosphatemia: resolved -Elevated alkaline phosphatase -Mild to moderate protein calorie malnutrition: Oral supplementation -Metabolic acidosis DVT prophylaxis: SCD's Encourage ambulation 11/19/2017: plavix started on 11/19/2012. will monitor for bleeding on plavix. if no bleeding and H&H is stable, possible dc in 1-2 days once cleared by pulm 11/20/2017: no hemoptysis in 24hrs. BP is low, maintaining MAP>70, asymptomatic. c/w midodrine. completed IV and po abx course. if no hemoptysis in 24 hrs and h/h stable, possible dc tomorrow. Extracted from: Title: USAP Critical Care History & Physical Author: Deniz Duval MUSEUM SPECIALIST Date: 11/04/17 Patient: LYNDA GANDHI Age: 72 years Sex: Female : 1945 Associated Diagnoses: None Author: Deniz Duval MUSEUM SPECIALIST Hosp Day # 1 ICU Day # 1 Vent Day # NA 24 hour Significant Events: s/p left heart cath with circumflex and LAD stent placement Today's Plan/Goals: - Hemodynamic monitoring - Monitor right groin site for hematoma HPI: This is a 72-YO woman w/ PMH breast and cervical CA, HTN, COPD, HLD, hypothyroidism, arthritis, osteoporosis, and tobacco abuse presented to OSH in [facility] for CP and found to have STEMI. She received ASA, plavix, and TNK thrombolytic therapy, then she was transferred to [facility] for left heart cath and now admitted to CVICU post heart cath and circumflex and LAD stents placement. PMH: As HPI PSH: Colectomy, colostomy reversal, tonsillectomy, left breast mastectomy, C4- C7 fusion Social:Positive for tobacco use, denies alcohol or illicit drug use Family:CAD Allergies: Codeine, PCN, Sulfa drugs Medications: See OCT Reconcilliation Assessment And Plan: Neuro: Rass=0 CAM-ICU=negative Pain=0/10 No issues Pulm: COPD - Scheduled bronchodilators & keep HOB > 30 degrees CV: STEMI s/p left heart cath w/ stents placement to circumflex and LAD - s/p brilinta - monitor right groin access site for hematoma - Start on BB, ASA, statin - Check lipid panel - IVF Heme: No issues - Check CBC Renal / Fluids / Electrolytes: No issues - Check comprehensive labs ID: No issues GI: No issues 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 Nutrition: Heart healthy diet as tolerated Endo: No issues - Check A1C Muscoloskeletal / Skin: No issues GI Prophylaxis: Not indicated DVT Prophylaxis: SCDs/ lovenox Disposition: Patient requires ICU monitoring RN Bundles: (must document DOI & reason for continuation) CVC: NA Dumont: NA Vent: NA Mobility Level & Plan: Level 4-5 Family Updated: Patient updated Advanced Care Planning: - Advanced care plan or surrogate decision maker discussed and documented: - Code Status: Full - Surrogate: Reji Crockett Discharge Plan: Where: Home When: 2-3 days Barriers: None Supportive Medicine Screening Tool Performed: NA ICU Daily Summary: 11/04 - s/p left heart cath w/ stents placement to circumflex and LAD Review of Systems Cardiovascular: Chest pain: Midsternal. 13-point ROS negative excpet mentioned above Physical Examination VS/Measurements Vital Signs (last 24 hrs) Last Charted Weight 48 kg (NOV 04 01:51) Intake and Output I/O Intake Output Balance 11/03/2017 7a-3p 0.00 0.00 0.00 3p-11p 0.00 0.00 0.00 11p-7a 260.00 0.00 260.00 As of 02:47 Totals 260.00 0.00 260.00 11/02/2017 7a-3p 0.00 0.00 0.00 3p-11p 0.00 0.00 0.00 11p-7a 0.00 0.00 0.00 Totals 0.00 0.00 0.00 General: Alert and oriented. Eye: Pupils are equal, round and reactive to light. HENT: Normocephalic, Normal hearing. Neck: Supple, Non-tender, No carotid bruit. Respiratory: Lungs are clear to auscultation, Respirations are non-labored, Breath sounds are equal, Symmetrical chest wall expansion. Cardiovascular: Normal rate, Regular rhythm, Normal peripheral perfusion, No edema. Gastrointestinal: Soft, Non-tender, Non-distended, Normal bowel sounds. Musculoskeletal Normal range of motion. Normal strength. No tenderness. No swelling. No deformity. Integumentary: Warm, Dry, Intact. Neurologic: Alert, Oriented, Normal sensory, Normal motor function, No focal deficits. Cognition and Speech: Oriented, Speech clear and coherent. Psychiatric: Cooperative. Review / Management Results review: No qualifying data available. Chest x-ray results Radiology results Professional Services Patient examined and discussed with ICU attending, Dr. Dc Addendum by Deniz Duval MUSEUM SPECIALIST on Patient is coughing up blood. She reported 11/04/2017 04:49 this started the night prior to admission. Patient has no leukocytosis, will check procalcitonin, urine strep PNA and legionella. Concerns for CAP, will start on Azithromycin and Rocephin. Addendum by Isra Dc MD on I, Isra Dc MD, have seen and examined this patient on _11/04/2017_. I agree with the MUSEUM SPECIALIST's assessment and plan as written, with my personal exceptions & additions as documented in my per 11/04/2017 06:12 joe note below. My note addresses my assessment of the patient's clinical condition, my treatment plan and medical decision making and my presence, activity and involvement with this patient throughout the day. Critical Care Attending Note: -Patient arrived from supervisor laboratory with stable hemodynamics and no chest pain. IV fluid running per post-cath protocol. Anti-platelet meds per cardiology. Patient couged up a few cc's of blood, and state d she has been doing so for a day or to. CXR with interstitial pattern suggestive of bilateral pneumonia. Will send sputum and start on emperic antibiotic therapy of Azithromycin and Ceftriaxone. Noe l send viral PCR as well as legionella. Patient critically ill and requires ICU care. I personally saw and examined the patient with MUSEUM SPECIALIST, reviewed studies and lab results with MUSEUM SPECIALIST, formulated and discussed clinical plan with MUSEUM SPECIALIST.
[2018-01-22] MEDS ORDERED: NA CHLORIDE 0.9% 500 ML ONE ×2 (13:41→15:19)
--- NOTE | 2018-01-22 14:04 | EKG ---
Test Date: 2018-01-22 Test Time: 13:32:12 Mastic Floor Layer: CORAL MEASUREMENT RESULTS: Intervals: Rate: 70 KY: 80 QRSD: 120 QT: 422 QTc: 455 Deaver: P: 91 KY: 80 QRS: 71 T: 84 INTERPRETIVE STATEMENTS: ectopic atrial rhythm Anterior infarct cited previously Abnormal ECG Compared to ECG 01/03/2018 08:45:28 ectopic atrial rhythm is now present Sinus bradycardia no longer present Myocardial infarct finding still present Electronically Signed On 01-22-18 14:04:00 CDT by Mitchel Chu
[2018-01-22 14:08] LABS: Protime INR 0.98
[2018-01-22 14:09] LABS: Absolute Lymphocytes (CBC) 1.5 K/uL (0.7-4.9); Absolute Monocytes 0.7 K/uL (0.1-1.3); Absolute Neutrophil 2.9 K/uL (1.8-8.0); Basophils % 0.9 % (0-1.3); Eosinophils % 10.7 % (0-4.4); Hematocrit 34.8 % (36.0-45.0); Lymphocytes % 25.9 % (15.3-44.8); MCH 29.2 pg (27.0-35.0); MCV 86.8 fL (80-100); MPV 8.5 fL (7.6-11.3); Monocytes % 12.5 % (3.3-12.3); RBC Red Blood Cell Count 4.02 M/uL (3.86-4.86)
--- NOTE | 2018-01-22 14:11 | RAD REPORT ---
EXAM DESCRIPTION: CT - Head Brain Wo Cont - 01/22/2018 1:59 pm CLINICAL HISTORY: Dizziness COMPARISON: December 2016 TECHNIQUE: Computed axial tomography of the head was obtained. IV contrast was not requested. All CT scans are performed using dose optimization technique as appropriate and may include automated exposure control or mA/KV adjustment according to patient size. FINDINGS: An intracranial bleed is not seen . The ventricles are normal in caliber. No extra-axial fluid collection is noted. Mild low-density areas within periventricular, deep and sub cortical white matter likely represent ischemic changes secondary to small vessel disease. Fluid within the sinuses/ mastoids is not seen. IMPRESSION: No acute intracranial abnormality is seen. If patient's symptoms persist MRI of the bra in would be recommended.
[2018-01-22 14:15] LABS: Albumin 3.8 g/dL (3.2-5.5); Bilirubin Direct 0.1 mg/dL (0-0.2); Bilirubin Total 0.5 mg/dL (0.3-1.2); Magnesium 1.9 mg/dL (1.8-2.5); Protein, Total 7.6 g/dL (6.0-8.3)
[2018-01-22 14:17] LABS: CKMB Creatine Kinase MB 1.2 ng/ml (0.3-4.0)
[2018-01-22 14:20] LABS: Potassium 2.7 mEq/L (3.6-5.0)
[2018-01-22] MEDS ORDERED: POTASSIUM 25 MEQ EFFERV TAB ONE (14:37)
[2018-01-22] MEDS ORDERED: POTASSIUM CL SA 10 MEQ TAB PO ONE (14:54)
[2018-01-22] MEDS ORDERED: ASPIRIN 81 MG CHEWABLE TABLET ONE (15:18)
[2018-01-22] MEDS ORDERED: KCL 20 MEQ/100 mL IVPB 20 MEQ/100 ML BAG IV ONE (15:19)
--- NOTE | 2018-01-22 15:23 | RAD REPORT ---
[facility] CLINICAL HISTORY: Shortness of breath COMPARISON: December 2017 FINDINGS: A vague 9 millimeter nodular opacity overlies the left upper lobe. The remainder of the lungs appear clear of acute infiltrate. The lungs are hyperaerated. The heart is borderline enlarged. A left mastectomy has been performed with left axillary lymph node dissection IMPRESSION: A vague 9 millimeter nodular opacity may represent a pulmonary nodule.
[2018-01-22] MEDS ORDERED: ENOXAPARIN 40 MG/0.4 ML SQ ONE (15:36)
--- NOTE | 2018-01-22 18:16 | EDPHYS ---
Physician Documentation [facility] Name: Reena Gandhi Age: 72 yrs Sex: Female : 1945 Arrival Date: 01/22/2018 Time: 12:37 Bed 27 Private MD: Out, [facility] ED Physician Felipe Levi HPI: 01/22 15:00 This 72 yrs old Female presents to ER via Ambulatory with complaints of Blood pm1 Pressure Problem. 15:00 The patient presents with Low blood pressure for th past three days. Onset: The pm1 symptoms/episode began/occurred 3 day(s) ago. Context: occurred at home. Modifying factors: the symptoms are aggravated by changing position. Associated signs and symptoms: Pertinent negatives: abdominal pain, chest pain, focal weakness, headache, shortness of breath. Severity of symptoms: Pain is currently a 0 / 10. Patient's baseline: The patient has a previous history of TIA, NH (11/03/2017). The patient has not experienced similar symptoms in the past. Patient denies any medication adjustment. Patient reports lower blood pressure for the past three days as observed by home health nurse. Sent to the emergency department for evaluation of hypotension. Historical: - Allergies: 12:44 Codeine; aa5 12:44 PENICILLINS; aa5 12:44 Sulfa (Sulfonamide Antibiotics); aa5 - PMHx: 12:44 Anxiety; Cancer; CHF; COPD; TIA; NH (November 03, 2017); aa5 - PSHx: 12:44 Appendectomy; Colostomy; Colostomy reversal; Mastectomy, Left; aa5 - Immunization history:: Pneumococcal vaccine is not up to date, Flu vaccine is not up to date. - Social history:: Smoking status: Patient/guardian denies using tobacco. - Ebola Screening: : No symptoms or risks identified at this time. ROS: 15:00 Constitutional: Negative for fever, chills, and weight loss, Eyes: Negative for injury, pm1 pain, redness, and discharge, ENT: Negative for injury, pain, and discharge, Neck: Negative for injury, pain, and swelling, Respiratory: Negative for shortness of breath, cough, wheezing, and pleuritic chest pain, Abdomen/GI: Negative for abdominal pain, nausea, vomiting, diarrhea, and constipation, Back: Negative for injury and pain, MS/Extremity: Negative for injury and deformity, Skin: Negative for injury, rash, and discoloration. 15:00 Cardiovascular: Positive for Hypotension, Negative for chest pain, edema, palpitations. Exam: 15:00 Constitutional: This is a well developed, well nourished patient who is awake, alert, pm1 and in no acute distress. Head/Face: Normocephalic, atraumatic. Eyes: Pupils equal round and reactive to light, extra-ocular motions intact. Lids and lashes normal. Conjunctiva and sclera are non-icteric and not injected. Cornea within normal limits. Periorbital areas with no swelling, redness, or edema. ENT: Nares patent. No nasal discharge, no septal abnormalities noted. Tympanic membranes are normal and external auditory canals are clear. Oropharynx with no redness, swelling, or masses, exudates, or evidence of obstruction, uvula midline. Mucous membranes moist. Neck: Trachea midline, no thyromegaly or masses palpated, and no cervical lymphadenopathy. Supple, full range of motion without nuchal rigidity, or vertebral point tenderness. No Meningismus. Chest/axilla: Normal chest wall appearance and motion. Nontender with no deformity. No lesions are appreciated. Cardiovascular: Regular rate and rhythm with a normal S1 and S2. No gallops, murmurs, or rubs. Normal PMI, no JVD. No pulse deficits. Respiratory: Lungs have equal breath sounds bilaterally, clear to auscultation and percussion. No rales, rhonchi or wheezes noted. No increased work of breathing, no retractions or nasal flaring. Abdomen/GI: Soft, non-tender, with normal bowel sounds. No distension or tympany. No guarding or rebound. No evidence of tenderness throughout. Back: No spinal tenderness. No costovertebral tenderness. Full range of motion. Skin: Warm, dry with normal turgor. Normal color with no rashes, no lesions, and no evidence of cellulitis. MS/ Extremity: Pulses equal, no cyanosis. Neurovascular intact. Full, normal range of motion. Neuro: Awake and alert, GCS 15, oriented to person, place, time, and situation. Cranial nerves II-XII grossly intact. Motor strength 5/5 in all extremities. Sensory grossly intact. Cerebellar exam normal. Vital Signs: 12:45 BP 107 / 71; Pulse 60; Resp 18 S; Temp 97.8(TE); Pulse Ox 98% on R/A; Weight 42.64 kg aa5 (R); Height 5 ft. 4 in. (162.56 cm) (R); Pain 0/10; 13:12 BP 91 / 50; Pulse 68; Resp 16; Pulse Ox 96% on R/A; kr2 13:35 BP 93 / 58 Supine; Pulse 70; kr2 13:35 BP 84 / 63 Sitting; Pulse 74; kr2 13:35 BP 96 / 65 Standing; Pulse 68; kr2 14:55 BP 100 / 68; Pulse 67; Resp 17; Pulse Ox 98% on R/A; kr2 16:46 BP 99 / 61; Pulse 65; Resp 16; Pulse Ox 99% on R/A; kr2 18:30 BP 134 / 68; Pulse 70; Resp 16; Pulse Ox 99% on R/A; kr2 12:45 Body Mass Index 16.13 (42.64 kg, 162.56 cm) aa5 13:35 asymptomatic kr2 13:35 complains of feeling "a little dizzy" kr2 13:35 complains of dizziness and "seeing spots" kr2 MDM: 13:13 Patient medically screened. pm1 16:22 Physician consultation: Suyapa Coyne MD was contacted at 16:21, regarding admission, pm1 patient's condition, Requests repeat troponin. If trending up will admit patient. Will contact Dr. Mcgregor regarding patient. 17:00 Data reviewed: vital signs. pm1 18:13 Physician consultation: Suyapa Coyne MD was contacted at 18:13, regarding patient's pm1 condition, Repeat troponin, She has contact Dr. Mcgregor and he will see the patient in the office on Thursday at 0830. 01/22 13:21 Order name: Basic Metabolic Panel; Complete Time: 14:21 pm1 01/22 13:21 Order name: BNP; Complete Time: 14:21 pm1 01/22 13:21 Order name: CBC with Diff; Complete Time: 14:21 pm1 01/22 13:21 Order name: Ckmb; Complete Time: 14:21 pm1 01/22 13:21 Order name: CPK; Complete Time: 14:21 pm1 01/22 13:21 Order name: LFT's; Complete Time: 14:21 pm01/22 13:21 Order name: Magnesium; Complete Time: 14:21 pm01/22 13:21 Order name: PT-INR; Complete Time: 14:21 pm01/22 13:21 Order name: Ptt, Activated; Complete Time: 14:21 pm01/22 13:21 Order name: Troponin (emerg Dept Use Only); Complete Time: 14:21 pm01/22 13:21 Order name: XRAY Chest (1 view); Complete Time: 15:47 pm01/22 13:21 Order name: CT Head Brain wo Cont; Complete Time: 14:21 pm01/22 16:23 Order name: Troponin (emerg Dept Use Only): Repeat at 1730; Complete Time: 18:07 pm01/22 18:22 Order name: Urine Dipstick--Ancillary (enter results) bd 01/22 13:21 Order name: EKG; Complete Time: 13:21 pm01/22 13:21 Order name: Cardiac monitoring; Complete Time: 13:33 pm01/22 13:21 Order name: EKG - Nurse/Tech; Complete Time: 13:33 pm01/22 13:21 Order name: IV Saline Lock; Complete Time: 13:33 pm01/22 13:21 Order name: Labs collected and sent; Complete Time: 13:33 pm01/22 13:21 Order name: O2 Per Protocol; Complete Time: 13:34 pm01/22 13:21 Order name: O2 Sat Monitoring; Complete Time: 13:34 pm01/22 13:21 Order name: Orthostatic Blood Pressure; Complete Time: 13:33 pm1 Administered Medications: 13:41 Drug: NS 0.9% 500 ml Route: IV; Rate: bolus; Site: right forearm; kr2 14:30 Follow up: Response: No adverse reaction; IV Status: Completed infusion kr2 14:44 Not Given (Patient Refused): Potassium Effervescent Tablet 50 mEq PO once; dissolve in kr2 4 ounces of water or juice 14:51 Drug: Potassium Chloride 10 mEq Route: PO; kr2 18:30 Follow up: Response: No adverse reaction kr2 14:51 Drug: Potassium Chloride 40 mEq Route: PO; kr2 18:30 Follow up: Response: No adverse reaction kr2 15:29 Drug: Potassium Chloride 20 mEq Route: IV; Rate: calculated rate; Site: right kr2 antecubital; 17:45 Follow up: Response: No adverse reaction; IV Status: Completed infusion kr2 15:38 Not Given (Patient Refused): Lovenox 1 mg/kg Sub-Q once kr2 18:56 Not Given (Patient Refused): Aspirin Chewable Tablet 324 mg PO once; 81 mg tablets x 4 kr2 Disposition: 01/22/18 18:16 Discharged to Home. Impression: Hypotension, Hypokalemia. - Condition is Stable. - Discharge Instructions: Potassium Content of Foods, Hypotension, Hypokalemia. - Medication Reconciliation Form, Thank You Letter form. - Follow up: Emergency Department; When: As needed; Reason: Worsening of condition. Follow up: Tyler Back MD; When: 01/25/2018 in his office 8:30 AM ; Reason: Recheck today's complaints, Continuance of care, Re-evaluation by your physician. - Problem is new. - Symptoms have improved. Addendum: 01/26/2018 07:05 Co-signature as Attending Physician, Felipe Levi MD I agree with the assessment and k dr plan of care. Signatures: Dispatcher [employer] EDMS Felipe Levi MD MD [facility] Rafaela Daniels RN RN aa5 Armando Ambrose NP CLOTH NAPPING SUPERVISOR pm1 Alyssa Gurrola RN RN kr2 Corrections: (The following items were deleted from the chart) 01/22 18:50 18:16 01/22/2018 18:16 Discharged to Home. Impression: Hypotension; Hypokalemia. kr2 Condition is Stable. Forms are Medication Reconciliation Form, Thank You Letter, Antibiotic Education, Prescription Opioid Use. Follow up: Emergency Department; When: As needed; Reason: Worsening of condition. Follow up: Tyler Back; When: 01/25/2018 in his office 8:30 AM ; Reason: Recheck today's complaints, Continuance of care, Re-evaluation by your physician. Problem is new. Symptoms have improved. pm1
--- NOTE | 2018-01-22 18:16 | ER ---
Nurse's Notes [facility] Name: Reena Gandhi Age: 72 yrs Sex: Female : 1945 Arrival Date: 01/22/2018 Time: 12:37 Bed 27 Private MD: Out, [facility] Diagnosis: Hypotension;Hypokalemia Presentation: 01/22 12:42 Presenting complaint: Patient states: "my home health nurse sent me here for low blood aa5 pressure, I think it was 83/40 and on Thursday it was 85/30". Pt c/o generalized weakness, pt states "I feel really tired". Transition of care: patient was not received from another setting of care. Onset of symptoms was January 2018. Risk Assessment: Do you want to hurt yourself or someone else? Patient reports no desire to harm self or others. Initial Sepsis Screen: Does the patient meet any 2 criteria? No. Patient's initial sepsis screen is negative. Does the patient have a suspected source of infection? No. Patient's initial sepsis screen is negative. Care prior to arrival: None. 12:42 Method Of Arrival: Ambulatory aa5 12:42 Acuity: MARKIE 3 aa5 Triage Assessment: 12:57 General: Appears in no apparent distress. comfortable, well groomed, well developed, kr2 well nourished, Behavior is calm, cooperative. Pain: Complains of pain in left breast Pain does not radiate. Pain currently is 0 out of 10 on a pain scale. at worst was 6 out of 10 on a pain scale. Quality of pain is described as sharp, Is intermittent. Historical: - Allergies: 12:44 Codeine; aa5 12:44 PENICILLINS; aa5 12:44 Sulfa (Sulfonamide Antibiotics); aa5 - PMHx: 12:44 Anxiety; Cancer; CHF; COPD; TIA; OR (November 03, 2017); aa5 - PSHx: 12:44 Appendectomy; Colostomy; Colostomy reversal; Mastectomy, Left; aa5 - Immunization history:: Pneumococcal vaccine is not up to date, Flu vaccine is not up to date. - Social history:: Smoking status: Patient/guardian denies using tobacco. - Ebola Screening: : No symptoms or risks identified at this time. Screenin:57 Abuse screen: Denies threats or abuse. Denies injuries from another. Nutritional kr2 screening: No deficits noted. Tuberculosis screening: No symptoms or risk factors identified. Fall Risk None identified. Assessment: 13:05 General: Appears in no apparent distress. comfortable, well groomed, well developed, kr2 well nourished, Behavior is calm, cooperative, appropriate for age. Pain: Complains of pain in left breast Pain currently is 0 out of 10 on a pain scale. Neuro: Level of Consciousness is awake, alert, obeys commands, Oriented to person, place, time, situation, Appropriate for age. Cardiovascular: Reports fatigue, lightheadedness, Capillary refill < 3 seconds in bilateral fingers Rhythm is regular. Respiratory: Airway is patent Respiratory effort is even, unlabored, Respiratory pattern is regular, symmetrical. GI: Abdomen is flat, non-distended. : No signs and/or symptoms were reported regarding the genitourinary system. Denies burning with urination. EENT: Oral mucosa is dry. Derm: Skin is intact, with poor turgor Skin is pink, warm \\T\\ dry. Musculoskeletal: Circulation, motion, and sensation intact. 14:00 Reassessment: Patient appears in no apparent distress at this time. Patient and/or kr2 family updated on plan of care and expected duration. Pain level reassessed. Patient is alert, oriented x 3, equal unlabored respirations, skin warm/dry/pink. Patient denies pain at this time. 14:54 Reassessment: Patient appears in no apparent distress at this time. Patient and/or kr2 family updated on plan of care and expected duration. Pain level reassessed. Patient is alert, oriented x 3, equal unlabored respirations, skin warm/dry/pink. Patient refused to take Potassium effervescent as ordered. States she will vomit if she has to drink it. Provider notified. Ordered Potassium tablets Patient denies pain at this time. 16:00 Reassessment: Patient appears in no apparent distress at this time. Patient and/or kr2 family updated on plan of care and expected duration. Pain level reassessed. Patient is alert, oriented x 3, equal unlabored respirations, skin warm/dry/pink. Patient denies pain at this time. 17:00 Reassessment: No changes from previously documented assessment. kr2 18:00 Reassessment: Patient appears in no apparent distress at this time. Patient and/or kr2 family updated on plan of care and expected duration. Pain level reassessed. Patient is alert, oriented x 3, equal unlabored respirations, skin warm/dry/pink. Patient denies pain at this time. Vital Signs: 12:45 BP 107 / 71; Pulse 60; Resp 18 S; Temp 97.8(TE); Pulse Ox 98% on R/A; Weight 42.64 kg aa5 (R); Height 5 ft. 4 in. (162.56 cm) (R); Pain 0/10; 13:12 BP 91 / 50; Pulse 68; Resp 16; Pulse Ox 96% on R/A; kr2 13:35 BP 93 / 58 Supine; Pulse 70; kr2 13:35 BP 84 / 63 Sitting; Pulse 74; kr2 13:35 BP 96 / 65 Standing; Pulse 68; kr2 14:55 BP 100 / 68; Pulse 67; Resp 17; Pulse Ox 98% on R/A; kr2 16:46 BP 99 / 61; Pulse 65; Resp 16; Pulse Ox 99% on R/A; kr2 18:30 BP 134 / 68; Pulse 70; Resp 16; Pulse Ox 99% on R/A; kr2 12:45 Body Mass Index 16.13 (42.64 kg, 162.56 cm) aa5 13:35 asymptomatic kr2 13:35 complains of feeling "a little dizzy" kr2 13:35 complains of dizziness and "seeing spots" kr2 ED Course: 12:37 Patient arrived in ED. sb2 12:37 Out, [facility] is Private Physician. sb2 12:45 Triage completed. aa5 12:45 Arm band placed on. aa5 12:48 Alyssa Gurrola, RN is Primary Nurse. kr2 12:59 Patient has correct armband on for positive identification. Bed in low position. Call kr2 light in reach. Side rails up X2. inside channel account manager on. Pulse ox on. NIBP on. Door closed. Warm blanket given. 13:04 Armando Ambrose NP is PHCP. pm1 13:04 Felipe Levi MD is Attending Physician. pm1 13:30 Inserted saline lock: 20 gauge in right forearm, using aseptic technique. Blood kr2 collected. 13:40 EKG done, by residential tech. reviewed by Armando Ambrose NP. at1 13:59 CT Head Brain wo Cont In Process Unspecified. EDMS 13:59 CT completed. Patient tolerated procedure well. Patient moved to CT via stretcher. sj Patient moved back from CT. 14:03 X-ray completed. Portable x-ray completed in exam room. Patient tolerated procedure jb2 well. 14:12 XRAY Chest (1 view) In Process Unspecified. EDMS 17:30 Repeat lab(s) drawn. by hi, sent to lab. kr2 18:14 Tyler Back MD is Referral Physician. pm1 18:30 No provider procedures requiring assistance completed. IV discontinued, intact, kr2 bleeding controlled, No redness/swelling at site. Pressure dressing applied. Administered Medications: 13:41 Drug: NS 0.9% 500 ml Route: IV; Rate: bolus; Site: right forearm; kr2 14:30 Follow up: Response: No adverse reaction; IV Status: Completed infusion kr2 14:44 Not Given (Patient Refused): Potassium Effervescent Tablet 50 mEq PO once; dissolve in kr2 4 ounces of water or juice 14:51 Drug: Potassium Chloride 10 mEq Route: PO; kr2 18:30 Follow up: Response: No adverse reaction kr2 14:51 Drug: Potassium Chloride 40 mEq Route: PO; kr2 18:30 Follow up: Response: No adverse reaction kr2 15:29 Drug: Potassium Chloride 20 mEq Route: IV; Rate: calculated rate; Site: right kr2 antecubital; 17:45 Follow up: Response: No adverse reaction; IV Status: Completed infusion kr2 15:38 Not Given (Patient Refused): Lovenox 1 mg/kg Sub-Q once kr2 18:56 Not Given (Patient Refused): Aspirin Chewable Tablet 324 mg PO once; 81 mg tablets x 4 kr2 Outcome: 18:16 Discharge ordered by . pm1 18:50 Patient left the ED. kr2 18:58 Discharged to home ambulatory, with family. kr2 18:58 Condition: good 18:58 Discharge instructions given to patient, family, Instructed on discharge instructions, follow up and referral plans. Demonstrated understanding of instructions, follow-up care. Signatures: Dispatcher [employer] EDMS Pj Garcia jb2 Lily Felton Audri, RN RN aa5 Sally gayle, dredge pipe installer EKG Tat1 Armando Ambrose, TWISTING DEPARTMENT END FINDER TWISTING DEPARTMENT END FINDER pm1 Alyssa Gurrola, RN RN kr2 Marlene Valentin sb2
[2018-01-22 19:05] VITALS: TEMP 97.8
[2018-01-22 19:10] VITALS: BP 99/61; O2SAT 99
[2018-01-22 19:18] LABS: Urine Blood NEGATIVE (NEG); Urine Glucose NEGATIVE (NEG); Urine Protein NEGATIVE (NEG); Urine Specific Gravity 1.015 (1.005-1.030)
== END 2018-01-22 18:50 | disposition home or self-care (01) ==
LOC: ER 12:36
DX: E87.6 Hypokalemia (principal); Z88.0 Allergy status to penicillin; Z88.2 Allergy status to sulfonamides; Z88.5 Allergy status to narcotic agent; Z85.3 Personal history of malignant neoplasm of breast; Z86.73 Personal history of transient ischemic attack (TIA), and cerebral infarction without residual deficits
CPT/HCPCS: 36415; 70450; 71045; 80048; 80076; 81003; 82550; 82553; 83735; 83880; 84484; 85025; 85610; 85730; 93005; 96361; 96365; 96366; 99285; J1650

== ENCOUNTER 2018-01-31 10:13 | Emergency (ER) | payer OTHER ==
--- OUTSIDE RECORDS SUMMARY | 2018-01-31 10:16 | XMS REPORT | Continuity of Care Document ---
:1945 Author Organization Interface Problems Problem Status Onset Classification Date Comments Source Date Reported ACUTE NH Active [facility] 8 Acute 11/24/2017 [facility] myocardial infarction, unspecified ACUTE Active [facility] MYOCARDIAL INFARCTION, UNSPECIFIED Medications Medication Details Route Status Patient Ordering Order Source Instructions Provider Date ProAmatine
5 mg, 1 Inactive tab, Route: PO, [address] [facility] Drug form: TAB, TID, Dosing Weight 54.773, kg, Priority: STAT, Start date: 11/21/17 12:41:00 CDT, Duration: 30 day, Stop date: 12/21/17 9:00:00 CDT
Notes: (Same as:Proamatine) Budesonide 0.25
0.5 mg=2 Active MG/ML Inhalant mL, NEB, RBID, [address] [facility] Solution # 120 mL, 0 Refill(s), [facility] [id number] midodrine 5 mg
5 mg=1 Active oral tablet tab, PO, TID, # [address] [facility] 60 tab, 0 Refill(s), [facility] [id number] metoprolol
12.5 Active tartrate 25 mg mg=0.5 tab, PO, [address] [facility] oral tablet Q12H, # 30 tab, 1 Refill(s), Pharmacy: [facility] [id number] Digoxin 0.125 MG
0.125 mg=1 Active Oral Tablet tab, PO, Daily, [address] [facility] # 30 tab, 0 Refill(s), [facility] [id number] atorvastatin 40
40 mg=1 Active mg oral tablet tab, PO, [address] [facility] Bedtime, # 30 tab, 0 Refill(s), Pharmacy: [facility] [id number] Aspirin 81 MG
81 mg=1 Active Enteric Coated tab, PO, Daily, [address] [facility] Tablet 0 Refill(s) benzonatate 100
100 mg=1 Active mg oral capsule cap, PO, TID, [address] [facility] PRN as needed for cough, X 7 day, # 21 cap, 0 Refill(s), Pharmacy: [facility] [id number] clopidogrel 75
75 mg=1 Active mg oral tablet tab, PO, Daily, [address] [facility] # 30 tab, 0 Refill(s), Pharmacy: [facility] [id number] Plavix
75 mg, 1 No Longer tab, Route: PO, Active [address] [facility] Drug form: TAB, Daily, Dosing Weight 54.773, kg, Priority: Routine, Start date: 11/20/17 9:00:00 CDT, Duration: 30 day, Stop date: 12/19/17 9:00:00 CDT
Notes: (Same As: Plavix) Midodrine
5 mg, 1 No Longer tab, Route: PO, Active [address] [facility] Drug form: TAB, TID, Dosing Weight 54.773, kg, Priority: STAT, Start date: 11/19/17 17:00:00 CDT, Duration: 30 day, Stop date: 12/19/17 13:00:00 CDT
Notes: (Same as:Proamatine) Alprazolam 0.5
0.25 mg, 1 No Longer MG Oral Tablet tab, Route: PO, Active [address] [facility] [Xanax] Drug form: TAB, BID, Dosing Weight 49, kg, PRN as needed for anxiety, Start date: 11/19/17 17:00:00 CDT, Stop date: 12/09/17 17:00:00 CDT
Notes: With food or milk (Same as: Xanax) magnesium
300 ml, Inactive citrate 58.2 Route: PO, Drug [address] [facility] MG/ML Oral Form: LIQ, Solution Dosing Weight 54.773, kg, ONCE, STAT, Start date: 11/19/17 15:55:00 CDT, Stop date: 11/19/17 15:55:00 CDT
Notes: (Same as: Citrate of Magnesia) Concentration: 1.745 gm / 30 mL Lactulose 667
20 gm, 30 Inactive MG/ML Oral mL, Route: PO, [address] [facility] Solution Drug form: SYRP, Q2H, Dosing Weight 54.773, kg, Start date: 11/19/17 14:00:00 CDT, Duration: 3 doses or times, Stop date: 11/19/17 18:00:00 CDT
Notes: (Same as:Chronulac) Hyoscyamine
0.125 mg, No Longer 1 tab, Route: Active 2017 [facility], Drug form: TAB, Q6H, Dosing Weight 54.773, kg, PRN Other -See Comment, Start date: 11/19/17 13:47:00 CDT, Duration: 30 day, Stop date: 12/19/17 13:46:00 CDT
Notes: (Same as: Levsin) Take 30 min before meal Plavix
75 mg, 1 Inactive tab, Route: PO, [address] [facility] Drug form: TAB, ONCE, Dosing Weight 54.773, kg, Priority: Routine, Start date: 11/19/17 8:45:00 CDT, Stop date: 11/19/17 8:45:00 CDT
Notes: (Same As: Plavix) Plavix
75 mg, Inactive Route: PO, Drug [address] [facility] form: TAB, Daily, Dosing Weight 54.773, kg, Priority: STAT, Start date: 11/19/17 8:22:00 CDT, Duration: 30 day, Stop date: 12/18/17 9:00:00 CDT metoprolol
12.5 mg, No Longer tartrate 0.5 tab, Route: Active [address] [facility] PO, Drug form: TAB, Q12H, Dosing Weight 48, kg, Start date: 11/18/17 21:00:00 CDT, Duration: 30 day, Stop date: 12/18/17 9:00:00 CDT
Notes: (Same as: Lopressor) Alprazolam 0.5
0.25 mg, 1 No Longer MG Oral Tablet tab, Route: PO, Active [address] [facility] [Xanax] Drug form: TAB, BID, Dosing Weight 49, kg, Start date: 11/18/17 17:00:00 CDT, Stop date: 12/09/17 17:00:00 CDT
Notes: With food or milk (Same as: Xanax) normal saline
1,000 mL, Inactive 0.9% IV 1,000 mL Rate: [address] [facility] ml/hr, Infuse over: 1 hr, Route: IV, Dosing Weight 54.773 kg, Total Volume: 1,000, Start date: 11/18/17 16:57:00 CDT, Duration: 1 doses or times, Stop date: 11/18/17 17:56:00 CDT, 1.58, m2 Ipratropium
0.5 mg, No Longer 2.5 mL, Route: Active [address] [facility] NEB, Drug form: SOLN, RQ6H, Dosing Weight 54.773, kg, Start date: 11/18/17 12:00:00 CDT, Duration: 30 day, Stop date: 12/18/17 8:00:00 CDT
Notes: SEE RT DOCUMENTATION (Same as:Atrovent) Doxycycline
100 mg, 1 No Longer cap, Route: PO, Active [address] [facility] Drug form: CAP, [id number], Dosing Weight 54.773, kg, Start date: 11/17/17 16:00:00 CDT, Duration: 30 day, Stop date: 12/17/17 4:00:00 CDT
Notes: (Same as: Vibramycin) No milk/antacids/i geni. Digoxin 0.125 MG
0.125 mg, No Longer Oral Tablet 1 tab, Route: Active [address] [facility] PO, Drug form: TAB, Daily, Dosing Weight 54.773, kg, Start date: 11/16/17 10:09:00 CDT, Duration: 30 day, Stop date: 12/16/17 9:00:00 CDT
Notes: Take on an Empty Stomach (Same as: Lanoxin) Tessalon Perles
200 mg, 2 No Longer cap, Route: PO, Active [address] [facility] Drug form: CAP, TID, Dosing Weight 54.773, kg, Start date: 11/13/17 17:00:00 CDT, Duration: 30 day, Stop date: 12/13/17 13:00:00 CDT
Notes: (Same As: Korinsalon Antoni) "Do Not Crush" Etomidate
10 mg, 5 Inactive mL, Route: IV, [address] [facility] Drug form: INJ, ONCE, Dosing Weight 54.773, kg, Start date: 11/12/17 15:40:00 CDT, Stop date: 11/12/17 15:40:00 CDT
Notes: (Same as: Amidate). Per state nursing law etomidate can only be given by a nurse if patient is intubated or being intubated (unless the nurse is a COMPUTER [employer] CONTR[employer]GRAMMER). Propofol
30 mg, 3 Inactive mL, Route: IVP[facility] Drug form: Emulsion, ONCE, Dosing Weight 54.773, kg, Start date: 11/12/17 15:40:00 CDT, Stop date: 11/12/17 15:40:00 CDT
Notes: If Diprivan - change bottle & tubing every 12 hr Per state nursing law propofol can only be given by a nurse if patient is intubated or being intubated (unless the nurse is a COMPUTER NUMERICAL CONTROL PROGRAMMER). Same as: Diprivan Versed
4 mg, 4 Inactive mL, Route: IVP[facility] Drug form: INJ, ONCE, Dosing Weight 54.773, kg, Start date: 11/12/17 15:40:00 CDT, Stop date: 11/12/17 15:40:00 CDT
Notes: (Same as: Versed) MEDICATION WASTE Product Size: 2 mg Product Wasted: _0__ mg cefepime
1 gm, No Longer Route: IVPB, Active [address] [facility] [id number], Dosing Weight 54.773, kg, (CrCl >/=50 ml/min), Start date: 11/12/17 14:00:00 CDT, Stop date: 11/22/17 8:00:00 CDT, ABX Indication: Pneumonia
N otes: (Same As: Maxipime) MEDICATION WASTE Product Size: 1000 mg Product Wasted: __0_ mg vancomycin +
750 mg, Inactive Dextrose 5% in Route: IVPB[address] [facility] Water IV 250 mL Drug form: PDR/INJ, [...] Oral Tablet tab, Route: PO, Active [address] [facility] [Xanax] Drug form: TAB, Q6H, Dosing Weight 49, kg, Start date: 11/11/17 14:29:00 CDT, Stop date: 12/10/17 0:00:00 CDT
Notes: With food or milk (Same as: Xanax) vancomycin +
1,250 mg, Inactive Dextrose 5% in Route: IVPB[address] [facility] Water IV 250 mL ONCE, Start date: [...] gm, No Longer Route: IVPB, Active [address] [facility] [id number], Dosing Weight 54.773, kg, (CrCl >/=50 ml/min), Start date: 11/11/17 12:00:00 CDT, Duration: 7 day, Stop date: 11/18/17 0:00:00 CDT, ABX Indication: Pneumonia
Notes: (Same As: Maxipime) MEDICATION WASTE Product Size: 1000 mg Product Wasted: ___ mg Vancomycin
1 ea, Inactive Route: MISC, [address] [facility] ONCALL, Dosing Weight 54.773, kg, Start date: 11/11/17 12:00:00 CDT, Duration: 7 day, Stop date: 11/18/17 11:59:00 CDT, Pharmacy to dose, ABX Indication: Pneumonia Alprazolam 0.5
0.5 mg, 1 No Longer MG Oral Tablet tab, Route: PO, Active [address] [facility] [Xanax] Drug form: TAB, Q8H, Dosing Weight 49, kg, Start date: 11/10/17 13:42:00 CDT, Stop date: 12/10/17 14:00:00 CDT
Notes: With food or milk (Same as: Xanax) potassium
30 mmol, No Longer phosphate 10 mL, Route: Active [address] [facility] IVPB, ONCE, Dosing Weight 49, kg, Priority: STAT, Start date: 11/09/17 23:38:00 CDT, Stop date: 11/09/17 23:38:00 CDT
Notes: (Same as: K Phosphate.) 1 mMol phoshate has 1.47 mEq potassium Infuse over 4 hours potassium
15 mmol, 5 Inactive phosphate mL, Route: [address] [facility] IVPB, PRN, Dosing Weight 49, kg, PRN Abnormal Lab Result, Start date: 11/08/17 7:19:00 CDT, Duration: 30 day, Stop date: 12/08/17 7:18:00 CDT, FOR ICU USE ONLY
Not es: (Same as: K Phosphate.) 1 mMol phoshate has 1.47 mEq potassium Infuse over 4 hours potassium
2 pkt, Inactive phosphate-sodium Route: PO, Drug [address] [facility] phosphate 250 Form: PDR/REC, mg-280 mg-160 mg Dosing Weight oral powder for 49, kg, PRN, reconstitution PRN Abnormal Lab Result, FOR ICU USE ONLY, Start date: 11/08/17 7:19:00 CDT, Duration: 30 day, Stop date: 12/08/17 7:18:00 CDT
Notes: (Same as: Phos-NaK) Each 1.5 gm pkt has 250mg phosphorous. Mix w/2.5oz water and stir. Potassium
20 mEq, 15 Inactive Chloride mL, Route: NJ, [address] [facility] Drug form: LIQ, PRN, Dosing Weight 49, kg, PRN Abnormal Lab Result, Start date: 11/08/17 7:19:00 CDT, Duration: 30 day, Stop date: 12/08/17 7:18:00 CDT, FOR ICU USE ONLY
Notes: (Same as: Potassium Chloride) sodium phosphate
15 mmol, 5 Inactive mL, Route: [address] [facility] IVPB, PRN, Dosing Weight 49, kg, PRN Abnormal Lab Result, Start date: 11/08/17 7:19:00 CDT, Duration: 30 day, Stop date: 12/08/17 7:18:00 CDT, FOR ICU USE ONLY Calcium
500 mg, 1 Inactive Carbonate 500 MG tab, Route: PO, [address] [facility] Chewable Tablet Drug form: CHEWTAB, PRN, Dosing Weight 49, kg, PRN Abnormal Lab Result, FOR ICU USE ONLY, Start date: 11/08/17 7:19:00 CDT, Duration: 30 day, Stop date: 12/08/17 7:18:00 CDT
Notes: (Same As: Tums) Calcium Carbonate 500 xs=012 mg elemental calcium Dose= mg calcium carbonate ( mg elemental calcium) Magnesium Oxide
800 mg, 2 Inactive tab, Route: PO, [address] [facility] Drug form: TAB, PRN, Dosing Weight 49, kg, PRN Abnormal Lab Result, FOR ICU USE ONLY, Start date: 11/08/17 7:19:00 CDT, Duration: 30 day, Stop date: 12/08/17 7:18:00 CDT
Notes: (Same as: Mag-Ox 400) Magnesium oxide [id number] elemental magnesium Dose=____mg magnesium oxide (___mg elemental magnesium) Calcium
1 gm, 50 Inactive Gluconate mL, Route: [address] [facility] IVPB, Drug form: INJ, PRN, Dosing Weight 49, kg, PRN Abnormal Lab Result, Start date: 11/08/17 7:19:00 CDT, Duration: 30 day, Stop date: 12/08/17 7:18:00 CDT, FOR ICU USE ONLY
Notes: WASTE: F/P - Sink; E - Municipal Trash Bin Magnesium
2 gm, 50 Inactive Sulfate mL, Route: [address] [facility] IVPB, Drug form: INJ, PRN, Dosing Weight 49, kg, PRN Abnormal Lab Result, Start date: 11/08/17 7:19:00 CDT, Duration: 30 day, Stop date: 12/08/17 7:18:00 CDT, FOR ICU USE ONLY
Notes: WASTE: F/P - Sink; E - Municipal Trash Bin Lasix
40 mg, 4 Inactive mL, Route: IVP, [address] [facility] Drug form: INJ, ONCE, Dosing Weight 49, kg, Start date: 11/08/17 7:19:00 CDT, Stop date: 11/08/17 7:19:00 CDT
Notes: (Same as: Lasix) MEDICATION WASTE Product Size: 40 mg Product Wasted: ___ mg Docusate Sodium
100 mg, 1 No Longer 100 MG Oral cap, Route: PO, Active [address] [facility] Capsule [Colace] Drug form: CAP, BID, Dosing Weight 49, kg, Start date: 11/07/17 17:00:00 CDT, Duration: 30 day, Stop date: 12/07/17 9:00:00 CDT
Notes: (Same as: Colace) (Do Not Crush) Seroquel
25 mg, 1 No Longer tab, Route: PO, Active [address] [facility] Drug form: TAB, Q8H, Dosing Weight 49, kg, Start date: 11/07/17 16:00:00 CDT, Duration: 30 day, Stop date: 12/07/17 8:00:00 CDT
Notes: (Same as: SEROquel) Lasix
60 mg, 6 Inactive mL, Route: IVP, [address] [facility] Drug form: INJ, ONCE, Dosing Weight 49, kg, Start date: 11/07/17 9:45:00 CDT, Stop date: 11/07/17 9:45:00 CDT
Notes: (Same as: Lasix) Alprazolam 0.25
0.25 mg, No Longer MG Oral Tablet 0.5 tab, Route: Active [address] [facility] [Xanax] PO, Drug form: TAB, Q8H, Dosing Weight 49, kg, Start date: 11/06/17 20:00:00 CDT, Duration: 30 day, Stop date: 12/06/17 13:00:00 CDT
Notes: With food or milk (Same as: Xanax) Ceftriaxone
1 gm, No Longer Route: IVPB, Active [address] [facility] [id number], Dosing Weight 49, kg, Start date: 11/06/17 10:00:00 CDT, Duration: 4 day, Stop date: 11/09/17 10:00:00 CDT, ABX Indication: Pneumonia
N otes: (Same As: Rocephin). Use with 100 mL NS and infuse over 30 min MEDICATION WASTE Product Size: 1000 mg Product Wasted: ___ mg gabapentin 100
100 mg, 1 No Longer MG Oral Capsule cap, Route: PO, Active [address] [facility] Drug form: CAP, Bedtime, Dosing Weight 49, kg, Start date: 11/05/17 21:00:00 CDT, Duration: 30 day, Stop date: 12/04/17 21:00:00 CDT
Notes: (Same as: Neurontin) Zoloft
100 mg, 1 No Longer tab, Route: PO, Active [address] [facility] Drug form: TAB, Bedtime, Dosing Weight 49, kg, Start date: 11/05/17 21:00:00 CDT, Duration: 30 day, Stop date: 12/04/17 21:00:00 CDT
Notes: (Same as: Zoloft) hyoscyamine
0.125 mg=1 Active 0.125 mg tab, SL, Q4H, [address] [facility] sublingual PRN Spasms, # tablet 30 tab, 0 Refill(s) Sertraline 100
100 mg=1 Active MG Oral Tablet tab, PO, [address] [facility] [Zoloft] Bedtime, # 30 tab, 0 Refill(s) gabapentin 100
100 mg=1 No Longer MG Oral Capsule cap, PO, Active [address] [facility] Bedtime, # 90 cap, 1 Refill(s) Lasix
40 mg, 4 Inactive mL, Route: IVP, [address] [facility] Drug form: INJ, ONCE, Dosing Weight 49, kg, Priority: STAT, Start date: 11/05/17 13:46:00 CDT, Stop date: 11/05/17 13:46:00 CDT
Notes: (Same as: Lasix) MEDICATION WASTE Product Size: 40 mg Product Wasted: ___ mg Synthroid
25 No Longer microgram, 0.5 Active [address] [facility] tab, Route: PO, Drug form: TAB, Daily, Dosing Weight 49, kg, Start date: 11/05/17 6:30:00 CDT, Duration: 30 day, Stop date: 12/04/17 6:30:00 CDT
Notes: Take 1 hour before or 2 hours after meal; Enteral feeds may interefere with the absorption of this medication.(Ke e as:Levothroid, Synthroid) Lipitor
40 mg, 1 No Longer tab, Route: PO, Active [address] [facility] Drug form: TAB, Bedtime, Dosing Weight 48, kg, Start date: 11/04/17 21:00:00 CDT, Duration: 30 day, Stop date: 12/03/17 21:00:00 CDT
Notes: (Same as: Lipitor) Sodium Chloride
250 mL, No Longer 0.9% IV Route: IVPB, [address] [facility] Start date: 11/04/17 17:09:00 CDT, Duration: 30 day, Stop date: 12/04/17 17:08:00 CDT, PRN Line Flush Alprazolam 0.25
0.25 mg, No Longer MG Oral Tablet 0.5 tab, Route: [address] [facility] [Xanax] PO, Drug form: TAB, Q8H, Dosing Weight 49, kg, PRN as needed for anxiety, Start date: 11/04/17 17:02:00 CDT, Duration: 30 day, Stop date: 12/04/17 17:01:00 CDT
Notes: With food or milk (Same as: Xanax) Tramadol
50 mg, 1 No Longer tab, Route: PO, [address] [facility] Drug form: TAB, Q4H, Dosing Weight 49, kg, PRN Pain Score 4-6, Start date: 11/04/17 17:00:00 CDT, Stop date: 12/04/17 16:59:00 CDT
Notes: Not to exceed 400mg/day. (Same As: Ultram) Budesonide
0.5 mg, 2 No Longer mL, Route: NEB, Active [address] [facility] Drug form: SUSP, RBID, Dosing Weight 49, kg, Start date: 11/04/17 13:04:00 CDT, Duration: 30 day, Stop date: 12/04/17 8:00:00 CDT
Notes: (Same As: Pulmicort) Phenergan
12.5 mg, Inactive 0.5 mL, Route: [address] [facility] IM, Drug form: INJ, ONCE, Dosing Weight 49, kg, Start date: 11/04/17 12:08:00 CDT, Stop date: 11/04/17 12:08:00 CDT
Notes: Do not give IV push. (Same as: Phenergan) Reglan
10 mg, 2 No Longer mL, Route: IVP, Active [address] [facility] Drug form: INJ, Q8H, Dosing Weight 49, kg, PRN Nausea & Vomiting, Priority: NOW, Start date: 11/04/17 11:30:00 CDT, Duration: 30 day, Stop date: 12/04/17 11:29:00 CDT
Notes: (Same as: Reglan) Insulin Lispro
1 unit, No Longer 0.01 mL, Route: Active [address] [facility] SUB-Q, Drug form: SOLN, TID-Before Meals, Dosing [...] No Longer Route: IM, Drug Active [address] [facility] form: PDR/INJ, PRN, Dosing Weight 49, kg, PRN Blood Glucose Results, Start date: 11/04/17 9:54:00 CDT, Duration: 30 day, Stop date: 12/04/17 9:53:00 CDT Dextrose 50%
25 gm, 50 No Longer Syringe mL, Route: IVP, Active [address] [facility] Drug Form: INJ, Dosing Weight 49, kg, PRN, PRN Blood Glucose Results, Start date: 11/04/17 9:54:00 CDT, Duration: 30 day, Stop date: 12/04/17 9:53:00 CDT Alprazolam 0.25
0.25 mg, Inactive MG Oral Tablet 0.5 tab, Route: [address] [facility] [Xanax] PO, Drug form: TAB, PRN, Dosing Weight 49, kg, PRN as needed for anxiety, Start date: 11/04/17 9:54:00 CDT, Duration: 30 day, Stop date: 12/04/17 9:53:00 CDT
Note s: With food or milk (Same as: Xanax) Nicotine
21 mg, 1 No Longer patch, Route: Active 2017 [facility], Drug form: ERFILM, Daily, Dosing Weight 49, kg, Start date: 11/04/17 9:00:00 CDT, Duration: 30 day, Stop date: 12/03/17 9:00:00 CDT
Notes: (Same as: Habitrol) "Remove old patch before application of new patch" WASTE: F/P - P Waste Black; E - P Waste Black remove patch
1 patch, No Longer Route: TOP, Active [address] [facility] Drug form: ERFILM, Daily, Start date: 11/04/17 9:00:00 CDT, Duration: 30 day, Stop date: 12/03/17 9:00:00 CDT
Notes: Remove old patch before application of new patch. WASTE: F/P - P Waste Black; E - P Waste Black Saline Flush
10 ml, No Longer 0.9% Route: IVP, Active [address] [facility] Drug Form: INJ, Dosing Weight 48, kg, Q12H, Start date: 11/04/17 9:00:00 CDT, Duration: 30 day, Stop date: 12/03/17 21:00:00 CDT
Notes: (Same as: BD Posiflush) Brilinta
90 mg, 1 No Longer tab, Route: PO, Active [address] [facility] Drug form: TAB, Q12H, Dosing Weight 48, kg, Start date: 11/04/17 9:00:00 CDT, Duration: 30 day, Stop date: 12/03/17 21:00:00 CDT
Notes: (Same as: Brilinta) Aspirin
81 mg, 1 No Longer tab, Route: PO, Active [address] [facility] Drug form: ECTAB, Daily, Dosing Weight 48, kg, Start date: 11/04/17 9:00:00 CDT, Duration: 30 day, Stop date: 12/03/17 9:00:00 CDT
Notes: Do not crush or chew. (Same As: Ecotrin) metoprolol
50 mg, 1 No Longer tartrate tab, Route: PO, Active [address] [facility] Drug form: TAB, Q12H, Dosing Weight 48, kg, Start date: 11/04/17 9:00:00 CDT, Stop date: 12/03/17 21:00:00 CDT
Notes: (Same as: Lopressor) Dextrose 50%
25 gm, 50 Inactive Syringe mL, Route: IVP, [address] [facility] Drug Form: INJ, Dosing Weight 49, kg, ONCE, Start date: 11/04/17 8:52:00 CDT, Stop date: 11/04/17 8:52:00 CDT Insulin regular
10 unit, Inactive 0.1 mL, Route: [address] [facility] IVP, Drug form: SOLN, ONCE, Dosing Weight [...] 50 Inactive Syringe mL, Route: IVP, [address] [facility] Drug Form: INJ, Dosing Weight 49, kg, ONCE, Start date: 11/04/17 8:24:00 CDT, Stop date: 11/04/17 8:24:00 CDT Sodium Chloride
500 mL, Inactive 0.9% (Bolus) IV 1000 ml/hr, [address] [facility] Infuse Over: 30 minutes, Route: IV, 500, Drug form: INJ, ONCE, Priority: STAT, Dosing Weight 49 kg, Start date: 11/04/17 8:24:00 CDT, Stop date: 11/04/17 8:24:00 CDT Albuterol 0.833
3 mL, Inactive MG/ML / Route: [address] [facility] Ipratropium INHALATION, [place] 0.167 Drug Form: MG/ML Inhalant SOLN, Dosing Solution Weight 49, kg, [DuoNeb] RQ6H, Start date: 11/04/17 8:00:00 CDT, Duration: 30 day, Stop date: 12/04/17 2:00:00 CDT
Notes: (Same as: Duoneb) Ondansetron
4 mg, Inactive Route: IVP, [address] [facility] Drug form: INJ, ONCE, Dosing Weight 49, kg, Start date: 11/04/17 7:55:00 CDT, Stop date: 11/04/17 7:55:00 CDT Tramadol
50 mg, 1 Inactive tab, Route: PO, [address] [facility] Drug form: TAB, Q6H, Dosing Weight 49, kg, PRN Pain Score 4-6, Start date: 11/04/17 5:05:00 CDT, Duration: 30 day, Stop date: 12/04/17 5:04:00 CDT
Notes: Not to exceed 400mg/day. (Same As: Ultram) Lovenox
40 mg, 0.4 Inactive mL, Route: [address] [facility] SUB-Q, Drug form: INJ, [id number], Dosing Weight 48, kg, Start date: 11/04/17 5:00:00 CDT, Stop date: 12/03/17 3:00:00 CDT
Notes: (Same as: Lovenox) Ceftriaxone
1 gm, No Longer Route: IVPB, Active [address] [facility] [id number], Dosing Weight 49, kg, Start date: 11/04/17 5:00:00 CDT, Duration: 10 day, Stop date: 11/13/17 5:00:00 CDT, ABX Indication: Pneumonia
N otes: (Same As: Rocephin). Use with 100 mL NS and infuse over 30 min MEDICATION WASTE Product Size: 1000 mg Product Wasted: ___ mg Azithromycin
500 mg, No Longer Route: IVPB, Active [address] [facility] [id number], Dosing Weight 49, kg, Start date: 11/04/17 5:00:00 CDT, Duration: 5 day, Stop date: 11/08/17 5:00:00 CDT, ABX Indication: Pneumonia
N otes: (Same As: Zithromax IV) Kayexalate
30 gm, 120 Inactive mL, Route: PO, [address] [facility] Drug form: SUSP, ONCE, Dosing Weight 49, kg, Start date: 11/04/17 4:18:00 CDT, Stop date: 11/04/17 4:18:00 CDT
Notes: (sodium polystyrene sulfonate 15 gm/60 ml CARA) Shake well before use. (Same as: Kayexalate, SPS) Albuterol 0.833
3 ml, No Longer MG/ML / Route: NEB, Active [address] [facility] Ipratropium Drug Form: [place] 0.167 SOLN, Dosing MG/ML Inhalant Weight 49, kg, Solution RQ4H, Start [DuoNeb] date: 11/04/17 4:00:00 CDT, Duration: 30 day, Stop date: 12/04/17 3:00:00 CDT
Notes: (Same as: Duoneb) Furosemide
20 mg, 2 Inactive mL, Route: IVP, [address] [facility] Drug form: INJ, ONCE, Dosing Weight 49, kg, Priority: NOW, Start date: 11/04/17 3:09:00 CDT, Stop date: 11/04/17 3:09:00 CDT
Notes: (Same as: Lasix) Enoxaparin
40 mg, 0.4 Inactive mL, Route: [address] [facility] SUB-Q, Drug form: INJ, [id number], Dosing Weight 48, kg, Start date: 11/04/17 3:00:00 CDT, Stop date: 12/03/17 3:00:00 CDT
Notes: (Same as: Lovenox) Amlodipine
10 mg, PO, No Longer Daily Active [address] [facility] Albuterol 0.833
3 mL, NEB, Active MH MG/ML / PRN, 4H PRN [address] [facility] Ipratropium [place] 0.167 MG/ML Inhalant Solution Magnesium
2 gm, 50 No Longer Sulfate mL, Route: Active [address] [facility] IVPB, Drug form: INJ, PRN, Dosing Weight 48, kg, PRN Abnormal Lab Result, Start date: 11/04/17 2:44:00 CDT, Duration: 30 day, Stop date: 12/04/17 2:43:00 CDT, FOR ICU USE ONLY
Notes: WASTE: F/P - Sink; E - [employer] Trash Bin Calcium
1 gm, 50 No Longer Gluconate mL, Route: Active [address] [facility] IVPB, Drug form: INJ, PRN, Dosing Weight 48, kg, PRN Abnormal Lab Result, Start date: 11/04/17 2:44:00 CDT, Duration: 30 day, Stop date: 12/04/17 2:43:00 CDT, FOR ICU USE ONLY
Notes: WASTE: F/P - Sink; E - [employer] Trash Bin Calcium
500 mg, 1 No Longer Carbonate 500 MG tab, Route: PO, Active [address] [facility] Chewable Tablet Drug form: CHEWTAB, PRN, Dosing Weight 48, kg, PRN Abnormal Lab Result, FOR ICU USE ONLY, Start date: 11/04/17 2:44:00 CDT, Duration: 30 day, Stop date: 12/04/17 2:43:00 CDT
Notes: (Same As: Tums) Calcium Carbonate 500 eo=203 mg elemental calcium Dose= mg calcium carbonate ( mg elemental calcium) Magnesium Oxide
800 mg, 2 No Longer tab, Route: PO, Active [address] [facility] Drug form: TAB, PRN, Dosing Weight 48, kg, PRN Abnormal Lab Result, FOR ICU USE ONLY, Start date: 11/04/17 2:44:00 CDT, Duration: 30 day, Stop date: 12/04/17 2:43:00 CDT
Notes: (Same as: Mag-Ox 400) Magnesium oxide 289al=041mm elemental magnesium Dose=____mg magnesium oxide (___mg elemental magnesium) Potassium
20 mEq, 10 No Longer Chloride mL, Route: Active [address] [facility] IVPB, Drug form: INJ, PRN, Dosing Weight 48, kg, PRN Abnormal Lab Result, Via central line, Start date: 11/04/17 2:44:00 CDT, Duration: 30 day, Stop date: 12/04/17 2:43:00 CDT, FOR ICU USE ONLY
Notes: MUST be Diluted before use (Same as: KCl) MEDICATION WASTE Product Size: 20 mEq Product Wasted: ___ mEq sodium phosphate
15 mmol, 5 No Longer mL, Route: Active [address] [facility] IVPB, PRN, Dosing Weight 48, kg, PRN Abnormal Lab Result, Start date: 11/04/17 2:44:00 CDT, Duration: 30 day, Stop date: 12/04/17 2:43:00 CDT, FOR ICU USE ONLY potassium
45 mmol, No Longer phosphate 15 mL, Route: Active [address] [facility] IVPB, PRN, Dosing Weight 48, kg, PRN Abnormal Lab Result, Start date: 11/04/17 2:44:00 CDT, Duration: 30 day, Stop date: 12/04/17 2:43:00 CDT, FOR ICU USE ONLY
Not es: (Same as: K Phosphate.) 1 mMol phoshate has 1.47 mEq potassium Infuse over 4 hours potassium
500 mg, 2 No Longer phosphate-sodium tab, Route: PO, Active [address] [facility] phosphate 250 Drug Form: TAB, mg-280 mg-160 mg Dosing Weight oral powder for 48, kg, PRN, reconstitution PRN Abnormal Lab Result, FOR ICU USE ONLY, Start date: 11/04/17 2:44:00 CDT, Duration: 30 day, Stop date: 12/04/17 2:43:00 CDT
Notes: (Same as: K-Phos Neutral, Phospha 250 Neutral) Saline Flush
10 ml, No Longer 0.9% Route: IVP, Active [address] [facility] Drug Form: INJ, Dosing Weight 48, kg, PRN, PRN Line Flush, Start date: 11/04/17 2:44:00 CDT, Duration: 30 day, Stop date: 12/04/17 2:43:00 CDT
Notes: (Same as: BD Posiflush) Alprazolam 0.25
0.25 mg=1 Active MG Oral Tablet tab, PO, PRN, [address] [facility] [Xanax] for anxiety Synthroid
25 Active microgram, PO, [address] [facility] Daily Tramadol
50 mg, PO, No Longer PRN, PRN Pain, Active [address] [facility] pin 3-7, 0 Refill(s) Sodium Chloride
750 mL, Inactive 0.9% IV 750 mL Rate: 75 ml/hr, [address] [facility] Infuse over: 10 hr, Route: IV, Dosing Weight 48 kg, Total Volume: 750, Start date: 11/04/17 1:56:00 CDT, Duration: 10 hr, Stop date: 11/04/17 11:55:00 CDT Acetaminophen
650 mg, 2 No Longer tab, Route: PO, Active [address] [facility] Drug form: TAB, Q4H, Dosing Weight 48, kg, PRN Pain Score 7-10, Start date: 11/04/17 1:56:00 CDT, Duration: 30 day, Stop date: 12/04/17 1:55:00 CDT
Notes: Do not exceed 4 gm/day. (Same as: Tylenol) Ondansetron
4 mg, 2 No Longer mL, Route: IVP, Active [address] [facility] Drug form: INJ, Q8H, Dosing Weight 48, kg, PRN Nausea & Vomiting, Start date: 11/04/17 1:56:00 CDT, Duration: 30 day, Stop date: 12/04/17 1:55:00 CDT
Notes: (Same as: Jose) MEDICATION WASTE Product Size: 4 mg Product Wasted: ___ mg Allergies, Adverse Reactions, Alerts Substance Category Reaction Severity Reaction Status Date Comments Source type Reported sulfa drugs Assertion Drug Active MH allergy [facility] penicillin Assertion Drug Active MH allergy [facility] codeine Assertion Drug Active MH sulfate allergy [facility] Immunizations Immunization Date Given Site Status Last Updated Comments Source Results Order Name Results Value Reference Date Interpretation Comments Source Range ELECTROLYT AGAP 13.7 meq/L 10.0 - 11/21 ES [address] [facility] ELECTROLYT B/C Ratio 26 6 - 25 11/[address] [facility] ELECTROLYT A/G Ratio 0.7 0.7 - 1.6 11/[address] [facility] ELECTROLYT Globulin 4.1 g/dL 2.7 - 4.2 11/[address] [facility] ELECTROLYT Alk Phos 161 unit/L 39 - 136 11/[address] [facility] ELECTROLYT Bili Total 0.6 mg/dL 0.2 - 1.3 11/[address] [facility] ELECTROLYT AST 20 unit/L 0 - 37 11/[address] [facility] ELECTROLYT Sodium Lvl 142 meq/L 135 - 145 11/[address] [facility] ELECTROLYT BUN 18 mg/dL 7 - 22 11/[address] [facility] ELECTROLYT Potassium 3.7 meq/L 3.5 - 5.1 11/21 [facility] Lvl [facility] ELECTROLYT Chloride Lvl 107 meq/L 95 - 109 11/[address] [facility] ELECTROLYT Creatinine 0.70 mg/dL 0.50 - 11/21 ES Lvl 1.40 /[address] [facility] ELECTROLYT CO2 25 meq/L 24 - 32 11/[address] [facility] ELECTROLYT Calcium Lvl 8.9 mg/dL 8.5 - 10.5 11/[address] [facility] ELECTROLYT Glucose Lvl 52 mg/dL 70 - 99 11/[address] [facility] ELECTROLYT eGFR 86 11/21 Result Comment: The eGFR is calculated using the CKD-EPI formula. In most young, healthy individuals the eGFR will be >90 mL/ min/1.73m2. The eGFR declines with age. An eGFR of 60-89 may be normal in [facility] mL/min/1.7 some populations, particularly the elderly, for whom the CKD-EPI formula has not been extensively validated. Use of the eGFR is not recommended in the following populations: [address] Individuals with unstable creatinine concentrations, including [...] ALT 27 unit/L 0 - 65 11/[address] [facility] ELECTROLYT Total 7.0 g/dL 6.4 - 8.4 11/[address] [facility] ELECTROLYT Albumin Lvl 2.9 g/dL 3.5 - 5.0 11/[address] [facility] HEMATOLOGY MCV 90.0 fL 80.0 - 11/[address] [facility] HEMATOLOGY Hct 30.6 % 36.0 - 11/[address] [facility] HEMATOLOGY MCH 31.6 pg 27.0 - 11/[address] [facility] HEMATOLOGY Hgb 10.8 g/dL 12.0 - 11/[address] [facility] HEMATOLOGY RDW 14.4 % 11.5 - 11/[address] [facility] HEMATOLOGY MCHC 35.2 g/dL 32.0 - 11/[address] [facility] HEMATOLOGY MPV 7.6 fL 7.4 - 10.4 11/[address] [facility] HEMATOLOGY Platelet 368 K/CMM 133 - 450 11/[address] [facility] HEMATOLOGY WBC 5.3 K/CMM 3.7 - 10.4 11/[address] [facility] HEMATOLOGY RBC 3.40 M/CMM 4.20 - 04 MH 5.40 /[address] [facility] HEMATOLOGY Eosinophils 0.5 K/CMM 0.0 - 0.5 11/21 # [facility] HEMATOLOGY Monocytes # 0.5 K/CMM 0.0 - 0.8 11/[address] [facility] HEMATOLOGY Basophils # 0.1 K/CMM 0.0 - 0.2 11/[address] [facility] HEMATOLOGY Lymphocytes 28.6 % 20.0 - 11/21 MH [address] [facility] HEMATOLOGY Lymphocytes 1.5 K/CMM 1.0 - 5.5 11/21 # [facility] HEMATOLOGY Eosinophils 8.8 % 0.0 - 4.0 11/[address] [facility] HEMATOLOGY Monocytes 10.3 % 2.0 - 12.0 11/[address] [facility] HEMATOLOGY Segs-Bands # 2.7 K/CMM 1.5 - 8.1 11/[address] [facility] HEMATOLOGY Basophils 1.2 % 0.0 - 1.0 11/[address] [facility] HEMATOLOGY Segs 51.1 % 45.0 - 11/[address] MH [address] [facility] ELECTROLYT AGAP 9.8 meq/L 10.0 - 11/20 [address] [facility] ELECTROLYT B/C Ratio 21 6 - 25 11/[address] [facility] ELECTROLYT Globulin 4.1 g/dL 2.7 - 4.2 11/[address] [facility] ELECTROLYT A/G Ratio 0.6 0.7 - 1.6 11/[address] [facility] ELECTROLYT eGFR 86 11/20 Result Comment: The [...] is not recommended in the following populations: [facility] 3m2 Individuals with unstable creatinine concentrations, including [...] Total 0.5 mg/dL 0.2 - 1.3 11/[address] [facility] ELECTROLYT Alk Phos 158 unit/L 39 - 136 11/[address] [facility] ELECTROLYT Albumin Lvl 2.5 g/dL 3.5 - 5.0 11/20 [facility] ALT 32 unit/L 0 - 65 11/20 [facility] AST 26 unit/L 0 - 37 11/[address] [facility] ELECTROLYT CO2 26 meq/L 24 - 32 11/[address] [facility] ELECTROLYT Chloride Lvl 109 meq/L 95 - 109 11/20 [facility] Total 6.6 g/dL 6.4 - 8.4 11/[address] [facility] ELECTROLYT Calcium Lvl 8.5 mg/dL 8.5 - 10.5 11/[address] [facility] ELECTROLYT Glucose Lvl 72 mg/dL 70 - 99 11/[address] [facility] ELECTROLYT BUN 15 mg/dL 7 - 22 11/[address] [facility] ELECTROLYT Sodium Lvl 141 meq/L 135 - 145 11/[address] [facility] ELECTROLYT Creatinine 0.70 mg/dL 0.50 - 11/20 ES Lvl [address]. [facility] ELECTROLYT Potassium 3.8 meq/L 3.5 - 5.1 11/20 [facility] Lvl [facility] HEMATOLOGY RBC 3.10 M/CMM 4.20 - 11/[address] [facility] HEMATOLOGY WBC 5.4 K/CMM 3.7 - 10.4 11/[address] [facility] HEMATOLOGY MCHC 34.9 g/dL 32.0 - 11/[address] [facility] HEMATOLOGY MCH 31.0 pg 27.0 - 11/[address] [facility] HEMATOLOGY MCV 89.0 fL 80.0 - 11/[address] [facility] HEMATOLOGY Hct 27.5 % 36.0 - 11/[address] [facility] HEMATOLOGY Hgb 9.6 g/dL 12.0 - 11/[address] [facility] HEMATOLOGY MPV 7.7 fL 7.4 - 10.4 11/[address] [facility] HEMATOLOGY Platelet 355 K/CMM 133 - 450 11/[address] [facility] HEMATOLOGY RDW 13.9 % 11.5 - 11/20 MH [address] [facility] HEMATOLOGY Basophils 1.1 % 0.0 - 1.0 11/[address] [facility] HEMATOLOGY Eosinophils 10.8 % 0.0 - 4.0 11/[address] [facility] HEMATOLOGY Monocytes 12.5 % 2.0 - 12.0 11/[address] [facility] HEMATOLOGY Basophils # 0.1 K/CMM 0.0 - 0.2 11/[address] [facility] HEMATOLOGY Lymphocytes 27.4 % 20.0 - 04 MH [address] [facility] HEMATOLOGY Lymphocytes 1.5 K/CMM 1.0 - 5.5 11/[address] [facility] HEMATOLOGY Eosinophils 0.6 K/CMM 0.0 - 0.5 11/[address] [facility] HEMATOLOGY Monocytes # 0.7 K/CMM 0.0 - 0.8 11/[address] [facility] HEMATOLOGY Segs-Bands # 2.6 K/CMM 1.5 - 8.1 11/[address] [facility] HEMATOLOGY Segs 48.2 % 45.0 - 11/[address] MH [address] [facility] CHEM PANEL Phosphorus 3.0 mg/dL 2.5 - 4.5 11/[address] [facility] CHEM PANEL A/G Ratio 0.6 0.7 - 1.6 11/[address] [facility] CHEM PANEL AGAP 16.8 meq/L 10.0 - 11/[address] [facility] CHEM PANEL B/C Ratio 27 6 - 25 11/[address] [facility] CHEM PANEL Globulin 3.9 g/dL 2.7 - 4.2 11/[address] [facility] CHEM PANEL eGFR 91 11/19 Result Comment: [...] is not recommended in the following populations: [address] Individuals with unstable creatinine concentrations, including [...] Total 0.6 mg/dL 0.2 - 1.3 11/[address] [facility] CHEM PANEL Alk Phos 166 unit/L 39 [...] Magnesium 1.8 mg/dL 1.8 - 2.4 11/[address] [facility] HEMATOLOGY WBC 6.5 K/CMM 3.7 - 10.4 11/[address] [facility] HEMATOLOGY Hgb 9.3 g/dL 12.0 - 11/[address] [facility] HEMATOLOGY Hct 27.9 % 36.0 - 11/[address] [facility] HEMATOLOGY RBC 3.06 M/CMM 4.20 - 04 MH [address] [facility] HEMATOLOGY MCHC 33.5 g/dL 32.0 - 11/[address] [facility] HEMATOLOGY RDW 14.2 % 11.5 - 11/19 MH 14.5 /[address] [facility] MCV 91.1 fL 80.0 - 11/19 98.0 /[address] [facility] MCH 30.5 pg 27.0 - 11/19 31.[address] [facility] MPV 7.8 fL 7.4 - 10.4 11/[address] [facility] Platelet 347 K/CMM 133 - 450 11/[address] [facility] Monocytes 11.5 % 2.0 - 12.0 11/[address] [facility] HEMATOLOGY Segs-Bands # 3.3 K/CMM 1.5 - 8.1 11/[address] [facility] HEMATOLOGY Basophils 1.0 % 0.0 - 1.0 11/[address] [facility] HEMATOLOGY Eosinophils 9.3 % 0.0 - 4.0 11/[address] [facility] HEMATOLOGY Lymphocytes 1.7 K/CMM 1.0 - 5.5 11/19 # [facility] HEMATOLOGY Eosinophils 0.6 K/CMM 0.0 - 0.5 11/[address] [facility] HEMATOLOGY Monocytes # 0.7 K/CMM 0.0 - 0.8 11/[address] [facility] HEMATOLOGY Basophils # 0.1 K/CMM 0.0 - 0.2 11/[address] [facility] Lymphocytes 26.5 % 20.0 - 11/[address] [facility] HEMATOLOGY Segs 51.7 % 45.0 - 11/[address] [facility] Chest Chest 1view PROCEDURE: Chest, AP on 11/19/2017 at 0627 hours. 11/19 - 1view DX DX /2017 - [facility] INDICATION: Pneumonia. Read by: Forrest Bailey MD [...] Stable radiographic appearance of the chest. SL: [id number] HEMATOLOGY PTT 38.5 s 22.9 - 04 MH 35.8 /[address] [facility] HEMATOLOGY INR 1.16 0.85 - 11/18 MH 1.17 /[address] [facility] HEMATOLOGY PT 14.8 s 12.0 - 11/18 MH [address] [facility] CHEM PANEL Magnesium 1.8 mg/dL 1.8 - 2.4 11/14 Lvl /[address] [facility] IMMUNOLOGY C-REACTIVE 49.4 mg/L <=2.9 mg/L 11/[address] [facility] IMMUNOLOGY PRISCILA Negative Negative 11/[address] [facility] (11/14/17 5:34 AM) IMMUNOLOGY RF Qnt null 0 - 20 11/[address] [facility] IMMUNOLOGY P-ANCA Negative Negative 11/[address] [facility] (11/14/17 5:34 AM) IMMUNOLOGY C-ANCA Negative Negative 11/[address] [facility] (11/14/17 5:34 AM) Chest Chest 1view Clinical Indication: - PNEUMONIA. 11/14 1view DX DX [facility] Comparison: Chest radiograph 11/11/2017 Read by: [...] background senescent change superimposed on emphysema SL: [id number] CHEM PANEL Procalcitoni null 0.00 - 11/12 n Lvl 0.[address] [facility] IMMUNOLOGY T-Spot.TB Negative Negative 11/[address] [facility] (11/12/17 3:03 PM) Chest Chest 1view Patient Name: LYNDA GAMEZ 11/11 1view DX DX [facility] : 1945; Age: 72 years y/o Female MR: [id number] Read by: Delfin Schreiber MD Dictated Date/time: [...] LYNDA GAMEZ 11/10 - contrast contrast CT [facility] CT : 1945; Age: 72 years y/o Female MR: [id number] Read by: Giuseppe Houston MD Dictated Date/time: [...] Phosphorus 5.5 mg/dL 2.5 - 4.5 11/[address] [facility] CHEM PANEL Magnesium 2.0 mg/dL 1.8 - 2.4 11/10 Lvl /[address] [facility] CHEM PANEL Phosphorus 2.2 mg/dL 2.5 - 4.5 11/[address] [facility] CHEM PANEL Procalcitoni 0.18 0.00 - 04 n Lvl 0.[address] [facility] PARATHYROI Ca Ion WB 1.14 1.05 - 11/06 MH D PROFILE mMol/L 09.[address] [facility] PARATHYROI Ca Norm WB 1.11 1.05 - 11/06 MH D PROFILE mMol/L 09.[address] [facility] Chest Chest 1view Clinical Indication: n/a - resp failure 11/06 - 1view DX DX /2017 - [facility] Comparison: 11/05/2017 Read by: Ricky Sheehan MD [...] disease and unchanged bilateral airspace disease. SL: [id number] PARATHYROI Ca Ion WB 1.14 1.05 - 11/06 MH D PROFILE mMol/L 09.[address] [facility] PARATHYROI Ca Norm WB 1.11 1.05 - 11/06 MH D PROFILE mMol/L 09.[address] [facility] PARATHYROI Ca Ion WB 1.03 1.05 - 11/05 MH D PROFILE mMol/L 09.[address] [facility] PARATHYROI Ca Norm WB 1.07 1.05 - 11/05 MH D PROFILE mMol/L 09.03 [facility] 1view Patient Name: LYNDA GAMEZ 11/05 - 1view DX DX - [facility] : 1945; Age: 72 years Female MR: [id number] Read by: Eloy Linton MD Dictated Date/time: [...] IMPRESSION: Stable bilateral extensive interstitial infiltrates. SL: [id number] Chest Chest [facility] Study: [facility]ontal [facility] History: Short of breath Read by: Zita Monsivais MD Dictated Date/time: 11/04/17 16:55 Electronically Signed by: Zita Monsivais MD 11/04/17 16:58 FINAL REPORT Comments: The trachea is midline. The cardiomediastinal silhouette is normal in size. Extensive bilateral interstitial opacities are unchanged. No pleural effusions or pneumothorax. Impression: Extensive bilateral interstitial opacities are unchanged. CHEM PANEL Procalcitoni 0.26 0.00 - 11/04 n Lvl 0.[address] [facility] Chest/Abdo Chest/Abdome PROCEDURE: CT CHEST ABDOMEN AND PELVIS WITHOUT CONTRAST 11/04 - men/Pelvis n/Pelvis - [facility] wo IV IV contrast contrast CT CT [...] Strep Negative Negative 11/04 MH - SEROLOGY [facility] Ag (11/04/17 5:33 AM) BACTERIAL Source Strep Urine 11/04 MH - SEROLOGY /[address] [facility] *NA* (11/04/17 5:33 AM) BACTERIAL MRSA by PCR Negative 11/04 - SEROLOGY /[address] [facility] (11/04/17 2:54 AM) CARDIAC BNP 69 pg/mL <=100 11/04 ENZYMES pg/mL /[address] [facility] HEMATOLOGY PTT 81.0 s 22.9 - 11/04 35.8 /[address] [facility] HEMATOLOGY INR 1.67 0.85 - 11/04 1.17 /[address] [facility] HEMATOLOGY PT 19.8 s 12.0 - 11/04 14.7 /[address] [facility] SPECIAL Hgb A1C 5.0 % <=5.6 % 11/04 CHEMISTRY /[address] [facility] LIPIDS VLDL 15 11/[address] [facility] LIPIDS LDL 61 mg/dL <=99 mg/dL 11/04 (Calculated) [facility] LIPIDS Chol 105 mg/dL <=199 11/04 mg/dL [facility] LIPIDS Trig 75 mg/dL <=149 11/04 mg/dL [facility] LIPIDS HDL 29 mg/dL >=61 mg/dL 11/[address] [facility] LIPIDS CHD Risk 3.62 3.90 - 11/[address] [facility] Chest Chest 1view Clinical Indication: code heart - code heart; 11/04 - 1view DX DX /2017 - [facility] Comparison: None Read by: Willie Burks MD [...] Comments Source Systolic (mm Hg) 103 11/21/2017 [facility] Diastolic (mm Hg) 69 11/21/2017 [facility] Heart Rate 73 11/21/2017 [facility] Systolic (mm Hg) 103 11/21/2017 [facility] Diastolic (mm Hg) 69 11/21/2017 [facility] Respitory Rate 18 11/21/2017 [facility] Heart Rate 73 11/21/2017 [facility] Heart Rate 76 11/21/2017 [facility] Respitory Rate 18 11/21/2017 [facility] Systolic (mm Hg) 110 11/21/2017 [facility] Diastolic (mm Hg) 68 11/21/2017 [facility] Respitory Rate 18 11/21/2017 [facility] Temperature Oral (F) 99.1 F 11/18/2017 [facility] Temperature Oral (F) 98.8 F 11/18/2017 [facility] Temperature Oral (F) 98.0 F 11/18/2017 [facility] Height 162.56 cm 11/12/2017 [facility] Weight 54.773 11/11/2017 [facility] BMI Calculated 18.54 11/04/2017 [facility] Weight 49 11/04/2017 [facility] Height 162.56 cm 11/04/2017 [facility] Weight 49 11/04/2017 [facility] Encounters Location Location Encounter Encounter Reason Attending ADM DC Status Source Details Type Number For Provider Date Date Visit [facility] [id number] [place] 11/04 11/21 Kai Saravia /2017 [facility] Procedures Procedure Code Date Perfomer Comments Source Tonsillectomy [id number] [facility] 8 Appendectomy [id number] [facility] Cholecystectomy [id number] [facility] Hysterectomy [id number] [facility] Mastectomy [id number] [facility] Revision of colostomy [id number] [facility] Sigmoid colectomy and [id number] [facility] colostomy
[2018-01-31 11:11] LABS: Absolute Lymphocytes (CBC) 1.2 K/uL (0.7-4.9); Absolute Monocytes 0.4 K/uL (0.1-1.3); Absolute Neutrophil 6.6 K/uL (1.8-8.0); Basophils % 0.5 % (0-1.3); Eosinophils % 0.7 % (0-4.4); Hematocrit 37.4 % (36.0-45.0); Lymphocytes % 14.7 % (15.3-44.8); MCH 28.2 pg (27.0-35.0); MCV 86.7 fL (80-100); MPV 7.6 fL (7.6-11.3); Monocytes % 5.3 % (3.3-12.3); RBC Red Blood Cell Count 4.31 M/uL (3.86-4.86)
[2018-01-31 11:15] LABS: Protime INR 0.98
[2018-01-31] MEDS ORDERED: NA CHLORIDE 0.9% 500 ML ONE (11:18)
[2018-01-31] MEDS ORDERED: ONDANSETRON 4 MG/2 ML VIAL ONE (11:22)
[2018-01-31 11:27] LABS: Albumin 3.8 g/dL (3.4-5.0); Bilirubin Direct 0.2 mg/dL (0-0.2); Bilirubin Total 0.7 mg/dL (0.2-1.0); CKMB Creatine Kinase MB 2.2 ng/mL (0.3-3.6); Magnesium 2.1 mg/dL (1.8-2.4); Potassium 3.2 mmol/L (3.5-5.1); Protein, Total 8.9 g/dL (6.4-8.2)
--- NOTE | 2018-01-31 11:53 | RAD REPORT ---
EXAM DESCRIPTION: RAD - Chest Single View - 01/31/2018 11:09 am CLINICAL HISTORY: Chest tightness, cough COMPARISON: January 22 TECHNIQUE: AP portable chest image was obtained 1105 hours . FINDINGS: Patient has prominent interstitial lung pattern accentuated somewhat on the current examin ation. No focal consolidation. Vasculature within normal limits. Vague nodular density left upper carly g field is less prominent or absent on the current examination. Heart size is upper normal. No measur able pleural effusion and no pneumothorax. No gross bony abnormality seen. No acute aortic findings s uspected. IMPRESSION: Increased interstitial markings above baseline suspicious for early interstitial edema o r infiltrate. Vague nodular density left upper lung field seen January 22 is absent or less prominent on the current s tudy.
--- NOTE | 2018-01-31 13:01 | EDPHYS ---
Physician Documentation [facility] Name: Reena Gandhi Age: 72 yrs Sex: Female : 1945 Arrival Date: 01/31/2018 Time: 10:20 Bed 8 Private MD: ED Physician Jose Andres HPI: 01/31 12:52 This 72 yrs old Female presents to ER via EMS with complaints of Anxiety. sosa 12:52 The patient has shortness of breath at rest, with light activity. Onset: The sosa symptoms/episode began/occurred 3 day(s) ago. Duration: The symptoms are continuous, and are unchanged since they started, and are steadily getting worse. The patient's shortness of breath has no apparent modifying factors. The patient or guardian reports chest pain that is located primarily in the anterior chest wall. Onset: 3 day(s) ago. The patient presents to the emergency department with nausea, vomiting, that is continuous. Possible causes: unknown. The symptoms are aggravated by nothing. The symptoms are alleviated by nothing. Historical: - Allergies: 10:25 Codeine; jl7 10:25 PENICILLINS; jl7 10:25 Sulfa (Sulfonamide Antibiotics); jl7 - PMHx: 10:25 Anxiety; Cancer; CHF; COPD; [place] (November 03, 2017); TIA; jl7 - PSHx: 10:25 Mastectomy, Left(1994); Appendectomy; Colostomy; Colostomy reversal; jl7 - Immunization history:: Adult Immunizations up to date. - Social history:: Smoking status: Patient uses tobacco products, smokes one-half pack cigarettes per day. - Ebola Screening: : No symptoms or risks identified at this time. - Family history:: not pertinent. ROS: 12:52 Constitutional: Negative for fever, chills, and weight loss, Eyes: Negative for injury, sosa pain, redness, and discharge, ENT: Negative for injury, pain, and discharge, Neck: Negative for injury, pain, and swelling, Back: Negative for injury and pain, : Negative for injury, bleeding, discharge, and swelling, MS/Extremity: Negative for injury and deformity, Skin: Negative for injury, rash, and discoloration, Neuro: Negative for headache, weakness, numbness, tingling, and seizure, Psych: Negative for depression, anxiety, suicide ideation, homicidal ideation, and hallucinations, Allergy/Immunology: Negative for hives, rash, and allergies, Endocrine: Negative for neck swelling, polydipsia, polyuria, polyphagia, and marked weight changes, Hematologic/Lymphatic: Negative for swollen nodes, abnormal bleeding, and unusual bruising. 12:52 Cardiovascular: Positive for 12:52 Respiratory: Positive for cough, shortness of breath, at rest. 12:52 Abdomen/GI: Positive for nausea and vomiting. Exam: 12:52 Constitutional: This is a well developed, well nourished patient who is awake, alert, sosa and in no acute distress. Head/Face: Normocephalic, atraumatic. Eyes: Pupils equal round and reactive to light, extra-ocular motions intact. Lids and lashes normal. Conjunctiva and sclera are non-icteric and not injected. Cornea within normal limits. Periorbital areas with no swelling, redness, or edema. ENT: Nares patent. No nasal discharge, no septal abnormalities noted. Tympanic membranes are normal and external auditory canals are clear. Oropharynx with no redness, swelling, or masses, exudates, or evidence of obstruction, uvula midline. Mucous membranes moist. Neck: Trachea midline, no thyromegaly or masses palpated, and no cervical lymphadenopathy. Supple, full range of motion without nuchal rigidity, or vertebral point tenderness. No Meningismus. Chest/axilla: Normal chest wall appearance and motion. Nontender with no deformity. No lesions are appreciated. Cardiovascular: Regular rate and rhythm with a normal S1 and S2. No gallops, murmurs, or rubs. Normal PMI, no JVD. No pulse deficits. Respiratory: Lungs have equal breath sounds bilaterally, clear to auscultation and percussion. No rales, rhonchi or wheezes noted. No increased work of breathing, no retractions or nasal flaring. Abdomen/GI: Soft, non-tender, with normal bowel sounds. No distension or tympany. No guarding or rebound. No evidence of tenderness throughout. Back: No spinal tenderness. No costovertebral tenderness. Full range of motion. Skin: Warm, dry with normal turgor. Normal color with no rashes, no lesions, and no evidence of cellulitis. MS/ Extremity: Pulses equal, no cyanosis. Neurovascular intact. Full, normal range of motion. Neuro: Awake and alert, GCS 15, oriented to person, place, time, and situation. Cranial nerves II-XII grossly intact. Motor strength 5/5 in all extremities. Sensory grossly intact. Cerebellar exam normal. Normal gait. Psych: Awake, alert, with orientation to person, place and time. Behavior, mood, and affect are within normal limits. Vital Signs: 10:25 BP 143 / 93; Pulse 101; Resp 19 S; Temp 98.3(O); Pulse Ox 97% on R/A; Weight 43.09 kg jl7 (R); Height 5 ft. 4 in. (162.56 cm) (R); Pain 0/10; 13:54 BP 123 / 73; Pulse 89; Resp 20; Pulse Ox 96% ; jl7 14:00 BP 135 / 81; Pulse 97; Resp 18; Pulse Ox 97% ; jl7 10:25 Body Mass Index 16.31 (43.09 kg, 162.56 cm) jl7 MDM: 10:24 Patient medically screened. [facility] 13:11 Data reviewed: vital signs, nurses notes, lab test result(s), EKG, radiologic studies, sosa plain films. 14:20 Physician consultation: Tyler Back MD discharges patient from the emergency rp3 department. Special discussion: Medicine was consulted to admitted the patient for chest tightness. Pt was seen and evaluated at bedside. States she does not have any Chest tightness but complains of having nausea which has now resolved. Pt states she has not taking her anxiety medication for 1 to 2 weeks and has noted she get panic attacks more frequently and thus came to the ER. lab work was done and showed no Acute abnormality expect Elevated Troponin of 0.08. Dr Back was contacted from the ER and states that patient was just seen on Thursday at the office and had an ECHO which was consistent with no acute change. EF of 30-35%. Troponin are at baseline for the patient. Recommendation are to Discharge home and have her f/u with him outpt in the clinic jazmyn AM at 8 to f.u for ER visit. Pt was notified and educated on Medication compliance and then Discharged from the ER. 01/31 10:29 Order name: Basic Metabolic Panel; Complete Time: 12:46 [facility] 01/31 10:29 Order name: CBC with Diff; Complete Time: 12:46 [facility] 01/31 10:29 Order name: Ckmb; Complete Time: 12:46 [facility] 01/31 10:29 Order name: CPK; Complete Time: 12:46 [facility] 01/31 10:29 Order name: LFT's; Complete Time: 12:46 [facility] 01/31 10:29 Order name: Magnesium; Complete Time: 12:46 [facility] 01/31 10:29 Order name: PT-INR; Complete Time: 12:46 [facility] 01/31 10:29 Order name: Ptt, Activated; Complete Time: 12:46 [facility] 01/31 10:29 Order name: Troponin (emerg Dept Use Only); Complete Time: 12:46 [facility] 01/31 10:29 Order name: XRAY Chest (1 view); Complete Time: 12:46 [facility] 01/31 10:29 Order name: Lipase; Complete Time: 12:46 [facility] 01/31 10:29 Order name: Urine Culture [facility] 01/31 11:02 Order name: Urine Dipstick--Ancillary (enter results); Complete Time: 14:58 01/31 12:49 Order name: BNP; Complete Time: 14:58 [facility] 01/31 10:29 Order name: EKG; Complete Time: 10:30 [facility] 01/31 10:29 Order name: Cardiac monitoring; Complete Time: 11:15 [facility] 01/31 10:29 Order name: EKG - Nurse/Tech; Complete Time: 11:15 [facility] 01/31 10:29 Order name: IV Saline Lock; Complete Time: 11:15 [facility] 01/31 10:29 Order name: Labs collected and sent; Complete Time: 11:15 [facility] 01/31 13:08 Order name: CONS Physician Consult EDHI 01/31 13:37 Order name: Diet Heart Healthy; Complete Time: 13:38 7 01/31 10:29 Order name: O2 Per Protocol; Complete Time: 11:15 [facility] 01/31 10:29 Order name: O2 Sat Monitoring; Complete Time: 11:15 [facility] 01/31 10:29 Order name: Urine Dipstick-Ancillary (obtain specimen); Complete Time: 11:14 [facility] Administered Medications: Discontinued: NS 0.9% 1000 ml IV at 125 ml/hr continuous 11:18 Drug: NS 0.9% 1000 ml Route: IV; Rate: 125 ml/hr; Site: right forearm; jl7 11:23 Drug: Zofran 4 mg Route: IVP; Site: right forearm; jl7 15:10 Follow up: Response: No adverse reaction jl7 13:52 Not Given (Patient Refused): Potassium Effervescent Tablet 25 mEq PO once; dissolve in jl7 4 ounces of water or juice 13:53 Drug: Aspirin 162 mg Route: PO; jl7 15:10 Follow up: Response: No adverse reaction jl7 13:53 Drug: PlaVIX 300 mg Route: PO; jl7 15:09 Follow up: Response: No adverse reaction jl7 13:53 Not Given (Dr. Coyne cancelled order): Lovenox 1 mg/kg Sub-Q once jl7 13:53 Drug: Lasix 20 mg Route: IVP; Site: right forearm; jl7 15:09 Follow up: Response: No adverse reaction jl7 13:54 Not Given (Dr. Coyne cancelled order due to BP and HR): Lopressor (metoprolol TARTRATE) jl7 50 mg PO once Disposition: 01/31/18 14:19 Discharged to Home. Impression: Generalized anxiety disorder. - Condition is Stable. - Discharge Instructions: Panic Attacks, [id number], Generalized Anxiety Disorder. - Medication Reconciliation Form, Thank You Letter, Antibiotic Education, Prescription Opioid Use form. - Follow up: Tyler Back MD; When: Tomorrow; Reason: Recheck today's complaints. - Problem is chronic. - Symptoms are resolved. Signatures: Dispatcher [employer] EDHI Jose Andres MD MD cha Leal, Jahala, RN RN jl7 Patel, Ruchita, MD MD rp3 Corrections: (The following items were deleted from the chart) 13:00 13:00 Hospitalization Ordered by Suyapa Coyne MD for Inpatient Admission. Preliminary sosa diagnosis is Chest pain, unspecified; Cardiomegaly; Dyspnea; Hypokalemia; Anxiety disorder, unspecified. Bed requested for Telemetry/MedSurg (Inpatient). Status is Inpatient Admission. Condition is Fair. Problem is new. Symptoms have improved. UTI on Admission? No. sosa 14:18 13:00 01/31/2018 13:00 Hospitalization Ordered by Suyapa Coyne MD for Inpatient rp3 Admission. Preliminary diagnosis is Chest pain, unspecified; Cardiomegaly; Dyspnea; Hypokalemia; Anxiety disorder, unspecified; Cystitis. Bed requested for Telemetry/MedSurg (Inpatient). Status is Inpatient Admission. Condition is Fair. Problem is new. Symptoms have improved. UTI on Admission? Yes. sosa 14:37 14:20 Special discussion: Medicine was consulted to admitted the patient for chest rp3 tightness. Pt was seen and evaluated at bedside. States she does not have any Chest tightness but complains of having nausea which has now resolved. Pt states she has not taking her anxiety medication for 1 to 2 weeks and has noted she get panic attacks more frequently and thus came to the ER. lab work was done and showed no Acute abnormality expect Elevated Troponin of 0.08. Dr Back was contacted from the ER and states that patient was just seen on Thursday at the office and had an ECHO which was consistent with no acute change. EF of 30-35%. Troponin are at baseline for the patient. Recommendation are to Discharge home and have her f/u with him outpt in the clinic jazmyn AM at 8 to f.u for ER visit. Pt was notified and educated on Medication compliance and then Discharged from the ER. rp3 15:08 14:19 01/31/2018 14:19 Discharged to Home. Impression: Generalized anxiety disorder. jl7 Condition is Stable. Forms are Medication Reconciliation Form, Thank You Letter, Antibiotic Education, Prescription Opioid Use. Follow up: Tyler Back; When: Tomorrow; Reason: Recheck today's complaints. Problem is chronic. Symptoms are resolved. rp3
--- NOTE | 2018-01-31 13:01 | ER ---
Nurse's Notes [facility] Name: Reena Gandhi Age: 72 yrs Sex: Female : 1945 Arrival Date: 01/31/2018 Time: 10:20 Bed 8 Private MD: Diagnosis: Generalized anxiety disorder Presentation: 01/31 10:20 Presenting complaint: EMS states: Pt reported waking at 0400 feeling anxious and her jl7 chest was tight, 7/10. She denies pain and anxiety at this time. Reports her son banished her to the travel trailer and left her without food. Pt reports she hasn't been able to eat since Thursday, that she vomits every time she tries to eat. Transition of care: patient was not received from another setting of care. Onset of symptoms was January 31, 2018 at 04:00. Risk Assessment: Do you want to hurt yourself or someone else? Patient reports no desire to harm self or others. Initial Sepsis Screen: Does the patient meet any 2 criteria? No. Patient's initial sepsis screen is negative. Does the patient have a suspected source of infection? No. Patient's initial sepsis screen is negative. Care prior to arrival: None. 10:20 Method Of Arrival: EMS: [facility] jl7 10:20 Acuity: MARKIE 3 jl7 Historical: - Allergies: 10:25 Codeine; jl7 10:25 PENICILLINS; jl7 10:25 Sulfa (Sulfonamide Antibiotics); jl7 - PMHx: 10:25 Anxiety; Cancer; CHF; COPD; [place] (November 03, 2017); TIA; jl7 - PSHx: 10:25 Mastectomy, Left(1994); Appendectomy; Colostomy; Colostomy reversal; jl7 - Immunization history:: Adult Immunizations up to date. - Social history:: Smoking status: Patient uses tobacco products, smokes one-half pack cigarettes per day. - Ebola Screening: : No symptoms or risks identified at this time. - Family history:: not pertinent. Screenin:30 Abuse screen: Denies threats or abuse. Denies injuries from another. Nutritional jl7 screening: Has had N/V for 3 or more days Intervention for positive screen: ED Physician notified. Tuberculosis screening: No symptoms or risk factors identified. Fall Risk No fall in past 12 months (0 pts). No secondary diagnosis (0 pts). IV access (20 points). Ambulatory Aid- None/Bed Rest/Nurse Assist (0 pts). Gait- Normal/Bed Rest/Wheelchair (0 pts) Mental Status- Oriented to own ability (0 pts). Total Irene Fall Scale indicates No Risk (0-24 pts). Assessment: 10:30 General: Appears in no apparent distress. uncomfortable, Behavior is calm, cooperative. jl7 Pain: Denies pain. Neuro: Level of Consciousness is awake, alert, obeys commands, Oriented to person, place, time, situation, Moves all extremities. Gait is steady, Speech is normal, Facial symmetry appears normal. Cardiovascular: Denies chest pain, Heart tones S1 S2 present Patient's skin is warm and dry. Respiratory: Reports shortness of breath on exertion Airway is patent Respiratory effort is even, unlabored, Respiratory pattern is regular, symmetrical, Breath sounds are clear bilaterally. GI: Abdomen is flat, non-distended, Reports nausea, vomiting, since Thursday Patient currently denies diarrhea. : Urine is cloudy, Denies burning with urination, pain with urination. EENT: No signs and/or symptoms were reported regarding the EENT system. Derm: Skin is pink, warm \T\ dry. Musculoskeletal: No signs and/or symptoms reported regarding the musculoskeletal system. 11:15 Reassessment: Pt c/o nausea, provider notified, see MAR for orders. jl7 12:00 Reassessment: Patient and/or family updated on plan of care and expected duration. Pain jl7 level reassessed. Patient is alert, oriented x 3, equal unlabored respirations, skin warm/dry/pink. Patient states symptoms have improved. 13:00 Reassessment: Patient and/or family updated on plan of care and expected duration. Pain jl7 level reassessed. Patient is alert, oriented x 3, equal unlabored respirations, skin warm/dry/pink. 14:00 Reassessment: Patient and/or family updated on plan of care and expected duration. Pain jl7 level reassessed. Patient is alert, oriented x 3, equal unlabored respirations, skin warm/dry/pink. Vital Signs: 10:25 BP 143 / 93; Pulse 101; Resp 19 S; Temp 98.3(O); Pulse Ox 97% on R/A; Weight 43.09 kg jl7 (R); Height 5 ft. 4 in. (162.56 cm) (R); Pain 0/10; 13:54 BP 123 / 73; Pulse 89; Resp 20; Pulse Ox 96% ; jl7 14:00 BP 135 / 81; Pulse 97; Resp 18; Pulse Ox 97% ; jl7 10:25 Body Mass Index 16.31 (43.09 kg, 162.56 cm) jl7 ED Course: 10:20 Patient arrived in ED. jl7 10:24 Triage completed. jl7 10:24 Jose Andres MD is Attending Physician. sosa 10:25 Arm band placed on right wrist. jl7 10:30 Patient has correct armband on for positive identification. Placed in gown. Bed in low jl7 position. Call light in reach. Side rails up X 1. carbide die maker on. Pulse ox on. NIBP on. Warm blanket given. 10:55 Initial lab(s) drawn, by hi, sent to lab. Urine collected: clean catch specimen, jl7 cloudy, porfirio colored. Inserted saline lock: 22 gauge in right forearm, using aseptic technique. Blood collected. 11:05 X-ray completed. Portable x-ray completed in exam room. Patient tolerated procedure ag1 well. 11:06 XRAY Chest (1 view) In Process Unspecified. EDMS 11:11 Danna Faulkner RN is Primary Nurse. jl7 12:58 Suyapa Coyne MD is Hospitalizing Provider. sosa 14:18 Tyler Back MD is Referral Physician. rp3 14:23 Assisted to bathroom. ag 14:36 Suyapa Coyne MD song lyricist. rp3 15:07 No provider procedures requiring assistance completed. IV discontinued, intact, jl7 bleeding controlled, No redness/swelling at site. Pressure dressing applied. Administered Medications: Discontinued: NS 0.9% 1000 ml IV at 125 ml/hr continuous 11:18 Drug: NS 0.9% 1000 ml Route: IV; Rate: 125 ml/hr; Site: right forearm; jl7 11:23 Drug: Zofran 4 mg Route: IVP; Site: right forearm; jl7 15:10 Follow up: Response: No adverse reaction jl7 13:52 Not Given (Patient Refused): Potassium Effervescent Tablet 25 mEq PO once; dissolve in jl7 4 ounces of water or juice 13:53 Drug: Aspirin 162 mg Route: PO; jl7 15:10 Follow up: Response: No adverse reaction 7 13:53 Drug: PlaVIX 300 mg Route: PO; jl7 15:09 Follow up: Response: No adverse reaction 7 13:53 Not Given (Dr. Coyne cancelled order): Lovenox 1 mg/kg Sub-Q once jl7 13:53 Drug: Lasix 20 mg Route: IVP; Site: right forearm; jl7 15:09 Follow up: Response: No adverse reaction 13:54 Not Given (Dr. Coyne cancelled order due to BP and HR): Lopressor (metoprolol TARTRATE) jl7 50 mg PO once Outcome: 13:00 Decision to Hospitalize by Provider. sosa 14:19 Discharge ordered by . edil 15:07 Discharged to home ambulatory. jl7 15:07 Condition: stable 15:07 Discharge instructions given to patient, Instructed on discharge instructions, follow up and referral plans. Demonstrated understanding of instructions, follow-up care. 15:08 Patient left the ED. jl7 Addendum: 02/04/2018 09:35 Addendum: Culture Results: Positive urine culture. Patient was not prescribed i w antibiotics at discharge. Report given to BENEDICT for further evaluation and then to commissioning manager for follow up with patient. Phone call Attempt #1 pt is not answer, unable to leave voice mail. Signatures: Dispatcher [employer] EDJose Katz MD MD cha Williams, Irene, RN RN iw Gallardo, Ana ag Gallaway, Ashley Danna Cordero RN RN jl7 Patel, Ruchita, MD MD rp3 Corrections: (The following items were deleted from the chart) 01/31 15: 14:00 IV discontinued, intact, bleeding controlled, No redness/swelling at site. jl7 Pressure dressing applied, jl7 15: 14:00 No provider procedures requiring assistance completed. jl7 jl7
[2018-01-31] MEDS ORDERED: METOPROLOL TAR 50 MG TAB ONE (13:42)
[2018-01-31] MEDS ORDERED: CLOPIDOGREL 75 MG TABLET ONE (13:43)
[2018-01-31] MEDS ORDERED: POTASSIUM 25 MEQ EFFERV TAB ONE (13:43)
[2018-01-31] MEDS ORDERED: ENOXAPARIN 40 MG/0.4 ML SQ ONE (13:43)
[2018-01-31] MEDS ORDERED: ASPIRIN EC 81 MG TAB PO ONE (13:43)
[2018-01-31] MEDS ORDERED: FUROSEMIDE 20 MG/ 2ML VIAL ONE (13:44)
[2018-01-31 13:54] LABS: Urine Blood 1+ (NEG); Urine Glucose NEGATIVE (NEG); Urine Protein 2+ (NEG)
[2018-01-31] MEDS ORDERED: IPRATROPIUM BROM 0.5MG/2.5ML NEB SCH (14:00)
[2018-01-31] MEDS ORDERED: ALBUTEROL 2.5 MG/3 ML NEB SOL NEB SCH (14:00)
--- NOTE | 2018-01-31 14:45 | P.CNS ---
Date of Consult: 01/31/18 HPI: 72 y/o F with pmhx of CAD, CHF, ESCOPD, Anxiety and CKD who presented to the ED stating that she has alot of anxiety and has chest tightness with it that started this AM. PT states she has not taken her Anxiety medication for 3 to 4 days and states she has been out in the travel Trailer without food. Also complains having nausea. By the time I saw the patient in the ER, patient had no complains of offer. States her tightness has resolved and her nausea has also resolved. She is wondering if she can go home and have a ppx for xanax and tramadol. PE: Vitals: Stable Gen: NAD, AAOX3 CVS: RRR, No murmer Lungs: CTABL, No w/r/r Abd: NT, ND, Soft and + BS Ext: + pulse and negative edema Labs: 01/31/18 11:02: Urine pH 6.0, Ur Specific [place] 1.020, Urine Ketones Trace, Urine Blood 1+ H, Urine Nitrite Negative, Ur Leukocyte Esterase Trace H, Urine Glucose Negative, Urine Total Protein 2+ H 01/31/18 10:55: Rapid Troponin I 0.08 H 01/31/18 10:55: PT 11.6, INR 0.98, APTT 27.6 01/31/18 10:55: WBC 8.4 D, RBC 4.31, Hgb 12.2, Hct 37.4, MCV 86.7, MCH 28.2, MCHC 32.5, RDW 15.8 H, Plt Count 335 D, MPV 7.6 D, Neutrophils % 78.8 H, Lymphocytes % 14.7 L, Monocytes % 5.3, Eosinophils % 0.7, Basophils % 0.5, Absolute Neutrophils 6.6, Absolute Lymphocytes 1.2, Absolute Monocytes 0.4, Absolute Eosinophils 0.1, Absolute Basophils 0.0 01/31/18 10:55: Sodium 136, Potassium 3.2 L, Chloride 100, Carbon Dioxide 29, BUN 14, Creatinine 1.00, Estimated GFR 54 L, Glucose 108 H, Calcium 9.4, Magnesium 2.1, Total Bilirubin 0.7, Direct Bilirubin 0.2, AST 17, ALT 18, Alkaline Phosphatase 166 H, Creatine Kinase 54, CK-MB (CK-2) 2.2, Serum Total Protein 8.9 H, Albumin 3.8, Globulin 5.1 H, Albumin/Globulin Ratio 0.7 L, Lipase 51 L Assessment/Plan 72 y/o F with significant Pmhx with what appears to be anxiety attack due to noncompliance with medication. Lab work was done and showed no Acute abnormality expect Elevated Troponin of 0.08. Imaging was also WNL. Dr Back was contacted from the ER by me and states that patient was just seen on Thursday at the office and had an ECHO which was consistent with no acute change. EF of 30-35%. Troponin are at baseline for patient. He reccomends Medical mgmt for CAD and CHF. Pt can be discharged from hospital and f.u with him outpt. Pt was also educated on taking her Anxiety medication as prescribed and other medication as well.
[2018-01-31 15:12] VITALS: TEMP 98.3
[2018-01-31 15:14] VITALS: BP 135/81; O2SAT 97
--- NOTE | 2018-02-01 06:54 | EKG ---
Test Date: 2018-01-31 Test Time: 10:17:48 Solar Energy Engineer: GOYO MEASUREMENT RESULTS: Intervals: Rate: 99 WA: 126 QRSD: 76 QT: 368 QTc: 472 [place]: P: 82 WA: 126 QRS: 73 T: 57 INTERPRETIVE STATEMENTS: Sinus rhythm with occasional premature ventricular complexes Possible Left atrial enlargement Low voltage QRS Borderline ECG Compared to ECG 01/22/2018 13:32:12 Ventricular premature complex(es) now present Low QRS voltage now present Ectopic atrial rhythm no longer present Myocardial infarct finding no longer present Electronically Signed On 02-01-18 06:52:54 CDT by Mitchel Chu
== END 2018-01-31 15:08 | disposition home or self-care (01) ==
LOC: ER 10:13 → UNDOADMOB 13:46 → ERHOLD 13:46
DX: F41.9 Anxiety disorder, unspecified (principal); Z91.128 Patient's intentional underdosing of medication regimen for other reason; Z88.5 Allergy status to narcotic agent; Z88.0 Allergy status to penicillin; Z88.2 Allergy status to sulfonamides; F17.210 Nicotine dependence, cigarettes, uncomplicated; J44.9 Chronic obstructive pulmonary disease, unspecified; I25.2 Old myocardial infarction
CPT/HCPCS: 36415; 71045; 80048; 80076; 81003; 82550; 82553; 83690; 83735; 83880; 84484; 85025; 85610; 85730; 87077; 87086; 87088; 87186; 93005; 96374; 96375; 99284; J1940; J2405; J1650

== ENCOUNTER 2018-05-28 20:22 | Inpatient (IN) | payer OTHER ==
--- OUTSIDE RECORDS SUMMARY | 2018-05-28 20:26 | XMS REPORT | Continuity of Care Document ---
:1945 Author Organization Interface Problems Problem Status Onset Classification Date Comments Source Date Reported ACUTE NV Active [facility] 8 Acute 11/24/2017 [facility] myocardial infarction, unspecified ACUTE Active [facility] MYOCARDIAL INFARCTION, UNSPECIFIED Medications Medication Details Route Status Patient Ordering Order Source Instructions Provider Date ProAmatine 5 mg, 1 tab, Inactive Route: PO, Drug [address] [facility] form: TAB, TID, Dosing Weight 54.773, kg, Priority: STAT, Start date: 11/21/17 12:41:00 CDT, Duration: 30 day, Stop date: 12/21/17 9:00:00 CDTNotes: (Same as:Proamatine) Budesonide 0.25 0.5 mg=2 mL, Active MG/ML Inhalant NEB, RBID, # [address] [facility] Solution 120 mL, 0 Refill(s), Pharmacy: [facility] [id number] midodrine 5 mg 5 mg=1 tab, PO, Active oral tablet TID, # 60 tab, [address] [facility] 0 Refill(s), Pharmacy: [facility] [id number] metoprolol 12.5 mg=0.5 Active tartrate 25 mg tab, PO, Q12H, [address] [facility] oral tablet # 30 tab, 1 Refill(s), Pharmacy: [facility] [id number] Digoxin 0.125 MG 0.125 mg=1 tab, Active Oral Tablet PO, Daily, # [address] [facility] tab, 0 Refill(s), Pharmacy: [facility] [id number] atorvastatin 40 40 mg=1 tab, Active mg oral tablet PO, Bedtime, # [address] [facility] 30 tab, 0 Refill(s), Pharmacy: [facility] [id number] Aspirin 81 MG 81 mg=1 tab, Active Enteric Coated PO, Daily, [address] [facility] Tablet Refill(s) benzonatate 100 100 mg=1 cap, Active mg oral capsule PO, TID, PRN as [address] [facility] needed for cough, X 7 day, # 21 cap, 0 Refill(s), Pharmacy: [facility] [id number] clopidogrel 75 75 mg=1 tab, Active mg oral tablet PO, Daily, # [address] [facility] tab, 0 Refill(s), Pharmacy: [facility] [id number] Plavix 75 mg, 1 tab, No Longer Route: PO, Drug Active [address] [facility] form: TAB, Daily, Dosing Weight 54.773, kg, Priority: Routine, Start date: 11/20/17 9:00:00 CDT, Duration: 30 day, Stop date: 12/19/17 9:00:00 CDTNotes: (Same As: Plavix) Midodrine 5 mg, 1 tab, No Longer Route: PO, Drug Active [address] [facility] form: TAB, TID, Dosing Weight 54.773, kg, Priority: STAT, Start date: 11/19/17 17:00:00 CDT, Duration: 30 day, Stop date: 12/19/17 13:00:00 CDTNotes: (Same as:Proamatine) Alprazolam 0.5 0.25 mg, 1 tab, No Longer MG Oral Tablet Route: PO, Drug Active [address] [facility] [Xanax] form: TAB, BID, Dosing Weight 49, kg, PRN as needed for anxiety, Start date: 11/19/17 17:00:00 CDT, Stop date: 12/09/17 17:00:00 CDTNotes: With food or milk (Same as: Xanax) magnesium 300 ml, Route: Inactive citrate 58.2 PO, Drug Form: 2017 MG/ML Oral LIQ, Dosing Solution Weight 54.773, kg, ONCE, STAT, Start date: 11/19/17 15:55:00 CDT, Stop date: 11/19/17 15:55:00 CDTNotes: (Same as: Citrate of Magnesia) Concentration: 1.745 gm / 30 mL Lactulose 667 20 gm, 30 mL, Inactive 04/12/ MH MG/ML Oral Route: PO, Drug [address] [facility] Solution form: SYRP, Q2H, Dosing Weight 54.773, kg, Start date: 11/19/17 14:00:00 CDT, Duration: 3 doses or times, Stop date: 11/19/17 18:00:00 CDTNotes: (Same as:Chronulac) Hyoscyamine 0.125 mg, 1 No Longer tab, Route: SL, Active [address] [facility] Drug form: TAB, Q6H, Dosing Weight 54.773, kg, PRN Other -See Comment, Start date: 11/19/17 13:47:00 CDT, Duration: 30 day, Stop date: 12/19/17 13:46:00 CDTNotes: (Same as: Levsin) Take 30 min before meal Plavix 75 mg, 1 tab, Inactive Route: PO, Drug [address] [facility] form: TAB, ONCE, Dosing Weight 54.773, kg, Priority: Routine, Start date: 11/19/17 8:45:00 CDT, Stop date: 11/19/17 8:45:00 CDTNotes: (Same As: Plavix) Plavix 75 mg, Route: Inactive PO, Drug form: [address] [facility] TAB, Daily, Dosing Weight 54.773, kg, Priority: STAT, Start date: 11/19/17 8:22:00 CDT, Duration: 30 day, Stop date: 12/18/17 9:00:00 CDT metoprolol 12.5 mg, 0.5 No Longer tartrate tab, Route: PO, Active [address] [facility] Drug form: TAB, Q12H, Dosing Weight 48, kg, Start date: 11/18/17 21:00:00 CDT, Duration: 30 day, Stop date: 12/18/17 9:00:00 CDTNotes: (Same as: Lopressor) Alprazolam 0.5 0.25 mg, 1 tab, No Longer MG Oral Tablet Route: PO, Drug Active [address] [facility] [Xanax] form: TAB, BID, Dosing Weight 49, kg, Start date: 11/18/17 17:00:00 CDT, Stop date: 12/09/17 17:00:00 CDTNotes: With food or milk (Same as: Xanax) normal saline 1,000 mL, Rate: Inactive 0.9% IV 1,000 mL 999 ml/hr, [address] [facility] Infuse over: 1 hr, Route: IV, Dosing Weight 54.773 kg, Total Volume: 1,000, Start date: 11/18/17 16:57:00 CDT, Duration: 1 doses or times, Stop date: 11/18/17 17:56:00 CDT, 1.58, m2 Ipratropium 0.5 mg, 2.5 mL, No Longer Route: NEB, Active [address] [facility] Drug form: SOLN, RQ6H, Dosing Weight 54.773, kg, Start date: 11/18/17 12:00:00 CDT, Duration: 30 day, Stop date: 12/18/17 8:00:00 CDTNotes: SEE RT DOCUMENTATION (Same as:Atrovent) Doxycycline 100 mg, 1 cap, No Longer Route: PO, Drug Active [address] [facility] form: CAP, [id number], Dosing Weight 54.773, kg, Start date: 11/17/17 16:00:00 CDT, Duration: 30 day, Stop date: 12/17/17 4:00:00 CDTNotes: (Same as: Vibramycin) No milk/antacids/i geni. Digoxin 0.125 MG 0.125 mg, 1 No Longer Oral Tablet tab, Route: PO, Active [address] [facility] Drug form: TAB, Daily, Dosing Weight 54.773, kg, Start date: 11/16/17 10:09:00 CDT, Duration: 30 day, Stop date: 12/16/17 9:00:00 CDTNotes: Take on an Empty Stomach (Same as: Lanoxin) Tessalon Perles 200 mg, 2 cap, No Longer Route: PO, Drug Active [address] [facility] form: CAP, TID, Dosing Weight 54.773, kg, Start date: 11/13/17 17:00:00 CDT, Duration: 30 day, Stop date: 12/13/17 13:00:00 CDTNotes: (Same As: Tessalon Perles) "Do Not Crush" Etomidate 10 mg, 5 mL, Inactive Route: IV, Drug [address] [facility] form: INJ, ONCE, Dosing Weight 54.773, kg, Start date: 11/12/17 15:40:00 CDT, Stop date: 11/12/17 15:40:00 CDTNotes: (Same as: Amidate). Per state nursing law etomidate can only be given by a nurse if patient is intubated or being intubated (unless the nurse is a RESP THERAPIST). Propofol 30 mg, 3 mL, Inactive Route: IVP, [address] [facility] Drug form: Emulsion, ONCE, Dosing Weight 54.773, kg, Start date: 11/12/17 15:40:00 CDT, Stop date: 11/12/17 15:40:00 CDTNotes: If Diprivan - change bottle & tubing every 12 hr Per state nursing law propofol can only be given by a nurse if patient is intubated or being intubated (unless the nurse is a RESP THERAPIST). Same as: Diprivan Versed 4 mg, 4 mL, Inactive Route: IVP, [address] [facility] Drug form: INJ, ONCE, Dosing Weight 54.773, kg, Start date: 11/12/17 15:40:00 CDT, Stop date: 11/12/17 15:40:00 CDTNotes: (Same as: Versed) MEDICATION WASTE Product Size: 2 mg Product Wasted: _0__ mg cefepime 1 gm, Route: No Longer IVPB, [id number], Active [address] [facility] Dosing Weight 54.773, kg, (CrCl >/=50 ml/min), Start date: 11/12/17 14:00:00 CDT, Stop date: 11/22/17 8:00:00 CDT, ABX Indication: PneumoniaNotes: (Same As: Maxipime) MEDICATION WASTE Product Size: 1000 mg Product Wasted: __0_ mg vancomycin + 750 mg, Route: Inactive Dextrose 5% in IVPB, Drug [address] [facility] Water IV 250 mL form: PDR/INJ, Q24H, Start date: 11/12/17 12:00:00 CDT, Duration: 6 day, Stop date: 11/17/17 12:00:00 CDT, ABX Indication: PneumoniaNotes: TIME CRITICAL MEDICATION (Same As: Vancocin) Infusion rate 2001 mg: infuse over 2.5 hours For adult patients only: Round to nearest 250 mg per Medical Staff approval Alprazolam 0.5 0.5 mg, 1 tab, No Longer MG Oral Tablet Route: PO, Drug Active [address] [facility] [Xanax] form: TAB, Q6H, Dosing Weight 49, kg, Start date: 11/11/17 14:29:00 CDT, Stop date: 12/10/17 0:00:00 CDTNotes: With food or milk (Same as: Xanax) vancomycin + 1,250 mg, Inactive Dextrose 5% in Route: IVPB, [address] [facility] Water IV 250 mL ONCE, Start date: 11/11/17 12:30:00 CDT, Stop date: 11/11/17 12:30:00 CDT, ABX Indication: PneumoniaNotes: TIME CRITICAL MEDICATION (Same As: Vancocin) Infusion rate 2001 mg: infuse over 2.5 hours For adult patients only: Round to nearest 250 mg per Medical Staff approval MEDICATION WASTE Product Size: 1000 mg Product Wasted: ___ mg cefepime 1 gm, Route: No Longer IVPB, [id number], Active [address] [facility] Dosing Weight 54.773, kg, (CrCl >/=50 ml/min), Start date: 11/11/17 12:00:00 CDT, Duration: 7 day, Stop date: 11/18/17 0:00:00 CDT, ABX Indication: PneumoniaNotes: (Same As: Maxipime) MEDICATION WASTE Product Size: 1000 mg Product Wasted: ___ mg Vancomycin 1 ea, Route: Inactive MISC ONCALL, [address] [facility] Dosing Weight 54.773, kg, Start date: 11/11/17 12:00:00 CDT, Duration: 7 day, Stop date: 11/18/17 11:59:00 CDT, Pharmacy to dose, ABX Indication: Pneumonia Alprazolam 0.5 0.5 mg, 1 tab, No Longer MG Oral Tablet Route: PO, Drug Active [address] [facility] [Xanax] form: TAB, Q8H, Dosing Weight 49, kg, Start date: 11/10/17 13:42:00 CDT, Stop date: 12/10/17 14:00:00 CDTNotes: With food or milk (Same as: Xanax) potassium 30 mmol, 10 mL, No Longer phosphate Route: IVPB, Active [address] [facility] ONCE, Dosing Weight 49, kg, Priority: STAT, Start date: 11/09/17 23:38:00 CDT, Stop date: 11/09/17 23:38:00 CDTNotes: (Same as: K Phosphate.) 1 mMol phoshate has 1.47 mEq potassium Infuse over 4 hours potassium 15 mmol, 5 mL, Inactive phosphate Route: IVPB, [address] [facility] PRN, Dosing Weight 49, kg, PRN Abnormal Lab Result, Start date: 11/08/17 7:19:00 CDT, Duration: 30 day, Stop date: 12/08/17 7:18:00 CDT, FOR ICU USE ONLYNotes: (Same as: K Phosphate.) 1 mMol phoshate has 1.47 mEq potassium Infuse over 4 hours potassium 2 pkt, Route: Inactive phosphate-sodium PO, Drug Form: [address] [facility] phosphate 250 PDR/REC, Dosing mg-280 mg-160 mg Weight 49, kg, oral powder for PRN, PRN reconstitution Abnormal Lab Result, FOR ICU USE ONLY, Start date: 11/08/17 7:19:00 CDT, Duration: 30 day, Stop date: 12/08/17 7:18:00 CDTNotes: (Same as: Phos-NaK) Each 1.5 gm pkt has 250mg phosphorous. Mix w/2.5oz water and stir. Potassium 20 mEq, 15 mL, Inactive Chloride Route: [place], Drug [address] [facility] form: LIQ, PRN, Dosing Weight 49, kg, PRN Abnormal Lab Result, Start date: 11/08/17 7:19:00 CDT, Duration: 30 day, Stop date: 12/08/17 7:18:00 CDT, FOR ICU USE ONLYNotes: (Same as: Potassium Chloride) sodium phosphate 15 mmol, 5 mL, Inactive Route: IV[address] [facility] PRN, Dosing Weight 49, kg, PRN Abnormal Lab Result, Start date: 11/08/17 7:19:00 CDT, Duration: 30 day, Stop date: 12/08/17 7:18:00 CDT, FOR ICU USE ONLY Calcium 500 mg, 1 tab, Inactive Carbonate 500 MG Route: PO, Drug [address] [facility] Chewable Tablet form: CHEWTAB, PRN, Dosing Weight 49, kg, PRN Abnormal Lab Result, FOR ICU USE ONLY, Start date: 11/08/17 7:19:00 CDT, Duration: 30 day, Stop date: 12/08/17 7:18:00 CDTNotes: (Same As: Tums) Calcium Carbonate 500 nz=633 mg elemental calcium Dose= mg calcium carbonate ( mg elemental calcium) Magnesium Oxide 800 mg, 2 tab, Inactive Route: PO, Drug [address] [facility] form: TAB, PRN, Dosing Weight 49, kg, PRN Abnormal Lab Result, FOR ICU USE ONLY, Start date: 11/08/17 7:19:00 CDT, Duration: 30 day, Stop date: 12/08/17 7:18:00 CDTNotes: (Same as: Mag-Ox 400) Magnesium oxide [id number] elemental magnesium Dose=____mg magnesium oxide (___mg elemental magnesium) Calcium 1 gm, 50 mL, Inactive Gluconate Route: [address] [facility] Drug form: INJ, PRN, Dosing Weight 49, kg, PRN Abnormal Lab Result, Start date: 11/08/17 7:19:00 CDT, Duration: 30 day, Stop date: 12/08/17 7:18:00 CDT, FOR ICU USE ONLYNotes: WASTE: F/P - Sink; E - Municipal Trash Bin Magnesium 2 gm, 50 mL, Inactive Sulfate Route: IV[address] [facility] Drug form: INJ, PRN, Dosing Weight 49, kg, PRN Abnormal Lab Result, Start date: 11/08/17 7:19:00 CDT, Duration: 30 day, Stop date: 12/08/17 7:18:00 CDT, FOR ICU USE ONLYNotes: WASTE: F/P - Sink; E - Municipal Trash Bin Lasix 40 mg, 4 mL, Inactive Route: IVP, [address] [facility] Drug form: INJ, ONCE, Dosing Weight 49, kg, Start date: 11/08/17 7:19:00 CDT, Stop date: 11/08/17 7:19:00 CDTNotes: (Same as: Lasix) MEDICATION WASTE Product Size: 40 mg Product Wasted: ___ mg Docusate Sodium 100 mg, 1 cap, No Longer 100 MG Oral Route: PO, Drug Active [address] [facility] Capsule [Colace] form: CAP, BID, Dosing Weight 49, kg, Start date: 11/07/17 17:00:00 CDT, Duration: 30 day, Stop date: 12/07/17 9:00:00 CDTNotes: (Same as: Colace) (Do Not Crush) Seroquel 25 mg, 1 tab, No Longer Route: PO, Drug Active [address] [facility] form: TAB, Q8H, Dosing Weight 49, kg, Start date: 11/07/17 16:00:00 CDT, Duration: 30 day, Stop date: 12/07/17 8:00:00 CDTNotes: (Same as: SEROquel) Lasix 60 mg, 6 mL, Inactive Route: IVP[address] [facility] Drug form: INJ, ONCE, Dosing Weight 49, kg, Start date: 11/07/17 9:45:00 CDT, Stop date: 11/07/17 9:45:00 CDTNotes: (Same as: Lasix) Alprazolam 0.25 0.25 mg, 0.5 No Longer MG Oral Tablet tab, Route: PO, Active [address] [facility] [Xanax] Drug form: TAB, Q8H, Dosing Weight 49, kg, Start date: 11/06/17 20:00:00 CDT, Duration: 30 day, Stop date: 12/06/17 13:00:00 CDTNotes: With food or milk (Same as: Xanax) Ceftriaxone 1 gm, Route: No Longer IVPB, [id number], Active [address] [facility] Dosing Weight 49, kg, Start date: 11/06/17 10:00:00 CDT, Duration: 4 day, Stop date: 11/09/17 10:00:00 CDT, ABX Indication: PneumoniaNotes: (Same As: Rocephin). Use with 100 mL NS and infuse over 30 min MEDICATION WASTE Product Size: 1000 mg Product Wasted: ___ mg gabapentin 100 100 mg, 1 cap, No Longer MG Oral Capsule Route: PO, Drug Active [address] [facility] form: CAP, Bedtime, Dosing Weight 49, kg, Start date: 11/05/17 21:00:00 CDT, Duration: 30 day, Stop date: 12/04/17 21:00:00 CDTNotes: (Same as: Neurontin) Zoloft 100 mg, 1 tab, No Longer Route: PO, Drug Active [address] [facility] form: TAB, Bedtime, Dosing Weight 49, kg, Start date: 11/05/17 21:00:00 CDT, Duration: 30 day, Stop date: 12/04/17 21:00:00 CDTNotes: (Same as: Zoloft) hyoscyamine 0.125 mg=1 tab, Active 0.125 mg SL, Q4H, PRN [address] [facility] sublingual Spasms, # 30 tablet tab, 0 Refill(s) Sertraline 100 100 mg=1 tab, Active MG Oral Tablet PO, Bedtime, # [address] [facility] [Zoloft] 30 tab, 0 Refill(s) gabapentin 100 100 mg=1 cap, No Longer MG Oral Capsule PO, Bedtime, # Active [address] [facility] 90 cap, 1 Refill(s) Lasix 40 mg, 4 mL, Inactive Route: IVP, [address] [facility] Drug form: INJ, ONCE, Dosing Weight 49, kg, Priority: STAT, Start date: 11/05/17 13:46:00 CDT, Stop date: 11/05/17 13:46:00 CDTNotes: (Same as: Lasix) MEDICATION WASTE Product Size: 40 mg Product Wasted: ___ mg Synthroid 25 microgram, No Longer 0.5 tab, Route: [address] [facility] PO, Drug form: TAB, Daily, Dosing Weight 49, kg, Start date: 11/05/17 6:30:00 CDT, Duration: 30 day, Stop date: 12/04/17 6:30:00 CDTNotes: Take 1 hour before or 2 hours after meal; Enteral feeds may interefere with the absorption of this medication.(Ke e as:Levothroid, Synthroid) Lipitor 40 mg, 1 tab, No Longer Route: PO, Drug Active [address] [facility] form: TAB, Bedtime, Dosing Weight 48, kg, Start date: 11/04/17 21:00:00 CDT, Duration: 30 day, Stop date: 12/03/17 21:00:00 CDTNotes: (Same as: Lipitor) Sodium Chloride 250 mL, Route: No Longer 0.9% IV IVPB, Start [address] [facility] date: 11/04/17 17:09:00 CDT, Duration: 30 day, Stop date: 12/04/17 17:08:00 CDT, PRN Line Flush Alprazolam 0.25 0.25 mg, 0.5 No Longer MG Oral Tablet tab, Route: PO, [address] [facility] [Xanax] Drug form: TAB, Q8H, Dosing Weight 49, kg, PRN as needed for anxiety, Start date: 11/04/17 17:02:00 CDT, Duration: 30 day, Stop date: 12/04/17 17:01:00 CDTNotes: With food or milk (Same as: Xanax) Tramadol 50 mg, 1 tab, No Longer Route: PO, Drug Active [address] [facility] form: TAB, Q4H, Dosing Weight 49, kg, PRN Pain Score 4-6, Start date: 11/04/17 17:00:00 CDT, Stop date: 12/04/17 16:59:00 CDTNotes: Not to exceed 400mg/day. (Same As: Ultram) Budesonide 0.5 mg, 2 mL, No Longer Route: NEB, Active [address] [facility] Drug form: SUSP, RBID, Dosing Weight 49, kg, Start date: 11/04/17 13:04:00 CDT, Duration: 30 day, Stop date: 12/04/17 8:00:00 CDTNotes: (Same As: Pulmicort) Phenergan 12.5 mg, 0.5 Inactive mL, Route: IM, [address] [facility] Drug form: INJ, ONCE, Dosing Weight 49, kg, Start date: 11/04/17 12:08:00 CDT, Stop date: 11/04/17 12:08:00 CDTNotes: Do not give IV push. (Same as: Phenergan) Reglan 10 mg, 2 mL, No Longer Route: IVP, Active [address] [facility] Drug form: INJ, Q8H, Dosing Weight 49, kg, PRN Nausea & Vomiting, Priority: NOW, Start date: 11/04/17 11:30:00 CDT, Duration: 30 day, Stop date: 12/04/17 11:29:00 CDTNotes: (Same as: Reglan) Insulin Lispro 1 unit, 0.01 No Longer mL, Route: Active [address] [facility] SUB-Q, Drug form: SOLN, TID-Before Meals, Dosing Weight 49, kg, PRN Blood Glucose Results, Start date: 11/04/17 9:54:00 CDT, Duration: 30 day, Stop date: 12/04/17 9:53:00 CDTNotes: (Same as: Humalog ) Roll in palms of hands gently; Do not shake `vigorously. "Single Patient Use Only " WASTE: F/P - Black; E - ADTELLIGENCE Trash Bin Stable for 28 days at room temperature. Expires in days from D ate Glucagon 1 mg, Route: No Longer IM, Drug form: Active [address] [facility] PDR/INJ, PRN, Dosing Weight 49, kg, PRN Blood Glucose Results, Start date: 11/04/17 9:54:00 CDT, Duration: 30 day, Stop date: 12/04/17 9:53:00 CDT Dextrose 50% 25 gm, 50 mL, No Longer Syringe Route: IVP, Active [address] [facility] Drug Form: INJ, Dosing Weight 49, kg, PRN, PRN Blood Glucose Results, Start date: 11/04/17 9:54:00 CDT, Duration: 30 day, Stop date: 12/04/17 9:53:00 CDT Alprazolam 0.25 0.25 mg, 0.5 Inactive MG Oral Tablet tab, Route: PO, [address] [facility] [Xanax] Drug form: TAB, PRN, Dosing Weight 49, kg, PRN as needed for anxiety, Start date: 11/04/17 9:54:00 CDT, Duration: 30 day, Stop date: 12/04/17 9:53:00 CDTNotes: With food or milk (Same as: Xanax) Nicotine 21 mg, 1 patch, No Longer Route: TOP, Active [address] [facility] Drug form: ERFILM, Daily, Dosing Weight 49, kg, Start date: 11/04/17 9:00:00 CDT, Duration: 30 day, Stop date: 12/03/17 9:00:00 CDTNotes: (Same as: Habitrol) "Remove old patch before application of new patch" WASTE: F/P - P Waste Black; E - P Waste Black remove patch 1 patch, Route: No Longer TOP, Drug form: Active [address] [facility] ERFILM, Daily, Start date: 11/04/17 9:00:00 CDT, Duration: 30 day, Stop date: 12/03/17 9:00:00 CDTNotes: Remove old patch before application of new patch. WASTE: F/P - P Waste Black; E - P Waste Black Saline Flush 10 ml, Route: No Longer 0.9% IVP, Drug Form: Active [address] [facility] INJ, Dosing Weight 48, kg, Q12H, Start date: 11/04/17 9:00:00 CDT, Duration: 30 day, Stop date: 12/03/17 21:00:00 CDTNotes: (Same as: BD Posiflush) Brilinta 90 mg, 1 tab, No Longer Route: PO, Drug Active [address] [facility] form: TAB, Q12H, Dosing Weight 48, kg, Start date: 11/04/17 9:00:00 CDT, Duration: 30 day, Stop date: 12/03/17 21:00:00 CDTNotes: (Same as: Brilinta) Aspirin 81 mg, 1 tab, No Longer Route: PO, Drug Active [address] [facility] form: ECTAB, Daily, Dosing Weight 48, kg, Start date: 11/04/17 9:00:00 CDT, Duration: 30 day, Stop date: 12/03/17 9:00:00 CDTNotes: Do not crush or chew. (Same As: Ecotrin) metoprolol 50 mg, 1 tab, No Longer tartrate Route: PO, Drug Active [address] [facility] form: TAB, Q12H, Dosing Weight 48, kg, Start date: 11/04/17 9:00:00 CDT, Stop date: 12/03/17 21:00:00 CDTNotes: (Same as: Lopressor) Dextrose 50% 25 gm, 50 mL, Inactive Syringe Route: IVP[address] [facility] Drug Form: INJ, Dosing Weight 49, kg, ONCE, Start date: 11/04/17 8:52:00 CDT, Stop date: 11/04/17 8:52:00 CDT Insulin regular 10 unit, 0.1 Inactive mL, Route: IVP[facility] Drug form: SOLN, ONCE, Dosing Weight 49, kg, Start date: 11/04/17 8:24:00 CDT, Stop date: 11/04/17 8:24:00 CDTNotes: (Same as: Humulin R) Roll in palms of hands gently; Do not shake vigorously. "single patient use only" (Restricted to patients requiring a dose > 60 units) WASTE: F/P - Black; E - Municipal Trash Bin Stable for 28 days at room temperature Expires in days from D ate Dextrose 50% 25 gm, 50 mL, Inactive Syringe Route: IVP[address] [facility] Drug Form: INJ, Dosing Weight 49, kg, ONCE, Start date: 11/04/17 8:24:00 CDT, Stop date: 11/04/17 8:24:00 CDT Sodium Chloride 500 mL, 1000 Inactive 0.9% (Bolus) IV ml/hr, Infuse [address] [facility] Over: 30 minutes, Route: IV, 500, Drug form: INJ, ONCE, Priority: STAT, Dosing Weight 49 kg, Start date: 11/04/17 8:24:00 CDT, Stop date: 11/04/17 8:24:00 CDT Albuterol 0.833 3 mL, Route: Inactive MG/ML / INHALATION, [address] [facility] Ipratropium Drug Form: [place] 0.167 SOLN, Dosing MG/ML Inhalant Weight 49, kg, Solution RQ6H, Start [DuoNeb] date: 11/04/17 8:00:00 CDT, Duration: 30 day, Stop date: 12/04/17 2:00:00 CDTNotes: (Same as: Duoneb) Ondansetron 4 mg, Route: Inactive IVP, Drug form: [address] [facility] INJ, ONCE, Dosing Weight 49, kg, Start date: 11/04/17 7:55:00 CDT, Stop date: 11/04/17 7:55:00 CDT Tramadol 50 mg, 1 tab, Inactive Route: PO, Drug [address] [facility] form: TAB, Q6H, Dosing Weight 49, kg, PRN Pain Score 4-6, Start date: 11/04/17 5:05:00 CDT, Duration: 30 day, Stop date: 12/04/17 5:04:00 CDTNotes: Not to exceed 400mg/day. (Same As: Ultram) Lovenox 40 mg, 0.4 mL, Inactive Route: SUB-Q, [address] [facility] Drug form: INJ, [id number], Dosing Weight 48, kg, Start date: 11/04/17 5:00:00 CDT, Stop date: 12/03/17 3:00:00 CDTNotes: (Same as: Lovenox) Ceftriaxone 1 gm, Route: No Longer IVPB, [id number], Active [address] [facility] Dosing Weight 49, kg, Start date: 11/04/17 5:00:00 CDT, Duration: 10 day, Stop date: 11/13/17 5:00:00 CDT, ABX Indication: PneumoniaNotes: (Same As: Rocephin). Use with 100 mL NS and infuse over 30 min MEDICATION WASTE Product Size: 1000 mg Product Wasted: ___ mg Azithromycin 500 mg, Route: No Longer IVPB, [id number], Active [address] [facility] Dosing Weight 49, kg, Start date: 11/04/17 5:00:00 CDT, Duration: 5 day, Stop date: 11/08/17 5:00:00 CDT, ABX Indication: PneumoniaNotes: (Same As: Zithromax IV) Kayexalate 30 gm, 120 mL, Inactive Route: PO, Drug [address] [facility] form: SUSP, ONCE, Dosing Weight 49, kg, Start date: 11/04/17 4:18:00 CDT, Stop date: 11/04/17 4:18:00 CDTNotes: (sodium polystyrene sulfonate 15 gm/60 ml CARA) Shake well before use. (Same as: Kayexalate, SPS) Albuterol 0.833 3 ml, Route: No Longer MG/ML / NEB, Drug Form: Active [address] [facility] Ipratropium SOLN, Dosing [place] 0.167 Weight 49, kg, MG/ML Inhalant [id number], Start Solution date: 11/04/17 [DuoNeb] 4:00:00 CDT, Duration: 30 day, Stop date: 12/04/17 3:00:00 CDTNotes: (Same as: Duoneb) Furosemide 20 mg, 2 mL, Inactive Route: IVP, [address] [facility] Drug form: INJ, ONCE, Dosing Weight 49, kg, Priority: NOW, Start date: 11/04/17 3:09:00 CDT, Stop date: 11/04/17 3:09:00 CDTNotes: (Same as: Lasix) Enoxaparin 40 mg, 0.4 mL, Inactive Route: SUB-Q, [address] [facility] Drug form: INJ, [id number], Dosing Weight 48, kg, Start date: 11/04/17 3:00:00 CDT, Stop date: 12/03/17 3:00:00 CDTNotes: (Same as: Lovenox) Amlodipine 10 mg, PO, No Longer Daily Active [address] [facility] Albuterol 0.833 3 mL, NEB, PRN, Active MG/ML / 4H PRN [address] [facility] Ipratropium [place] 0.167 MG/ML Inhalant Solution Magnesium 2 gm, 50 mL, No Longer Sulfate Route: IVPB, Active [address] [facility] Drug form: INJ, PRN, Dosing Weight 48, kg, PRN Abnormal Lab Result, Start date: 11/04/17 2:44:00 CDT, Duration: 30 day, Stop date: 12/04/17 2:43:00 CDT, FOR ICU USE ONLYNotes: WASTE: F/P - Sink; E - Municipal Trash Bin Calcium 1 gm, 50 mL, No Longer Gluconate Route: IVPB, Active [address] [facility] Drug form: INJ, PRN, Dosing Weight 48, kg, PRN Abnormal Lab Result, Start date: 11/04/17 2:44:00 CDT, Duration: 30 day, Stop date: 12/04/17 2:43:00 CDT, FOR ICU USE ONLYNotes: WASTE: F/P - Sink; E - Municipal Trash Bin Calcium 500 mg, 1 tab, No Longer Carbonate 500 MG Route: PO, Drug Active [address] [facility] Chewable Tablet form: CHEWTAB, PRN, Dosing Weight 48, kg, PRN Abnormal Lab Result, FOR ICU USE ONLY, Start date: 11/04/17 2:44:00 CDT, Duration: 30 day, Stop date: 12/04/17 2:43:00 CDTNotes: (Same As: Tums) Calcium Carbonate 500 vb=606 mg elemental calcium Dose= mg calcium carbonate ( mg elemental calcium) Magnesium Oxide 800 mg, 2 tab, No Longer Route: PO, Drug Active [address] [facility] form: TAB, PRN, Dosing Weight 48, kg, PRN Abnormal Lab Result, FOR ICU USE ONLY, Start date: 11/04/17 2:44:00 CDT, Duration: 30 day, Stop date: 12/04/17 2:43:00 CDTNotes: (Same as: Mag-Ox 400) Magnesium oxide [id number] elemental magnesium Dose=____mg magnesium oxide (___mg elemental magnesium) Potassium 20 mEq, 10 mL, No Longer Chloride Route: IVPB, Active [address] [facility] Drug form: INJ, PRN, Dosing Weight 48, kg, PRN Abnormal Lab Result, Via central line, Start date: 11/04/17 2:44:00 CDT, Duration: 30 day, Stop date: 12/04/17 2:43:00 CDT, FOR ICU USE ONLYNotes: MUST be Diluted before use (Same as: KCl) MEDICATION WASTE Product Size: 20 mEq Product Wasted: ___ mEq sodium phosphate 15 mmol, 5 mL, No Longer Route: IVPB, [address] [facility] PRN, Dosing Weight 48, kg, PRN Abnormal Lab Result, Start date: 11/04/17 2:44:00 CDT, Duration: 30 day, Stop date: 12/04/17 2:43:00 CDT, FOR ICU USE ONLY potassium 45 mmol, 15 mL, No Longer phosphate Route: IVPB, [address] [facility] PRN, Dosing Weight 48, kg, PRN Abnormal Lab Result, Start date: 11/04/17 2:44:00 CDT, Duration: 30 day, Stop date: 12/04/17 2:43:00 CDT, FOR ICU USE ONLYNotes: (Same as: K Phosphate.) 1 mMol phoshate has 1.47 mEq potassium Infuse over 4 hours potassium 500 mg, 2 tab, No Longer phosphate-sodium Route: PO, Drug Active [address] [facility] phosphate 250 Form: TAB, mg-280 mg-160 mg Dosing Weight oral powder for 48, kg, PRN, reconstitution PRN Abnormal Lab Result, FOR ICU USE ONLY, Start date: 11/04/17 2:44:00 CDT, Duration: 30 day, Stop date: 12/04/17 2:43:00 CDTNotes: (Same as: K-Phos Neutral, Phospha 250 Neutral) Saline Flush 10 ml, Route: No Longer 0.9% IVP, Drug Form: Active [address] [facility] INJ, Dosing Weight 48, kg, PRN, PRN Line Flush, Start date: 11/04/17 2:44:00 CDT, Duration: 30 day, Stop date: 12/04/17 2:43:00 CDTNotes: (Same as: BD Posiflush) Alprazolam 0.25 0.25 mg=1 tab, Active MG Oral Tablet PO, PRN, for [address] [facility] [Xanax] anxiety Synthroid 25 microgram, Active PO, Daily [address] [facility] Tramadol 50 mg, PO, PRN, No Longer PRN Pain, pin Active [address] [facility] 3-7, 0 Refill(s) Sodium Chloride 750 mL, Rate: Inactive 0.9% IV 750 mL 75 ml/hr, [address] [facility] Infuse over: 10 hr, Route: IV, Dosing Weight 48 kg, Total Volume: 750, Start date: 11/04/17 1:56:00 CDT, Duration: 10 hr, Stop date: 11/04/17 11:55:00 CDT Acetaminophen 650 mg, 2 tab, No Longer Route: PO, Drug Active [address] [facility] form: TAB, Q4H, Dosing Weight 48, kg, PRN Pain Score 7-10, Start date: 11/04/17 1:56:00 CDT, Duration: 30 day, Stop date: 12/04/17 1:55:00 CDTNotes: Do not exceed 4 gm/day. (Same as: Tylenol) Ondansetron 4 mg, 2 mL, No Longer Route: IVP, Active [address] [facility] Drug form: INJ, Q8H, Dosing Weight 48, kg, PRN Nausea & Vomiting, Start date: 11/04/17 1:56:00 CDT, Duration: 30 day, Stop date: 12/04/17 1:55:00 CDTNotes: (Same as: Zofran) MEDICATION WASTE Product Size: 4 mg Product Wasted: ___ mg Allergies, Adverse Reactions, Alerts Substance Category Reaction Severity Reaction Status Date Comments Source type Reported sulfa drugs Assertion Drug Active allergy [facility] penicillin Assertion Drug Active allergy [facility] codeine Assertion Drug Active sulfate allergy [facility] Immunizations [...] - 5.1 11/21 [facility] Lv [facility] ELECTROLYT Chloride Lvl 107 meq/L 95 - 109 11/[address] [facility] ELECTROLYT Creatinine 0.70 mg/dL 0.50 - 11/21 ES Lvl 1.[address] [facility] ELECTROLYT CO2 25 [...] eGFR of 60-89 may be normal in mL/min/1. some populations, particularly the elderly, for whom the CKD-EPI formula has not been extensively validated. Use of the eGFR is not recommended in the following populations: [address] Individuals with unstable creatinine concentrations, including [...] RDW 14.4 % 11.5 - 11/21 14. [facility] MCHC 35.2 g/dL 32.0 - 11/[address] [facility] HEMATOLOGY MPV 7.6 fL 7.4 - 10.4 11/[address] [facility] HEMATOLOGY Platelet 368 K/CMM 133 - 450 11/[address] [facility] HEMATOLOGY WBC 5.3 K/CMM 3.7 - 10.4 11/[address] [facility] HEMATOLOGY RBC 3.40 M/CMM 4.20 - 11/[address] [facility] HEMATOLOGY Eosinophils 0.5 K/CMM 0.0 - 0.5 11/21 /[address] [facility] HEMATOLOGY Monocytes # 0.5 K/CMM 0.0 - 0.8 11/[address] [facility] HEMATOLOGY Basophils # 0.1 K/CMM 0.0 - 0.2 11/[address] [facility] HEMATOLOGY Lymphocytes 28.6 % 20.0 - 11/[address] [facility] HEMATOLOGY Lymphocytes 1.5 K/CMM 1.0 - 5.5 11/[address] [facility] HEMATOLOGY Eosinophils 8.8 % 0.0 - 4.0 11/[address] [facility] HEMATOLOGY Monocytes 10.3 % 2.0 - 12.0 11/[address] [facility] HEMATOLOGY Segs-Bands # 2.7 K/CMM 1.5 - 8.1 11/[address] [facility] HEMATOLOGY Basophils 1.2 % 0.0 - 1.0 11/21 [facility] HEMATOLOGY Segs 51.1 % 45.0 - 11/[address] [facility] ELECTROLYT AGAP [...] eGFR of 60-89 may be normal in mL/min/1. some populations, particularly the elderly, for [...] Lvl 2.5 g/dL 3.5 - 5.0 11/[address] [facility] ELECTROLYT ALT 32 unit/L 0 - 65 11/[address] [facility] ELECTROLYT AST 26 unit/L 0 - 37 11/[address] [facility] ELECTROLYT CO2 26 meq/L 24 - 32 11/[address] [facility] ELECTROLYT Chloride Lvl 109 meq/L 95 - 109 11/[address] [facility] ELECTROLYT Total 6.6 g/dL 6.4 - 8.4 [...] 0.70 mg/dL 0.50 - 11/20 ES Lvl 1.[address] [facility] ELECTROLYT Potassium 3.8 meq/L 3.5 - 5.1 11/20 ES Lvl /[address] [facility] HEMATOLOGY RBC 3.10 M/CMM 4.20 - 11/20 MH [address] [facility] HEMATOLOGY WBC [...] HEMATOLOGY RDW 13.9 % 11.5 - 11/[address] [facility] HEMATOLOGY Basophils 1.1 % 0.0 - 1.0 11/[address] [facility] HEMATOLOGY Eosinophils 10.8 % 0.0 - 4.0 11/[address] [facility] HEMATOLOGY Monocytes 12.5 % 2.0 - 12.0 11/[address] [facility] HEMATOLOGY Basophils # 0.1 K/CMM 0.0 - 0.2 11/[address] [facility] HEMATOLOGY Lymphocytes 27.4 % 20.0 - 11/[address] [facility] HEMATOLOGY Lymphocytes 1.5 K/CMM 1.0 - 5.5 11/[address] [facility] HEMATOLOGY Eosinophils 0.6 K/CMM 0.0 - 0.5 11/20 MH /[address] [facility] HEMATOLOGY Monocytes # 0.7 K/CMM 0.0 - 0.8 11/[address] [facility] HEMATOLOGY Segs-Bands # 2.6 K/CMM 1.5 - 8.1 11/[address] [facility] HEMATOLOGY Segs 48.2 % 45.0 - 11/20 MH 75.0 [facility] CHEM PANEL Phosphorus 3.0 mg/dL 2.5 - 4.5 11/19 [facility] CHEM PANEL A/G Ratio 0.6 0.7 - 1.6 11/19 [facility] CHEM PANEL AGAP 16.8 meq/L 10.0 - 04 MH 20.0 [facility] CHEM PANEL B/C Ratio 27 6 - 25 11/19 [facility] CHEM PANEL Globulin 3.9 g/dL 2.7 - 4.2 11/19 [facility] CHEM PANEL eGFR 91 11/19 Result Comment: [...] Phos 166 unit/L 39 - 136 11/[address] [facility] CHEM PANEL AST 42 unit/L 0 - 37 11/19 [facility] CHEM PANEL Albumin Lvl 2.5 g/dL 3.5 - 5.0 11/19 [facility] CHEM PANEL ALT 38 unit/L 0 - 65 11/19 [facility] CHEM PANEL BUN 16 mg/dL 7 - 22 11/19 [facility] CHEM PANEL Glucose Lvl 70 mg/dL 70 - 99 11/19 [facility] CHEM PANEL Calcium Lvl 8.6 mg/dL 8.5 - 10.5 11/[address] [facility] CHEM PANEL Total 6.4 g/dL 6.4 - 8.4 11/[address] [facility] CHEM PANEL CO2 20 meq/L 24 - 32 / [facility] CHEM PANEL Chloride Lvl 107 meq/L 95 - 109 11/[address] [facility] CHEM PANEL Creatinine 0.60 mg/dL 0.50 - 04 [address] [facility] CHEM PANEL Sodium Lvl 140 meq/L 135 - 145 11/[address] [facility] CHEM PANEL Potassium 3.8 meq/L 3.5 - 5.1 11/19 Lvl /[address] [facility] CHEM PANEL Magnesium 1.8 mg/dL 1.8 - 2.4 11/19 Lvl /[address] [facility] HEMATOLOGY WBC 6.5 K/CMM 3.7 - 10.4 11/[address] [facility] HEMATOLOGY Hgb 9.3 g/dL 12.0 - 11/[address] [facility] HEMATOLOGY Hct 27.9 % 36.0 - 11/[address] [facility] HEMATOLOGY RBC 3.06 M/CMM 4.20 - 11/[address] [facility] HEMATOLOGY MCHC 33.5 g/dL 32.0 - 11/[address] [facility] HEMATOLOGY RDW 14.2 % 11.5 - 11/[address] [facility] HEMATOLOGY MCV 91.1 fL 80.0 - 11/[address] [facility] HEMATOLOGY MCH 30.5 pg 27.0 - 11/[address] [facility] HEMATOLOGY MPV 7.8 fL 7.4 - 10.4 11/[address] [facility] HEMATOLOGY Platelet 347 K/CMM 133 - 450 11/[address] [facility] HEMATOLOGY Monocytes 11.5 % 2.0 - 12.0 11/[address] [facility] HEMATOLOGY Segs-Bands # 3.3 K/CMM 1.5 - 8.1 11/[address] [facility] HEMATOLOGY Basophils 1.0 % 0.0 - 1.0 11/[address] [facility] HEMATOLOGY Eosinophils 9.3 % 0.0 - 4.0 11/[address] [facility] HEMATOLOGY Lymphocytes 1.7 K/CMM 1.0 - 5.5 11/19 MH # /[address] [facility] HEMATOLOGY Eosinophils 0.6 K/CMM 0.0 - 0.5 11/19 MH # /[address] [facility] HEMATOLOGY Monocytes # 0.7 K/CMM 0.0 - 0.8 11/[address] [facility] HEMATOLOGY Basophils # 0.1 K/CMM 0.0 - 0.2 11/[address] [facility] HEMATOLOGY Lymphocytes 26.5 % 20.0 - 11/[address] [facility] HEMATOLOGY Segs 51.7 % 45.0 - 11/19 75.0 /[address] [facility] Chest Chest 1view PROCEDURE: Chest, AP on 11/19/2017 at 0627 hours. 11/19 - 1view DX DX - [facility] INDICATION: Pneumonia. [...] Stable radiographic appearance of the chest. SL: [id number] HEMATOLOGY PTT 38.5 s 22.9 - 11/18 MH 35.8 /[address] [facility] HEMATOLOGY INR 1.16 0.85 - 11/18 1.17 /[address] [facility] HEMATOLOGY PT 14.8 s 12.0 - 11/[address] [facility] CHEM PANEL Magnesium 1.8 mg/dL 1.8 - 2.4 11/[address] [facility] IMMUNOLOGY C-REACTIVE 49.4 [...] Chest 1view Clinical Indication: - PNEUMONIA. 11/14 - 1view DX DX - [facility] Comparison: Chest radiograph 11/11/2017 Read by: aTnia Del Castillo MD Dictated Date/time: 11/14/17 08:00 [...] background senescent change superimposed on emphysema SL: [id number] CHEM PANEL Procalcitoni null 0.00 - 11/12 n Lvl [address]. [facility] IMMUNOLOGY T-Spot.TB Negative Negative 11/[address] [facility] (11/12/17 3:03 PM) Chest Chest 1view Patient Name: LYNDA GAMEZ 11/11 - 1view DX DX - [facility] : 1945; Age: 72 years y/o Female MR: [id number] Read by: Delfin Schreiber MD Dictated Date/time: [...] LYNDA GAMEZ 11/10 - contrast contrast CT /2017 - [facility] CT : 1945; Age: 72 years y/o Female MR: [id number] Read by: Giuseppe Houston MD Dictated Date/time: [...] blastic or destructive lesions are seen. SL: [id number]- CHEM PANEL Phosphorus 5.5 mg/dL 2.5 - 4.5 11/[address] [facility] CHEM PANEL Magnesium 2.0 mg/dL 1.8 - 2.4 11/10 Lvl /[address] [facility] CHEM PANEL Phosphorus 2.2 mg/dL 2.5 - 4.5 11/[address] [facility] CHEM PANEL Procalcitoni 0.18 0.00 - 11/09 n Lvl 0.[address] [facility] PARATHYROI Ca Ion WB 1.14 1.05 - 11/06 D PROFILE mMol/L . [facility] PARATHYROI Ca Norm WB 1.11 1.05 - 11/06 MH D PROFILE mMol/L 09.[address] [facility] Chest Chest 1view Clinical Indication: n/a - resp failure 11/06 - 1view DX DX /2017 [facility] Comparison: 11/05/2017 Read by: Ricky Sheehan MD [...] disease and unchanged bilateral airspace disease. SL: [id number] PARATHYROI Ca Ion WB 1.14 1.05 - 11/06 MH D PROFILE mMol/L . [facility] PARATHYROI Ca Norm WB 1.11 1.05 - 11/06 MH D PROFILE mMol/L . [facility] PARATHYROI Ca Ion WB 1.03 1.05 - 11/05 MH D PROFILE mMol/L . [facility] PARATHYROI Ca Norm WB 1.07 1.05 - 11/05 MH D PROFILE mMol/L . [facility] Chest Chest 1view Patient Name: LYNDA GAMEZ 11/05 - 1view DX DX [facility] : 1945; Age: 72 years Female MR: [id number] Read by: Eloy Linton MD Dictated Date/time: [...] IMPRESSION: Stable bilateral extensive interstitial infiltrates. SL: [id number] Chest Chest 1view Study: Frontal chest x-ray compared to prior study from the same day 11/04 - 1view DX - [facility] History: Short [...] CHEST ABDOMEN AND PELVIS WITHOUT CONTRAST 11/04 men/Pelvis n/Pelvis - [facility] [...] SL: [id number] BACTERIAL Strep Negative Negative 11/04 - SEROLOGY [facility] Ag (11/04/17 5:33 AM) BACTERIAL Source Strep Urine 11/04 - SEROLOGY [facility] *NA* (11/04/17 5:33 AM) BACTERIAL MRSA by PCR Negative 11/04 - SEROLOGY /[address] [facility] (11/04/17 2:54 AM) CARDIAC BNP 69 pg/mL <=100 11/04 ENZYMES pg/mL /[address] [facility] HEMATOLOGY PTT 81.0 s 22.9 - 11/04 MH 35.8 /[address] [facility] HEMATOLOGY INR 1.67 0.85 - 11/04 1.17 /[address] [facility] HEMATOLOGY PT 19.8 s 12.0 - 11/04 14.7 /[address] [facility] SPECIAL Hgb A1C 5.0 % <=5.6 % 11/04 CHEMISTRY /[address] [facility] LIPIDS VLDL 15 11/04 /[address] [facility] LIPIDS LDL 61 mg/dL <=99 mg/dL 11/04 (Calculated) [facility] LIPIDS Chol 105 mg/dL <=199 11/04 mg/dL [facility] LIPIDS Trig 75 mg/dL <=149 11/04 mg/dL [facility] LIPIDS HDL 29 mg/dL >=61 mg/dL 11/04 /[address] [facility] LIPIDS CHD Risk 3.62 3.90 - 11/04 5.80 /[address] [facility] Chest Chest 1view Clinical Indication: code heart - code heart; 11/04 - 1view DX /2017 - [facility] [...] Comments Source Systolic (mm Hg) 103 11/21/2017 [facility] Diastolic (mm Hg) 69 11/21/2017 [facility] Heart Rate 73 11/21/2017 [facility] Systolic (mm Hg) 103 11/21/2017 [facility] Diastolic (mm Hg) 69 11/21/2017 [facility] Respitory Rate 18 11/21/2017 [facility] Heart Rate 73 11/21/2017 [facility] Heart Rate 76 11/21/2017 [facility] Respitory Rate 18 11/21/2017 [facility] Systolic (mm Hg) 110 11/21/2017 [facility] Diastolic (mm Hg) 68 11/21/2017 [facility] Respitory Rate 18 11/21/2017 [facility] Temperature Oral (F) 99.1 F 11/18/2017 [facility] Temperature Oral (F) 98.8 F 11/18/2017 [facility] Temperature Oral (F) 98.0 F 11/18/2017 [facility] Height 162.56 cm 11/12/2017 [facility] Weight 54.773 11/11/2017 [facility] BMI Calculated 18.54 11/04/2017 [facility] Weight 49 11/04/2017 [facility] Height 162.56 cm 11/04/2017 [facility] Weight 49 11/04/2017 [facility] Encounters Location Location Encounter Encounter Reason Attending ADM DC Status Source Details Type Number For Provider Date Date [facility] [id number] 11/04 11/21 Kai Saravia /2017 [facility] Procedures Procedure Code Date Perfomer Comments Source Tonsillectomy [id number] [facility] 8 Appendectomy [id number] [facility] Cholecystectomy [id number] [facility] Hysterectomy [id number] [facility] Mastectomy [id number] [facility] Revision of colostomy [id number] [facility] Sigmoid colectomy and [id number] [facility] colostomy
[2018-05-28] MEDS ORDERED: ASPIRIN 81 MG CHEWABLE TABLET ONE (21:39)
[2018-05-28] MEDS ORDERED: NITROGLYCERIN 0.4 MG/TAB SL ONE (21:39)
[2018-05-28] MEDS ORDERED: LEVALBUTEROL 0.63 MG/3 ML NEB ONE (21:51)
[2018-05-28] MEDS ORDERED: IPRATROPIUM BROM 0.5MG/2.5ML ONE ×2 (21:52→23:44)
--- NOTE | 2018-05-28 22:05 | RAD REPORT ---
EXAM DESCRIPTION: RAD - Chest Single View - 05/28/2018 9:56 pm CLINICAL HISTORY: Chest pain COMPARISON: January 31 TECHNIQUE: AP portable chest image was obtained 2138 hours . FINDINGS: Lung volumes are similar to comparison. Patient has a significant baseline interstitial uri ng disease pattern. Current film shows very extensive interstitial opacification increased over basel ine. Areas of airspace opacification are present. No one focal consolidations seen. Vague nodular den sity left upper lung field has not changed. Cardiomegaly is present increased slightly from compariso n. Vasculature is increased. No pneumothorax or large pleural effusion. No acute bony abnormality see n. No acute aortic findings suspected. IMPRESSION: Cardiomegaly, vascular engorgement and interstitial opacification increased over baselin e. Findings are suspicious for CHF/volume overload superimposed on extensive fibrosis. Noncardiogenic pulmonary edema pattern is possible as well. A diffuse pneumonia pattern is possible t igor provided history does not indicate acute infectious symptoms.
[2018-05-28 22:10] LABS: Absolute Lymphocytes (CBC) 1.6 K/uL (0.7-4.9); Absolute Monocytes 0.9 K/uL (0.1-1.3); Absolute Neutrophil 9.7 K/uL (1.8-8.0); Basophils % 0.3 % (0-1.3); Eosinophils % 0.4 % (0-4.4); Hematocrit 33.6 % (36.0-45.0); Lymphocytes % 12.9 % (15.3-44.8); MCH 27.3 pg (27.0-35.0); MCV 84.8 fL (80-100); MPV 7.9 fL (7.6-11.3); RBC Red Blood Cell Count 3.96 M/uL (3.86-4.86)
[2018-05-28 22:14] LABS: Protime INR 0.97
[2018-05-28 22:32] LABS: Albumin 3.4 g/dL (3.4-5.0); Bilirubin Direct 0.2 mg/dL (0-0.2); Bilirubin Total 0.5 mg/dL (0.2-1.0); Potassium 4.1 mmol/L (3.5-5.1); Protein, Total 7.5 g/dL (6.4-8.2); Troponin (Emerg Dept Use Only) 0.03 ng/mL (0.0-0.045)
[2018-05-28 22:54] LABS: Anisocytosis 1+; Blood Morphology Comment NOTED (NOT SEEN); Burr Cells 2+; Platelet Estimate ADEQ; Urine White Blood Cell Casts OK
[2018-05-28] MEDS ORDERED: Levofloxacin500mg IV 500 MG/100 ML BAG IV ONE (23:44)
[2018-05-28] MEDS ORDERED: ALBUTEROL 2.5 MG/3 ML NEB SOL ONE (23:44)
[2018-05-28] MEDS ORDERED: FUROSEMIDE 40 MG/4 ML VIAL ONE (23:44)
[2018-05-28] MEDS ORDERED: ENOXAPARIN 60 MG/0.6 ML SQ ONE (23:45)
--- NOTE | 2018-05-29 00:43 | ER ---
Nurse's Notes [facility] Name: Reena Gandhi Age: 72 yrs Sex: Female : 1945 Arrival Date: 05/28/2018 Time: 20:45 Bed 23 Private MD: Diagnosis: Pulmonary edema;Pneumonia due to other specified bacteria Presentation: 05/28 20:49 Presenting complaint: EMS states: the patient is complaining of shortness of breath, mg2 was diagnosed with pneumonia in [place] yesterday discharged with macrobid and tramadol. She took 1 tab of tramadol and 3 tabs xanax LACQUERER. Transition of care: patient was not received from another setting of care. Onset of symptoms was May 2018. Risk Assessment: Do you want to hurt yourself or someone else? Patient reports no desire to harm self or others. Initial Sepsis Screen: Does the patient meet any 2 criteria? No. Patient's initial sepsis screen is negative. Does the patient have a suspected source of infection? No. Patient's initial sepsis screen is negative. Care prior to arrival: None. 20:49 Method Of Arrival: [place] [facility] [place] 20:49 Acuity: MARKIE 3 mg2 Triage Assessment: 21:08 General: Appears in no apparent distress. comfortable, Behavior is calm, cooperative. mg2 Pain: Complains of pain in chest Pain does not radiate. EENT: No deficits noted. Neuro: Level of Consciousness is awake, Oriented to person, place, time, situation. Cardiovascular: Capillary refill < 3 seconds Patient's skin is warm and dry. Respiratory: Reports shortness of breath on exertion Airway is patent Respiratory effort is even, unlabored, Respiratory pattern is regular, symmetrical, Breath sounds are clear. GI: No signs and/or symptoms were reported involving the gastrointestinal system. : No signs and/or symptoms were reported regarding the genitourinary system. Derm: Skin is intact, is healthy with good turgor, Skin is pink, warm \T\ dry. normal. Musculoskeletal: No signs and/or symptoms reported regarding the musculoskeletal system. Historical: - Allergies: 21:00 Codeine; mg2 21:00 PENICILLINS; mg2 21:00 Sulfa (Sulfonamide Antibiotics); mg2 - Home Meds: 21:00 alprazolam 0.5 mg Oral tab 1 tab 3 times per day [Active]; aspirin 81 mg Oral chew 1 mg2 tab once daily [Active]; benzonatate 100 mg Oral cap 1 cap 3 times per day for Cough [Active]; chlorthalidone 25 mg Oral tab 1 tab once daily [Active]; clopidogrel 75 mg Oral tab 1 tab once daily [Active]; furosemide 20 mg Oral tab 1 tab once daily [Active]; gabapentin 300 mg Oral cap 1 cap 3 times per day [Active]; hyoscyamine sulfate 0.125 mg SL subl for rectal spasms [Active]; Lanoxin 125 mcg Oral tab 1 tab once daily [Active]; levothyroxine 25 mcg tab 1 tab once daily for Hypothyroidism [Active]; lisinopril 2.5 mg Oral tab 1 tab once daily [Active]; metoprolol tartrate 25 mg Oral tab 1 tab once daily [Active]; Senexon-S 8.6-50 mg Oral tab 2 tabs once daily [Active]; senna 8.6 mg Oral tab 2 tabs once daily [Active]; sertraline 100 mg Oral tab 1 tab once daily [Active]; - PMHx: 21:00 Anxiety; Cancer; CHF; COPD; DC (November 03, 2017); TIA; mg2 - PSHx: 05/29 01:48 Hysterectomy; Tonsillectomy; radical mastectomy; back surgery; mg2 - Immunization history:: Flu vaccine is not up to date. - Social history:: Smoking status: Patient uses tobacco products, smokes one-half pack cigarettes per day, Patient/guardian denies using alcohol, street drugs, IV drugs. - Ebola Screening: : No symptoms or risks identified at this time. Screenin/19 21:06 Abuse screen: Denies threats or abuse. Denies injuries from another. Nutritional mg2 screening: No deficits noted. Tuberculosis screening: No symptoms or risk factors identified. Fall Risk None identified. Assessment: 23:47 Reassessment:. Pain: Denies pain. Neuro: Level of Consciousness is awake, alert, obeys mg2 commands, Oriented to person, place, time, situation. Cardiovascular: Capillary refill < 3 seconds Patient's skin is warm and dry. Cardiovascular: Chest pain is described as mild. Respiratory: Respiratory: Reports shortness of breath at rest cough that is. GI: No signs and/or symptoms were reported involving the gastrointestinal system. : No signs and/or symptoms were reported regarding the genitourinary system. EENT: No signs and/or symptoms were reported regarding the EENT system. Derm: Skin is intact, is healthy with good turgor, Skin is pink, warm \T\ dry. normal. Musculoskeletal: Circulation, motion, and sensation intact. 05/29 01:02 Reassessment: Patient appears in no apparent distress at this time. Patient and/or mg2 family updated on plan of care and expected duration. Pain level reassessed. Patient is alert, oriented x 3, equal unlabored respirations, skin warm/dry/pink. dr wright came and assessed the patient. admission advised. patient agreed. Vital Signs: 05/28 20:55 BP 105 / 68; Pulse 108; Resp 35; Pulse Ox 95% on 2 lpm NC; Weight 49.9 kg; mg2 21:07 BP 121 / 75; Pulse 102; Resp 18; Temp 97.7; Pulse Ox 100% on 2 lpm NC; Height 5 ft. 4 mg2 in. (162.56 cm); Pain 0/10; 22:00 BP 115 / 74; Pulse 100; Resp 28; Pulse Ox 77% on 2 lpm NC; mg2 22:35 BP 126 / 87; Pulse 101; Resp 30; Pulse Ox 92% on 3 lpm NC; mg2 05/29 01:01 BP 136 / 92; Pulse 106; Resp 22; Pulse Ox 96% on 2 lpm NC; Pain 0/10; mg2 05/28 21:07 Body Mass Index 18.88 (49.90 kg, 162.56 cm) mg2 ED Course: 05/28 20:45 Patient arrived in ED. mg2 20:49 Sonido Robertson, RN is Primary Nurse. mg2 20:55 Triage completed. mg2 21:06 Arm band placed on. mg2 21:06 Patient has correct armband on for positive identification. Pulse ox on. NIBP on. mg2 21:11 Jose Nieves PA is PHCP. cp 21:11 Jose Andres MD is Attending Physician. cp 21:56 XRAY Chest (1 view) In Process Unspecified. EDMS 21:56 No provider procedures requiring assistance completed. Inserted saline lock: 22 gauge mg2 in right antecubital area, using aseptic technique. Blood collected. 22:22 Notified ED physician of a critical lab result(s). d-dimer 1491. ak1 23:36 Jim Newell MD is Hospitalizing Provider. cp 05/29 01:03 Patient admitted, IV remains in place. mg2 Administered Medications: 05/28 21:58 Drug: AtroVENT Aerosol 0.5 mg Route: Inhalation; mg2 21:58 Drug: Xopenex (3) 0.63 mg Route: Inhalation; mg2 22:16 Drug: Nitroglycerin 0.4 mg Route: Sublingual; mg2 23:00 Follow up: Response: No adverse reaction; Marked relief of symptoms mg2 22:16 Drug: Aspirin Chewable Tablet 324 mg Route: PO; mg2 23:00 Follow up: Response: No adverse reaction mg2 23:45 Drug: LevaQUIN 500 mg Volume: 100 ml; Route: IVPB; Infused Over: 60 mins; Site: right mg2 antecubital; 05/29 00:49 Follow up: Response: No adverse reaction; IV Status: Completed infusion mg2 05/28 23:45 Drug: AtroVENT Aerosol 0.5 mg Route: Inhalation; mg2 05/29 00:49 Follow up: Response: No adverse reaction; Marked relief of symptoms mg2 05/28 23:45 Drug: Albuterol 2.5 mg Route: Inhalation; mg2 05/29 00:49 Follow up: Response: No adverse reaction; Marked relief of symptoms mg2 05/28 23:46 Drug: Lasix 40 mg Route: IVP; Site: right antecubital; mg2 05/29 00:48 Follow up: Response: No adverse reaction; Marked relief of symptoms mg2 05/28 23:53 Not Given (Patient Refused): Lovenox 1 mg/kg Sub-Q once mg2 Outcome: 23:37 Decision to Hospitalize by Provider. cp 05/29 02:18 Admitted to Tele accompanied by nurse, via wheelchair, room 426, with oxygen, with mg2 chart, Report called to GIDEON Nazario Condition: stable Instructed on the need for admit, Demonstrated understanding of instructions. 02:20 Patient left the ED. mg2 Signatures: Dispatcher [employer] EDNasra Rolon RN RN ak1 Jose Nieves PA PA Sonido Israel RN RN mg2 Corrections: (The following items were deleted from the chart) 02: 02:18 Discharged to home via wheelchair, mg2 mg2
--- NOTE | 2018-05-29 00:44 | EDPHYS ---
Physician Documentation [facility] Name: Reena Gandhi Age: 72 yrs Sex: Female : 1945 Arrival Date: 05/28/2018 Time: 20:45 Bed 23 Private MD: ANANYA Physician Jose Andres HPI: 05/28 21:30 This 72 yrs old Female presents to ER via EMS with complaints of shortness of cp breath. 21:30 The patient has shortness of breath at rest. Onset: The symptoms/episode began/occurred cp at an unknown time. and became worse today. Duration: The symptoms are continuous, and are steadily getting worse. Historical: - Allergies: 21:00 Codeine; mg2 21:00 PENICILLINS; mg2 21:00 Sulfa (Sulfonamide Antibiotics); mg2 - Home Meds: 21:00 alprazolam 0.5 mg Oral tab 1 tab 3 times per day [Active]; aspirin 81 mg Oral chew 1 mg2 tab once daily [Active]; benzonatate 100 mg Oral cap 1 cap 3 times per day for Cough [Active]; chlorthalidone 25 mg Oral tab 1 tab once daily [Active]; clopidogrel 75 mg Oral tab 1 tab once daily [Active]; furosemide 20 mg Oral tab 1 tab once daily [Active]; gabapentin 300 mg Oral cap 1 cap 3 times per day [Active]; hyoscyamine sulfate 0.125 mg SL subl for rectal spasms [Active]; Lanoxin 125 mcg Oral tab 1 tab once daily [Active]; levothyroxine 25 mcg tab 1 tab once daily for Hypothyroidism [Active]; lisinopril 2.5 mg Oral tab 1 tab once daily [Active]; metoprolol tartrate 25 mg Oral tab 1 tab once daily [Active]; Senexon-S 8.6-50 mg Oral tab 2 tabs once daily [Active]; senna 8.6 mg Oral tab 2 tabs once daily [Active]; sertraline 100 mg Oral tab 1 tab once daily [Active]; - PMHx: 21:00 Anxiety; Cancer; CHF; COPD; PR (November 03, 2017); TIA; mg2 - PSHx: 05/29 01:48 Hysterectomy; Tonsillectomy; radical mastectomy; back surgery; mg2 - Immunization history:: Flu vaccine is not up to date. - Social history:: Smoking status: Patient uses tobacco products, smokes one-half pack cigarettes per day, Patient/guardian denies using alcohol, street drugs, IV drugs. - Ebola Screening: : No symptoms or risks identified at this time. ROS: 05/28 21:35 Constitutional: Negative for body aches, chills, fever, poor PO intake. cp 21:35 Eyes: Negative for injury, pain, redness, and discharge. cp 21:35 ENT: Negative for drainage from ear(s), ear pain, sore throat, difficulty swallowing, cp difficulty handling secretions. 21:35 Cardiovascular: Positive for chest pain, Negative for edema, palpitations. 21:35 Respiratory: Positive for cough, shortness of breath, at rest. 21:35 Abdomen/GI: Negative for abdominal pain, vomiting, diarrhea, constipation, black/tarry stool, rectal bleeding. 21:35 Back: Negative for pain at rest, pain with movement, radiated pain. 21:35 : Negative for urinary symptoms. 21:35 Skin: Negative for cellulitis, rash. cp 21:35 Neuro: Negative for altered mental status, headache, weakness. 21:35 All other systems are negative. Exam: 20:45 ECG was reviewed by the Attending Physician. cp 21:33 ECG was reviewed by the Attending Physician. cp 21:45 Constitutional: The patient appears in no acute distress, alert, awake, cp non-diaphoretic, non-toxic, well developed, in obvious distress, moderately distressed. 21:45 Head/Face: Normocephalic, atraumatic. cp 21:45 Eyes: Periorbital structures: appear normal, Pupils: equal, round, and reactive to light and accomodation, Extraocular movements: intact throughout, Conjunctiva: normal, no exudate, no injection, Sclera: no appreciated abnormality, Lids and lashes: appear normal, bilaterally. 21:45 ENT: External ear(s): are unremarkable, Ear canal(s): are normal, clear, TM's: bulging, is not appreciated, bilaterally, dullness, bilaterally, erythema, is not appreciated, bilaterally, Nose: is normal, Mouth: Lips: moist, Oral mucosa: pink and intact, moist, Posterior pharynx: is normal, airway is patent, no erythema, no exudate. 21:45 Neck: ROM/movement: is normal, is supple, without pain, no range of motions limitations, no meningismus, no nuchal rigidity, Lymph nodes: no appreciated lymphadenopathy. 21:45 Chest/axilla: Inspection: normal, Palpation: is normal, no crepitus, no tenderness. 21:45 Cardiovascular: Rate: tachycardic, Rhythm: regular, Pulses: Pulses are 2+ in right radial artery and left radial artery. Heart sounds: murmur, systolic, rub, not appreciated, gallop, not appreciated, Edema: is not appreciated, JVD: is not appreciated. 21:45 Respiratory: moderate respiratory distress is noted, Respirations: accessory muscle usage, is absent, shallow respirations, that is moderate, Breath sounds: decreased breath sounds, that are moderate, throughout, stridor, is not appreciated, wheezing: that is mild, is heard diffusely. 21:45 Abdomen/GI: Inspection: abdomen appears normal, Bowel sounds: active, all quadrants, Palpation: abdomen is soft and non-tender, in all quadrants, rebound tenderness, is not appreciated, voluntary guarding, is not appreciated, involuntary guarding, is not appreciated. 21:45 Back: pain, is absent, ROM is normal. 21:45 Skin: cellulitis, is not appreciated, no rash present. 21:45 Neuro: Orientation: to person, place \T\ time. Mentation: lucid, able to follow commands, Cerebellar function: is grossly normal, Motor: moves all fours, strength is normal, Sensation: no obvious gross deficits. Vital Signs: 20:55 BP 105 / 68; Pulse 108; Resp 35; Pulse Ox 95% on 2 lpm NC; Weight 49.9 kg; mg2 21:07 BP 121 / 75; Pulse 102; Resp 18; Temp 97.7; Pulse Ox 100% on 2 lpm NC; Height 5 ft. 4 mg2 in. (162.56 cm); Pain 0/10; 22:00 BP 115 / 74; Pulse 100; Resp 28; Pulse Ox 77% on 2 lpm NC; mg2 22:35 BP 126 / 87; Pulse 101; Resp 30; Pulse Ox 92% on 3 lpm NC; mg2 05/29 01:01 BP 136 / 92; Pulse 106; Resp 22; Pulse Ox 96% on 2 lpm NC; Pain 0/10; mg2 05/28 21:07 Body Mass Index 18.88 (49.90 kg, 162.56 cm) mg2 MDM: 05/28 21:12 Patient medically screened. cp 22:00 Differential diagnosis: Bronchitis CHF exacerbation, Chronic Obstructive Pulmonary cp Disease Myocardial Infarction pneumonia, Pneumothorax pulmonary edema, Pulmonary Embolism Sepsis Unstable Angina. 23:25 Data reviewed: vital signs, nurses notes, lab test result(s), EKG, radiologic studies, cp plain films. 05/28 21:23 Order name: Basic Metabolic Panel; Complete Time: 22:33 cp 05/28 22:34 Interpretation: Normal except: CL 109; GLUC 136; BUN 28; GFR 44. cp 05/28 21:23 Order name: CBC with Diff; Complete Time: 23:09 cp 05/28 23:09 Interpretation: Normal except: WBC 12.2; HGB 10.8; HCT 33.6; RDW 21.2; LAURA% 79.4; LYM% cp 12.9; NEUT A 9.7. 05/28 21:23 Order name: LFT's; Complete Time: 22:33 cp 05/28 21:23 Order name: Magnesium; Complete Time: 22:33 cp 05/28 21:23 Order name: NT PRO-BNP; Complete Time: 22:33 cp 05/28 21:23 Order name: PT-INR; Complete Time: 22:23 cp 05/28 21:23 Order name: Troponin (emerg Dept Use Only); Complete Time: 22:33 cp 05/28 21:23 Order name: XRAY Chest (1 view); Complete Time: 22:23 cp 05/28 21:24 Order name: Lipase; Complete Time: 22:33 cp 05/28 22:05 Order name: D-Dimer; Complete Time: 22:23 EDMS 05/28 22:25 Interpretation: Abnormal: D-DIMER 1491. cp 05/28 22:21 Order name: CBC Smear Scan; Complete Time: 23:09 EDMS 05/29 00:33 Order name: Lactate EDMS 05/29 00:33 Order name: Procalcitonin EDMS 05/28 21:23 Order name: EKG; Complete Time: 21:24 cp 05/28 21:23 Order name: Cardiac monitoring; Complete Time: 21:55 cp 05/28 21:23 Order name: EKG - Nurse/Tech; Complete Time: 21:55 cp 05/28 21:23 Order name: IV Saline Lock; Complete Time: 21:55 cp 05/28 21: Order name: Labs collected and sent; Complete Time: 21:55 cp 05/28 21: Order name: O2 Per Protocol; Complete Time: 21:56 cp 05/28 21: Order name: O2 Sat Monitoring; Complete Time: 21:56 cp EC:45 Rate is 106 beats/min. Rhythm is regular. SD interval is normal. QRS interval is cp normal. QT interval is normal. Interpreted by me. Reviewed by me. 21:33 Rate is 115 beats/min. Rhythm is regular. SD interval is normal. QRS interval is cp normal. QT interval is normal. Interpreted by me. Reviewed by me. Administered Medications: 21:58 Drug: AtroVENT Aerosol 0.5 mg Route: Inhalation; mg2 21:58 Drug: Xopenex (3) 0.63 mg Route: Inhalation; mg2 22:16 Drug: Nitroglycerin 0.4 mg Route: Sublingual; mg2 23:00 Follow up: Response: No adverse reaction; Marked relief of symptoms mg2 22:16 Drug: Aspirin Chewable Tablet 324 mg Route: PO; mg2 23:00 Follow up: Response: No adverse reaction mg2 23:45 Drug: LevaQUIN 500 mg Volume: 100 ml; Route: IVPB; Infused Over: 60 mins; Site: right mg2 antecubital; 05/29 00:49 Follow up: Response: No adverse reaction; IV Status: Completed infusion mg2 05/28 23:45 Drug: AtroVENT Aerosol 0.5 mg Route: Inhalation; mg2 05/29 00:49 Follow up: Response: No adverse reaction; Marked relief of symptoms mg2 05/28 23:45 Drug: Albuterol 2.5 mg Route: Inhalation; mg2 05/29 00:49 Follow up: Response: No adverse reaction; Marked relief of symptoms mg2 05/28 23:46 Drug: Lasix 40 mg Route: IVP; Site: right antecubital; mg2 05/29 00:48 Follow up: Response: No adverse reaction; Marked relief of symptoms mg2 05/28 23:53 Not Given (Patient Refused): Lovenox 1 mg/kg Sub-Q once mg2 Disposition: 05/29 06:46 Co-signature as Attending Physician, Jose Andres MD I agree with the assessment and sosa plan of care. Disposition: 05/28/18 23:37 Hospitalization ordered by Jim Newell for Observation. Preliminary diagnosis are Pulmonary edema, Pneumonia due to other specified bacteria. - Bed requested for Telemetry/MedSurg (observation). - Status is Observation. mg2 - Condition is Stable. - Problem is new. - Symptoms have improved. UTI on Admission? No Signatures: Dispatcher [employer] EDHI Lidya Cross RN RN kl Anderson, Corey, MD MD cha Page, Corey, PA PA Sonido Israel RN RN mg2 Corrections: (The following items were deleted from the chart) 05/28 22:03 21:25 D-DIMER+COAG.LAB.BRZ ordered. EDHI EDHI 23:39 23:37 Hospitalization Ordered by Jim Newell MD for Observation. Preliminary cp diagnosis is Pulmonary edema. Bed requested for Telemetry/MedSurg (Inpatient). Status is Observation. Condition is Stable. Problem is new. Symptoms have improved. UTI on Admission? No. cp 05/29 00:34 05/28 23:39 05/28/2018 23:37 Hospitalization Ordered by Jim Newell MD for cp Observation. Preliminary diagnosis is Pulmonary edema; Pneumonia due to other specified bacteria. Bed requested for Telemetry/MedSurg (Inpatient). Status is Observation. Condition is Stable. Problem is new. Symptoms have improved. UTI on Admission? No. cp 05/29 01:18 00:34 05/28/2018 23:37 Hospitalization Ordered by Jim Newell MD for Observation. kl Preliminary diagnosis is Pulmonary edema; Pneumonia due to other specified bacteria. Bed requested for Telemetry/MedSurg (observation). Status is Observation. Condition is Stable. Problem is new. Symptoms have improved. UTI on Admission? No. cp 02:08 02:02 Constitutional: The patient appears in no acute distress, alert, cp cp 02:20 01:18 05/28/2018 23:37 Hospitalization Ordered by Jim Newell MD for Observation. mg2 Preliminary diagnosis is Pulmonary edema; Pneumonia due to other specified bacteria. Bed requested for Telemetry/MedSurg (observation). Status is Observation. Condition is Stable. Problem is new. Symptoms have improved. UTI on Admission? No. kl
[2018-05-29] MEDS ORDERED: ALBUTEROL 2.5 MG/3 ML NEB SOL NEB PRN (02:13)
[2018-05-29] MEDS ORDERED: IPRATROPIUM BROM 0.5MG/2.5ML NEB PRN (02:13)
[2018-05-29] MEDS: TRAMADOL HCL 50 MG TAB PO PRN ×2 (04:23→11:19)
[2018-05-29] MEDS ORDERED: NA CHLORIDE 0.9% 1,000 ML IV ONE (05:02)
[2018-05-29] MEDS: METHYLPREDNISOLONE 40 MG INJ IV SCH ×3 (05:37→21:36)
--- NOTE | 2018-05-29 05:49 | P.HP ---
Certification for Inpatient Patient admitted to: Inpatient With expected LOS: >2 Midnights Practitioner: I am a practitioner with admitting privileges, knowledge of patient current condition, hospital course, and medical plan of care. Services: Services provided to patient in accordance with Admission requirements found in Title 42 Section 412.3 of the Code of Federal Regulations Patient History Date of Service: 05/29/18 Reason for admission: Acute respiratory failure History of Present Illness: Ms Gandhi is a 72-year-old woman with history of COPD still smoking, pulmonary fibrosis, hypertension, CAD, CHF for previous admission note her EF is 28-30%, however we do not have any echocardiogram records, came to ER complaining of progressive shortness of breath for the last week. She was diagnosed with pneumonia and placed on antibiotic treatment yesterday in [place]. Since the patient was feeling worse today she decided to come to the ER for further evaluation. She denied any fever but has had chills. At arrival her O2 sat was in the lower 80s on room air. Lab work remarkable for leukocytosis 12.2, elevated lactate with normal procalcitonin level. Chest-x-ray shows bilateral infiltrate, possible CHF vs ARDS pattern, with right lower lobe opacity. Allergies Penicillins Allergy (Severe, Verified 05/29/18 02:47) Itching/Hives/Rash codeine Allergy (Intermediate, Verified 05/29/18 02:47) Itching/Hives/Rash Sulfa (Sulfonamide Antibiotics) Adverse Reaction (Mild, Verified 05/29/18 02:47) Nausea/Vomiting enoxaparin [From Lovenox] Adverse Reaction (Verified 05/29/18 03:31) Anaphylaxis Home medications list reviewed: Yes - Past Medical/Surgical History Has patient received pneumonia vaccine in the past: Yes Diabetic: No -: CAD with 4 stents -: Hypothyroidism -: Hypertension -: Hyperlipidemia -: CHF, systolic dysfunction. EF 28% -: Depression with anxiety -: COPD -: Anemia -: Recent heart catheterizations x2, 4 stents placed -: Hysterectomy -: Mastectomy -: Appendectomy -: Tonsillectomy Psychosocial/ Personal History: Patient lives at home - Family History Brother -: Cancer Notes: Brain CA Father -: Lung disease Notes: COPD - Social History Smoking Status: Current every day smoker Counseled patient to stop smoking for: less than 10 minutes Smoking therapy provided: Yes Patient receptive to therapy: Yes Alcohol use: No CD- Drugs: No Caffeine use: Yes Place of Residence: Home Review of Systems 10-point ROS is otherwise unremarkable Physical Examination - Vital Signs Temperature: 97.8 F Blood Pressure: 127/83 Pulse: 97 Respirations: 18 Pulse Ox (%): 100 - Physical Exam General: Alert, In no apparent distress HEENT: Atraumatic, PERRLA, Mucous membr. moist/pink, EOMI, Sclerae nonicteric Neck: Supple, 2+ carotid pulse no bruit, No LAD, Without JVD or thyroid abnormality Respiratory: Normal air movement, Crackles/rales (bilateral fine crackles, more pronounced on the right lower lobe) Cardiovascular: Regular rate/rhythm, Normal S1 S2 Gastrointestinal: Normal bowel sounds, No tenderness Musculoskeletal: No tenderness Integumentary: No rashes Neurological: Normal speech, Normal strength at 5/5 x4 extr, Normal tone, Normal affect Lymphatics: No axilla or inguinal lymphadenopathy - Studies Laboratory Data (last 24 hrs) 05/28/18 21:00: PT 11.5, INR 0.97 05/28/18 21:00: WBC 12.2 H, Hgb 10.8 L, Hct 33.6 L, Plt Count 353 05/28/18 21:00: Sodium 141, Potassium 4.1, BUN 28 H, Creatinine 1.20, Glucose 136 H, Magnesium 2.0, Total Bilirubin 0.5, AST 20, ALT 29, Alkaline Phosphatase 146 H, Lipase 93 Assessment and Plan - Problems (Diagnosis) (1) Acute respiratory failure Current Visit: Yes Status: Acute (2) COPD exacerbation Current Visit: Yes Status: Acute (3) Acute on chronic renal failure Current Visit: Yes Status: Acute Qualifiers: Acute renal failure type: unspecified Chronic kidney disease stage: unspecified stage Qualified Code(s): N17.9 - Acute kidney failure, unspecified ; N18.9 - Chronic kidney disease, unspecified (4) Pneumonia Current Visit: Yes Status: Acute Qualifiers: Pneumonia type: due to unspecified organism Laterality: right Lung location: lower lobe of lung Qualified Code(s): J18.1 - Lobar pneumonia, unspecified organism (5) CAD (coronary artery disease) Current Visit: No Status: Chronic Qualifiers: Coronary Disease-Associated Artery/Lesion type: unspecified vessel or lesion type Associated angina: angina presence unspecified (6) Hypertension Current Visit: No Status: Chronic Qualifiers: Hypertension type: essential hypertension Qualified Code(s): I10 - Essential (primary) hypertension - Plan The patient will be admitted to the hospital due to acute respiratory failure with hypoxia. Will start empiric IV antibiotic, IV steroid and breathing treatments for pneumonia on top of COPD/pulmonary fibrosis. Will order echocardiogram to evaluate cardiac function, consult health analyst. - Advance Directives Does patient have a Living Will: No Does patient have a Durable POA for Healthcare: No - Code Status/Comfort Care Code Status Assessed: Yes Code Status: Full Code
[2018-05-29] MEDS ORDERED: Levofloxacin500mg IV 500 MG/100 ML BAG IV SCH (06:00)
[2018-05-29] MEDS ORDERED: NA CHLORIDE 0.9% 1,000 ML IV SCH ×2 (06:00)
[2018-05-29 06:18] LABS: Arterial Blood Carboxyhemoglob 2.5 % (0-1.5); Blood Gas Oxyhemoglobin 91.1 % (94-97); Blood O2 Saturation 93.6 % (92-98.5)
[2018-05-29 07:27] LABS: Absolute Lymphocytes (CBC) 0.8 K/uL (0.7-4.9); Absolute Monocytes 0.5 K/uL (0.1-1.3); Absolute Neutrophil 7.9 K/uL (1.8-8.0); Basophils % 0.3 % (0-1.3); Eosinophils % 0.1 % (0-4.4); Hematocrit 28.4 % (36.0-45.0); Lymphocytes % 8.8 % (15.3-44.8); MCH 27.6 pg (27.0-35.0); MCV 82.3 fL (80-100); MPV 7.8 fL (7.6-11.3); Monocytes % 5.2 % (3.3-12.3); RBC Red Blood Cell Count 3.44 M/uL (3.86-4.86)
[2018-05-29 07:37] LABS: Potassium 3.5 mmol/L (3.5-5.1)
[2018-05-29] MEDS: ARFORMOTEROL TARTRATE 15 MCG/2 ML VIAL.NEB NEB SCH ×2 (07:57→20:14)
[2018-05-29] MEDS: ALPRAZOLAM 0.25 MG TABLET PO PRN ×2 (08:18→14:22)
[2018-05-29] MEDS: ASPIRIN EC 81 MG TAB PO SCH (08:20)
[2018-05-29] MEDS: NICOTINE 21 MG/PAT TD SCH (08:20)
[2018-05-29] MEDS: CLOPIDOGREL 75 MG TABLET PO SCH (08:20)
[2018-05-29] MEDS: METOPROLOL TAR 25 MG TAB PO SCH (08:33)
[2018-05-29] MEDS ORDERED: ALPRAZOLAM 0.25 MG TABLET PO SCH (09:00)
[2018-05-29] MEDS ORDERED: ENOXAPARIN 60 MG/0.6 ML SQ SCH (09:00)
[2018-05-29] MEDS ORDERED: ENOXAPARIN 40 MG/0.4 ML SQ SCH (09:00)
[2018-05-29 09:43] LABS: CKMB Creatine Kinase MB 1.9 ng/mL (0.3-3.6); Troponin I 0.02 ng/mL (0.0-0.045)
[2018-05-29 09:53] LABS: Thyroid Stimulating Hormone 5.15 uIU/mL (0.360-3.740)
--- NOTE | 2018-05-29 10:36 | RAD REPORT ---
EXAM DESCRIPTION: RADChest Single View05/29/2018 9:46 am CLINICAL HISTORY: Shortness of breath COMPARISON: 05/28/2018 FINDINGS: Bilateral pulmonary opacities have partially resolved. The heart remains enlarged. Small pleural effusions are present IMPRESSION: Partial resolution in the diffuse bilateral pulmonary opacities likely represent improvi ng pulmonary edema superimposed over pulmonary fibrosis
[2018-05-29] MEDS: FUROSEMIDE 20 MG/ 2ML VIAL IV SCH ×2 (10:54→17:24)
--- NOTE | 2018-05-29 11:02 | P.PN ---
Subjective Date of Service: 05/29/18 Primary Care Provider: Dr. Wynn([place], [place]) Chief Complaint: Acute respiratory failure Subjective: Other (Patient with increased anxiety this morning.) Physical Examination - Vital Signs Temperature: 97.6 F Blood Pressure: 127/83 Pulse: 96 Respirations: 18 Pulse Ox (%): 95 - Physical Exam General: Alert, In no apparent distress, Cooperative, Other (Increased anxiety) HEENT: Atraumatic Neck: Supple Respiratory: Crackles/rales (Crackles to the bases) Cardiovascular: Normal pulses, Regular rate/rhythm Gastrointestinal: Normal bowel sounds, Soft and benign, Non-distended, No masses , No rebound, No guarding Musculoskeletal: No erythema, No tenderness, No warmth Integumentary: No erythema, No warmth, No cyanosis Neurological: Normal speech, Normal strength at 5/5 x4 extr, Normal tone, Normal affect - Studies Laboratory Data (last 24 hrs) 05/28/18 21:00: PT 11.5, INR 0.97 05/28/18 21:00: WBC 12.2 H, Hgb 10.8 L, Hct 33.6 L, Plt Count 353 05/28/18 21:00: Sodium 141, Potassium 4.1, BUN 28 H, Creatinine 1.20, Glucose 136 H, Magnesium 2.0, Total Bilirubin 0.5, AST 20, ALT 29, Alkaline Phosphatase 146 H, Lipase 93 Medications List Reviewed: Yes Assessment & Plan Discharge Plan: Home Plan to discharge in: 48 Hours Physician Review Additional Text: Impression: Shortness of breath secondary to pulmonary edema/acute on chronic systolic CHF with ejection fraction of about 30% complicated with pulmonary fibrosis and COPD exacerbation Acute on chronic renal disease, stage II Anemia likely of chronic disease CAD Anxiety disorder Hypothyroidism Hypertension Hyperlipidemia Plan: Shortness of breath secondary to pulmonary edema/acute on chronic systolic CHF with ejection fraction of about 30% complicated with pulmonary fibrosis and COPD exacerbation: Cardiology and pulmonology consulted. Lasix started IV. Patient will continue with IV Solu-Medrol. Will continue with COPD medication. Will place on a 1500 cc per day fluid restriction. Chest x-ray shows improvement with diuresis. Will maintain sats above 90%. Will wean off oxygen. Await further recommendations from cardiology and pulmonology. Patient declined Lovenox for DVT prophylaxis. Anticipate discharge in the next 24-48 hr. Acute on chronic renal disease, stage II : Will need to obtain home medication. Will monitor closely. Anemia likely of chronic disease: Will monitor closely. Will evaluate for iron and B12 deficiency. CAD: Will continue with aspirin and Plavix. Will monitor cardiac enzymes. Anxiety disorder: Will provide medication for anxiety. Hypothyroidism: Will need to verify her home medication and restart. Will check tsh. Hypertension: Will continue with medication. Will monitor and adjust appropriately. Hyperlipidemia: Will verify home medication and restart. Time Spent Managing Pts Care (In Minutes): 55
[2018-05-29] MEDS: ONDANSETRON 4 MG/2 ML VIAL IV PRN (14:45)
[2018-05-29] MEDS ORDERED: POTASSIUM 25 MEQ EFFERV TAB PO ONE (15:00)
[2018-05-29] MEDS ORDERED: POTASSIUM CL SA 10 MEQ TAB PO ONE (15:51)
[2018-05-29] MEDS ORDERED: Levofloxacin 250mg IV 250 MG/50 ML BAG IV SCH (21:00)
[2018-05-29] MEDS: ATORVASTATIN 40 MG TAB PO SCH (21:35)
[2018-05-30] MEDS: METOPROLOL TAR 25 MG TAB PO SCH (05:23)
[2018-05-30] MEDS: METHYLPREDNISOLONE 40 MG INJ IV SCH (05:25)
[2018-05-30] MEDS: PANTOPRAZOLE 40MG TABLET PO SCH (05:39)
[2018-05-30] MEDS: TRAMADOL HCL 50 MG TAB PO PRN ×2 (05:43→18:34)
[2018-05-30] MEDS: ALPRAZOLAM 0.25 MG TABLET PO PRN ×2 (05:44→21:31)
[2018-05-30 06:28] LABS: Absolute Lymphocytes (CBC) 0.7 K/uL (0.7-4.9); Absolute Monocytes 0.4 K/uL (0.1-1.3); Absolute Neutrophil 5.3 K/uL (1.8-8.0); Basophils % 0.1 % (0-1.3); Hematocrit 27.5 % (36.0-45.0); Lymphocytes % 11.4 % (15.3-44.8); MCH 27.6 pg (27.0-35.0); MCV 85.4 fL (80-100); MPV 7.9 fL (7.6-11.3); Monocytes % 6.7 % (3.3-12.3); RBC Red Blood Cell Count 3.22 M/uL (3.86-4.86)
[2018-05-30 06:36] LABS: Magnesium 2.1 mg/dL (1.8-2.4); Potassium 4.3 mmol/L (3.5-5.1)
[2018-05-30] MEDS: ARFORMOTEROL TARTRATE 15 MCG/2 ML VIAL.NEB NEB SCH ×2 (07:37→20:15)
[2018-05-30 08:46] LABS: Anisocytosis 1+; Blood Morphology Comment NOTED (NOT SEEN); Burr Cells 2+; Platelet Estimate ADEQ; Urine White Blood Cell Casts OK
[2018-05-30] MEDS: ONDANSETRON 4 MG/2 ML VIAL IV PRN (09:14)
[2018-05-30] MEDS: FUROSEMIDE 20 MG/ 2ML VIAL IV SCH (09:17)
[2018-05-30] MEDS: ASPIRIN EC 81 MG TAB PO SCH (09:18)
[2018-05-30] MEDS: CLOPIDOGREL 75 MG TABLET PO SCH (09:18)
[2018-05-30] MEDS: NICOTINE 21 MG/PAT TD SCH (09:18)
--- NOTE | 2018-05-30 09:20 | P.PN ---
Subjective Date of Service: 05/30/18 Primary Care Provider: Dr. Wynn([place], [place]) Chief Complaint: Acute respiratory failure Subjective: Improving (Patient feeling better. Less anxious today. Less short of breath.) Physical Examination - Vital Signs Temperature: 97.4 F Blood Pressure: 118/70 Pulse: 100 Respirations: 18 Pulse Ox (%): 94 - Physical Exam General: Alert, In no apparent distress, Oriented x3, Cooperative HEENT: Atraumatic Neck: Supple Respiratory: Clear to auscultation bilaterally, Normal air movement Cardiovascular: Normal pulses, Regular rate/rhythm Gastrointestinal: Normal bowel sounds, Soft and benign, Non-distended, No tenderness, No masses, No rebound, No guarding Musculoskeletal: No erythema, No tenderness, No warmth Integumentary: No tenderness/swelling, No erythema, No warmth, No cyanosis Neurological: Normal speech, Normal strength at 5/5 x4 extr, Normal tone, Abnormal affect (Less anxious today.) - Studies Laboratory Data (last 24 hrs) 05/29/18 09:18: Troponin I 0.02 Microbiology Data (last 24 hrs): 05/29/18 05:02 Blood - Blood Anaerobic Blood Culture - Final 05/29/18 06:41 Nasopharnyx Influenza Type A Antigen Screen - Final 05/29/18 06:41 Nasopharnyx Influenza Type B Antigen Screen - Final Medications List Reviewed: Yes Assessment & Plan Discharge Plan: Other (Skilled placement facility) Plan to discharge in: 48 Hours Physician Review Additional Text: Impression: Shortness of breath secondary to pulmonary edema/acute on chronic systolic CHF with ejection fraction of about 30% complicated with pulmonary fibrosis and COPD exacerbation Acute on chronic renal disease, stage II Anemia likely of chronic disease CAD Anxiety disorder Hypothyroidism Hypertension Hyperlipidemia Plan: Shortness of breath secondary to pulmonary edema/acute on chronic systolic CHF with ejection fraction of about 30% complicated with pulmonary fibrosis and COPD exacerbation: Patient much improved. Will change Lasix to oral 40 mg twice daily. Will change Solu-Medrol to prednisone 20 mg 1 pill twice daily. Will continue with CHF and COPD treatment. Will have physical therapy ambulate. Patient desires to go to a skilled facility. Will discuss with long term care social worker tomorrow. Will wean off oxygen. Patient declines Lovenox for DVT prophylaxis. Will restart home medication. Will monitor closely. Possible discharge to skilled facility tomorrow. 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 Overall stable. Anemia likely of chronic disease: Will monitor closely. Will evaluate for iron and B12 deficiency. CAD: Will continue with aspirin, digoxin and Plavix. Overall stable. Cardiology plans no intervention. Anxiety disorder: Will continue to provide medication for anxiety. Will restart her med home medication Hypothyroidism: Will restart home medication. Hypertension: Will continue with her home medication medication. Will monitor and adjust appropriately. Hyperlipidemia: Will continue with her home medication Time Spent Managing Pts Care (In Minutes): 55
[2018-05-30] MEDS: LISINOPRIL 5 MG TAB PO SCH (09:34)
[2018-05-30] MEDS: SERTRALINE HCL 100 MG TAB PO SCH (09:35)
[2018-05-30] MEDS: predniSONE 20 MG TAB PO SCH ×2 (09:35→21:31)
[2018-05-30] MEDS: DIGOXIN 0.125 MG TABLET PO SCH (09:35)
[2018-05-30] MEDS ORDERED: FUROSEMIDE 40 MG TABLET PO SCH (10:00)
--- NOTE | 2018-05-30 10:10 | RAD REPORT ---
EXAM DESCRIPTION: RAD - Chest Pa And Lat (2 Views) - 05/30/2018 9:46 am CLINICAL HISTORY: COPD, CHF COMPARISON: May 29, May 28 TECHNIQUE: PA and lateral views of the chest were obtained. FINDINGS: The lungs are extensively fibrotic and hyperexpanded as a baseline. There is continued cl earing of the bilateral interstitial opacities more so in each lung base. Heart size is normal and ce ntral vasculature is within normal limits. Left costophrenic angle blunting is probably a minimal ef fusion. No acute bony finding noted. No aortic abnormality. IMPRESSION: Continued clearing of the interstitial and alveolar opacities from the lung malhotra. Prominent baseline COPD.
--- NOTE | 2018-05-30 10:20 | P.CNS ---
Date of Consult: 05/29/18 Primary Care Provider: Dr. Wynn([place], [place]) Chief Complaint: Shortness of breath History of Present Illness: Patient is 72 years of age admitted with worsening dyspnea over the past 2-3 months she does have a history of COPD congestive heart failure has not been using any medications for the past 2 or 3 months should patient has dyspnea and very mild exertion is to still continues to smoke at this time patient called an ambulance she lives in [place] becomes very dyspneic on mild exertion feeling a lot better now Allergies Penicillins Allergy (Severe, Verified 05/29/18 02:47) Itching/Hives/Rash codeine Allergy (Intermediate, Verified 05/29/18 02:47) Itching/Hives/Rash Sulfa (Sulfonamide Antibiotics) Adverse Reaction (Mild, Verified 05/29/18 02:47) Nausea/Vomiting enoxaparin [From Lovenox] Adverse Reaction (Verified 05/29/18 03:31) Anaphylaxis Home Medications: ALPRAZolam [Alprazolam] 0.25 mg PO Q8H PRN 05/30/18 Atorvastatin Calcium 40 mg PO BEDTIME 05/30/18 Budesonide [Pulmicort*] 1 amp IH BID 05/30/18 Clopidogrel Bisulfate [Plavix*] 75 mg PO DAILY 05/30/18 Digoxin [Lanoxin*] 0.125 mcg PO DAILY 05/30/18 Furosemide [Lasix*] 20 mg PO UD 05/30/18 Hyoscyamine Sulfate [Oscimin Sl] 0.125 mg SL PRN PRN 05/30/18 Ipratropium/Albuterol Sulfate [Iprat-Albut 0.5-3(2.5) mg/3 ml] 1 amp IN Q4H PRN 05/30/18 Levothyroxine Sodium 25 mcg PO DAILY 05/30/18 Lisinopril [Zestril] 2.5 mg PO DAILY 05/30/18 Metoprolol Succinate [Toprol Xl*] 25 mg PO DAILY 05/30/18 Sertraline [Zoloft*] 100 mg PO DAILY 05/30/18 Tiotropium [Spiriva Handihaler*] 2 puff IN DAILY 05/30/18 traMADol HCL [Ultram*] 50 mg PO TID PRN 05/30/18 - Past Medical/Surgical History Diabetic: No -: CAD with 4 stents -: Hypothyroidism -: Hypertension -: Hyperlipidemia -: CHF, systolic dysfunction. EF 28% -: Depression with anxiety -: COPD -: Anemia -: Recent heart catheterizations x2, 4 stents placed -: Hysterectomy -: Mastectomy -: Appendectomy -: Tonsillectomy Psychosocial/ Personal History: Patient lives at home - Family History Brother Medical History: Cancer Notes: Brain CA Father Medical History: Lung disease Notes: COPD - Social History Smoking Status: Current every day smoker Alcohol use: No CD- Drugs: No Caffeine use: Yes Place of Residence: Home Review of Systems 10-point ROS is otherwise unremarkable General: Weakness Respiratory: Shortness of Breath Physical Examination Temp Pulse Resp BP Pulse Ox 97.4 F 100 H 18 118/70 94 05/30/18 09:19 05/30/18 09:19 05/30/18 09:19 05/30/18 09:19 05/30/18 09:19 General: Alert, Oriented x3 HEENT: Atraumatic Neck: Supple Respiratory: Clear to auscultation bilaterally, Diminished Cardiovascular: No edema, Regular rate/rhythm Gastrointestinal: Normal bowel sounds, Soft and benign Musculoskeletal: No clubbing, No swelling - Problems (1) COPD (chronic obstructive pulmonary disease) Current Visit: No Status: Acute Plan: Patient is 72 years of age and active smoker admitted with progressive dyspnea over the past 2-3 months she has been having this frequent attacks per day and is having problems with activities of daily living patient has been out of her medication for the past 2 or 3 months does have some cardiomegaly she will need a low-dose prednisone bronchodilators chest x-ray shows some cardiomegaly volume overload patient was only mildly hypoxic Qualifiers: COPD type: COPD with acute exacerbation Qualified Code(s): J44.1 - Chronic obstructive pulmonary disease with (acute) exacerbation (2) CHF (congestive heart failure) Current Visit: No Status: Acute Plan: History of congestive heart failure need to resume all her medications BNP is also elevated Qualifiers: Heart failure type: unspecified Heart failure chronicity: chronic Qualified Code(s): I50.9 - Heart failure, unspecified
--- NOTE | 2018-05-30 10:24 | P.PN ---
Subjective Date of Service: 05/30/18 Primary Care Provider: Dr. Wynn([place], [place]) Chief Complaint: Shortness of breath Patient has improved significantly shortness of breath has improved Review of Systems Unremarkable Physical Examination - Vital Signs Temperature: 97.4 F Blood Pressure: 118/70 Pulse: 100 Respirations: 18 Pulse Ox (%): 94 - Physical Exam General: Alert, Oriented x3 Respiratory: Clear to auscultation bilaterally, Diminished Cardiovascular: No edema, Regular rate/rhythm - Studies Microbiology Data (last 24 hrs): 05/29/18 05:02 Blood - Blood Anaerobic Blood Culture - Final 05/29/18 06:41 Nasopharnyx Influenza Type A Antigen Screen - Final 05/29/18 06:41 Nasopharnyx Influenza Type B Antigen Screen - Final Medications List Reviewed: Yes Assessment & Plan - Problems (Diagnosis) (1) COPD (chronic obstructive pulmonary disease) Current Visit: No Status: Acute Plan: Patient is 72 years of age admitted with COPD exacerbation is doing much better the out of her medications I have added Dulera possible discharge tomorrow on prednisone 10 mg twice a day help provide her with a sample of a bronchodilator prior to discharge she does get her medications from [facility] patient does not qualify for home O2 Qualifiers: COPD type: COPD with acute exacerbation Qualified Code(s): J44.1 - Chronic obstructive pulmonary disease with (acute) exacerbation (2) CHF (congestive heart failure) Current Visit: No Status: Acute Plan: Doing much better now back on Cameron inhibitors beta-blockers reduce Lasix to 40 mg once a day vital signs are all satisfactory Qualifiers: Heart failure type: unspecified Heart failure chronicity: chronic Qualified Code(s): I50.9 - Heart failure, unspecified Physician Review Additional Text: Impression: Shortness of breath secondary to pulmonary edema/acute on chronic systolic CHF with ejection fraction of about 30% complicated with pulmonary fibrosis and COPD exacerbation Acute on chronic renal disease, stage II Anemia likely of chronic disease CAD Anxiety disorder Hypothyroidism Hypertension Hyperlipidemia Plan: Shortness of breath secondary to pulmonary edema/acute on chronic systolic CHF with ejection fraction of about 30% complicated with pulmonary fibrosis and COPD exacerbation: Patient much improved. Will change Lasix to oral 40 mg twice daily. Will change Solu-Medrol to prednisone 20 mg 1 pill twice daily. Will continue with CHF and COPD treatment. Will have physical therapy ambulate. Patient desires to go to a skilled facility. Will discuss with social media developer tomorrow. Will wean off oxygen. Patient declines Lovenox for DVT prophylaxis. Will restart home medication. Will monitor closely. Possible discharge to skilled facility tomorrow. 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 Overall stable. Anemia likely of chronic disease: Will monitor closely. Will evaluate for iron and B12 deficiency. CAD: Will continue with aspirin, digoxin and Plavix. Overall stable. Cardiology plans no intervention. Anxiety disorder: Will continue to provide medication for anxiety. Will restart her med home medication Hypothyroidism: Will restart home medication. Hypertension: Will continue with her home medication medication. Will monitor and adjust appropriately. Hyperlipidemia: Will continue with her home medication
[2018-05-30] MEDS: DULERA 200/5 (MOMETASONE/FORMOTEROL) INHALER IH SCH ×2 (11:00→21:00)
[2018-05-30] MEDS ORDERED: LORATADINE 10 MG TAB PO PRN (12:01)
[2018-05-30] MEDS: TIOTROPIUM 5 SPRAYS/INHALER IH SCH (15:00)
--- NOTE | 2018-05-30 17:36 | EKG ---
Test Date: 2018-05-29 Test Time: 07:52:52 Paper Bag Press Operator: MEASUREMENT RESULTS: Intervals: Rate: 91 SD: 132 QRSD: 78 QT: 384 QTc: 472 [place]: P: 85 SD: 132 QRS: 66 T: 84 INTERPRETIVE STATEMENTS: Normal sinus rhythm Possible Left atrial enlargement Low voltage QRS Nonspecific T wave abnormality Prolonged QT Abnormal ECG Compared to ECG 05/28/2018 21:26:54 Prolonged QT interval now present Sinus tachycardia no longer present Ventricular premature complex(es) no longer present T-wave abnormality still present Electronically Signed On 05-30-18 17:33:45 CDT by Tyler Back
--- NOTE | 2018-05-30 17:37 | EKG ---
Test Date: 2018-05-28 Test Time: 20:37:19 Vessel Slag Worker: TL MEASUREMENT RESULTS: Intervals: Rate: 106 VA: 134 QRSD: 80 QT: 364 QTc: 483 [place]: P: 86 VA: 134 QRS: 72 T: 93 INTERPRETIVE STATEMENTS: Sinus tachycardia with premature supraventricular complexes Possible Left atrial enlargement Low voltage QRS Borderline ECG Compared to ECG 01/31/2018 10:17:48 Atrial premature complex(es) now present Sinus rhythm no longer present Ventricular premature complex(es) no longer present Electronically Signed On 05-30-18 17:33:58 CDT by Tyler Back
--- NOTE | 2018-05-30 17:37 | EKG ---
Test Date: 2018-05-28 Test Time: 21:26:54 Road Commissioner: MG MEASUREMENT RESULTS: Intervals: Rate: 115 AL: 130 QRSD: 76 QT: 344 QTc: 475 [place]: P: 72 AL: 130 QRS: 65 T: 81 INTERPRETIVE STATEMENTS: Sinus tachycardia with occasional premature ventricular complexes Possible Left atrial enlargement Low voltage QRS Nonspecific T wave abnormality Abnormal ECG Compared to ECG 05/28/2018 20:37:19 Ventricular premature complex(es) now present T-wave abnormality now present Atrial premature complex(es) no longer present Electronically Signed On 05-30-18 17:33:54 CDT by Tyler Back
[2018-05-30] MEDS: ATORVASTATIN 40 MG TAB PO SCH (21:31)
--- NOTE | 2018-05-31 03:52 | PN ---
Subjective: Ms. Gandhi was admitted and seen on 05/28/2018 for COPD and CHF exacerbation as well as chest pain. Today, she is feeling better. She is in sinus rhythm. Occasional PVCs on telemetry. O2 saturations are adequate. Chest x-ray revealed resolution of her congestive heart failure. Tropo nins remained negative. She is still having anxiety issues that need to be addressed. No change in her cardiac regimen, probably switch her Lasix to p.o. An echocardiogram is pending for 05/30/2018. RENETTA/MIGUEL Voice ID: [id number] Report ID: [id number]
--- NOTE | 2018-05-31 04:07 | CON ---
Date of Consultation: 05/28/2018 Admitted on 05/28/[address] Leger's service. The patient was seen on 05/28/2018. Reason For Consultation: Congestive heart failure and chest pain. History Of Present Illness: Ms. Gandhi is a 72-year-old woman, who has a history of anxiety, conges tive heart failure, COPD. Had a myocardial infarction in December of 2017. Apparently was in [place] at that time and was transferred to [place] where she underwent 2 stents in the right coronary, 2 st ents in the left coronary system. Not sure, if they were in the LAD or circumflex. Has had a histor y of TIA in the past. She came in with mostly shortness of breath. Her chest pain was sharp. No na usea, vomiting, diaphoresis, PND, orthopnea, pedal edema. Denied palpitations or syncope. Her major complaint is COPD related and anxiety related and Dr. Canela is consulted. Allergies: SHE HAS ALLERGIES TO PENICILLIN, CODEINE, SULFA, AND LOVENOX. Review of Systems: Negative. Social History: Positive for tobacco. Family History: Positive for coronary artery disease. Medications: At home include Xanax, aspirin, chlorthalidone, Lasix, Plavix, Lanoxin, thyroid, Neuron tin, lisinopril, metoprolol. Physical Examination: General: The patient is extremely anxious, hyperventilating. Vital Signs: However were stable. She was in sinus rhythm, afebrile. HEENT: Negative. Neck: Supple. No bruit. Chest: Clear to auscultation and percussion to me. Cardiac: Revealed a regular rhythm and rate without any murmurs, gallops, or rubs. Abdomen: Benign. Extremities: Revealed no clubbing, cyanosis, or edema. Diagnostic Data: Her D-dimer was 1491. BNP was 5439. Troponin is negative. TSH was 5.150. White count is 12, hemoglobin 9.5. Blood gas was 71 pO2, pCO2 was 34, with pH of 7.4. Initial chest x-ray showed mild CHF. Second chest x-ray was normal. EKG shows sinus rhythm with PVCs. Impression And Plan: 1.Acute exacerbation of chronic diastolic congestive heart failure that is resolved. 2.Anxiety. 3.Chronic obstructive pulmonary disease. 4.Coronary artery disease, status post recent stents in October. 5.Transient ischemic attack. 6.Hypothyroidism. 7.Neuropathy. I agree with her present regimen with low dose IV Lasix 20 mg daily. I agree with Pulmonary consulta tion. If she stays in the hospital until Thursday, the , I think an echocardiogram may be reasonab le. I do not believe we are dealing with any coronary artery disease issue at this point. RENETTA/MIGUEL Voice ID: [id number] Report ID: [id number]
[2018-05-31 04:21] LABS: Absolute Lymphocytes (CBC) 0.8 K/uL (0.7-4.9); Absolute Monocytes 0.3 K/uL (0.1-1.3); Absolute Neutrophil 7.3 K/uL (1.8-8.0); Basophils % 0.5 % (0-1.3); Hematocrit 25.2 % (36.0-45.0); Lymphocytes % 8.9 % (15.3-44.8); MCH 26.9 pg (27.0-35.0); MCV 83.2 fL (80-100); MPV 7.9 fL (7.6-11.3); Monocytes % 3.6 % (3.3-12.3); RBC Red Blood Cell Count 3.02 M/uL (3.86-4.86)
[2018-05-31 04:36] LABS: Magnesium 2.1 mg/dL (1.8-2.4); Potassium 3.9 mmol/L (3.5-5.1)
[2018-05-31] MEDS ORDERED: POTASSIUM CL SA 10 MEQ TAB PO ONE (05:03)
[2018-05-31] MEDS: METOPROLOL TAR 25 MG TAB PO SCH (06:00)
[2018-05-31] MEDS: LEVOTHYROXINE SOD 0.025 MG TAB PO SCH (06:16)
[2018-05-31] MEDS: PANTOPRAZOLE 40MG TABLET PO SCH (06:17)
[2018-05-31] MEDS: ARFORMOTEROL TARTRATE 15 MCG/2 ML VIAL.NEB NEB SCH ×2 (07:50→20:39)
[2018-05-31] MEDS: TIOTROPIUM 5 SPRAYS/INHALER IH SCH (08:28)
[2018-05-31] MEDS: predniSONE 20 MG TAB PO SCH ×2 (08:29→21:43)
[2018-05-31] MEDS: SERTRALINE HCL 100 MG TAB PO SCH (08:29)
[2018-05-31] MEDS: ASPIRIN EC 81 MG TAB PO SCH (08:29)
[2018-05-31] MEDS: DULERA 200/5 (MOMETASONE/FORMOTEROL) INHALER IH SCH ×2 (08:29→21:00)
[2018-05-31] MEDS: CLOPIDOGREL 75 MG TABLET PO SCH (08:29)
[2018-05-31] MEDS: NICOTINE 21 MG/PAT TD SCH (08:30)
[2018-05-31] MEDS: DIGOXIN 0.125 MG TABLET PO SCH (08:37)
[2018-05-31] MEDS: LISINOPRIL 5 MG TAB PO SCH (08:38)
[2018-05-31] MEDS ORDERED: FUROSEMIDE 40 MG TABLET PO SCH (09:00)
[2018-05-31] MEDS ORDERED: DIGOXIN 0.125 MG TABLET PO SCH (09:00)
[2018-05-31] MEDS ORDERED: HOME MED 1 EA UNK (Lisinopril [Zestril] 2.5 MG) PO SCH (09:00)
[2018-05-31] MEDS ORDERED: LISINOPRIL 5 MG TAB PO SCH (09:00)
[2018-05-31] MEDS ORDERED: [UNRECOGNIZED DRUG - OTHER] IH SCH (09:00)
[2018-05-31] MEDS ORDERED: TIOTROPIUM 5 SPRAYS/INHALER IH SCH (09:00)
[2018-05-31] MEDS: TRAMADOL HCL 50 MG TAB PO PRN (10:14)
[2018-05-31] MEDS: ALPRAZOLAM 0.25 MG TABLET PO PRN (10:14)
--- NOTE | 2018-05-31 10:26 | ECHO ---
HEIGHT: 5 ft 4 in WEIGHT: 97 lb 0 oz DATE OF STUDY: 05/31/[address]: Jim Fenton MD 2-DIMENSIONAL: YES M.MODE: YES DOPPLER: YES COLOR FLOW: YES TDS: NO PORTABLE: NO DEFINITY: NO BUBBLE STUDY: NO DIAGNOSIS: EVALUATE CARDIAC FUNCTION CARDIAC HISTORY: CATHERIZATION: NO SURGERY: NO PROSTHETIC VALVE: NO PACEMAKER: NO MEASUREMENTS (cm) DIASTOLIC (NORMALS) SYSTOLIC (NORMALS) IVSd 1.0 (0.6-1.2) LA Diam 4.4 (1.9-4.0) LVEF 40-45% LVIDd 5.7 (3.5-5.7) LVIDs 4.8 (2.0-3.5) %FS 15% LVPWd 1.0. (0.6-1.2) Ao Diam 2.6 (2.0-3.7) 2 DIMENSIONAL ASSESSMENT: RIGHT ATRIUM: DILATED LEFT ATRIUM: DILATED RIGHT VENTRICLE: NORMAL LEFT VENTRICLE: NORMAL TRICUSPID VALVE: NORMAL MITRAL VALVE: NORMAL PULMONIC VALVE: NORMAL AORTIC VALVE: NORMAL PERICARDIAL EFFUSION: NONE AORTIC ROOT: NORMAL LEFT VENTRICULAR WALL MOTION: POSTERIOR WALL AKINESIS. DOPPLER/COLOR FLOW: MODERATE MITRAL REGURGITATION. MILD TRICUSPID REGURGITATION. TRACE OF AORTIC REGURGITATION. ESTIMATED RIGHT VENTRICULAR SYSTOLIC PRESSURE 55mmHg. ESTIMATED RIGHT ATRIAL PRESSURE 15mmHg. MODERATE PULMONARY HYPERTENSION. COMMENTS: DEPRESSED LEFT VENTRICULAR EJECTION FRACTION WITH WALL MOTION ABNORMALITY. DILATED LEFT AND RIGHT ATRIUM. MODERATE MITRAL REGURGITATION. MILD TRICUSPID REGURGITATION. TRACE OF AORTIC REGURGITATION. MODERATE PULMONARY HYPERTENSION. ATRIAL FIBRILLATION, HEART RATE 65-80 BEATS PER MINUTE. TECHNOLOGIST: NANCY STERN
[2018-05-31 12:23] LABS: Hematocrit 26.9 % (36.0-45.0)
[2018-05-31 13:04] LABS: Ferritin 40.9 ng/mL (8-388)
[2018-05-31] MEDS: HYDROCODONE/APAP 7.5/325 MG TAB PO PRN ×2 (14:18→21:47)
[2018-05-31] MEDS ORDERED: GABAPENTIN 100 MG CAP PO PRN (14:27)
--- NOTE | 2018-05-31 14:33 | P.PN ---
Subjective Date of Service: 05/31/18 Primary Care Provider: Dr. Wynn([place], [place]) Chief Complaint: Shortness of breath Subjective: Improving (Patient breathing improved. Patient still weak. Patient desires skilled placement) Physical Examination - Vital Signs Temperature: 98.5 F Blood Pressure: 98/53 Pulse: 81 Respirations: 18 Pulse Ox (%): 98 - Physical Exam General: Alert, In no apparent distress, Oriented x3, Cooperative HEENT: Atraumatic Neck: Supple Respiratory: Clear to auscultation bilaterally Cardiovascular: Normal pulses, Regular rate/rhythm Gastrointestinal: Normal bowel sounds, Soft and benign, Non-distended, No masses , No rebound, No guarding Musculoskeletal: No erythema, No tenderness, No warmth Integumentary: No erythema, No warmth, No cyanosis Neurological: Normal speech, Normal strength at 5/5 x4 extr, Normal tone, Normal affect - Studies Microbiology Data (last 24 hrs): 05/29/18 05:02 Blood - Blood Anaerobic Blood Culture - Final Medications List Reviewed: Yes Assessment & Plan Discharge Plan: Other (Skilled placement facility) Plan to discharge in: 24 Hours Physician Review Additional Text: Impression: Shortness of breath secondary to pulmonary edema/acute on chronic systolic CHF with ejection fraction of about 30% complicated with pulmonary fibrosis and COPD exacerbation 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 Lasix has been decreased to 20 mg daily. Will continue with fluid restriction. Pulmonology has adjusted steroid medication. Patient will continue with COPD and CHF treatment. Will have physical therapy ambulate and assess for skilled placement. public services assistant will help in this process. Patient now off oxygen. Patient declines DVT prophylaxis with Lovenox. Anticipate discharge to skilled facility once approved. 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 Overall improved and stable. Anemia likely of chronic disease with noted iron and B12 deficiency: Will monitor closely. Iron and B12 added. CAD: Will continue with aspirin, digoxin and Plavix. Overall stable. Cardiology plans no intervention. Anxiety disorder: Will continue to provide medication for anxiety. Will restart her med home medication Hypothyroidism: Will continue with home medication. Hypertension: Will continue with her home medication. Will monitor and adjust appropriately. Hyperlipidemia: Will continue with her home medication Back pain: Will provide medication for pain. Will need to limit pain medication. Will add Neurontin as needed for pain. I will turn the service over to Dr. Coyne tomorrow. I will go over the plan of care with her. Time Spent Managing Pts Care (In Minutes): 55
[2018-05-31] MEDS ORDERED: CYANOCOBALAMIN 1000MCG/ML INJ IM ONE (15:33)
[2018-05-31] MEDS: FERROUS SULFATE 325 MG TAB PO SCH (21:42)
[2018-05-31] MEDS: ATORVASTATIN 40 MG TAB PO SCH (21:43)
[2018-06-01] MEDS: ALPRAZOLAM 0.25 MG TABLET PO PRN ×2 (02:24→11:06)
[2018-06-01 04:18] LABS: Absolute Lymphocytes (CBC) 0.7 K/uL (0.7-4.9); Absolute Monocytes 0.4 K/uL (0.1-1.3); Absolute Neutrophil 6.1 K/uL (1.8-8.0); Hematocrit 26.2 % (36.0-45.0); Lymphocytes % 9.8 % (15.3-44.8); MCH 26.6 pg (27.0-35.0); MCV 82.3 fL (80-100); MPV 7.8 fL (7.6-11.3); Monocytes % 5.4 % (3.3-12.3); RBC Red Blood Cell Count 3.18 M/uL (3.86-4.86)
[2018-06-01 04:32] LABS: Magnesium 2.1 mg/dL (1.8-2.4); Potassium 4.3 mmol/L (3.5-5.1)
[2018-06-01] MEDS: METOPROLOL TAR 25 MG TAB PO SCH (05:34)
[2018-06-01] MEDS: LEVOTHYROXINE SOD 0.025 MG TAB PO SCH (05:35)
[2018-06-01] MEDS: HYDROCODONE/APAP 7.5/325 MG TAB PO PRN (05:35)
[2018-06-01] MEDS: PANTOPRAZOLE 40MG TABLET PO SCH (05:35)
[2018-06-01 06:02] VITALS: BMI 15.5
[2018-06-01] MEDS: ARFORMOTEROL TARTRATE 15 MCG/2 ML VIAL.NEB NEB SCH (08:10)
[2018-06-01] MEDS ORDERED: PROMETHAZINE-DM 5 ML OSYR PO PRN (08:30)
--- NOTE | 2018-06-01 08:36 | P.PN ---
Subjective Date of Service: 06/01/18 Primary Care Provider: Dr. Wynn([place], [place]) Chief Complaint: Shortness of breath Patient is improving complaining of significant coughing spells FIFI-inhibitor was stopped Review of Systems General: Weakness Respiratory: Cough, Shortness of Breath Physical Examination - Vital Signs Temperature: 97.4 F Blood Pressure: 98/57 Pulse: 74 Respirations: 20 Pulse Ox (%): 95 - Physical Exam General: Alert, Oriented x3, Cooperative Respiratory: Expiratory wheezes Cardiovascular: No edema, Regular rate/rhythm - Studies Medications List Reviewed: Yes Assessment & Plan - Problems (Diagnosis) (1) COPD (chronic obstructive pulmonary disease) Current Visit: No Status: Acute Plan: Patient is 72 years of age admitted with COPD exacerbation continue with present therapy prednisone dose has been reduced room-air sats are normal Qualifiers: COPD type: COPD with acute exacerbation Qualified Code(s): J44.1 - Chronic obstructive pulmonary disease with (acute) exacerbation (2) CHF (congestive heart failure) Current Visit: No Status: Acute Plan: Patient has congestive heart failure on echocardiogram continue with Lasix patient will need to take diuretics at home change to spironolactone possible discharge chest x-ray shows some clearing Qualifiers: Heart failure type: unspecified Heart failure chronicity: chronic Qualified Code(s): I50.9 - Heart failure, unspecified Physician Review Additional Text: Impression: Shortness of breath secondary to pulmonary edema/acute on chronic systolic CHF with ejection fraction of about 30% complicated with pulmonary fibrosis and COPD exacerbation 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 Lasix has been decreased to 20 mg daily. Will continue with fluid restriction. Pulmonology has adjusted steroid medication. Patient will continue with COPD and CHF treatment. Will have physical therapy ambulate and assess for skilled placement. business services tech will help in this process. Patient now off oxygen. Patient declines DVT prophylaxis with Lovenox. Anticipate discharge to skilled facility once approved. 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 Overall improved and stable. Anemia likely of chronic disease with noted iron and B12 deficiency: Will monitor closely. Iron and B12 added. CAD: Will continue with aspirin, digoxin and Plavix. Overall stable. Cardiology plans no intervention. Anxiety disorder: Will continue to provide medication for anxiety. Will restart her med home medication Hypothyroidism: Will continue with home medication. Hypertension: Will continue with her home medication. Will monitor and adjust appropriately. Hyperlipidemia: Will continue with her home medication Back pain: Will provide medication for pain. Will need to limit pain medication. Will add Neurontin as needed for pain. I will turn the service over to Dr. Coyne tomorrow. I will go over the plan of care with her.
[2018-06-01] MEDS: CLOPIDOGREL 75 MG TABLET PO SCH (08:45)
[2018-06-01] MEDS: NICOTINE 21 MG/PAT TD SCH (08:45)
[2018-06-01] MEDS: FERROUS SULFATE 325 MG TAB PO SCH (08:46)
[2018-06-01] MEDS: DIGOXIN 0.125 MG TABLET PO SCH (08:46)
[2018-06-01] MEDS: SERTRALINE HCL 100 MG TAB PO SCH (08:46)
[2018-06-01] MEDS: ASPIRIN EC 81 MG TAB PO SCH (08:46)
[2018-06-01 08:55] VITALS: O2SAT 97
[2018-06-01] MEDS ORDERED: SPIRONOLACTONE 25 MG TABLET PO SCH (09:00)
[2018-06-01] MEDS ORDERED: predniSONE 10 MG TAB PO SCH (09:00)
[2018-06-01] MEDS ORDERED: FUROSEMIDE 20 MG TABLET PO SCH (09:00)
[2018-06-01] MEDS ORDERED: CYANOCOBALAMIN 1,000 MCG TAB PO SCH (09:00)
[2018-06-01 13:15] VITALS: BP 135/63; TEMP 98.5
[2018-06-01] MEDS ORDERED: IPRATROPIUM BROM 0.5MG/2.5ML NEB SCH (14:00)
--- NOTE | 2018-06-01 15:01 | P.DS ---
Admission Date: 05/29/18 Discharge Date: 06/01/18 Primary Care Provider: Dr. Wynn([place], [place]) Disposition: ROUTINE DISCHARGE Discharge Condition: GOOD Reason for Admission: Shortness of breath Consultations: Dr Swartz - Pulmonology Dr rust - cardiology - Problems (1) Acute respiratory failure Onset Date: 06/01/18 Status: Acute Qualifiers: Respiratory failure complication: hypoxia Qualified Code(s): J96.01 - Acute respiratory failure with hypoxia (2) CHF (congestive heart failure) Status: Chronic Qualifiers: Heart failure type: unspecified Heart failure chronicity: acute on chronic Qualified Code(s): I50.9 - Heart failure, unspecified (3) COPD (chronic obstructive pulmonary disease) Status: Chronic Qualifiers: COPD type: COPD with acute exacerbation Qualified Code(s): J44.1 - Chronic obstructive pulmonary disease with (acute) exacerbation (4) Acute on chronic renal failure Onset Date: 06/01/18 Status: Acute Qualifiers: Acute renal failure type: unspecified Chronic kidney disease stage: unspecified stage Qualified Code(s): N17.9 - Acute kidney failure, unspecified ; N18.9 - Chronic kidney disease, unspecified (5) CAD (coronary artery disease) Onset Date: 06/01/18 Status: Chronic Qualifiers: Coronary Disease-Associated Artery/Lesion type: [place] artery [place] vs. transplanted heart: tanana heart Associated angina: angina presence unspecified Qualified Code(s): I25.10 - Atherosclerotic heart disease of tanana coronary artery without angina pectoris (6) Depression with anxiety Status: Chronic (7) Hyperlipidemia Status: Chronic Qualifiers: Hyperlipidemia type: unspecified Qualified Code(s): E78.5 - Hyperlipidemia , unspecified (8) Hypertension Onset Date: 06/01/18 Status: Chronic Qualifiers: Hypertension type: essential hypertension Qualified Code(s): I10 - Essential (primary) hypertension (9) Hypothyroidism Status: Chronic Qualifiers: Hypothyroidism type: unspecified Qualified Code(s): E03.9 - Hypothyroidism , unspecified Brief History of Present Illness: Ms Gandhi is a 72-year-old woman with history of COPD still smoking, pulmonary fibrosis, hypertension, CAD, CHF for previous admission note her EF is 28-30%, however we do not have any echocardiogram records, came to ER complaining of progressive shortness of breath for the last week. She was diagnosed with pneumonia and placed on antibiotic treatment yesterday in [place]. Since the patient was feeling worse today she decided to come to the ER for further evaluation. She denied any fever but has had chills. At arrival her O2 sat was in the lower 80s on room air. Lab work remarkable for leukocytosis 12.2, elevated lactate with normal procalcitonin level. Chest-x-ray shows bilateral infiltrate, possible CHF vs ARDS pattern, with right lower lobe opacity. Hospital Course: Overall during the hospital stay patient remained stable Patient was initially admitted to the hospital for shortness of breath most likely secondary to acute respiratory failure which was multifactorial in nature. Patient had CHF exacerbation, COPD exacerbation complicated by pulmonary fibrosis. For patient's CHF exacerbation patient was started on IV Lasix here in the hospital. Patient was also started on beta-chandana along with spironolactone. Patient had an echocardiogram done here in the hospital which ejection fraction of 30% along with his pulmonary fibrosis. Cardiology was consulted who recommended the patient continue on Lasix once discharged from the hospital visit to oral Lasix along with beta-chandana and FIFI- inhibitor. Patient then was discharged under stable condition and was given a prescription for metoprolol, lisinopril, spironolactone, lasix, and was extensively educated on fluid restrict here in the hospital. For patient's COPD exacerbation patient was started on duo nebs, steroids IV, oxygen initially. Patient was weaned to p.o. steroids and room air once there is resolution of her symptoms. Pulmonology was consulted who recommended patient be started on Brovana in addition to her other inhalers. The patient had marked improvement in her symptoms her respiratory failure did resolve while here in the hospital. Initially patient wanted to go to a detention facility however then refused to go to detention facility and wanted to go home with home health. Patient's prescription were called over to pharmacy in [place] at [facility]. 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 Vital Signs/Physical Exam: Temp Pulse Resp BP Pulse Ox 98.5 F 84 18 135/63 98 06/01/18 12:00 06/01/18 12:00 06/01/18 12:00 06/01/18 12:00 06/01/18 12:00 General: Alert, In no apparent distress HEENT: Atraumatic, PERRLA, EOMI Neck: Supple, JVD not distended Respiratory: Clear to auscultation bilaterally, Normal air movement Cardiovascular: Regular rate/rhythm, Normal S1 S2 Gastrointestinal: Normal bowel sounds, No tenderness Musculoskeletal: No tenderness Integumentary: No rashes Neurological: Normal speech, Normal tone, Normal affect Lymphatics: No axilla or inguinal lymphadenopathy Laboratory Data at Discharge: WBC 7.2 K/uL (4.3-10.9) D 06/01/18 03:55 Hgb 8.5 g/dL (12.0-15.0) L 06/01/18 03:55 Hct 26.2 % (36.0-45.0) L 06/01/18 03:55 Plt Count 304 K/uL (152-406) 06/01/18 03:55 PT 11.5 SECONDS (9.5-12.5) 05/28/18 21:00 INR 0.97 05/28/18 21:00 Sodium 138 mmol/L (136-145) 06/01/18 03:55 Potassium 4.3 mmol/L (3.5-5.1) 06/01/18 03:55 BUN 39 mg/dL (7-18) H 06/01/18 03:55 Creatinine 1.10 mg/dL (0.55-1.3) 06/01/18 03:55 Glucose 130 mg/dL (74-106) H 06/01/18 03:55 Magnesium 2.1 mg/dL (1.8-2.4) 06/01/18 03:55 Total Bilirubin 0.5 mg/dL (0.2-1.0) 05/28/18 21:00 AST 20 U/L (15-37) 05/28/18 21:00 ALT 29 U/L (12-78) 05/28/18 21:00 Alkaline Phosphatase 146 U/L (45-117) H 05/28/18 21:00 Troponin I 0.02 ng/mL (0.0-0.045) 05/29/18 09:18 Lipase 93 U/L (73-393) 05/28/18 21:00 Home Medications: ALPRAZolam [Alprazolam] 0.25 mg PO Q8H PRN 05/30/18 Atorvastatin Calcium 40 mg PO BEDTIME 05/30/18 Budesonide [Pulmicort*] 1 amp IH BID 05/30/18 Clopidogrel Bisulfate [Plavix*] 75 mg PO DAILY 05/30/18 Digoxin [Lanoxin*] 0.125 mcg PO DAILY 05/30/18 Furosemide [Lasix*] 20 mg PO UD 05/30/18 Hyoscyamine Sulfate [Oscimin Sl] 0.125 mg SL PRN PRN 05/30/18 Ipratropium/Albuterol Sulfate [Iprat-Albut 0.5-3(2.5) mg/3 ml] 1 amp IN Q4H PRN 05/30/18 Sertraline [Zoloft*] 100 mg PO DAILY 05/30/18 Tiotropium [Spiriva Handihaler*] 2 puff IN DAILY 05/30/18 traMADol HCL [Ultram*] 50 mg PO TID PRN 05/30/18 Levothyroxine Sodium 25 mcg PO DAILY #30 tablet 06/01/18 Metoprolol Tartrate [Lopressor*] 12.5 mg PO [id number] #30 tab 06/01/18 Spironolactone [Aldactone*] 25 mg PO BID #60 tab 06/01/18 predniSONE [Deltasone*] 10 mg PO BID #20 tab 06/01/18 New Medications: Levothyroxine Sodium 25 mcg PO DAILY #30 tablet Metoprolol Tartrate [Lopressor*] 12.5 mg PO [id number] #30 tab predniSONE [Deltasone*] 10 mg PO BID #20 tab Spironolactone [Aldactone*] 25 mg PO BID #60 tab Diet: Regular Activity: Ad marilynn Followup: Andriy Canela MD [ACTIVE - CAN ADMIT] - 1 Week
== END 2018-06-01 12:56 | disposition home health service (06) | DRG 291 ==
LOC: ER 20:22 → 4TH 23:37 → OBSVTOIN 05-29 11:36
PROVIDERS: ADMIT Internal Medicine; ATTEND Family Medicine
DX: I13.0 Hypertensive heart and chronic kidney disease with heart failure and stage 1 through stage 4 chronic kidney disease, or unspecified chronic kidney disease (principal); I50.23 Acute on chronic systolic (congestive) heart failure; J96.01 Acute respiratory failure with hypoxia; J44.1 Chronic obstructive pulmonary disease with (acute) exacerbation; N17.9 Acute kidney failure, unspecified; I25.10 Atherosclerotic heart disease of native coronary artery without angina pectoris; E78.5 Hyperlipidemia, unspecified; E03.9 Hypothyroidism, unspecified; F17.210 Nicotine dependence, cigarettes, uncomplicated; J84.10 Pulmonary fibrosis, unspecified; Z88.5 Allergy status to narcotic agent; Z88.0 Allergy status to penicillin; Z88.2 Allergy status to sulfonamides; Z95.5 Presence of coronary angioplasty implant and graft; F32.9 Major depressive disorder, single episode, unspecified; F41.9 Anxiety disorder, unspecified; N18.2 Chronic kidney disease, stage 2 (mild); D63.1 Anemia in chronic kidney disease; I25.2 Old myocardial infarction; Z86.73 Personal history of transient ischemic attack (TIA), and cerebral infarction without residual deficits; E53.8 Deficiency of other specified B group vitamins; E61.1 Iron deficiency
CPT/HCPCS: 36415; 71045; 71046; 80048; 80076; 82550; 82553; 82607; 82728; 82805; 83540; 83605; 83690; 83735; 83880; 84145; 84439; 84443; 84466; 84484; 85014; 85018; 85025; 85379; 85610; 87040; 87804; 93005; 93306; 94640; 96365; 96375; 97163; 99285; G0378; J1650; J1940; J2405; J2920; J3420; J7030; J7512; J7605; J7606